=== PATIENT | female | born 1945 | race African-American/Black ===

== ENCOUNTER 2016-11-03 11:22 | Inpatient (IN) ==
--- NOTE | 2016-11-02 23:02 | History and Physical Update ---
Sedation H&P Update - History and Physical H&P was reviewed, the patient examined and there: are no changes in the patients condition since last H&P was completed. - Dictation Physical: refer to H&P completed by admitting physician - Physical Exam Mental Status: alert and oriented Heart: regular rate and rhythm Lung: clear to auscultation Abdomen: within normal limits Vitals: within normal limits - Sedation Plan for Sedation: minimal Patient Consent: Procedure disscussed with patient and patinet has consented., Risks and benefits were discussed with patient,including infection,, bleeding, injury to surrounding structures, seizure, temporary nerve, Patient understands and accepts potential risks/benefits and agrees to, proceed. ASA Class: III Airway Assessment: Class III: Soft palate, base of uvula visible
--- NOTE | 2016-11-02 23:05 | Cardiology History & Physical ---
Assessment and Plan - Time spent with patient Time spent with patient: Less than 30 minutes (1) Progressive angina Status: Acute Assessment and plan: The progressive angina, positive Lexiscan scan test and abnormal perfusion myocardial imaging suggest the patient had progression of CAD. I recommend she have a cath. She is on good medical therapy. She has failed medical therapy Plan/progress: 1 admit to outpatient services , [facility] possible angioplasty or stent. we will replete potassium for replete magnesium further decisions depending on results of tests. Hydrate well with normal saline. Left heart cath and possible PTCA or stent were discussed with the patient. The risk of the procedure include but are not limited to a small risk of injury to the vessel, abnormal heart rhythm, stroke, heart attack, need for emergent surgery, contrast reaction, restenosis, or . The patient voices understanding, agrees with the plan, and desires to proceed with the heart catheterization. (2) Abnormal myocardial perfusion study Status: Acute (3) Debility Status: Acute (4) Polymyositis Status: Acute (5) coronary artery bypass graft Status: Chronic (6) coronary artery disease Status: Chronic (7) hyperlipidemia Status: Chronic (8) hypertension Status: Chronic (9) hypothyroidism Status: Chronic (10) type 2 diabetes mellitus Status: Chronic (11) Abnormal white blood cell count Status: Acute (12) Elevated white blood cell count Status: Acute (13) Low blood potassium Status: Acute (14) Low magnesium level Status: Acute History of Present Illness Chief complaint: "i"veBeen hurting with cp more"[with an abnormal Lexiscan Cardiolite study History of present illness: Ms. Serra is a 71 year old female PCP: Dr. Cortes Ramos Property Maintenance Technician: Dr. whitney Patient is 71. She has had a history of prior bypass grafting. She has had more chest pain lately. She underwent stress testing with with Lexiscan and Cardiolite. With a stress Lexiscan she had chest pain and EKG changes. Cardiolite study suggests some inferior ischemia. Her LVEF was 40-50%. She is on good medical therapy. He recommended she undergo diagnostic catheterization and possible coronary intervention No orthopnea, PND, edema, palpitations, syncope, cough, wheezing, or phlegm. No bleeding in the pt's bowels, urine, or coughing up blood. No planned surgery for the next year. No contraindication to anticoagulation for a year. Home Medications Medication Instructions Recorded Confirmed Type Allopurinol [Zyloprim] 450 mg PO DAILY 02/01/15 08/10/16 History Amlodipine Besylate 5 mg PO DAILY 02/01/15 08/10/16 History Clopidogrel [Plavix] 75 mg PO DAILY 02/01/15 08/10/16 History Dicyclomine Cap/Tab [Bentyl 10 mg PO Q8HR 02/01/15 08/10/16 History Cap/Tab] Fluticasone/Salmeterol 250-50 1 puff INH BID 02/01/15 08/10/16 History [Advair 250-50] Furosemide Tab [Lasix Tab] 80 mg PO DAILY PRN 02/01/15 08/10/16 History Gabapentin 600 mg PO TID 02/01/15 08/10/16 History Isosorbide Dinitrate [Isordil] 40 mg PO TID 02/01/15 08/10/16 History Nitroglycerin Sl Tab [Nitrostat] 0.4 mg SL Q5M PRN MDD 3 02/01/15 08/10/16 History Simvastatin [Zocor] 10 mg PO BEDTIME 02/01/15 08/10/16 History Spironolactone [Aldactone] 25 mg PO DAILY 02/01/15 08/10/16 History Tramadol HCl [Tramadol Tab] 50 mg PO TID 02/01/15 08/10/16 History Valacyclovir HCl [Valacyclovir] 1,000 mg PO DAILY 07/24/15 08/10/16 History Insulin NPH Hum/Reg Insulin Hm 30 units SUBCUT BID 08/10/16 08/10/16 History [NovoLIN 70/30] Ranitidine Tab [Zantac Tab] 150 mg PO BID 08/10/16 08/10/16 History Levothyroxine Tab [Synthroid Tab] 175 mcg PO DAILY@0700 tablet 08/25/16 Rx Levothyroxine Tab [Synthroid Tab] 200 mcg PO DAILY@0700 tablet 08/25/16 Rx Metoprolol Tartrate Tab [Lopressor 50 mg PO BID tablet 08/25/16 Rx Tab] Valsartan [Diovan] 160 mg PO DAILY tablet 08/25/16 Rx Allergies Allergy/AdvReac Type Severity Reaction Status Date / Time benazepril [From Lotrel] Allergy Severe ANAPHYLAXIS Verified 05/04/16 17:37 sulfamethoxazole Allergy Severe RASH Verified 05/04/16 17:37 [From Bactrim] trimethoprim [From Bactrim] Allergy Severe RASH Verified 05/04/16 17:37 aspirin AdvReac Severe Nausea Verified 05/04/16 17:37 12 point system: reviewed and no additional remarkable complaints except as stated (A 12 point review of systems is negative except for as mentioned in HPI. ) Medical,Surgical,& Family Hx - Medical History Cardio: History of: CAD, Hypertension, Cardiovascular Problems (Coronary Artery Disease) No history of: CHF Neurology: History of: Neurological Problems (history of poliomyelitis) No history of: Peripheral Neuropathy, Seizures HEENT: History of: HEENT Problems (cataracts with removal, wears glasses) No history of: Glaucoma Endocrine: History of: Diabetes Mellitus (NIDDM), Dyslipidemia, Thyroid Disorder (thyroid removal) Rheumatology: History of;: Gout Respiratory: History of: Asthma (on advair), Bronchitis, Obstructive Sleep Apnea (has cpap machine but does not use) Renal: History of: Renal Failure (hypovolemia present) No history of: Renal Problems (acute kidney injury in July 2015) Genitourinary: History of: Bladder Problem (urgency), Kidney Stones Gastrointestinal: History of: GERD, Polyps, GI Problems (diarrhea at times.) No history of: Hemorrhoids, Hepatitis, Liver Problems Musculoskeletal: History of: Musculoskeletal Problems (arthritis in shoulders ( gets steroid shots-Dr. Mensah)) Hematology: No history of: Blood Transfusion Reaction Other: No history of: Anesthesia Reactions, Cancer - Surgical History Cardiac Surgeries: Sugical HX of: Cardiac Surgery (triple bypass 1995) Patient Denies: Cardiac Catheterization Thoracic Surgeries: Surgical HX of;: Lithotripsy (x 3) Neurologic Surgeries: Patient denies: Neurologic Surgery HEENT Surgeries: Surgical HX of: Eye Surgery (cataracts), Thyroid Surgery ( thyroidectomy), Tonsilectomy & Adenoidectomy Abdominal Surgeries: Surgical HX of: Abdominal Surgery (colon obstruction 36" of intestines removed), Appendectomy, Cholecystectomy, Colonoscopy, EGD Reproductive Surgeries: Surgical HX of;: Section (x 3), Hysterectomy Orthopedic Surgeries: Surgical HX of;: Orthopedic Surgery (leg surgery from polio as child) - Family History Family History: Reports;: Family Cancer (throat-brother), Family Diabetes (aunts ), Family Heart Disease (dad), Family Hypertension - Social History Smoking Status: Former smoker Have you smoked in the last 12 months: No Time spent discussing smoking cessation with patient: 3 to 10 minutes Frequency of Alcohol Use: Rarely Type of Drug Use: None Functional capacity: independent ambulation Cardiology Physical Exam - Constitutional Exam: HEENT: Pupils equal, reactive to light and accommodation Neck: NoJVD or bruit Lungs clear to auscultation Heart: Regular rhythm rate with normal S1 and S2. Apical S4, 2/6 systolic ejection murmur Abdomen: No hepatosplenomegaly Spine/extremities: No clubbing, cyanosis, ; 3+ chronic lower extremity edema Neuro: Nonfocal Psych: No depression or anxiety Femoral pulses are 3-4+. Deep. Foot pulses are 2-3+. Result/EKG - Labs Lab Results: I have reviewed the past 24 hour labs Labs: Labs from [facility] revealed elevated white count around 12-14,000 and slight left shift. She does not know of an infected site. Chemistry is remarkable for low potassium and low magnesium.
[~2016-11-03 11:22] MED LIST: DIAZEPAM 5 MG TABLET PO ONE; MAGNESIUM SULF RIDER 2 GM in PREMIX 1 EACH IV ONE; POTASSIUM CHLORIDE 20 MEQ PACK PO ONE; POTASSIUM CHLORIDE RIDER 10 MEQ in PREMIX 1 EACH IV PRN; POTASSIUM CHLORIDE RIDER 10 MEQ in PREMIX 2 EACH IV ONE; SODIUM CHLORIDE 0.9% 1,000 ML IV SCH; diphenhydrAMINE CAP 25 MG CAPSULE PO ONE
--- NOTE | 2016-11-03 12:25 | EKG Report ---
Stationary ECG Study [facility] Test Date: 11/03/2016 12:24:26 PM Pat Name: DARLIN TOMAS Department: Room: C008 Gender: F Plugman: : 1945 Requested by: Elies Thorne Order Number: [id number] Reading MD: ELISE THORNE Intervals [place] Rate: 73 P: 76 AL: 142 QRS: -3 QRSD: 93 T: -82 QT: 385 QTc: 410 Interpretive Statements SINUS RHYTHM Electronically Signed On 11-03-16 16:30:52 CDT by ELISE THORNE [email or web address]
[2016-11-03] MEDS ORDERED: DIAZEPAM 5 MG TABLET ONE (13:01)
[2016-11-03] MEDS ORDERED: diphenhydrAMINE CAP 25 MG CAPSULE ONE (13:02)
[2016-11-03 13:10] LABS: Basophils % 0.1 % (0.0-0.8); Eosinophils # 0.4 10*3/uL (0.0-0.87); Eosinophils % 4.3 % (0.00-10.9); Hematocrit 34.5 VOL% (35.7-47.0); Hemoglobin 11.1 GM/DL (12.0-16.0); Immature Granulocytes % 0.7 %; Immature Granulocytes Absolute 0.06 #; Lymphocytes # 1.7 10*3/uL (1.4-4.0); Lymphocytes % 19.8 % (21.3-54.2); Mean Corpuscular HGB Conc 32.2 GM/DL (32-36); Mean Corpuscular Hemoglobin 30 PG (27-34); Mean Corpuscular Volume 91.8 FL (87-102); Mean Platelet Volume 10.9 FL (9.6-12.0); Monocytes # 0.7 10*3/uL (0.11-0.8); Monocytes % 7.6 % (1.7-12.7); Neutrophils # 5.8 10*3/uL (1.4-7.4); Neutrophils % 67.5 % (38.7-73.9); Platelet Count 247 T/CUMM (130-400); Red Blood Count 3.76 MC/CUMM (3.8-5.5); Red Cell Distribution Width 13.6 % (9.3-17.3); White Blood Count 8.6 T/CUMM (4-12)
[2016-11-03 13:35] LABS: Calcium 9.3 MG/DL (8.5-10.1); Osmolality,Calculated 277.3 MOS/KG (273-304); Potassium 3.6 MMOL/L (3.5-5.1)
--- NOTE | 2016-11-03 14:32 | XRay Report ---
Portable chest Date: 11/03/2016 Clinical history: Chest pain Comparison: 08/12/2016 Technique: Portable AP sitting chest Findings: The heart is minimally enlarged with prior median sternotomy. More prominent pulmonary vasculature/right hilum. Progressive parenchymal findings are noted. Persistent localized eventration of the right hemidiaphragm. Degenerative changes are noted with cervical ribs and spina bifida occulta defect. Impression: Status post median sternotomy with findings consistent with mild CHF. Increased right hilar density which probably is related to more prominent vasculature but is difficult to exclude adenopathy, etc. Follow-up PA and lateral chest x-ray recommended. PROCEDURE INTERPRETED AT [facility] DEPARTMENT OF RADIOLOGY Final Report Signed by: Dr. Anny Vazquez
[2016-11-03] MEDS ORDERED: MIDAZOLAM 2 MG/2 ML VIAL ONE (14:38)
[2016-11-03] MEDS ORDERED: MEPERIDINE 25 MG/1 ML VIAL ONE (14:38)
[2016-11-03] MEDS ORDERED: LIDOCAINE 1% 20 ML VIAL ONE (14:45)
[2016-11-03] MEDS ORDERED: MAGNESIUM SULF RIDER 50 ML IV ONE (14:58)
[2016-11-03] MEDS ORDERED: HEPARIN 5,000 UNIT/1 ML VIAL ONE (15:04)
[2016-11-03] MEDS ORDERED: NIFEdipine 10 MG CAPSULE ONE (15:05)
[2016-11-03] MEDS ORDERED: HYDROmorphone 2 MG/1 ML VIAL ONE (15:09)
--- NOTE | 2016-11-03 15:45 | Operative Note ---
Date of procedure: 11/03/16 Procedure Preformed: Left heart cath Coronary angiography Left ventriculography Supravalvular aortography Vein graft injection-3 different vein grafts--all occluded Nonselective injection of the left internal mammary artery Angiogram of the right femoral artery Angio-Seal of the right femoral artery-successful Surgeon / Physician: Jerardo Thorne Sifting Operator: Al Anders Post-op diagnosis: same (Progressive angina, known coronary disease, history of remote bypass grafting, Lexiscan Cardiolite which suggested inferior ischemia) Findings: Impression: Significant distal left main[80%], circumflex, distal LAD, and right coronary disease Moderate disease in the midportion of the LAD Normal global/regional left ventricular systolic function, LVEF greater than 60% Mild to moderate elevation of LVEDP, 18-20 mmHg Vein graft to the LAD is occluded Vein graft to the right coronary is occluded Vein graft to the circumflex is occluded Nonselective injection of the left subclavian --does not demonstrate a MANUEL-may be either an anomaly/congenital or surgically removed Right femoral artery angiogram Angio-Seal right femoral artery Plan/recommendation: Based on the study, the patient's progressive angina is probably due to her recent occluded right coronary artery. However, she also significant distal left main, circumflex, and distal LAD disease. Given the distal left main disease, she is not a candidate for percutaneous coronary intervention. Thus, she would be for bypass grafting. I will refer her to Dr. Moctezuma. He likely will put in graft to the LAD, the distal circumflex, possibly ramus, and may be the right coronary. Meanwhile, for her tachycardia and hypertension, will adjust medications, try to use a stronger beta-andie. Her last dose of Plavix was 11/01, last Sunday, in the a.m. I suppose it is possible Dr. Moctezuma could operate as early as Sunday. I will defer to him that final decision. I will check her lipid profile and treat per guidelines. I will consult Dr. Ramos to follow and manage her diabetes and other general medical problems. Addenda: I saw the patient post-cath. the groin puncture site and distal pulse are stable. vital signs are stable and the patient will be observed closely overnight. Specimens: none sent Estimated blood loss: minimal Condition: stable Anesthesia: local, conscious sedation Disposition: floor
[2016-11-03] MEDS ORDERED: FUROSEMIDE 40 MG/4 ML VIAL ONE (15:56)
[2016-11-03] MEDS ORDERED: FUROSEMIDE 40 MG/4 ML VIAL IV ONE (15:56)
[2016-11-03] MEDS ORDERED: MAGNESIUM SULF RIDER 4 GM in PREMIX 1 EACH IV PRN (15:58)
[2016-11-03] MEDS ORDERED: GLUCAGON 1 MG VIAL IM PRN ×2 (15:58)
[2016-11-03] MEDS ORDERED: DEXTROSE 50% 25 GM/50 ML VIAL IV PRN ×2 (15:58)
[2016-11-03] MEDS ORDERED: ACETAMINOPHEN 325 MG TABLET PO PRN (15:58)
[2016-11-03] MEDS ORDERED: ZALEPLON 5 MG CAPSULE PO PRN (15:58)
[2016-11-03] MEDS ORDERED: LACTULOSE 20 GM/30 ML UDCUP PO PRN (15:58)
[2016-11-03] MEDS ORDERED: ALBUTEROL/IPRATROPIUM 3 ML NEB RESP TX ONE (16:03)
[2016-11-03] MEDS ORDERED: FUROSEMIDE 80 MG TABLET PO PRN (16:06)
[2016-11-03] MEDS ORDERED: NITROGLYCERIN SL 0.4 MG TABLET SL PRN (16:06)
[2016-11-03] MEDS: INSULIN REGULAR 100 UNIT/ML SUBCUT SCH ×2 (16:57→21:15)
[2016-11-03] MEDS: PANTOPRAZOLE 20 MG TABLET PO SCH (17:17)
[2016-11-03] MEDS: BISOPROLOL 5 MG TABLET PO SCH ×2 (17:17→21:12)
--- NOTE | 2016-11-03 17:21 | Cardiology Operative Report ---
Date of Procedure:: 11/03/16 Post-op diagnosis: same (Progressive angina, known coronary disease, history of remote bypass grafting, Lexiscan Cardiolite which suggested inferior ischemia) Procedure: Date of procedure: 11/03/16 Procedure Preformed: Left heart cath Coronary angiography Left ventriculography Supravalvular aortography Vein graft injection-3 different vein grafts--all occluded Nonselective injection of the left internal mammary artery Angiogram of the right femoral artery Angio-Seal of the right femoral artery-successful Surgeon / Physician: Jerardo Thorne Venture Capital Analyst: Al Anders Post-op diagnosis: same (Progressive angina, known coronary disease, history of remote bypass grafting, Lexiscan Cardiolite which suggested inferior ischemia) procedure: The patient was prepped and draped in usual manner. Entered the right femoral artery via the Seldinger technique. I used a sheath and she I then exchanged for an angled pigtail. I crossed the valve. Left ventricular end-diastolic pressures measured. Left ventriculography was done. Left ventricle pullback was done. I then did a supravalvar aortography. I then exchanged for a JL4 and engaged left coronary. Multiple views were taken. The JL4 did not fit optimally because the left main was slightly out of plane. I then exchanged for a JR4. Multiple views of the right coronary were taken. I then used a JR4 to engage and inject the nubs of the vein graft to the LAD, the circumflex, the right coronary artery. They were all closed. The catheters were then removed from the patient. Angiogram the right femoral artery was done. Angio- Seal was done. It was successful. Please see the cath data sheets for the details of catheters used. Complications: None Hemodynamic data: LVEDP was 18-20 mmHg. Angiographic data: The left main coronary was large and had a distal 80% narrowing. The left anterior descending artery was a large vessel. It had a diagonal and a few septal perforators. The mid vessel had a 50% narrowing. At the junction of mid and distal vessel there was a tenting of the vessel due to wear of the grafted coming to this vessel. It was somewhat narrowed, probably greater than 70%. Otherwise, there are minimal luminal irregularities. The left circumflex system was moderate to large mid vessel had a 90% narrowing then another 90% narrowing. Otherwise there are minimal luminal irregularities in the circumflex The right coronary artery was large in size, dominant vessel with the PDA. It was occluded in its mid extent. There were [id number] collaterals. There was slow flow antegrade through the vessel. Otherwise there were minimal luminal irregularities. ROA left ventriculography revealed normal global/regional left ventricular systolic function. Overall ejection fraction was at least 65%. There is no significant mitral regurgitation. supravalvar aortography revealed a mildly ectatic aortic root. There is no significant aortic regurgitation. No vein graft was noted to emanate from the aorta. Angiogram of the right femoral artery revealed the puncture site to be in a large vessel, above the bifurcation. It was suitable for Angio-Seal. Impression: Significant distal left main[80%], circumflex, distal LAD, and right coronary disease Moderate disease in the midportion of the LAD Normal global/regional left ventricular systolic function, LVEF greater than 60% Mild to moderate elevation of LVEDP, 18-20 mmHg Vein graft to the LAD is occluded Vein graft to the right coronary is occluded Vein graft to the circumflex is occluded Nonselective injection of the left subclavian --does not demonstrate a MANUEL-may be either an anomaly/congenital or surgically removed Right femoral artery angiogram Angio-Seal right femoral artery Plan/recommendation: Based on the study, the patient's progressive angina is probably due to her recent occluded right coronary artery. However, she also significant distal left main, circumflex, and distal LAD disease. Given the distal left main disease, she is not a candidate for percutaneous coronary intervention. Thus, she would be for bypass grafting. I will refer her to Dr. Moctezuma. He likely will put in graft to the LAD, the distal circumflex, possibly ramus, and may be the right coronary. Meanwhile, for her tachycardia and hypertension, will adjust medications, try to use a stronger beta-andie. Her last dose of Plavix was 11/01, last Sunday, in the a.m. I suppose it is possible Dr. Moctezuma could operate as early as Sunday. I will defer to him that final decision. I will check her lipid profile and treat per guidelines. I will consult Dr. Ramos to follow and manage her diabetes and other general medical problems. Addenda: I saw the patient post-cath. the groin puncture site and distal pulse are stable. vital signs are stable and the patient will be observed closely overnight. Specimens: none sent Estimated blood loss: minimal Condition: stable Anesthesia: local, conscious sedation Disposition: floor Additional CC's: Jerardo Ramos Surgeon / Physician: Jerardo Thorne Estimated blood loss: minimal Specimens: none sent Condition: stable
[2016-11-03 18:14] LABS: Risk Ratio 1.71; VLDL CHOLESTEROL 14.2 MG/DL
[2016-11-03] MEDS: ALBUTEROL/IPRATROPIUM 3 ML NEB RESP TX SCH (19:50)
[2016-11-03] MEDS ORDERED: SIMVASTATIN 10 MG TABLET PO SCH (21:00)
[2016-11-03] MEDS ORDERED: RANITIDINE 150 MG TABLET PO SCH (21:00)
[2016-11-03] MEDS: POTASSIUM CHLORIDE 20 MEQ TABLET PO SCH (21:10)
[2016-11-03] MEDS: MAGNESIUM CHLORIDE 64 MG TABLET PO SCH (21:10)
[2016-11-03] MEDS: GABAPENTIN 600 MG TABLET PO SCH (21:11)
[2016-11-03] MEDS: ROSUVASTATIN 10 MG TABLET PO SCH (21:12)
[2016-11-03] MEDS: DICYCLOMINE 10 MG CAPSULE PO SCH (21:12)
[2016-11-03] MEDS: ISOSORBIDE DINITRATE SR 40 MG TABLET PO SCH (21:12)
[2016-11-03] MEDS: traMADol 50 MG TABLET PO SCH (21:12)
[2016-11-03] MEDS: INSULIN NPH/REGULAR 70/30 100 UNIT/ML SUBCUT SCH (21:15)
[2016-11-03] MEDS: FLUTICASONE/SALMETEROL 250-50 DISKUS 14 DOSE INH SCH (21:16)
[2016-11-04] MEDS: ALBUTEROL/IPRATROPIUM 3 ML NEB RESP TX SCH ×6 (00:16→20:20)
[2016-11-04 04:23] LABS: Basophils % 0.1 % (0.0-0.8); Eosinophils # 0.3 10*3/uL (0.0-0.87); Eosinophils % 3.5 % (0.00-10.9); Hematocrit 33.6 VOL% (35.7-47.0); Hemoglobin 10.8 GM/DL (12.0-16.0); Immature Granulocytes % 0.5 %; Immature Granulocytes Absolute 0.04 #; Lymphocytes # 1.3 10*3/uL (1.4-4.0); Lymphocytes % 16.3 % (21.3-54.2); Mean Corpuscular HGB Conc 32.1 GM/DL (32-36); Mean Corpuscular Hemoglobin 29 PG (27-34); Mean Corpuscular Volume 91.1 FL (87-102); Monocytes # 0.7 10*3/uL (0.11-0.8); Monocytes % 8.8 % (1.7-12.7); Neutrophils # 5.7 10*3/uL (1.4-7.4); Neutrophils % 70.8 % (38.7-73.9); Platelet Count 247 T/CUMM (130-400); Red Blood Count 3.69 MC/CUMM (3.8-5.5); Red Cell Distribution Width 13.8 % (9.3-17.3); White Blood Count 8.1 T/CUMM (4-12)
[2016-11-04 04:49] LABS: Alanine Aminotransferase < 6 U/L (13-56); Albumin 2.8 G/DL (3.4-5.0); Alkaline Phosphatase 90 U/L (45-117); Aspartate Amino Transferase 15 U/L (0-37); Blood Urea Nitrogen 11 MG/DL (7-18); Calcium 8.3 MG/DL (8.5-10.1); Glucose 46 MG/DL (74-106); Osmolality,Calculated 281.8 MOS/KG (273-304); Potassium 3.5 MMOL/L (3.5-5.1); Sodium 144 MMOL/L (136-145); Total Protein 6.6 G/DL (6.4-8.3)
[2016-11-04] MEDS: DICYCLOMINE 10 MG CAPSULE PO SCH ×3 (06:20→21:21)
[2016-11-04] MEDS: LEVOTHYROXINE 200 MCG TABLET PO SCH (06:20)
[2016-11-04] MEDS: LEVOTHYROXINE 100 MCG TABLET PO SCH (06:20)
[2016-11-04] MEDS: INSULIN NPH/REGULAR 70/30 100 UNIT/ML SUBCUT SCH ×2 (07:30→21:23)
--- NOTE | 2016-11-04 08:07 | EKG Report ---
Stationary ECG Study [facility] Test Date: 11/04/2016 8:06:48 AM Pat Name: DARLIN TOMAS Department: Room: 286 Gender: F Seismometer Operator: NADEEM : 1945 Requested by: Jerardo Thorne Order Number: [id number] Reading MD: SHAWNA MENDOZA Intervals [place] Rate: 55 P: 87 AR: 141 QRS: 16 QRSD: 98 T: -6 QT: 408 QTc: 396 Interpretive Statements SINUS RHYTHM Electronically Signed On 11-06-16 12:32:59 CDT by SHAWNA MENDOZA [id number]
[2016-11-04] MEDS: INSULIN REGULAR 100 UNIT/ML SUBCUT SCH ×4 (08:12→21:24)
[2016-11-04] MEDS ORDERED: ASPIRIN EC 81 MG TABLET PO SCH (09:00)
--- NOTE | 2016-11-04 09:15 | Cardiothoracic Progress Note ---
Cardiothoracic Subjective Interval history: Patient is a 71-year-old lady who had bypass surgery 21 years ago. She had three-vessel bypass with vein graft to the anterior descending coronary artery and circumflex marginal and right posterior descending coronary vessels. The circumflex and the posterior descending coronary vessels were both noted to be moderately diseased at the site of anastomosis. Her vein grafts have since closed and she is developing increasing symptoms of ischemic cardiac pain. Cardiac catheterization yesterday shows that the right coronary artery is totally occluded and I am not sure that there is a distal target in its distribution. There is a left main stenosis which is moderate to severe jeopardizing the intermediate and the anterior descending coronary vessels which are the only 2 definite targets which I see. An additional problem is the limitation of suitable graft material as the patient has a paralyzed left leg and the saphenous vein may be small in this leg. Saphenous vein from the right leg has been removed. Left internal mammary artery was unsuitable for anastomosis but the right internal mammary may be usable. Overall she presents a daunting surgical challenge. This translates to a relatively significant operative risk for the patient. I have done my best to explain this in detail and the patient wishes to discuss it further with her family and to reflect upon her options. I will visit her again in the morning. Exam (Progress Note) - Constitutional Vitals: Period Temp Pulse Resp BP Sys/Allen Pulse Ox Last 24 Hr 96.2 F-98.4 F 52-102 16-22 125-186/61-109 86-100 Result/EKG - Labs CBC & BMP: 11/04/16 03:29 11/04/16 03:29 Labs: Laboratory Results - last 24 hr 11/03/16 11/03/16 11/03/16 12:50 12:50 16:40 WBC 8.6 RBC 3.76 L Hgb 11.1 L Hct 34.5 L MCV 91.8 MCH 30 MCHC 32.2 RDW 13.6 Plt Count 247 MPV 10.9 Neut % (Auto) 67.5 Lymph % (Auto) 19.8 L Schuyler % (Auto) 7.6 Eos % (Auto) 4.3 Baso % (Auto) 0.1 Neut # (Auto) 5.8 Lymph # (Auto) 1.7 Schuyler # (Auto) 0.7 Eos # (Auto) 0.4 Baso # (Auto) 0.0 Immature Gran % 0.7 Nucleated RBC % 0.0 Immature Gran # 0.06 Nucleated RBCs # 0.00 Sodium 141 Potassium 3.6 Chloride 109 H Carbon Dioxide 24 Anion Gap 11.6 BUN 10 Creatinine 0.50 L GFR Calculation 143 BUN/Creatinine Ratio 20.00 Glucose 70 L POC Glucose 97 Calculated Osmolality 277.3 Calcium 9.3 Magnesium Total Bilirubin AST ALT Alkaline Phosphatase Total Creatine Kinase CK-MB (CK-2) Total Protein Albumin Globulin Albumin/Globulin Ratio Triglycerides Cholesterol LDL Cholesterol VLDL Cholesterol HDL Cholesterol Heart Disease Risk Ratio 11/03/16 11/03/16 11/03/16 19:30 Unknown Unknown WBC RBC Hgb Hct MCV MCH MCHC RDW Plt Count MPV Neut % (Auto) Lymph % (Auto) Schuyler % (Auto) Eos % (Auto) Baso % (Auto) Neut # (Auto) Lymph # (Auto) Schuyler # (Auto) Eos # (Auto) Baso # (Auto) Immature Gran % Nucleated RBC % Immature Gran # Nucleated RBCs # Sodium Potassium Chloride Carbon Dioxide Anion Gap BUN Creatinine GFR Calculation BUN/Creatinine Ratio Glucose POC Glucose 152 H Calculated Osmolality Calcium Magnesium Total Bilirubin AST ALT Alkaline Phosphatase Total Creatine Kinase 134 CK-MB (CK-2) < 1.0 Total Protein Albumin Globulin Albumin/Globulin Ratio Triglycerides 71 Cholesterol 154 LDL Cholesterol 67.0 VLDL Cholesterol 14.2 HDL Cholesterol 90 H Heart Disease Risk Ratio 1.71 11/04/16 11/04/16 11/04/16 03:29 03:29 07:27 WBC 8.1 RBC 3.69 L Hgb 10.8 L Hct 33.6 L MCV 91.1 MCH 29 MCHC 32.1 RDW 13.8 Plt Count 247 MPV 11.0 Neut % (Auto) 70.8 Lymph % (Auto) 16.3 L Schuyler % (Auto) 8.8 Eos % (Auto) 3.5 Baso % (Auto) 0.1 Neut # (Auto) 5.7 Lymph # (Auto) 1.3 L Schuyler # (Auto) 0.7 Eos # (Auto) 0.3 Baso # (Auto) 0.0 Immature Gran % 0.5 Nucleated RBC % 0.0 Immature Gran # 0.04 Nucleated RBCs # 0.00 Sodium 144 Potassium 3.5 Chloride 106 Carbon Dioxide 31 Anion Gap 10.5 BUN 11 Creatinine 0.40 L GFR Calculation 154 BUN/Creatinine Ratio 27.00 H Glucose 46 L POC Glucose 86 Calculated Osmolality 281.8 Calcium 8.3 L Magnesium 2.0 Total Bilirubin 0.50 AST 15 ALT < 6 L Alkaline Phosphatase 90 Total Creatine Kinase CK-MB (CK-2) Total Protein 6.6 Albumin 2.8 L Globulin 3.8 H Albumin/Globulin Ratio 0.7 L Triglycerides Cholesterol LDL Cholesterol VLDL Cholesterol HDL Cholesterol Heart Disease Risk Ratio Quality Measures - VTE Contraindication to Pharmacological VTE Prophylaxis: High Risk of Bleeding Specialty Discharge - Follow Up or Referrals Follow up with: Jerardo Thorne MD [Physician] - 11/28/16 12:50 pm
--- NOTE | 2016-11-04 09:27 | Consultation ---
Assessment and Plan (1) Abnormal myocardial perfusion study Status: Acute Assessment and plan: 11/04/2016: We will monitor along with cardiology. Cardiovascular surgery to see Current Visit: Yes (2) coronary artery disease Status: Chronic Assessment and plan: 11/02/2016: Stable no chest pain at present but she does have significant disease as noted per cath procedure Current Visit: No History of Present Illness - Consult Narrative Reason for consult: Worsening chest pain History of present illness: Ms. Serra is a 71 year old female Patient came in to the hospital yesterday, a primary patient of Dr. RAMOS. Has known history of cardiac disease and had a previous CABG. Was seen recently by gore seamer Dr. Thorne who did a Lexiscan stress test on her and a Cardiolite study which suggested worsening inferior ischemia. She did have a left ventricular ejection fraction at the time of 40-50% and a diagnostic catheterization procedure was done on her. She does have progression of coronary artery disease. The cath revealed significant distal left main (80%), circumflex, LAD and right coronary artery disease. Several of previous vein grafts that were done when she had a coronary artery bypass back in 1995 were occluded as noted in the cath report. It is felt she may be candidate for redo CABG. She is scheduled to be seen by cardiovascular surgery today. At this time is alert and oriented answers all questions appropriately is stable hemodynamically and not having any abdominal pain or leg swelling. She is not having any chest pain at this time, and rEST. We will monitor closely along with cardiology and cardiovascular services. Appreciate consult and she will be seen by Dr. Ramos when he returns. CC: Jerardo hTorne MD - Home Medications and Allergies Home Medications: Home Medications Medication Instructions Recorded Confirmed Type Allopurinol [Zyloprim] 450 mg PO DAILY 02/01/15 11/03/16 History Amlodipine Besylate 5 mg PO DAILY 02/01/15 11/03/16 History Clopidogrel [Plavix] 75 mg PO DAILY 02/01/15 11/03/16 History Dicyclomine Cap/Tab [Bentyl 10 mg PO Q8HR 02/01/15 11/03/16 History Cap/Tab] Fluticasone/Salmeterol 250-50 1 puff INH BID 02/01/15 11/03/16 History [Advair 250-50] Furosemide Tab [Lasix Tab] 80 mg PO DAILY PRN 02/01/15 11/03/16 History Gabapentin 600 mg PO TID 02/01/15 11/03/16 History Isosorbide Dinitrate [Isordil] 40 mg PO TID 02/01/15 11/03/16 History Nitroglycerin Sl Tab [Nitrostat] 0.4 mg SL Q5M PRN MDD 3 02/01/15 11/03/16 History Simvastatin [Zocor] 10 mg PO BEDTIME 02/01/15 11/03/16 History Spironolactone [Aldactone] 25 mg PO DAILY 02/01/15 11/03/16 History Tramadol HCl [Tramadol Tab] 50 mg PO TID 02/01/15 11/03/16 History Valacyclovir HCl [Valacyclovir] 1,000 mg PO DAILY 07/24/15 11/03/16 History Insulin NPH Hum/Reg Insulin Hm 35 units SUBCUT BID 08/10/16 11/03/16 History [NovoLIN 70/30] Ranitidine Tab [Zantac Tab] 150 mg PO BID 08/10/16 11/03/16 History Levothyroxine Tab [Synthroid Tab] 200 mcg PO DAILY@0700 tablet 08/25/16 Rx Metoprolol Tartrate Tab [Lopressor 50 mg PO BID tablet 08/25/16 11/03/16 Rx Tab] Valsartan [Diovan] 160 mg PO DAILY tablet 08/25/16 11/03/16 Rx Aspirin EC Tab 81 mg PO DAILY 11/03/16 11/03/16 History Levothyroxine Tab [Synthroid Tab] 100 mcg PO DAILY@0700 11/03/16 11/03/16 History Magnesium Chloride [Slow Mag] 128 mg PO BID 11/03/16 11/03/16 History Potassium Chloride 20 meq PO BID 11/03/16 11/03/16 History Allergies/Adverse Reactions: Allergies Allergy/AdvReac Type Severity Reaction Status Date / Time benazepril [From Lotrel] Allergy Severe ANAPHYLAXIS Verified 11/03/16 11:49 sulfamethoxazole Allergy Severe RASH Verified 11/03/16 11:49 [From Bactrim] trimethoprim [From Bactrim] Allergy Severe RASH Verified 11/03/16 11:49 aspirin AdvReac Severe Nausea Verified 11/03/16 11:49 12 point system: reviewed and no additional remarkable complaints except as stated (That mentioned the in the history and physical) Medical,Surgical,& Family Hx - Medical History Cardio: History of: CAD, Hypertension, Cardiovascular Problems (Coronary Artery Disease) No history of: CHF Neurology: History of: Neurological Problems (history of poliomyelitis) No history of: Peripheral Neuropathy, Seizures HEENT: History of: HEENT Problems (cataracts with removal, wears glasses) No history of: Glaucoma Endocrine: History of: Diabetes Mellitus (NIDDM), Dyslipidemia, Thyroid Disorder (thyroid removal) Rheumatology: History of;: Gout Respiratory: History of: Asthma (on advair), Bronchitis, Obstructive Sleep Apnea (has cpap machine but does not use) Renal: History of: Renal Failure (hypovolemia present) No history of: Renal Problems (acute kidney injury in July 2015) Genitourinary: History of: Bladder Problem (urgency), Kidney Stones Gastrointestinal: History of: GERD, Polyps, GI Problems (diarrhea at times.) No history of: Hemorrhoids, Hepatitis, Liver Problems Musculoskeletal: History of: Musculoskeletal Problems (arthritis in shoulders ( gets steroid shots-Dr. Mensah)) Hematology: No history of: Blood Transfusion Reaction Other: No history of: Anesthesia Reactions, Cancer - Surgical History Cardiac Surgeries: Sugical HX of: Cardiac Surgery (triple bypass 1995) Patient Denies: Cardiac Catheterization Thoracic Surgeries: Surgical HX of;: Lithotripsy (x 3) Neurologic Surgeries: Patient denies: Neurologic Surgery HEENT Surgeries: Surgical HX of: Eye Surgery (cataracts), Thyroid Surgery ( thyroidectomy), Tonsilectomy & Adenoidectomy Abdominal Surgeries: Surgical HX of: Abdominal Surgery (colon obstruction 36" of intestines removed), Appendectomy, Cholecystectomy, Colonoscopy, EGD Reproductive Surgeries: Surgical HX of;: Section (x 3), Hysterectomy Orthopedic Surgeries: Surgical HX of;: Orthopedic Surgery (leg surgery from polio as child) - Family History Family History: Reports;: Family Cancer (throat-brother), Family Diabetes (aunts ), Family Heart Disease (dad), Family Hypertension - Social History Smoking Status: Former smoker Frequency of Alcohol Use: Rarely Type of Drug Use: None Exam - Constitutional Vitals: Period Temp Pulse Resp BP Sys/Allen Pulse Ox Last 24 Hr 96.2 F-98.4 F 52-102 16-22 125-186/61-109 86-100 Exam: Generally well-developed female she is alert and oriented very cognitive answers all questions appropriately and psychologically emotionally stable. HEENT pupils equal epiglottis trunk movements are intact neck is supple trachea midline Cardiovascular there is 1/6 systolic ejection murmur no gallop or rub Lungs are generally clear except for a few rales Abdomen soft nondistended Extremities no clubbing cyanosis or edema present. Positive radial pulses bilateral upper extremity Results - Labs CBC & BMP: 11/04/16 03:29 11/04/16 03:29 Quality Measures - VTE Contraindication to Pharmacological VTE Prophylaxis: High Risk of Bleeding Specialty Discharge - Follow Up or Referrals Follow up with: Jerardo Thorne MD [Physician] - 11/28/16 12:50 pm
[2016-11-04] MEDS: POTASSIUM CHLORIDE 20 MEQ TABLET PO SCH ×2 (09:32→21:21)
[2016-11-04] MEDS: ALLOPURINOL 300 MG TABLET PO SCH (09:33)
[2016-11-04] MEDS: GABAPENTIN 600 MG TABLET PO SCH ×3 (09:33→21:21)
[2016-11-04] MEDS: MAGNESIUM CHLORIDE 64 MG TABLET PO SCH ×2 (09:33→21:21)
[2016-11-04] MEDS: VALSARTAN 160 MG TABLET PO SCH (09:34)
[2016-11-04] MEDS: traMADol 50 MG TABLET PO SCH ×3 (09:34→21:21)
[2016-11-04] MEDS: SPIRONOLACTONE 25 MG TABLET PO SCH (09:36)
[2016-11-04] MEDS: PANTOPRAZOLE 20 MG TABLET PO SCH (09:38)
[2016-11-04] MEDS: valACYclovir 500 MG TABLET PO SCH (09:38)
[2016-11-04] MEDS: ASPIRIN CHEW 81 MG TABLET PO SCH (09:39)
[2016-11-04] MEDS: ISOSORBIDE DINITRATE SR 40 MG TABLET PO SCH ×3 (09:39→21:21)
[2016-11-04] MEDS: FLUTICASONE/SALMETEROL 250-50 DISKUS 14 DOSE INH SCH ×2 (09:40→21:24)
[2016-11-04] MEDS: amLODIPine 5 MG TABLET PO SCH (09:40)
[2016-11-04] MEDS: BISOPROLOL 5 MG TABLET PO SCH ×2 (09:40→21:21)
[2016-11-04] MEDS: ENOXAPARIN 40 MG/0.4 ML SYRINGE SUBCUT SCH (09:46)
[2016-11-04] MEDS: FUROSEMIDE 20 MG/2 ML VIAL IV SCH ×2 (09:49→17:07)
--- NOTE | 2016-11-04 10:00 | Cardiology Progress Note ---
Assessment and Plan (1) coronary artery disease Status: Chronic Assessment and plan: 1. 71-year-old severely overweight BF with multiple medical problems including PAD with remote amputation lower extremity, status post remote CABG about 17 years ago, now with accelerated angina and three-vessel disease with close grafts 2. She is without be stable and is longer having angina 3. Right groin access site is without bleeding or bruit or tenderness 4. She is on good cardiac medications 5. CABG plan for next week Current Visit: No (2) hypertension Status: Chronic Current Visit: No (3) Progressive angina Status: Acute Current Visit: Yes Cardiology - PN: Subj Interval history: Mrs. Thornton reports feeling better she is no longer having chest pain much she was yesterday. She has no complaint in her right groin access site. Her breathing is fine but she has been in bed. She has chronic lower extremity edema with a dependent component. Dr. Moctezuma to see her this morning to plan for surgery. Exam (Progress Note) - Constitutional Vitals: Period Temp Pulse Resp BP Sys/Allen Pulse Ox Last 24 Hr 96.2 F-98.4 F 52-102 16-22 125-186/61-109 86-100 General appearance: no acute distress, morbidly obese - Head Head exam: Present: normal inspection, normocephalic, atraumatic - Respiratory Respiratory exam: Present: rales. Absent: wheezes - Cardiovascular Cardiovascular exam: Present: regular rate and rhythm. Absent: diastolic murmur , rubs - GI/Abdominal GI/Abdominal exam: Present: soft. Absent: tenderness - Extremities Exam Extremities exam: Present: edema (1+) Result/EKG - Labs CBC & BMP: 11/04/16 03:29 11/04/16 03:29 Labs: Laboratory Results - last 24 hr 11/03/16 11/03/16 11/03/16 12:50 12:50 16:40 WBC 8.6 RBC 3.76 L Hgb 11.1 L Hct 34.5 L MCV 91.8 MCH 30 MCHC 32.2 RDW 13.6 Plt Count 247 MPV 10.9 Neut % (Auto) 67.5 Lymph % (Auto) 19.8 L Giles % (Auto) 7.6 Eos % (Auto) 4.3 Baso % (Auto) 0.1 Neut # (Auto) 5.8 Lymph # (Auto) 1.7 Giles # (Auto) 0.7 Eos # (Auto) 0.4 Baso # (Auto) 0.0 Immature Gran % 0.7 Nucleated RBC % 0.0 Immature Gran # 0.06 Nucleated RBCs # 0.00 Sodium 141 Potassium 3.6 Chloride 109 H Carbon Dioxide 24 Anion Gap 11.6 BUN 10 Creatinine 0.50 L GFR Calculation 143 BUN/Creatinine Ratio 20.00 Glucose 70 L POC Glucose 97 Calculated Osmolality 277.3 Calcium 9.3 Magnesium Total Bilirubin AST ALT Alkaline Phosphatase Total Creatine Kinase CK-MB (CK-2) Total Protein Albumin Globulin Albumin/Globulin Ratio Triglycerides Cholesterol LDL Cholesterol VLDL Cholesterol HDL Cholesterol Heart Disease Risk Ratio 11/03/16 11/03/16 11/03/16 19:30 Unknown Unknown WBC RBC Hgb Hct MCV MCH MCHC RDW Plt Count MPV Neut % (Auto) Lymph % (Auto) Giles % (Auto) Eos % (Auto) Baso % (Auto) Neut # (Auto) Lymph # (Auto) Giles # (Auto) Eos # (Auto) Baso # (Auto) Immature Gran % Nucleated RBC % Immature Gran # Nucleated RBCs # Sodium Potassium Chloride Carbon Dioxide Anion Gap BUN Creatinine GFR Calculation BUN/Creatinine Ratio Glucose POC Glucose 152 H Calculated Osmolality Calcium Magnesium Total Bilirubin AST ALT Alkaline Phosphatase Total Creatine Kinase 134 CK-MB (CK-2) < 1.0 Total Protein Albumin Globulin Albumin/Globulin Ratio Triglycerides 71 Cholesterol 154 LDL Cholesterol 67.0 VLDL Cholesterol 14.2 HDL Cholesterol 90 H Heart Disease Risk Ratio 1.71 11/04/16 11/04/16 11/04/16 03:29 03:29 07:27 WBC 8.1 RBC 3.69 L Hgb 10.8 L Hct 33.6 L MCV 91.1 MCH 29 MCHC 32.1 RDW 13.8 Plt Count 247 MPV 11.0 Neut % (Auto) 70.8 Lymph % (Auto) 16.3 L Giles % (Auto) 8.8 Eos % (Auto) 3.5 Baso % (Auto) 0.1 Neut # (Auto) 5.7 Lymph # (Auto) 1.3 L Giles # (Auto) 0.7 Eos # (Auto) 0.3 Baso # (Auto) 0.0 Immature Gran % 0.5 Nucleated RBC % 0.0 Immature Gran # 0.04 Nucleated RBCs # 0.00 Sodium 144 Potassium 3.5 Chloride 106 Carbon Dioxide 31 Anion Gap 10.5 BUN 11 Creatinine 0.40 L GFR Calculation 154 BUN/Creatinine Ratio 27.00 H Glucose 46 L POC Glucose 86 Calculated Osmolality 281.8 Calcium 8.3 L Magnesium 2.0 Total Bilirubin 0.50 AST 15 ALT < 6 L Alkaline Phosphatase 90 Total Creatine Kinase CK-MB (CK-2) Total Protein 6.6 Albumin 2.8 L Globulin 3.8 H Albumin/Globulin Ratio 0.7 L Triglycerides Cholesterol LDL Cholesterol VLDL Cholesterol HDL Cholesterol Heart Disease Risk Ratio Quality Measures - VTE Contraindication to Pharmacological VTE Prophylaxis: High Risk of Bleeding Specialty Discharge - Follow Up or Referrals Follow up with: Jerardo Thorne MD [Physician] - 11/28/16 12:50 pm
[2016-11-04] MEDS: ROSUVASTATIN 10 MG TABLET PO SCH (21:21)
[2016-11-05] MEDS: ALBUTEROL/IPRATROPIUM 3 ML NEB RESP TX SCH ×5 (01:17→21:01)
[2016-11-05] MEDS: LEVOTHYROXINE 200 MCG TABLET PO SCH (06:07)
[2016-11-05] MEDS: DICYCLOMINE 10 MG CAPSULE PO SCH ×3 (06:07→21:10)
[2016-11-05] MEDS: LEVOTHYROXINE 100 MCG TABLET PO SCH (06:07)
--- NOTE | 2016-11-05 08:24 | Cardiothoracic Progress Note ---
Cardiothoracic Subjective Interval history: Patient is decided to proceed with surgery. Probably will be either or Sunday of this coming week. I have explained this to the patient and I think that she does need to remain in the hospital until surgery. She is agreeable. Exam (Progress Note) - Constitutional Vitals: Period Temp Pulse Resp BP Sys/Allen Pulse Ox Last 24 Hr 96.7 F-97.6 F 55-92 16-20 117-157/55-70 96-99 Result/EKG - Labs CBC & BMP: 11/04/16 03:29 11/04/16 03:29 Labs: Laboratory Results - last 24 hr 11/04/16 11/04/16 11/04/16 03:26 11:48 15:33 POC Glucose 146 H 245 H TSH 3rd Generation < 0.005 L 11/04/16 20:36 POC Glucose 183 H TSH 3rd Generation Quality Measures - VTE Contraindication to Pharmacological VTE Prophylaxis: High Risk of Bleeding Specialty Discharge - Follow Up or Referrals Follow up with: Jerardo Thorne MD [Physician] - 11/28/16 12:50 pm
[2016-11-05] MEDS: INSULIN REGULAR 100 UNIT/ML SUBCUT SCH ×4 (08:38→21:15)
[2016-11-05] MEDS: POTASSIUM CHLORIDE 20 MEQ TABLET PO SCH ×2 (08:39→21:09)
[2016-11-05] MEDS: MAGNESIUM CHLORIDE 64 MG TABLET PO SCH ×2 (08:39→21:09)
[2016-11-05] MEDS: valACYclovir 500 MG TABLET PO SCH (08:40)
[2016-11-05] MEDS: PANTOPRAZOLE 20 MG TABLET PO SCH (08:40)
[2016-11-05] MEDS: VALSARTAN 160 MG TABLET PO SCH (08:40)
[2016-11-05] MEDS: amLODIPine 5 MG TABLET PO SCH (08:40)
[2016-11-05] MEDS: SPIRONOLACTONE 25 MG TABLET PO SCH (08:40)
[2016-11-05] MEDS: ASPIRIN CHEW 81 MG TABLET PO SCH (08:40)
[2016-11-05] MEDS: GABAPENTIN 600 MG TABLET PO SCH ×3 (08:40→21:09)
[2016-11-05] MEDS: ALLOPURINOL 300 MG TABLET PO SCH (08:40)
[2016-11-05] MEDS: FUROSEMIDE 20 MG/2 ML VIAL IV SCH ×2 (08:41→15:08)
[2016-11-05] MEDS: traMADol 50 MG TABLET PO SCH ×3 (08:41→21:09)
[2016-11-05] MEDS: ISOSORBIDE DINITRATE SR 40 MG TABLET PO SCH ×3 (08:41→21:09)
[2016-11-05] MEDS: BISOPROLOL 5 MG TABLET PO SCH ×2 (08:41→21:09)
[2016-11-05] MEDS: ENOXAPARIN 40 MG/0.4 ML SYRINGE SUBCUT SCH (08:41)
[2016-11-05] MEDS: FLUTICASONE/SALMETEROL 250-50 DISKUS 14 DOSE INH SCH ×2 (08:41→21:32)
--- NOTE | 2016-11-05 08:46 | Cardiology Progress Note ---
Assessment and Plan (1) coronary artery disease Status: Chronic Assessment and plan: 1. 71-year-old severely overweight BF with multiple medical problems including PAD, status post remote CABG about 17 years ago, now with accelerated angina and three-vessel disease with close grafts 2. She is without be stable and is longer having angina 3. Right groin access site is without bleeding or bruit or tenderness 4. She is on good cardiac medications 5. CABG plan for next week November 05 update: 1. She is doing well clinically with no angina, ischemic event he stable 2. TSH is extremely low, on levothyroxine. On 300 g per day; discontinue this for now 3. Awaiting CABG next week 4. Status post catheterization per Dr. Thorne Current Visit: No (2) hypertension Status: Chronic Current Visit: No (3) Progressive angina Status: Acute Current Visit: Yes Cardiology - PN: Subj Interval history: Mrs. Thornton has no complaints. She had a very low TSH and is taking 300 leave of proximal and per day. She is not having tachycardia. She's had no chest discomfort shortness of breath during the night. Exam (Progress Note) - Constitutional Vitals: Period Temp Pulse Resp BP Sys/Allen Pulse Ox Last 24 Hr 96.7 F-97.6 F 55-92 16-20 117-157/55-70 96-99 General appearance: no acute distress, over weight, morbidly obese - Head Head exam: Present: normal inspection, normocephalic, atraumatic - Respiratory Respiratory exam: Present: clear to auscultation bilaterally. Absent: stridor, wheezes - Cardiovascular Cardiovascular exam: Present: regular rate and rhythm. Absent: diastolic murmur , rubs - GI/Abdominal GI/Abdominal exam: Present: soft. Absent: tenderness - Extremities Exam Extremities exam: Present: edema - Neurological Exam Neurological exam: Present: alert, oriented X3 Result/EKG - Labs CBC & BMP: 11/04/16 03:29 11/04/16 03:29 Labs: Laboratory Results - last 24 hr 11/04/16 11/04/16 11/04/16 03:26 11:48 15:33 POC Glucose 146 H 245 H TSH 3rd Generation < 0.005 L 11/04/16 20:36 POC Glucose 183 H TSH 3rd Generation Quality Measures - VTE Contraindication to Pharmacological VTE Prophylaxis: High Risk of Bleeding Specialty Discharge - Follow Up or Referrals Follow up with: Jerardo Thorne MD [Physician] - 11/28/16 12:50 pm
[2016-11-05] MEDS: INSULIN NPH/REGULAR 70/30 100 UNIT/ML SUBCUT SCH ×2 (09:14→21:16)
--- NOTE | 2016-11-05 10:17 | Family Practice Progress Note ---
Family Practice - PN: Subj Interval history: Patient seen this morning. She is stable hemodynamically, no acute distress. Very alert and oriented answers all questions appropriately and is cognitive. She is desiring to have the surgery done and was in good spirits. No changes otherwise Exam (Progress Note) - Constitutional Vitals: Period Temp Pulse Resp BP Sys/Allen Pulse Ox Last 24 Hr 96.7 F-97.7 F 55-92 16-20 117-157/55-70 96-100 Exam: Generally well-developed female she is alert and oriented very cognitive HEENT pupils equal, extraocular movements are intact are intact neck is supple trachea midline Cardiovascular there is 1/6 systolic ejection murmur Lungs are generally clear except for a few rales Abdomen soft nondistended Extremities no clubbing cyanosis or edema present. Positive radial pulses bilateral upper extremity Results - Labs CBC & BMP: 11/04/16 03:29 11/04/16 03:29 Assessment and Plan (1) Abnormal myocardial perfusion study Status: Acute Assessment and plan: 11/04/2016: We will monitor along with cardiology. Cardiovascular surgery to see Current Visit: Yes (2) coronary artery disease Status: Chronic Assessment and plan: 11/02/2016: Stable no chest pain at present but she does have significant disease as noted per cath procedure Current Visit: No Quality Measures - VTE Contraindication to Pharmacological VTE Prophylaxis: High Risk of Bleeding Specialty Discharge - Follow Up or Referrals Follow up with: Jerardo Thorne MD [Physician] - 11/28/16 12:50 pm
[2016-11-05] MEDS: ROSUVASTATIN 10 MG TABLET PO SCH (21:09)
[2016-11-06] MEDS: ALBUTEROL/IPRATROPIUM 3 ML NEB RESP TX SCH ×6 (00:04→23:15)
[2016-11-06 05:12] LABS: Basophils % 0.1 % (0.0-0.8); Eosinophils # 0.4 10*3/uL (0.0-0.87); Eosinophils % 4.8 % (0.00-10.9); Hematocrit 32.7 VOL% (35.7-47.0); Immature Granulocytes % 0.4 %; Immature Granulocytes Absolute 0.04 #; Lymphocytes # 1.9 10*3/uL (1.4-4.0); Lymphocytes % 20.9 % (21.3-54.2); Mean Corpuscular HGB Conc 30.6 GM/DL (32-36); Mean Corpuscular Hemoglobin 29 PG (27-34); Mean Corpuscular Volume 93.7 FL (87-102); Mean Platelet Volume 11.2 FL (9.6-12.0); Monocytes # 0.8 10*3/uL (0.11-0.8); Monocytes % 8.9 % (1.7-12.7); Neutrophils # 5.8 10*3/uL (1.4-7.4); Neutrophils % 64.9 % (38.7-73.9); Platelet Count 235 T/CUMM (130-400); Red Blood Count 3.49 MC/CUMM (3.8-5.5); White Blood Count 8.9 T/CUMM (4-12)
[2016-11-06 05:42] LABS: Osmolality,Calculated 282.5 MOS/KG (273-304); Potassium 5.3 MMOL/L (3.5-5.1)
[2016-11-06] MEDS: DICYCLOMINE 10 MG CAPSULE PO SCH ×3 (06:04→21:08)
--- NOTE | 2016-11-06 06:14 | Cardiothoracic Progress Note ---
Cardiothoracic Subjective Interval history: Patient is leaning toward surgery later this week. We will get ultrasound study of her left leg to get some idea whether or not the saphenous vein is going to make satisfactory graft material. 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 Will discuss with her later. Exam (Progress Note) - Constitutional Vitals: Period Temp Pulse Resp BP Sys/Allen Pulse Ox Last 24 Hr 96.2 F-99.0 F 61-85 16-22 90-156/52-70 90-100 Result/EKG - Labs CBC & BMP: 11/06/16 04:39 11/06/16 04:39 Labs: Laboratory Results - last 24 hr 11/05/16 11/05/16 11/05/16 07:29 11:36 15:40 WBC RBC Hgb Hct MCV MCH MCHC RDW Plt Count MPV Neut % (Auto) Lymph % (Auto) Stephenson % (Auto) Eos % (Auto) Baso % (Auto) Neut # (Auto) Lymph # (Auto) Stephenson # (Auto) Eos # (Auto) Baso # (Auto) Immature Gran % Nucleated RBC % Immature Gran # Nucleated RBCs # Sodium Potassium Chloride Carbon Dioxide Anion Gap BUN Creatinine GFR Calculation BUN/Creatinine Ratio Glucose POC Glucose 127 H 150 H 43 L* Calculated Osmolality Calcium 11/05/16 11/05/16 11/05/16 16:28 17:31 19:52 WBC RBC Hgb Hct MCV MCH MCHC RDW Plt Count MPV Neut % (Auto) Lymph % (Auto) Stephenson % (Auto) Eos % (Auto) Baso % (Auto) Neut # (Auto) Lymph # (Auto) Stephenson # (Auto) Eos # (Auto) Baso # (Auto) Immature Gran % Nucleated RBC % Immature Gran # Nucleated RBCs # Sodium Potassium Chloride Carbon Dioxide Anion Gap BUN Creatinine GFR Calculation BUN/Creatinine Ratio Glucose POC Glucose 38 L* 113 H 158 H Calculated Osmolality Calcium 11/06/16 11/06/16 04:39 04:39 WBC 8.9 RBC 3.49 L Hgb 10.0 L Hct 32.7 L MCV 93.7 MCH 29 MCHC 30.6 L RDW 14.0 Plt Count 235 MPV 11.2 Neut % (Auto) 64.9 Lymph % (Auto) 20.9 L Stephenson % (Auto) 8.9 Eos % (Auto) 4.8 Baso % (Auto) 0.1 Neut # (Auto) 5.8 Lymph # (Auto) 1.9 Stephenson # (Auto) 0.8 Eos # (Auto) 0.4 Baso # (Auto) 0.0 Immature Gran % 0.4 Nucleated RBC % 0.0 Immature Gran # 0.04 Nucleated RBCs # 0.00 Sodium 139 Potassium 5.3 H Chloride 102 Carbon Dioxide 32 Anion Gap 10.3 BUN 23 H Creatinine 1.00 GFR Calculation 82 BUN/Creatinine Ratio 23.00 H Glucose 137 H POC Glucose Calculated Osmolality 282.5 Calcium 9.0 Quality Measures - VTE Contraindication to Pharmacological VTE Prophylaxis: High Risk of Bleeding Specialty Discharge - Follow Up or Referrals Follow up with: Jerardo Thorne MD [Physician] - 11/28/16 12:50 pm
--- NOTE | 2016-11-06 07:45 | Ultrasound Report ---
US venous doppler LE LT Indication: Mapping study of the left greater saphenous vein. Comparison: None. Technique: Using transcutaneous probe, color Doppler, spectral Doppler, and grayscale images prior to and following compression were obtained of the left lower extremity. Ultrasound images were captured and stored. Interrogated venous structures include the left common femoral vein, superficial femoral vein (proximal, mid, and distal), and popliteal vein. Measurements were acquired in cross-sectional dimension of the left proximal, mid, and distal greater saphenous vein. Findings: There is no evidence of thrombus within the interrogated venous structures. color flow as well as spectral flow are present within the interrogated venous segments. Proximal left saphenous vein measures 3.4 mm. Mid left saphenous vein measures 2.2 mm. Distal left saphenous vein measures 4.7 mm. Saphenous vein within the upper calf measures 1.7 mm. Saphenous vein within the mid calf measures 1.8 mm. Saphenous vein within the lower calf has no measurement. Impression: 1. No evidence of venous thrombosis. 2. Saphenous vein measurements as detailed. 11/06/2016 7:41 AM PROCEDURE INTERPRETED AT [facility] DEPARTMENT OF RADIOLOGY Final Report Signed by: Dr. Billy Hollowya
[2016-11-06] MEDS: INSULIN REGULAR 100 UNIT/ML SUBCUT SCH (07:58)
[2016-11-06] MEDS: MAGNESIUM CHLORIDE 64 MG TABLET PO SCH ×2 (08:19→21:08)
[2016-11-06] MEDS: PANTOPRAZOLE 20 MG TABLET PO SCH (08:20)
[2016-11-06] MEDS: GABAPENTIN 600 MG TABLET PO SCH ×3 (08:20→21:09)
[2016-11-06] MEDS: valACYclovir 500 MG TABLET PO SCH (08:20)
[2016-11-06] MEDS: amLODIPine 5 MG TABLET PO SCH (08:20)
[2016-11-06] MEDS: BISOPROLOL 5 MG TABLET PO SCH ×2 (08:21→21:08)
[2016-11-06] MEDS: ISOSORBIDE DINITRATE SR 40 MG TABLET PO SCH ×3 (08:21→21:08)
[2016-11-06] MEDS: ASPIRIN CHEW 81 MG TABLET PO SCH (08:21)
[2016-11-06] MEDS: ENOXAPARIN 40 MG/0.4 ML SYRINGE SUBCUT SCH (08:22)
[2016-11-06] MEDS: FUROSEMIDE 20 MG/2 ML VIAL IV SCH ×2 (08:22→15:21)
[2016-11-06] MEDS: traMADol 50 MG TABLET PO SCH ×4 (08:22→21:13)
[2016-11-06] MEDS: VALSARTAN 160 MG TABLET PO SCH (08:22)
[2016-11-06] MEDS: SPIRONOLACTONE 25 MG TABLET PO SCH (08:22)
[2016-11-06] MEDS: ALLOPURINOL 300 MG TABLET PO SCH (08:22)
[2016-11-06] MEDS: INSULIN NPH/REGULAR 70/30 100 UNIT/ML SUBCUT SCH ×2 (08:23→21:09)
[2016-11-06] MEDS: FLUTICASONE/SALMETEROL 250-50 DISKUS 14 DOSE INH SCH ×2 (08:23→21:08)
[2016-11-06] MEDS: POTASSIUM CHLORIDE 20 MEQ TABLET PO SCH (08:24)
--- NOTE | 2016-11-06 09:14 | Internal Med Progress Note ---
Assessment and Plan (1) coronary artery disease Status: Chronic Assessment and plan: 71-year-old female admitted to acute care * Coronary artery disease. Patient with significant disease. She will require coronary artery bypass grafting. It is scheduled for later this week * Diabetes. Continue current treatment * Hypothyroidism. Patient has history of noncompliance with her thyroid medications. Will adjust her dose * Hypertension. Blood pressure is stable * Will DC her Partida catheter. Patient is quite able to transfer. * Discussed with patient. Current Visit: No (2) hyperlipidemia Status: Chronic Current Visit: No (3) hypertension Status: Chronic Current Visit: No (4) hypothyroidism Status: Chronic Current Visit: No (5) type 2 diabetes mellitus Status: Chronic Current Visit: No Internal Medicine - PN: Subj Interval history: 71-year-old female with history of coronary artery disease status post CABG, hypertension, diabetes, hypothyroidism, history of polio in the past was admitted for an elective cardiac catheterization. She was found to have triple- vessel disease and is recommended to undergo coronary artery bypass grafting. She is not having any chest pain. She denies any nausea vomiting or diarrhea. She is quite uncomfortable with Partida catheter and wants it removed. Exam (Progress Note) - Constitutional Vitals: Period Temp Pulse Resp BP Sys/Allen Pulse Ox Last 24 Hr 96.2 F-99.0 F 62-85 14-22 90-156/52-70 90-100 Exam: Examination: GENERAL: Morbidly obese female who is in no acute distress HEENT: PERRLA. EOMI. NECK: Neck is supple. CVS: Regular rate and rhythm. S1 and S2 are normal. Systolic ejection murmur at left sternal border RESPIRATORY: Lungs are clear. No rales or rhonchi. ABDOMEN: Soft and nontender. EXT: No edema. Peripheral pulses are present. LINE ASSEMBLER: Patient is awake, alert and oriented to time place and person. She has a brace on the left lower extremity. SKIN: Warm and dry. MSK: No obvious deformity. Results - Labs CBC & BMP: 11/06/16 04:39 11/06/16 04:39 Lab Results: I have reviewed the past 24 hour labs Quality Measures - VTE Contraindication to Pharmacological VTE Prophylaxis: High Risk of Bleeding Specialty Discharge - Follow Up or Referrals Follow up with: Jerardo Thorne MD [Physician] - 11/28/16 12:50 pm
[2016-11-06] MEDS: INSULIN LISPRO 100 UNIT/ML SUBCUT SCH ×3 (12:08→21:09)
--- NOTE | 2016-11-06 12:36 | Sleep Medicine Consult ---
Assessment and Plan (1) Obstructive sleep apnea Status: Acute Assessment and plan: This patient has a known history of obstructive sleep apnea. She has been poorly tolerant of CPAP in the past. We will need to re-document presence of sleep apnea but will not be able to do so with HST tonight. I want to go ahead and put her on empiric BiPAP therapy given her intolerance of CPAP. We will follow-up her results and if an HST is available later in the week prior to her surgery, we will have HST done. Current Visit: Yes (2) coronary artery disease Status: Chronic Assessment and plan: I reviewed the Jerez data from Lancet 2005 with the patient to their understanding. This study proved significant reduction in the risk of fatal and nonfatal cardiac events in patients with severe obstructive sleep apnea compliant with CPAP, in comparison with those noncompliant with CPAP for severe sleep apnea. Current Visit: No (3) hypertension Status: Chronic Assessment and plan: The prevalence rate for obstructive sleep apnea patients with hypertension is 35 %. That rate can be as high as 80% in patients who require 4 or more medications for blood pressure control. Current Visit: No History of Present Illness Chief complaint: Sleep apnea History of present illness: Ms. Serra is a 71 year old female admitted with chest pain and who is undergone cardiac cath and is to undergo bypass surgery later this week. She does have a history of obstructive sleep apnea diagnosed many years ago. She was originally diagnosed in 2000 by me and had moderate obstructive sleep apnea with an AHI of 21.3. She underwent titration and required BiPAP therapy due to poor tolerance of CPAP. She eventually lost her equipment, stating that she had roaches in her house and she quit using it. She saw Dr. Mondragon in 2008 and [place] and was tried on CPAP but again poorly tolerated CPAP and quit using her therapy and has been lost in follow-up to the sleep lab since. She does continue to snore and have abnormal breathing during her sleep. She does awaken 2-3 times a night to urinate. She will awaken with headaches in the morning. She does experience symptoms of daytime fatigue and sleepiness. Home Medications Medication Instructions Recorded Confirmed Type Allopurinol [Zyloprim] 450 mg PO DAILY 02/01/15 11/03/16 History Amlodipine Besylate 5 mg PO DAILY 02/01/15 11/03/16 History Clopidogrel [Plavix] 75 mg PO DAILY 02/01/15 11/03/16 History Dicyclomine Cap/Tab [Bentyl 10 mg PO Q8HR 02/01/15 11/03/16 History Cap/Tab] Fluticasone/Salmeterol 250-50 1 puff INH BID 02/01/15 11/03/16 History [Advair 250-50] Furosemide Tab [Lasix Tab] 80 mg PO DAILY PRN 02/01/15 11/03/16 History Gabapentin 600 mg PO TID 02/01/15 11/03/16 History Isosorbide Dinitrate [Isordil] 40 mg PO TID 02/01/15 11/03/16 History Nitroglycerin Sl Tab [Nitrostat] 0.4 mg SL Q5M PRN MDD 3 02/01/15 11/03/16 History Simvastatin [Zocor] 10 mg PO BEDTIME 02/01/15 11/03/16 History Spironolactone [Aldactone] 25 mg PO DAILY 02/01/15 11/03/16 History Tramadol HCl [Tramadol Tab] 50 mg PO TID 02/01/15 11/03/16 History Valacyclovir HCl [Valacyclovir] 1,000 mg PO DAILY 07/24/15 11/03/16 History Insulin NPH Hum/Reg Insulin Hm 35 units SUBCUT BID 08/10/16 11/03/16 History [NovoLIN 70/30] Ranitidine Tab [Zantac Tab] 150 mg PO BID 08/10/16 11/03/16 History Levothyroxine Tab [Synthroid Tab] 200 mcg PO DAILY@0700 tablet 08/25/16 Rx Metoprolol Tartrate Tab [Lopressor 50 mg PO BID tablet 08/25/16 11/03/16 Rx Tab] Valsartan [Diovan] 160 mg PO DAILY tablet 08/25/16 11/03/16 Rx Aspirin EC Tab 81 mg PO DAILY 11/03/16 11/03/16 History Levothyroxine Tab [Synthroid Tab] 100 mcg PO DAILY@0700 11/03/16 11/03/16 History Magnesium Chloride [Slow Mag] 128 mg PO BID 11/03/16 11/03/16 History Potassium Chloride 20 meq PO BID 11/03/16 11/03/16 History Allergies Allergy/AdvReac Type Severity Reaction Status Date / Time benazepril [From Lotrel] Allergy Severe ANAPHYLAXIS Verified 11/03/16 11:49 sulfamethoxazole Allergy Severe RASH Verified 11/03/16 11:49 [From Bactrim] trimethoprim [From Bactrim] Allergy Severe RASH Verified 11/03/16 11:49 aspirin AdvReac Severe Nausea Verified 11/03/16 11:49 Review of systems: Negative for symptoms of restless legs. Exam ([place]) H&P - Constitutional Vitals: Period Temp Pulse Resp BP Sys/Allen Pulse Ox Last 24 Hr 96.2 F-99.0 F 62-85 12-22 90-156/52-97 90-100 Exam: She is alert and responsive in no acute distress. Pupils equal round reactive to light and accommodation. Extraocular movements intact. Oropharynx with a class II Mallampati exam she has some purulent phlegm on the posterior pharyngeal wall. Neck is supple without adenopathy or thyromegaly. No supraclavicular adenopathy is noted. Chest with symmetrical breath sounds without focal wheeze, rhonchi, or rales. Cardiac exam reveals a regular rhythm without murmur or gallop. Abdomen soft nontender without palpable hepatosplenomegaly or mass. Extremities are without clubbing, cyanosis, or edema. Neurologically, she is grossly intact. She moves all extremities with good strength and answers all questions appropriately. Medical,Surgical,& Family Hx - Medical History Cardio: History of: CAD, Hypertension, Cardiovascular Problems (Coronary Artery Disease) No history of: CHF Neurology: History of: Neurological Problems (history of poliomyelitis) No history of: Peripheral Neuropathy, Seizures HEENT: History of: HEENT Problems (cataracts with removal, wears glasses) No history of: Glaucoma Endocrine: History of: Diabetes Mellitus (NIDDM), Dyslipidemia, Thyroid Disorder (thyroid removal) Rheumatology: History of;: Gout Respiratory: History of: Asthma (on advair), Bronchitis, Obstructive Sleep Apnea (has cpap machine but does not use) Renal: History of: Renal Failure (hypovolemia present) No history of: Renal Problems (acute kidney injury in July 2015) Genitourinary: History of: Bladder Problem (urgency), Kidney Stones Gastrointestinal: History of: GERD, Polyps, GI Problems (diarrhea at times.) No history of: Hemorrhoids, Hepatitis, Liver Problems Musculoskeletal: History of: Musculoskeletal Problems (arthritis in shoulders ( gets steroid shots-Dr. Mensah)) Hematology: No history of: Blood Transfusion Reaction Other: No history of: Anesthesia Reactions, Cancer - Surgical History Cardiac Surgeries: Sugical HX of: Cardiac Surgery (triple bypass 1995) Patient Denies: Cardiac Catheterization Thoracic Surgeries: Surgical HX of;: Lithotripsy (x 3) Neurologic Surgeries: Patient denies: Neurologic Surgery HEENT Surgeries: Surgical HX of: Eye Surgery (cataracts), Thyroid Surgery ( thyroidectomy), Tonsilectomy & Adenoidectomy Abdominal Surgeries: Surgical HX of: Abdominal Surgery (colon obstruction 36" of intestines removed), Appendectomy, Cholecystectomy, Colonoscopy, EGD Reproductive Surgeries: Surgical HX of;: Section (x 3), Hysterectomy Orthopedic Surgeries: Surgical HX of;: Orthopedic Surgery (leg surgery from polio as child) - Family History Family History: Reports;: Family Cancer (throat-brother), Family Diabetes (aunts ), Family Heart Disease (dad), Family Hypertension - Social History Smoking Status: Former smoker Frequency of Alcohol Use: Rarely Type of Drug Use: None Results - Labs CBC & BMP: 11/06/16 04:39 11/06/16 04:39 Lab Results: I have reviewed the past 24 hour labs Quality Measures - VTE Contraindication to Pharmacological VTE Prophylaxis: High Risk of Bleeding Specialty Discharge - Follow Up or Referrals Follow up with: Jerardo Thorne MD [Physician] - 11/28/16 12:50 pm
--- NOTE | 2016-11-06 17:20 | Cardiology Progress Note ---
Assessment and Plan - Time spent with patient Time spent with patient: Greater than 30 minutes (1) S/P CABG (coronary artery bypass graft) Status: Chronic Assessment and plan: See plan of care listed below Current Visit: Yes (2) Hyperkalemia Status: Acute Assessment and plan: See plan of care listed below Current Visit: Yes (3) Debilitated patient Status: Chronic Assessment and plan: See plan of care listed below Current Visit: Yes (4) Anemia Status: Acute Assessment and plan: See plan of care listed below Current Visit: Yes (5) Abnormal TSH Status: Acute Assessment and plan: See plan of care listed below Current Visit: Yes (6) type 2 diabetes mellitus Status: Chronic Assessment and plan: See plan of care listed below Current Visit: No (7) coronary artery disease Status: Chronic Assessment and plan: See plan of care listed below Current Visit: No (8) hypertension Status: Chronic Assessment and plan: See plan of care listed below Current Visit: No Cardiology - PN: Subj Interval history: BUSINESS AREA MANAGER: DR. THORNE PCP: DR. SNELL SUMMARY: 71-year-old -[place] female routinely followed by Dr. Thorne. History of known coronary artery disease status post CABG. She was admitted for elective cardiac catheterization November 03, 2016 for abnormal stress test. She was found to have an occluded right coronary artery, significant distal left main, circumflex and distal LAD disease. Vein graft to the LAD occluded, vein graft to the right coronary occluded, vein graft to the circumflex occluded. Unable to visualize MANUEL. CV surgery was consulted for possible redo CABG. NOVEMBER 06, 2016: Over the weekend, patient denies having recurrent chest pain, heaviness or tightness. Plavix has been held since prior cardiac catheterization. Patient is undecided on surgery. Potassium is 5.3 today. Hemoglobin and hematocrit 10.0 and 32.7 respectively. TSH less than 0.005. Patient continues to take aspirin, isosorbide mononitrate, Diovan, Zebeta, and Crestor. Will repeat BMP in the morning following her hyperkalemia. I will also repeat the TSH to verify this is accurate as she may need additional workup prior to surgery. She is also mildly anemic and will add anemia studies and check stool for occult blood. ASSESSMENT/PLAN: 1. KNOWN CAD S/P CABG - see plan of care listed above 2. HYPERTENSION - adequately controlled 3. DYSLIPIDEMIA - continue lipid-lowering agent 4. DIABETES - blood glucose levels have been well controlled during this hospital stay 5. SLEEP APNEA - now being titrated with sleep mask. 6. ABNORMAL TSH - repeat TSH, and T3 and T4 7. ANEMIA - stool occult blood, anemia profile 8. HYPERKALEMIA - stopping potassium replacement. Repeat in the morning. Exam (Progress Note) - Constitutional Vitals: Period Temp Pulse Resp BP Sys/Allen Pulse Ox Last 24 Hr 96.2 F-97.8 F 57-85 12-22 116-156/55-97 93-100 Exam: General: [Appears well with no apparent distress.] [Pleasant and cooperative. ] [Appears comfortable.] HEENT: [PERRL, normocephalic, atraumatic. Mucous membranes moist. No jaundice noted. Conjunctiva moist and clear, sclerae anicteric] Neck: No JVD/HJR, no thyromegaly or lymphadenopathy noted. No carotid bruit appreciated Cardiac: [Regular rate and rhythm.] [No murmur rub or gallop.] Lungs: [Clear to auscultation without accessory muscle use to assist the respiratory pattern.] Wearing CPAP device. Abdomen: Soft, bowel sounds normoactive. Nontender and nondistended. No abdominal bruit or thrill noted. No masses noted. Musculoskeletal: No fluid collection. Decreased range of motion is noted. Extremities: No clubbing, cyanosis noted. [ No edema noted.] Upper extremity pulses 2+. Lower extremity pulses 2+. Capillary refill less than 3 seconds. Skin: No unusual lesions or rashes. No skin breakdown appreciated. Neuro: Awake, alert and oriented 3. Left-sided hemiparesis lower extremity noted. No essential tremor is appreciated. Result/EKG - Labs CBC & BMP: 11/06/16 04:39 11/06/16 04:39 Lab Results: I have reviewed the past 24 hour labs Labs: Laboratory Results - last 24 hr 11/05/16 11/05/16 11/06/16 17:31 19:52 04:39 WBC 8.9 RBC 3.49 L Hgb 10.0 L Hct 32.7 L MCV 93.7 MCH 29 MCHC 30.6 L RDW 14.0 Plt Count 235 MPV 11.2 Neut % (Auto) 64.9 Lymph % (Auto) 20.9 L [place] % (Auto) 8.9 Eos % (Auto) 4.8 Baso % (Auto) 0.1 Neut # (Auto) 5.8 Lymph # (Auto) 1.9 [place] # (Auto) 0.8 Eos # (Auto) 0.4 Baso # (Auto) 0.0 Immature Gran % 0.4 Nucleated RBC % 0.0 Immature Gran # 0.04 Nucleated RBCs # 0.00 Sodium Potassium Chloride Carbon Dioxide Anion Gap BUN Creatinine GFR Calculation BUN/Creatinine Ratio Glucose POC Glucose 113 H 158 H Calculated Osmolality Calcium 11/06/16 11/06/16 11/06/16 04:39 07:42 11:14 WBC RBC Hgb Hct MCV MCH MCHC RDW Plt Count MPV Neut % (Auto) Lymph % (Auto) [place] % (Auto) Eos % (Auto) Baso % (Auto) Neut # (Auto) Lymph # (Auto) [place] # (Auto) Eos # (Auto) Baso # (Auto) Immature Gran % Nucleated RBC % Immature Gran # Nucleated RBCs # Sodium 139 Potassium 5.3 H Chloride 102 Carbon Dioxide 32 Anion Gap 10.3 BUN 23 H Creatinine 1.00 GFR Calculation 82 BUN/Creatinine Ratio 23.00 H Glucose 137 H POC Glucose 131 H 152 H Calculated Osmolality 282.5 Calcium 9.0 - Diagnostic Findings Procedure: Chest x-ray: report reviewed by me - EKG EKG results: interpreted by me EKG shows: sinus rhythm Quality Measures - VTE Contraindication to Pharmacological VTE Prophylaxis: High Risk of Bleeding Specialty Discharge - Follow Up or Referrals Follow up with: Jerardo Thorne MD [Physician] - 11/28/16 12:50 pm
[2016-11-06 18:10] LABS: Basophils % 0.2 % (0.0-0.8); Eosinophils # 0.4 10*3/uL (0.0-0.87); Eosinophils % 4.1 % (0.00-10.9); Hematocrit 34.9 VOL% (35.7-47.0); Hemoglobin 10.6 GM/DL (12.0-16.0); Immature Granulocytes % 0.6 %; Immature Granulocytes Absolute 0.06 #; Lymphocytes # 1.9 10*3/uL (1.4-4.0); Lymphocytes % 19.3 % (21.3-54.2); Mean Corpuscular HGB Conc 30.4 GM/DL (32-36); Mean Corpuscular Hemoglobin 30 PG (27-34); Mean Platelet Volume 10.8 FL (9.6-12.0); Monocytes # 0.7 10*3/uL (0.11-0.8); Monocytes % 7.4 % (1.7-12.7); Neutrophils # 6.6 10*3/uL (1.4-7.4); Neutrophils % 68.4 % (38.7-73.9); Platelet Count 258 T/CUMM (130-400); Red Blood Count 3.56 MC/CUMM (3.8-5.5); Red Cell Distribution Width 13.6 % (9.3-17.3); White Blood Count 9.7 T/CUMM (4-12)
[2016-11-06 18:40] LABS: Folate 8.9 NG/ML (5.4-24.0); Vitamin B12 215 PG/ML (211-911)
[2016-11-06] MEDS: ROSUVASTATIN 10 MG TABLET PO SCH (21:08)
[2016-11-06 21:14] LABS: Sedimentation Rate-Westergren 79 MM/HR (0-30)
[2016-11-07 05:26] LABS: Basophils % 0.1 % (0.0-0.8); Eosinophils # 0.5 10*3/uL (0.0-0.87); Eosinophils % 4.7 % (0.00-10.9); Hematocrit 30.9 VOL% (35.7-47.0); Hemoglobin 9.6 GM/DL (12.0-16.0); Immature Granulocytes % 0.6 %; Immature Granulocytes Absolute 0.06 #; Lymphocytes # 1.9 10*3/uL (1.4-4.0); Lymphocytes % 18.4 % (21.3-54.2); Mean Corpuscular HGB Conc 31.1 GM/DL (32-36); Mean Corpuscular Hemoglobin 29 PG (27-34); Mean Corpuscular Volume 92.8 FL (87-102); Mean Platelet Volume 11.3 FL (9.6-12.0); Monocytes # 0.9 10*3/uL (0.11-0.8); Monocytes % 8.5 % (1.7-12.7); Neutrophils # 6.9 10*3/uL (1.4-7.4); Neutrophils % 67.7 % (38.7-73.9); Platelet Count 259 T/CUMM (130-400); Red Blood Count 3.33 MC/CUMM (3.8-5.5); Red Cell Distribution Width 13.6 % (9.3-17.3); White Blood Count 10.2 T/CUMM (4-12)
[2016-11-07 05:47] LABS: Hypochromasia 1+; Platelet Estimate Adequate
[2016-11-07 06:08] LABS: Blood Urea Nitrogen 25 MG/DL (7-18); Calcium 9.1 MG/DL (8.5-10.1); Glucose 72 MG/DL (74-106); Magnesium 2.1 MG/DL (1.8-2.4); Osmolality,Calculated 277.7 MOS/KG (273-304); Potassium 5.6 MMOL/L (3.5-5.1); Sodium 138 MMOL/L (136-145); Thyroid Stimulating Hormone < 0.005 uIU/ml (0.358-3.74)
[2016-11-07] MEDS: DICYCLOMINE 10 MG CAPSULE PO SCH ×3 (06:12→21:03)
--- NOTE | 2016-11-07 06:33 | Cardiothoracic Progress Note ---
Cardiothoracic Subjective Interval history: Patient is awaiting surgery later this week. Exam (Progress Note) - Constitutional Vitals: Period Temp Pulse Resp BP Sys/Allen Pulse Ox Last 24 Hr 96.8 F-99.0 F 57-82 12-20 113-138/53-97 93-100 Result/EKG - Labs CBC & BMP: 11/07/16 04:51 11/07/16 04:51 Labs: Laboratory Results - last 24 hr 11/06/16 11/06/16 11/06/16 07:42 11:14 17:41 WBC 9.7 RBC 3.56 L Hgb 10.6 L Hct 34.9 L MCV 98.0 MCH 30 MCHC 30.4 L RDW 13.6 Plt Count 258 MPV 10.8 Neut % (Auto) 68.4 Lymph % (Auto) 19.3 L [place] % (Auto) 7.4 Eos % (Auto) 4.1 Baso % (Auto) 0.2 Neut # (Auto) 6.6 Lymph # (Auto) 1.9 [place] # (Auto) 0.7 Eos # (Auto) 0.4 Baso # (Auto) 0.0 Immature Gran % 0.6 Nucleated RBC % 0.0 Immature Gran # 0.06 Nucleated RBCs # 0.00 Platelet Estimate Hypochromasia Morphology Comment ESR Westergren 79 H Absolute Retic 0.1 Percent Retic 2.0 H Retic Hgb Equivalent 27.5 L Sodium Potassium Chloride Carbon Dioxide Anion Gap BUN Creatinine GFR Calculation BUN/Creatinine Ratio Glucose POC Glucose 131 H 152 H Calculated Osmolality Calcium Magnesium Ferritin Vitamin B12 Folate Free T4 TSH 3rd Generation BEKA (IgG-AHG) BEKA, Polyspecific 11/06/16 11/06/16 11/06/16 17:41 17:41 17:41 WBC RBC Hgb Hct MCV MCH MCHC RDW Plt Count MPV Neut % (Auto) Lymph % (Auto) [place] % (Auto) Eos % (Auto) Baso % (Auto) Neut # (Auto) Lymph # (Auto) [place] # (Auto) Eos # (Auto) Baso # (Auto) Immature Gran % Nucleated RBC % Immature Gran # Nucleated RBCs # Platelet Estimate Hypochromasia Morphology Comment ESR Westergren Absolute Retic Percent Retic Retic Hgb Equivalent Sodium Potassium Chloride Carbon Dioxide Anion Gap BUN Creatinine GFR Calculation BUN/Creatinine Ratio Glucose POC Glucose Calculated Osmolality Calcium Magnesium Ferritin 98.4 Vitamin B12 215 Folate 8.9 Free T4 TSH 3rd Generation BEKA (IgG-AHG) Negative BEKA, Polyspecific Negative 11/06/16 11/06/16 11/07/16 17:41 20:30 04:51 WBC 10.2 RBC 3.33 L Hgb 9.6 L Hct 30.9 L MCV 92.8 MCH 29 MCHC 31.1 L RDW 13.6 Plt Count 259 MPV 11.3 Neut % (Auto) 67.7 Lymph % (Auto) 18.4 L [place] % (Auto) 8.5 Eos % (Auto) 4.7 Baso % (Auto) 0.1 Neut # (Auto) 6.9 Lymph # (Auto) 1.9 [place] # (Auto) 0.9 H Eos # (Auto) 0.5 Baso # (Auto) 0.0 Immature Gran % 0.6 Nucleated RBC % 0.0 Immature Gran # 0.06 Nucleated RBCs # 0.00 Platelet Estimate Adequate Hypochromasia 1+ Morphology Comment ESR Westergren Absolute Retic Percent Retic Retic Hgb Equivalent Sodium Potassium Chloride Carbon Dioxide Anion Gap BUN Creatinine GFR Calculation BUN/Creatinine Ratio Glucose POC Glucose 193 H 182 H Calculated Osmolality Calcium Magnesium Ferritin Vitamin B12 Folate Free T4 TSH 3rd Generation BEKA (IgG-AHG) BEKA, Polyspecific 11/07/16 04:51 WBC RBC Hgb Hct MCV MCH MCHC RDW Plt Count MPV Neut % (Auto) Lymph % (Auto) [place] % (Auto) Eos % (Auto) Baso % (Auto) Neut # (Auto) Lymph # (Auto) [place] # (Auto) Eos # (Auto) Baso # (Auto) Immature Gran % Nucleated RBC % Immature Gran # Nucleated RBCs # Platelet Estimate Hypochromasia Morphology Comment ESR Westergren Absolute Retic Percent Retic Retic Hgb Equivalent Sodium 138 Potassium 5.6 H Chloride 103 Carbon Dioxide 30 Anion Gap 10.6 BUN 25 H Creatinine 0.70 GFR Calculation 126 BUN/Creatinine Ratio 35.00 H Glucose 72 L POC Glucose Calculated Osmolality 277.7 Calcium 9.1 Magnesium 2.1 Ferritin Vitamin B12 Folate Free T4 1.90 H TSH 3rd Generation < 0.005 L BEKA (IgG-AHG) BEKA, Polyspecific Quality Measures - VTE Contraindication to Pharmacological VTE Prophylaxis: High Risk of Bleeding Specialty Discharge - Follow Up or Referrals Follow up with: Jerardo Thorne MD [Physician] - 11/28/16 12:50 pm
[2016-11-07] MEDS: ALBUTEROL/IPRATROPIUM 3 ML NEB RESP TX SCH ×5 (07:25→23:59)
[2016-11-07] MEDS: INSULIN NPH/REGULAR 70/30 100 UNIT/ML SUBCUT SCH ×2 (08:21→21:07)
[2016-11-07] MEDS: ASPIRIN CHEW 81 MG TABLET PO SCH (08:23)
[2016-11-07] MEDS: ISOSORBIDE DINITRATE SR 40 MG TABLET PO SCH ×3 (08:24→21:05)
[2016-11-07] MEDS: VALSARTAN 160 MG TABLET PO SCH (08:24)
[2016-11-07] MEDS: GABAPENTIN 600 MG TABLET PO SCH ×3 (08:24→21:05)
[2016-11-07] MEDS: BISOPROLOL 5 MG TABLET PO SCH ×2 (08:25→21:05)
[2016-11-07] MEDS: MAGNESIUM CHLORIDE 64 MG TABLET PO SCH ×2 (08:25→21:04)
[2016-11-07] MEDS: traMADol 50 MG TABLET PO SCH ×3 (08:25→21:06)
[2016-11-07] MEDS: ALLOPURINOL 300 MG TABLET PO SCH (08:25)
[2016-11-07] MEDS: valACYclovir 500 MG TABLET PO SCH (08:25)
[2016-11-07] MEDS: amLODIPine 5 MG TABLET PO SCH (08:25)
[2016-11-07] MEDS: PANTOPRAZOLE 20 MG TABLET PO SCH (08:25)
[2016-11-07] MEDS: FLUTICASONE/SALMETEROL 250-50 DISKUS 14 DOSE INH SCH ×2 (08:29→21:08)
[2016-11-07] MEDS: FUROSEMIDE 20 MG/2 ML VIAL IV SCH ×2 (08:30→16:35)
[2016-11-07] MEDS: ENOXAPARIN 40 MG/0.4 ML SYRINGE SUBCUT SCH (08:30)
[2016-11-07] MEDS: INSULIN LISPRO 100 UNIT/ML SUBCUT SCH ×4 (08:46→21:09)
[2016-11-07 09:01] LABS: Hemoglobin A1 (Alkaline) 97.4 % (96.5-98.5)
[2016-11-07 09:02] LABS: Hemoglobin A2 (Alkaline) 2.6 % (1.5-3.5)
[2016-11-07] MEDS ORDERED: GLUCAGON 1 MG VIAL IM PRN (09:30)
[2016-11-07] MEDS ORDERED: DEXTROSE 50% 25 GM/50 ML VIAL IV PRN (09:30)
[2016-11-07] MEDS: SPIRONOLACTONE 25 MG TABLET PO SCH (09:32)
--- NOTE | 2016-11-07 09:32 | Internal Med Progress Note ---
Assessment and Plan (1) coronary artery disease Status: Chronic Assessment and plan: 71-year-old female admitted to acute care * Coronary artery disease. Later this week she will have * Diabetes. Continue current treatment * Hypothyroidism. Holding her Synthroid * Hypertension. Blood pressure is stable * Hyperkalemia. Hold Aldactone Current Visit: No (2) hyperlipidemia Status: Chronic Current Visit: No (3) hypertension Status: Chronic Current Visit: No (4) hypothyroidism Status: Chronic Current Visit: No (5) type 2 diabetes mellitus Status: Chronic Current Visit: No Internal Medicine - PN: Subj Interval history: She is feeling better this morning. No specific complaints Exam (Progress Note) - Constitutional Vitals: Period Temp Pulse Resp BP Sys/Allen Pulse Ox Last 24 Hr 97.1 F-99.0 F 57-84 12-20 113-138/53-97 93-972 Exam: Examination: GENERAL: No acute distress NECK: Neck is supple. CVS: Regular rate and rhythm. S1 and S2 are normal. Systolic ejection murmur at left sternal border RESPIRATORY: Lungs are clear. ABDOMEN: Soft and nontender. EXT: No edema. Peripheral pulses are present. MSK: No obvious deformity. Results - Labs CBC & BMP: 11/07/16 04:51 11/07/16 04:51 Lab Results: I have reviewed the past 24 hour labs Quality Measures - VTE Contraindication to Pharmacological VTE Prophylaxis: High Risk of Bleeding Specialty Discharge - Follow Up or Referrals Follow up with: Jerardo Thorne MD [Physician] - 11/28/16 12:50 pm
--- NOTE | 2016-11-07 10:09 | Cardiothoracic Progress Note ---
Cardiothoracic Subjective Interval history: Surgery scheduled for Sunday. Discussed with the patient and she is in agreement. Exam (Progress Note) - Constitutional Vitals: Period Temp Pulse Resp BP Sys/Allen Pulse Ox Last 24 Hr 97.1 F-99.0 F 57-84 12-20 113-138/53-97 93-972 Result/EKG - Labs CBC & BMP: 11/07/16 04:51 11/07/16 04:51 Labs: Laboratory Results - last 24 hr 11/06/16 11/06/16 11/06/16 11:14 17:41 17:41 WBC 9.7 RBC 3.56 L Hgb 10.6 L Hct 34.9 L MCV 98.0 MCH 30 MCHC 30.4 L RDW 13.6 Plt Count 258 MPV 10.8 Neut % (Auto) 68.4 Lymph % (Auto) 19.3 L [place] % (Auto) 7.4 Eos % (Auto) 4.1 Baso % (Auto) 0.2 Neut # (Auto) 6.6 Lymph # (Auto) 1.9 [place] # (Auto) 0.7 Eos # (Auto) 0.4 Baso # (Auto) 0.0 Immature Gran % 0.6 Nucleated RBC % 0.0 Immature Gran # 0.06 Nucleated RBCs # 0.00 Platelet Estimate Hypochromasia Morphology Comment ESR Westergren 79 H Absolute Retic 0.1 Percent Retic 2.0 H Retic Hgb Equivalent 27.5 L Hemoglobin A1 Hemoglobin A2 Hgb ELP Interp Sodium Potassium Chloride Carbon Dioxide Anion Gap BUN Creatinine GFR Calculation BUN/Creatinine Ratio Glucose POC Glucose 152 H Calculated Osmolality Calcium Magnesium Ferritin 98.4 Vitamin B12 Folate Free T4 TSH 3rd Generation BEKA (IgG-AHG) BEKA, Polyspecific 11/06/16 11/06/16 11/06/16 17:41 17:41 17:41 WBC RBC Hgb Hct MCV MCH MCHC RDW Plt Count MPV Neut % (Auto) Lymph % (Auto) [place] % (Auto) Eos % (Auto) Baso % (Auto) Neut # (Auto) Lymph # (Auto) [place] # (Auto) Eos # (Auto) Baso # (Auto) Immature Gran % Nucleated RBC % Immature Gran # Nucleated RBCs # Platelet Estimate Hypochromasia Morphology Comment ESR Westergren Absolute Retic Percent Retic Retic Hgb Equivalent Hemoglobin A1 97.4 Hemoglobin A2 2.6 Hgb ELP Interp Sodium Potassium Chloride Carbon Dioxide Anion Gap BUN Creatinine GFR Calculation BUN/Creatinine Ratio Glucose POC Glucose 193 H Calculated Osmolality Calcium Magnesium Ferritin Vitamin B12 215 Folate 8.9 Free T4 TSH 3rd Generation BEKA (IgG-AHG) Negative BEKA, Polyspecific Negative 11/06/16 11/07/16 11/07/16 20:30 04:51 04:51 WBC 10.2 RBC 3.33 L Hgb 9.6 L Hct 30.9 L MCV 92.8 MCH 29 MCHC 31.1 L RDW 13.6 Plt Count 259 MPV 11.3 Neut % (Auto) 67.7 Lymph % (Auto) 18.4 L [place] % (Auto) 8.5 Eos % (Auto) 4.7 Baso % (Auto) 0.1 Neut # (Auto) 6.9 Lymph # (Auto) 1.9 [place] # (Auto) 0.9 H Eos # (Auto) 0.5 Baso # (Auto) 0.0 Immature Gran % 0.6 Nucleated RBC % 0.0 Immature Gran # 0.06 Nucleated RBCs # 0.00 Platelet Estimate Adequate Hypochromasia 1+ Morphology Comment ESR Westergren Absolute Retic Percent Retic Retic Hgb Equivalent Hemoglobin A1 Hemoglobin A2 Hgb ELP Interp Sodium 138 Potassium 5.6 H Chloride 103 Carbon Dioxide 30 Anion Gap 10.6 BUN 25 H Creatinine 0.70 GFR Calculation 126 BUN/Creatinine Ratio 35.00 H Glucose 72 L POC Glucose 182 H Calculated Osmolality 277.7 Calcium 9.1 Magnesium 2.1 Ferritin Vitamin B12 Folate Free T4 1.90 H TSH 3rd Generation < 0.005 L BEKA (IgG-AHG) BEKA, Polyspecific 11/07/16 07:55 WBC RBC Hgb Hct MCV MCH MCHC RDW Plt Count MPV Neut % (Auto) Lymph % (Auto) [place] % (Auto) Eos % (Auto) Baso % (Auto) Neut # (Auto) Lymph # (Auto) [place] # (Auto) Eos # (Auto) Baso # (Auto) Immature Gran % Nucleated RBC % Immature Gran # Nucleated RBCs # Platelet Estimate Hypochromasia Morphology Comment ESR Westergren Absolute Retic Percent Retic Retic Hgb Equivalent Hemoglobin A1 Hemoglobin A2 Hgb ELP Interp Sodium Potassium Chloride Carbon Dioxide Anion Gap BUN Creatinine GFR Calculation BUN/Creatinine Ratio Glucose POC Glucose 103 Calculated Osmolality Calcium Magnesium Ferritin Vitamin B12 Folate Free T4 TSH 3rd Generation BEKA (IgG-AHG) BEKA, Polyspecific Quality Measures - VTE Contraindication to Pharmacological VTE Prophylaxis: High Risk of Bleeding Specialty Discharge - Follow Up or Referrals Follow up with: Jerardo Thorne MD [Physician] - 11/28/16 12:50 pm
[2016-11-07] MEDS ORDERED: SODIUM POLYSTYRENE SULFATE 15 GM/60 ML BOTTLE PO ONE (12:03)
[2016-11-07] MEDS: SODIUM CHLORIDE 0.9% 1,000 ML IV SCH (12:07)
--- NOTE | 2016-11-07 14:08 | Sleep Medicine Progress Note ---
Assessment and Plan (1) Obstructive sleep apnea Status: Chronic Assessment and plan: The information from Ms. Serra's BiPAP device was obtained. Unfortunately she only tolerated therapy for 38 minutes last night. She had an average device pressure reading of 8.9/4.9 cm which she reports being very tolerant of. Her AHI is 9.4 which does show significant improvement from her diagnostic RDI of 21.3 years ago. Once a HST device becomes available, she will undergo repeat evaluation to determine the severity of her apnea. Since she is having a difficult time applying the mask, I asked her to ask for assistance from medical personnel. I will also have a solar maintenance technician available this afternoon for assistance if needed. I explained the significance of her past history of obstructive sleep apnea in the correlation between that and underlying heart disease as well as uncontrolled diabetes. She will need to utilize the device throughout her sleep time and any sleep during the day as well. She is currently on nasal O2 at 2liters/minute. Current Visit: Yes Sleep Medicine Subjective Interval history: Ms. Serra is a pleasant 71-year-old female who has a significant history of obstructive sleep apnea. She was first diagnosed in 2001 with a respiratory disturbance index of 21.3 and oxygen desaturations as low as 81%. BiPAP therapy was prescribed at the time. She returned for repeat evaluation in 2008 with a desire to resume treatment and underwent CPAP titration with a pressure setting of 16 cm along with supplemental nocturnal oxygen 1 L/min. Again, she was noncompliant with therapy. She is now facing coronary artery bypass grafting this Sunday due to underlying heart disease and has a significant history of hypertension, diabetes, hyperlipidemia and morbid obesity. She was evaluated by Dr. Rodrigues yesterday and will be undergoing HST once a device is available. Last night she was prescribed auto BiPAP and states that she tolerated it "fair". She reports being comfortable with the pressure setting as well as the mask fit. She has a hard time adjusting the mask and requires help from medical staff. Exam (Progress Note) - Constitutional Vitals: Period Temp Pulse Resp BP Sys/Allen Pulse Ox Last 24 Hr 97.5 F-99.0 F 57-86 16-20 113-138/53-66 93-100 General appearance: morbidly obese - Head Head exam: Present: normocephalic, atraumatic - Respiratory Respiratory exam: Present: clear to auscultation bilaterally - Cardiovascular Cardiovascular exam: Present: regular rate and rhythm - Neurological Exam Neurological exam: Present: alert, oriented X3 Results - Labs CBC & BMP: 11/07/16 04:51 11/07/16 04:51 Specialty Discharge - Follow Up or Referrals Follow up with: Jerardo Thorne MD [Physician] - 11/28/16 12:50 pm
[2016-11-07] MEDS ORDERED: CHLORHEXIDINE 4% SOLN 118 ML BOTTLE TOP SCH (15:00)
[2016-11-07] MEDS: ROSUVASTATIN 10 MG TABLET PO SCH (21:05)
--- NOTE | 2016-11-07 21:40 | Cardiology Progress Note ---
I, Naida Nieves, RN, am scribing for, and in the presence of, Jerardo Thorne MD 21:40. Assessment and Plan (1) coronary artery disease Status: Chronic Assessment and plan: Assessment and plan 11/06/2016: Her heart rate and blood pressure controlled on current meds. Her potassium slightly elevated. It is not been elevated before. Will recheck potassium tomorrow and treat if it remains elevated. Will check a BMP tomorrow. She her last dose of Plavix was last Sunday, so the plan is for her to have redo bypass on this Sunday or . Will get physical therapy involved. Encouraged her to use her brace and a walker. Dr. Ramos is using removing the Partida. I agree. I appreciate Dr. Ramos and Dr. Rodrigues's help. We will empirically try BiPAP tonight for her known sleep apnea and intolerance of CPAP. Assessment and plan 11/07/2016: She has been encouraged to use her BiPAP more. Her potassium remains elevated. Agree with holding Aldactone. Will also give a one-time dose of Kayexalate 30 g p.o.; we will recheck BMP in the a.m. I have encouraged her to ambulate for. Physical therapy is helping. She is using her brace and her walker. It will make her better candidate for surgery this Sunday if she is ambulating some. She agrees with the plan. Current Visit: Yes (2) Anemia Status: Acute Current Visit: Yes (3) Hyperkalemia Status: Acute Current Visit: Yes (4) Obstructive sleep apnea Status: Chronic Current Visit: Yes (5) S/P CABG (coronary artery bypass graft) Status: Chronic Current Visit: Yes (6) hypertension Status: Chronic Current Visit: Yes (7) type 2 diabetes mellitus Status: Chronic Current Visit: Yes Cardiology - PN: Subj Interval history: Wall Taper: Dr. Thorne Mr. Serra is seen sitting up in bed in no acute distress. She denies any chest pain, shortness of breath, palpitations, or dizziness. She is currently in sinus rhythm with heart rates in the 70s. Heart cath in November 03 showed occluded right coronary artery, significant distal left main, circumflex, and distal LAD disease. She tells me she is scheduled for redo CABG with Dr. Moctezuma on Sunday. Vital signs have been stable. H&H is down to 9.6 and 30.9 today. H &H is down to 9.6 and 30.9. Potassium today is 5.6. Will give a one-time dose of Kayexalate 30 g now. We will recheck in the morning. Exam (Progress Note) - Constitutional Vitals: Period Temp Pulse Resp BP Sys/Allen Pulse Ox Last 24 Hr 97.1 F-99.0 F 57-84 12-20 113-138/53-97 93-972 General appearance: no acute distress, morbidly obese - Head Head exam: Absent: abrasion, hematoma - Eye Eye exam: Absent: periorbital swelling, laceration to eyelids - Respiratory Respiratory exam: Present: clear to auscultation bilaterally, other (Using CPAP intermittently). Absent: accessory muscle use, chest wall tenderness - Cardiovascular Cardiovascular exam: Present: regular rate and rhythm. Absent: diastolic murmur , rubs, systolic murmur - GI/Abdominal GI/Abdominal exam: Present: normal bowel sounds, soft. Absent: distended, tenderness - Extremities Exam Extremities exam: Present: normal capillary refill, edema (Brawny edema to bilateral lower extremity) - Neurological Exam Neurological exam: Present: alert, oriented X3 - Psychiatric Psychiatric exam: Present: normal affect, normal mood - Skin Skin exam: Present: warm, dry Result/EKG - Labs CBC & BMP: 11/07/16 04:51 11/07/16 04:51 Lab Results: I have reviewed the past 24 hour labs Labs: Laboratory Results - last 24 hr 11/06/16 11/06/16 11/06/16 11:14 17:41 17:41 WBC 9.7 RBC 3.56 L Hgb 10.6 L Hct 34.9 L MCV 98.0 MCH 30 MCHC 30.4 L RDW 13.6 Plt Count 258 MPV 10.8 Neut % (Auto) 68.4 Lymph % (Auto) 19.3 L [place] % (Auto) 7.4 Eos % (Auto) 4.1 Baso % (Auto) 0.2 Neut # (Auto) 6.6 Lymph # (Auto) 1.9 [place] # (Auto) 0.7 Eos # (Auto) 0.4 Baso # (Auto) 0.0 Immature Gran % 0.6 Nucleated RBC % 0.0 Immature Gran # 0.06 Nucleated RBCs # 0.00 Anemia Panel Interp Platelet Estimate Hypochromasia Morphology Comment ESR Westergren 79 H Absolute Retic 0.1 Percent Retic 2.0 H Retic Hgb Equivalent 27.5 L Hemoglobin A1 Hemoglobin A2 Hgb ELP Interp Sodium Potassium Chloride Carbon Dioxide Anion Gap BUN Creatinine GFR Calculation BUN/Creatinine Ratio Glucose POC Glucose 152 H Calculated Osmolality Calcium Magnesium Ferritin 98.4 Vitamin B12 Folate Free T4 TSH 3rd Generation BEKA (IgG-AHG) BEKA, Polyspecific 11/06/16 11/06/16 11/06/16 17:41 17:41 17:41 WBC RBC Hgb Hct MCV MCH MCHC RDW Plt Count MPV Neut % (Auto) Lymph % (Auto) [place] % (Auto) Eos % (Auto) Baso % (Auto) Neut # (Auto) Lymph # (Auto) [place] # (Auto) Eos # (Auto) Baso # (Auto) Immature Gran % Nucleated RBC % Immature Gran # Nucleated RBCs # Anemia Panel Interp Platelet Estimate Hypochromasia Morphology Comment ESR Westergren Absolute Retic Percent Retic Retic Hgb Equivalent Hemoglobin A1 97.4 Hemoglobin A2 2.6 Hgb ELP Interp Sodium Potassium Chloride Carbon Dioxide Anion Gap BUN Creatinine GFR Calculation BUN/Creatinine Ratio Glucose POC Glucose 193 H Calculated Osmolality Calcium Magnesium Ferritin Vitamin B12 215 Folate 8.9 Free T4 TSH 3rd Generation BEKA (IgG-AHG) Negative BEKA, Polyspecific Negative 11/06/16 11/07/16 11/07/16 20:30 04:51 04:51 WBC 10.2 RBC 3.33 L Hgb 9.6 L Hct 30.9 L MCV 92.8 MCH 29 MCHC 31.1 L RDW 13.6 Plt Count 259 MPV 11.3 Neut % (Auto) 67.7 Lymph % (Auto) 18.4 L [place] % (Auto) 8.5 Eos % (Auto) 4.7 Baso % (Auto) 0.1 Neut # (Auto) 6.9 Lymph # (Auto) 1.9 Young # (Auto) 0.9 H Eos # (Auto) 0.5 Baso # (Auto) 0.0 Immature Gran % 0.6 Nucleated RBC % 0.0 Immature Gran # 0.06 Nucleated RBCs # 0.00 Anemia Panel Interp Platelet Estimate Adequate Hypochromasia 1+ Morphology Comment ESR Westergren Absolute Retic Percent Retic Retic Hgb Equivalent Hemoglobin A1 Hemoglobin A2 Hgb ELP Interp Sodium 138 Potassium 5.6 H Chloride 103 Carbon Dioxide 30 Anion Gap 10.6 BUN 25 H Creatinine 0.70 GFR Calculation 126 BUN/Creatinine Ratio 35.00 H Glucose 72 L POC Glucose 182 H Calculated Osmolality 277.7 Calcium 9.1 Magnesium 2.1 Ferritin Vitamin B12 Folate Free T4 1.90 H TSH 3rd Generation < 0.005 L BEKA (IgG-AHG) BEKA, Polyspecific 11/07/16 07:55 WBC RBC Hgb Hct MCV MCH MCHC RDW Plt Count MPV Neut % (Auto) Lymph % (Auto) Young % (Auto) Eos % (Auto) Baso % (Auto) Neut # (Auto) Lymph # (Auto) [place] # (Auto) Eos # (Auto) Baso # (Auto) Immature Gran % Nucleated RBC % Immature Gran # Nucleated RBCs # Anemia Panel Interp Platelet Estimate Hypochromasia Morphology Comment ESR Westergren Absolute Retic Percent Retic Retic Hgb Equivalent Hemoglobin A1 Hemoglobin A2 Hgb ELP Interp Sodium Potassium Chloride Carbon Dioxide Anion Gap BUN Creatinine GFR Calculation BUN/Creatinine Ratio Glucose POC Glucose 103 Calculated Osmolality Calcium Magnesium Ferritin Vitamin B12 Folate Free T4 TSH 3rd Generation BEKA (IgG-AHG) BEKA, Polyspecific - EKG EKG results: interpreted by me EKG shows: sinus rhythm Quality Measures - VTE Contraindication to Pharmacological VTE Prophylaxis: High Risk of Bleeding Specialty Discharge - Follow Up or Referrals Follow up with: Jerardo Thorne MD [Physician] - 11/28/16 12:50 pm IMati Dale, MD, personally performed the services described in this documentation, ascribed by Naida Nieves RN in my presence, and it is both accurate and complete [id number] .
[2016-11-07] MEDS: CHLORHEXIDINE 0.12% ORAL RINSE 60 ML BOTTLE SWISH/SPIT SCH (22:18)
[2016-11-08 05:39] LABS: Basophils % 0.1 % (0.0-0.8); Eosinophils # 0.5 10*3/uL (0.0-0.87); Eosinophils % 5.2 % (0.00-10.9); Hematocrit 32.3 VOL% (35.7-47.0); Hemoglobin 10.2 GM/DL (12.0-16.0); Immature Granulocytes % 0.3 %; Immature Granulocytes Absolute 0.03 #; Lymphocytes # 1.7 10*3/uL (1.4-4.0); Lymphocytes % 20.1 % (21.3-54.2); Mean Corpuscular HGB Conc 31.6 GM/DL (32-36); Mean Corpuscular Hemoglobin 29 PG (27-34); Mean Corpuscular Volume 91.5 FL (87-102); Mean Platelet Volume 11.6 FL (9.6-12.0); Monocytes # 0.7 10*3/uL (0.11-0.8); Monocytes % 7.6 % (1.7-12.7); Neutrophils # 5.8 10*3/uL (1.4-7.4); Neutrophils % 66.7 % (38.7-73.9); Platelet Count 282 T/CUMM (130-400); Red Blood Count 3.53 MC/CUMM (3.8-5.5); Red Cell Distribution Width 13.5 % (9.3-17.3); White Blood Count 8.7 T/CUMM (4-12)
[2016-11-08 06:00] LABS: Platelet Estimate Normal
[2016-11-08] MEDS: DICYCLOMINE 10 MG CAPSULE PO SCH ×3 (06:09→23:45)
--- NOTE | 2016-11-08 06:17 | Cardiothoracic Progress Note ---
Cardiothoracic Subjective Interval history: Patient is ready and planning for surgery on Sunday. Exam (Progress Note) - Constitutional Vitals: Period Temp Pulse Resp BP Sys/Allen Pulse Ox Last 24 Hr 97.5 F-98.2 F 67-86 18-20 109-145/52-66 94-100 Result/EKG - Labs CBC & BMP: 11/08/16 04:48 11/07/16 04:51 Labs: Laboratory Results - last 24 hr 11/06/16 11/06/16 11/07/16 17:41 17:41 07:55 WBC 9.7 RBC 3.56 L Hgb 10.6 L Hct 34.9 L MCV 98.0 MCH 30 MCHC 30.4 L RDW 13.6 Plt Count 258 MPV 10.8 Neut % (Auto) 68.4 Lymph % (Auto) 19.3 L [place] % (Auto) 7.4 Eos % (Auto) 4.1 Baso % (Auto) 0.2 Neut # (Auto) 6.6 Lymph # (Auto) 1.9 [place] # (Auto) 0.7 Eos # (Auto) 0.4 Baso # (Auto) 0.0 Immature Gran % 0.6 Nucleated RBC % 0.0 Immature Gran # 0.06 Nucleated RBCs # 0.00 Anemia Panel Interp Platelet Estimate ESR Westergren 79 H Absolute Retic 0.1 Percent Retic 2.0 H Retic Hgb Equivalent 27.5 L Hemoglobin A1 97.4 Hemoglobin A2 2.6 Hgb ELP Interp POC Glucose 103 Vitamin B12 215 Folate 8.9 11/07/16 11/07/16 11/07/16 11:52 15:16 19:52 WBC RBC Hgb Hct MCV MCH MCHC RDW Plt Count MPV Neut % (Auto) Lymph % (Auto) [place] % (Auto) Eos % (Auto) Baso % (Auto) Neut # (Auto) Lymph # (Auto) [place] # (Auto) Eos # (Auto) Baso # (Auto) Immature Gran % Nucleated RBC % Immature Gran # Nucleated RBCs # Anemia Panel Interp Platelet Estimate ESR Westergren Absolute Retic Percent Retic Retic Hgb Equivalent Hemoglobin A1 Hemoglobin A2 Hgb ELP Interp POC Glucose 130 H 169 H 233 H Vitamin B12 Folate 11/08/16 04:48 WBC 8.7 RBC 3.53 L Hgb 10.2 L Hct 32.3 L MCV 91.5 MCH 29 MCHC 31.6 L RDW 13.5 Plt Count 282 MPV 11.6 Neut % (Auto) 66.7 Lymph % (Auto) 20.1 L [place] % (Auto) 7.6 Eos % (Auto) 5.2 Baso % (Auto) 0.1 Neut # (Auto) 5.8 Lymph # (Auto) 1.7 [place] # (Auto) 0.7 Eos # (Auto) 0.5 Baso # (Auto) 0.0 Immature Gran % 0.3 Nucleated RBC % 0.0 Immature Gran # 0.03 Nucleated RBCs # 0.00 Anemia Panel Interp Platelet Estimate Normal ESR Westergren Absolute Retic Percent Retic Retic Hgb Equivalent Hemoglobin A1 Hemoglobin A2 Hgb ELP Interp POC Glucose Vitamin B12 Folate Quality Measures - VTE Contraindication to Pharmacological VTE Prophylaxis: High Risk of Bleeding Specialty Discharge - Follow Up or Referrals Follow up with: Jerardo Thorne MD [Physician] - 11/28/16 12:50 pm
[2016-11-08 06:19] LABS: Magnesium 1.9 MG/DL (1.8-2.4); Osmolality,Calculated 280.4 MOS/KG (273-304); Potassium 4.6 MMOL/L (3.5-5.1)
--- NOTE | 2016-11-08 07:47 | XRay Report ---
XR chest 2V Indication: Coronary artery disease. Comparison: None. Technique: PA and lateral chest x-ray was performed. Findings: The heart size appears within normal limits. Previous sternotomy and stable. The mediastinal contour and hilar structures demonstrate no significant abnormalities. Lungs are clear. Diaphragmatic eventration on the right appears stable. Bones and soft tissues demonstrate no evidence of acute pathology. Surgical clips upper abdomen suggest prior cholecystectomy. Impression: 1. No active cardiopulmonary disease. 11/08/2016 7:41 AM PROCEDURE INTERPRETED AT [facility] DEPARTMENT OF RADIOLOGY Final Report Signed by: Dr. Billy Holloway
--- NOTE | 2016-11-08 07:49 | EKG Report ---
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
[2016-11-08] MEDS: INSULIN LISPRO 100 UNIT/ML SUBCUT SCH ×4 (07:59→20:53)
[2016-11-08] MEDS: ALLOPURINOL 300 MG TABLET PO SCH (08:39)
[2016-11-08] MEDS: MAGNESIUM CHLORIDE 64 MG TABLET PO SCH ×2 (08:40→20:52)
[2016-11-08] MEDS: GABAPENTIN 600 MG TABLET PO SCH ×3 (08:40→20:53)
[2016-11-08] MEDS: valACYclovir 500 MG TABLET PO SCH (08:40)
[2016-11-08] MEDS: ASPIRIN CHEW 81 MG TABLET PO SCH (08:41)
[2016-11-08] MEDS: BISOPROLOL 5 MG TABLET PO SCH ×2 (08:41→20:53)
[2016-11-08] MEDS: ISOSORBIDE DINITRATE SR 40 MG TABLET PO SCH ×3 (08:41→20:52)
[2016-11-08] MEDS: VALSARTAN 160 MG TABLET PO SCH (08:41)
[2016-11-08] MEDS: amLODIPine 5 MG TABLET PO SCH (08:41)
[2016-11-08] MEDS: traMADol 50 MG TABLET PO SCH ×3 (08:41→20:53)
[2016-11-08] MEDS: INSULIN NPH/REGULAR 70/30 100 UNIT/ML SUBCUT SCH ×2 (08:42→20:54)
[2016-11-08] MEDS: ENOXAPARIN 40 MG/0.4 ML SYRINGE SUBCUT SCH (08:42)
[2016-11-08] MEDS: PANTOPRAZOLE 20 MG TABLET PO SCH (08:42)
[2016-11-08] MEDS: FLUTICASONE/SALMETEROL 250-50 DISKUS 14 DOSE INH SCH ×2 (08:43→20:56)
[2016-11-08] MEDS: CHLORHEXIDINE 0.12% ORAL RINSE 60 ML BOTTLE SWISH/SPIT SCH ×2 (08:43→20:56)
[2016-11-08] MEDS: FUROSEMIDE 20 MG/2 ML VIAL IV SCH ×2 (08:44→16:18)
[2016-11-08] MEDS: ALBUTEROL/IPRATROPIUM 3 ML NEB RESP TX SCH ×2 (08:48→13:46)
--- NOTE | 2016-11-08 09:02 | Internal Med Progress Note ---
Assessment and Plan (1) coronary artery disease Status: Chronic Assessment and plan: 71-year-old female admitted to acute care * Coronary artery disease. For CABG on Sunday * Diabetes. Continue current treatment * Hypothyroidism. Holding her Synthroid * Hypertension. Blood pressure is stable * Hyperkalemia. Potassium is back to normal Current Visit: Yes (2) hyperlipidemia Status: Chronic Current Visit: No (3) hypertension Status: Chronic Current Visit: Yes (4) hypothyroidism Status: Chronic Current Visit: No (5) type 2 diabetes mellitus Status: Chronic Current Visit: Yes Internal Medicine - PN: Subj Interval history: She is feeling better this morning. She denies any specific complaints Exam (Progress Note) - Constitutional Vitals: Period Temp Pulse Resp BP Sys/Allen Pulse Ox Last 24 Hr 97.5 F-97.9 F 67-86 18-20 103-145/52-70 94-100 Exam: Examination: GENERAL: No acute distress NECK: Neck is supple. CVS: Regular rate and rhythm. Systolic ejection murmur at left sternal border RESPIRATORY: Lungs are clear. ABDOMEN: Soft and nontender. EXT: No edema. Peripheral pulses are present. MSK: No obvious deformity. Results - Labs CBC & BMP: 11/08/16 04:48 11/08/16 04:48 Lab Results: I have reviewed the past 24 hour labs Quality Measures - VTE Contraindication to Pharmacological VTE Prophylaxis: High Risk of Bleeding Specialty Discharge - Follow Up or Referrals Follow up with: Jerardo Thorne MD [Physician] - 11/28/16 12:50 pm
[2016-11-08] MEDS: SODIUM CHLORIDE 0.9% 1,000 ML IV SCH (09:03)
--- NOTE | 2016-11-08 13:52 | Sleep Medicine Progress Note ---
Assessment and Plan (1) Obstructive sleep apnea Status: Chronic Assessment and plan: Ms. Serra's sleep study results were reviewed in detail along with the risk and benefits of treatment. She will need to continue daily treatment of her obstructive sleep apnea. Continue autobipap as previously ordered. She also notes her home device will need to be replaced as it malfunctioned years ago. Prior to her discharge this will need to be arranged. Current Visit: Yes Sleep Medicine Subjective Interval history: Ms. Soliz has a history of obstructive sleep apnea diagnosed originally in 2000. She has been noncompliant with therapy in the past. Last night, she underwent HST to reconfirm her diagnosis and remains positive for obstructive sleep apnea with a diagnostic AHI of 16.5/ hour along with profound oxygen desaturations as low as 57%. She had an average heart rate during sleep of 61 bpm with a highest reading of 136 bpm. We will continue auto BiPAP pressure for treatment as she has been "comfortable" with the pressure and treatment overall. I reminded her again today to ask for help with mask application prior to sleep. Exam (Progress Note) - Constitutional Vitals: Period Temp Pulse Resp BP Sys/Allen Pulse Ox Last 24 Hr 97.5 F-98 F 65-79 16-20 103-145/52-70 94-100 Results - Labs CBC & BMP: 11/08/16 04:48 11/08/16 04:48 Specialty Discharge - Follow Up or Referrals Follow up with: Jerardo Thorne MD [Physician] - 11/28/16 12:50 pm
--- NOTE | 2016-11-08 14:44 | Cardiology Progress Note ---
Assessment and Plan - Time spent with patient Time spent with patient: Greater than 30 minutes (1) S/P CABG (coronary artery bypass graft) Status: Chronic Assessment and plan: See plan of care listed below Current Visit: Yes (2) Hyperkalemia Status: Resolved Assessment and plan: See plan of care listed below Current Visit: Yes (3) Debilitated patient Status: Chronic Assessment and plan: See plan of care listed below Current Visit: Yes (4) Anemia Status: Chronic Assessment and plan: See plan of care listed below Current Visit: Yes (5) Abnormal TSH Status: Acute Assessment and plan: See plan of care listed below Current Visit: Yes (6) type 2 diabetes mellitus Status: Chronic Assessment and plan: See plan of care listed below Current Visit: Yes (7) coronary artery disease Status: Chronic Assessment and plan: See plan of care listed below Current Visit: Yes (8) hypertension Status: Chronic Assessment and plan: See plan of care listed below Current Visit: Yes Cardiology - PN: Subj Interval history: THERAPY ASSISTANT: DR. THORNE PCP: DR. SNELL SUMMARY: 71-year-old -[place] female routinely followed by Dr. Thorne. History of known coronary artery disease status post CABG. She was admitted for elective cardiac catheterization November 03, 2016 for abnormal stress test. She was found to have an occluded right coronary artery, significant distal left main, circumflex and distal LAD disease. Vein graft to the LAD occluded, vein graft to the right coronary occluded, vein graft to the circumflex occluded. Unable to visualize MANUEL. CV surgery was consulted for is currently scheduled to undergo re-do CABG Sunday. NOVEMBER 08, 2016: Plavix has been held since prior cardiac catheterization. She denies having chest pain, heaviness or tightness. Hyperkalemia has resolved. Her overtreated thyroid has been addressed by holding of her thyroid replacement. Hemoglobin and hematocrit 10.2 and 32.3. Stable. Continues to take aspirin, isosorbide mononitrate, Diovan, Zebeta, and Crestor. Underwent HST last evening and sleep apnea was confirmed. ASSESSMENT/PLAN: 1. KNOWN CAD S/P CABG - scheduled for redo CABG Sunday. 2. HYPERTENSION - well controlled. 3. DYSLIPIDEMIA - continue lipid-lowering agent. LDL 67. 4. DIABETES - blood glucose levels have been well controlled during this hospital stay 5. SLEEP APNEA - now being titrated with sleep mask. 6. ABNORMAL TSH -thyroid replacement being held. 7. ANEMIA - stable. 8. HYPERKALEMIA - resolved. Exam (Progress Note) - Constitutional Vitals: Period Temp Pulse Resp BP Sys/Allen Pulse Ox Last 24 Hr 97.5 F-98 F 65-79 16-20 103-145/52-70 94-100 Exam: General: [Appears well with no apparent distress.] [Pleasant and cooperative. ] [Appears comfortable.] HEENT: [PERRL, normocephalic, atraumatic. Mucous membranes moist. No jaundice noted. Conjunctiva moist and clear, sclerae anicteric] Neck: No JVD/HJR, no thyromegaly or lymphadenopathy noted. No carotid bruit appreciated Cardiac: [Regular rate and rhythm.] [No murmur rub or gallop.] Lungs: [Clear to auscultation without accessory muscle use to assist the respiratory pattern.] Wearing CPAP device. Abdomen: Soft, bowel sounds normoactive. Nontender and nondistended. No abdominal bruit or thrill noted. No masses noted. Musculoskeletal: No fluid collection. Decreased range of motion is noted. Extremities: Brace to left lower extremity. No clubbing, cyanosis noted. [ No edema noted.] Upper extremity pulses 2+. Lower extremity pulses 2+. Capillary refill less than 3 seconds. Skin: No unusual lesions or rashes. No skin breakdown appreciated. Neuro: Awake, alert and oriented 3. Left-sided hemiparesis lower extremity noted. No essential tremor is appreciated. Result/EKG - Labs CBC & BMP: 11/08/16 04:48 11/08/16 04:48 Lab Results: I have reviewed the past 24 hour labs Labs: Laboratory Results - last 24 hr 11/07/16 11/07/16 11/08/16 15:16 19:52 04:48 WBC 8.7 RBC 3.53 L Hgb 10.2 L Hct 32.3 L MCV 91.5 MCH 29 MCHC 31.6 L RDW 13.5 Plt Count 282 MPV 11.6 Neut % (Auto) 66.7 Lymph % (Auto) 20.1 L [place] % (Auto) 7.6 Eos % (Auto) 5.2 Baso % (Auto) 0.1 Neut # (Auto) 5.8 Lymph # (Auto) 1.7 [place] # (Auto) 0.7 Eos # (Auto) 0.5 Baso # (Auto) 0.0 Immature Gran % 0.3 Nucleated RBC % 0.0 Immature Gran # 0.03 Nucleated RBCs # 0.00 Platelet Estimate Normal Sodium Potassium Chloride Carbon Dioxide Anion Gap BUN Creatinine GFR Calculation BUN/Creatinine Ratio Glucose POC Glucose 169 H 233 H Calculated Osmolality Calcium Magnesium 11/08/16 11/08/16 11/08/16 04:48 07:43 10:58 WBC RBC Hgb Hct MCV MCH MCHC RDW Plt Count MPV Neut % (Auto) Lymph % (Auto) [place] % (Auto) Eos % (Auto) Baso % (Auto) Neut # (Auto) Lymph # (Auto) [place] # (Auto) Eos # (Auto) Baso # (Auto) Immature Gran % Nucleated RBC % Immature Gran # Nucleated RBCs # Platelet Estimate Sodium 140 Potassium 4.6 Chloride 101 Carbon Dioxide 32 Anion Gap 11.6 BUN 23 H Creatinine 0.80 GFR Calculation 106 BUN/Creatinine Ratio 28.00 H Glucose 58 L POC Glucose 115 H 89 Calculated Osmolality 280.4 Calcium 9.0 Magnesium 1.9 - EKG EKG results: interpreted by me EKG shows: sinus rhythm Quality Measures - VTE Contraindication to Pharmacological VTE Prophylaxis: High Risk of Bleeding Specialty Discharge - Follow Up or Referrals Follow up with: Jerardo Thorne MD [Physician] - 11/28/16 12:50 pm
[2016-11-08] MEDS: ROSUVASTATIN 10 MG TABLET PO SCH (20:52)
[2016-11-09 05:23] LABS: Basophils % 0.3 % (0.0-0.8); Eosinophils # 0.4 10*3/uL (0.0-0.87); Eosinophils % 5.5 % (0.00-10.9); Hematocrit 35.7 VOL% (35.7-47.0); Immature Granulocytes % 0.6 %; Immature Granulocytes Absolute 0.04 #; Lymphocytes # 1.9 10*3/uL (1.4-4.0); Lymphocytes % 27.8 % (21.3-54.2); Mean Corpuscular HGB Conc 30.8 GM/DL (32-36); Mean Corpuscular Hemoglobin 29 PG (27-34); Mean Corpuscular Volume 94.9 FL (87-102); Mean Platelet Volume 10.8 FL (9.6-12.0); Monocytes # 0.6 10*3/uL (0.11-0.8); Monocytes % 8.7 % (1.7-12.7); NRBC # 0.02 10*3/uL; Neutrophils # 3.9 10*3/uL (1.4-7.4); Neutrophils % 57.1 % (38.7-73.9); Platelet Count 238 T/CUMM (130-400); Red Blood Count 3.76 MC/CUMM (3.8-5.5); Red Cell Distribution Width 13.5 % (9.3-17.3); White Blood Count 6.8 T/CUMM (4-12)
[2016-11-09 05:57] LABS: Calcium 8.9 MG/DL (8.5-10.1); Potassium 4.9 MMOL/L (3.5-5.1)
[2016-11-09] MEDS: DICYCLOMINE 10 MG CAPSULE PO SCH ×3 (06:31→21:15)
--- NOTE | 2016-11-09 07:55 | Internal Med Progress Note ---
Assessment and Plan (1) coronary artery disease Status: Chronic Assessment and plan: 71-year-old female admitted to acute care * Coronary artery disease. Stable. Set up for CABG in the morning * Diabetes. Continue current treatment * Hypothyroidism. Holding her Synthroid * Hypertension. Blood pressure is stable * Hyperkalemia. Potassium is back to normal Current Visit: Yes (2) hyperlipidemia Status: Chronic Current Visit: No (3) hypertension Status: Chronic Current Visit: Yes (4) hypothyroidism Status: Chronic Current Visit: No (5) type 2 diabetes mellitus Status: Chronic Current Visit: Yes Internal Medicine - PN: Subj Interval history: She is feeling better this morning. She is ready for surgery tomorrow morning. No chest pain or shortness of breath Exam (Progress Note) - Constitutional Vitals: Period Temp Pulse Resp BP Sys/Allen Pulse Ox Last 24 Hr 97.2 F-98 F 57-71 16-20 111-144/52-70 93-100 Exam: Examination: GENERAL: No acute distress NECK: Neck is supple. CVS: Regular rate and rhythm. Systolic ejection murmur at left sternal border RESPIRATORY: Lungs are clear. ABDOMEN: Soft and nontender. EXT: No edema. Peripheral pulses are present. MSK: No obvious deformity. Results - Labs CBC & BMP: 11/09/16 04:12 11/09/16 04:12 Lab Results: I have reviewed the past 24 hour labs Quality Measures - VTE Contraindication to Pharmacological VTE Prophylaxis: High Risk of Bleeding Specialty Discharge - Follow Up or Referrals Follow up with: Jerardo Thorne MD [Physician] - 11/28/16 12:50 pm
--- NOTE | 2016-11-09 08:08 | Cardiothoracic Progress Note ---
Cardiothoracic Subjective Interval history: Patient is ready for surgery in the morning. Exam (Progress Note) - Constitutional Vitals: Period Temp Pulse Resp BP Sys/Allen Pulse Ox Last 24 Hr 97.2 F-98 F 57-71 16-20 111-137/52-65 93-100 Result/EKG - Labs CBC & BMP: 11/09/16 04:12 11/09/16 04:12 Labs: Laboratory Results - last 24 hr 11/08/16 11/08/16 11/08/16 10:58 15:18 19:52 WBC RBC Hgb Hct MCV MCH MCHC RDW Plt Count MPV Neut % (Auto) Lymph % (Auto) [place] % (Auto) Eos % (Auto) Baso % (Auto) Neut # (Auto) Lymph # (Auto) [place] # (Auto) Eos # (Auto) Baso # (Auto) Immature Gran % Nucleated RBC % Immature Gran # Nucleated RBCs # Sodium Potassium Chloride Carbon Dioxide Anion Gap BUN Creatinine GFR Calculation BUN/Creatinine Ratio Glucose POC Glucose 89 94 186 H Calculated Osmolality Calcium Magnesium 11/09/16 11/09/16 04:12 04:12 WBC 6.8 RBC 3.76 L Hgb 11.0 L Hct 35.7 MCV 94.9 MCH 29 MCHC 30.8 L RDW 13.5 Plt Count 238 MPV 10.8 Neut % (Auto) 57.1 Lymph % (Auto) 27.8 [place] % (Auto) 8.7 Eos % (Auto) 5.5 Baso % (Auto) 0.3 Neut # (Auto) 3.9 Lymph # (Auto) 1.9 [place] # (Auto) 0.6 Eos # (Auto) 0.4 Baso # (Auto) 0.0 Immature Gran % 0.6 Nucleated RBC % 0.3 Immature Gran # 0.04 Nucleated RBCs # 0.02 Sodium 136 Potassium 4.9 Chloride 102 Carbon Dioxide 25 Anion Gap 13.9 BUN 32 H Creatinine 1.00 GFR Calculation 81 BUN/Creatinine Ratio 32.00 H Glucose 58 L POC Glucose Calculated Osmolality 276.0 Calcium 8.9 Magnesium 2.0 Quality Measures - VTE Contraindication to Pharmacological VTE Prophylaxis: High Risk of Bleeding Specialty Discharge - Follow Up or Referrals Follow up with: Jerardo Thorne MD [Physician] - 11/28/16 12:50 pm
[2016-11-09] MEDS: INSULIN LISPRO 100 UNIT/ML SUBCUT SCH ×4 (08:35→21:18)
[2016-11-09] MEDS ORDERED: CEFUROXIME INJ 1,500 MG in SODIUM CHLORIDE 0.9% 100 ML IV ONE (09:30)
[2016-11-09 09:32] LABS: Allen Test Positive; Pt O2 Delivery Device Room Air
[2016-11-09 09:34] LABS: ABG Base Excess 6.5 MMOL/L (-2.5-2.5); ABG HCO3 30.2 MMOL/L (20-26); ABG Oxygen Saturation 92.1 % (95-100); ABG PH 7.382 (7.35-7.45); ABG PO2 67.3 MM HG (80-95); ABG TCO2 29.7 MMOL/L (23-27)
[2016-11-09] MEDS: ALLOPURINOL 300 MG TABLET PO SCH (09:38)
[2016-11-09] MEDS: ASPIRIN CHEW 81 MG TABLET PO SCH (09:38)
[2016-11-09] MEDS: PANTOPRAZOLE 20 MG TABLET PO SCH (09:38)
[2016-11-09] MEDS: GABAPENTIN 600 MG TABLET PO SCH ×3 (09:38→21:15)
[2016-11-09] MEDS: ISOSORBIDE DINITRATE SR 40 MG TABLET PO SCH ×3 (09:38→21:16)
[2016-11-09] MEDS: VALSARTAN 160 MG TABLET PO SCH (09:38)
[2016-11-09] MEDS: BISOPROLOL 5 MG TABLET PO SCH ×2 (09:39→21:17)
[2016-11-09] MEDS: MAGNESIUM CHLORIDE 64 MG TABLET PO SCH ×2 (09:39→21:16)
[2016-11-09] MEDS: valACYclovir 500 MG TABLET PO SCH (09:39)
[2016-11-09] MEDS: CHLORHEXIDINE 0.12% ORAL RINSE 60 ML BOTTLE SWISH/SPIT SCH ×2 (09:39→21:16)
[2016-11-09] MEDS: amLODIPine 5 MG TABLET PO SCH (09:39)
[2016-11-09] MEDS: traMADol 50 MG TABLET PO SCH ×3 (09:39→21:16)
[2016-11-09] MEDS: FLUTICASONE/SALMETEROL 250-50 DISKUS 14 DOSE INH SCH ×2 (09:40→21:17)
[2016-11-09] MEDS: FUROSEMIDE 20 MG/2 ML VIAL IV SCH (09:40)
[2016-11-09] MEDS: INSULIN NPH/REGULAR 70/30 100 UNIT/ML SUBCUT SCH ×2 (09:41→21:18)
--- NOTE | 2016-11-09 12:44 | Sleep Medicine Progress Note ---
Assessment and Plan (1) Obstructive sleep apnea Status: Chronic Assessment and plan: Continue supportive therapy with auto titration BiPAP. We need to check her mask fit and make sure that leak is minimized as much as possible. Current Visit: Yes (2) coronary artery disease Status: Chronic Current Visit: Yes (3) hypertension Status: Chronic Current Visit: No Sleep Medicine Subjective Interval history: Patient did use CPAP last night but had a very large air leak for over 5 hours. Her average AHI was quite high so I am not sure how effective this was. We will need to recheck her mask fit and improve upon this is best we can. Exam (Progress Note) - Constitutional Vitals: Period Temp Pulse Resp BP Sys/Allen Pulse Ox Last 24 Hr 96.9 F-97.9 F 57-67 16-20 110-134/52-68 93-99 Exam: She is alert and responsive in no distress. Chest with good air movement no focal wheeze or rhonchi. Cardiac exam reveals a regular rhythm without murmur or gallop. Abdomen soft nontender extremities without increased edema. Neurologically, she is grossly intact. Results - Labs CBC & BMP: 11/09/16 04:12 11/09/16 04:12 Lab Results: I have reviewed the past 24 hour labs Specialty Discharge - Follow Up or Referrals Follow up with: Jerardo Thorne MD [Physician] - 11/28/16 12:50 pm
[2016-11-09] MEDS ORDERED: FUROSEMIDE 20 MG TABLET PO ONE (15:46)
[2016-11-09] MEDS: SODIUM CHLORIDE 0.9% 1,000 ML IV SCH (15:48)
[2016-11-09] MEDS: CHLORHEXIDINE 4% SOLN 118 ML BOTTLE TOP SCH ×2 (16:39→21:16)
--- NOTE | 2016-11-09 20:31 | Cardiology Progress Note ---
I, Naida Nieves RN, am scribing for, and in the presence of, Jerardo Thorne MD 20:30. Assessment and Plan (1) coronary artery disease Status: Chronic Assessment and plan: Assessment and plan 11/06/2016: Her heart rate and blood pressure controlled on current meds. Her potassium slightly elevated. It is not been elevated before. Will recheck potassium tomorrow and treat if it remains elevated. Will check a BMP tomorrow. She her last dose of Plavix was last Sunday, so the plan is for her to have redo bypass on this Sunday or . Will get physical therapy involved. Encouraged her to use her brace and a walker. Dr. Ramos is using removing the [place]. I agree. I appreciate Dr. Ramos and Dr. Rodrigues's help. We will empirically try BiPAP tonight for her known sleep apnea and intolerance of CPAP. Assessment and plan 11/07/2016: She has been encouraged to use her BiPAP more. Her potassium remains elevated. Agree with holding Aldactone. Will also give a one-time dose of Kayexalate 30 g p.o.; we will recheck BMP in the a.m. I have encouraged her to ambulate for. Physical therapy is helping. She is using her brace and her walker. It will make her better candidate for surgery this Sunday if she is ambulating some. She agrees with the plan. Assessment and plan 11/08/2016: No chest pain. He is ambulating somewhat with the help of her leg brace and her walker with physical therapy. I encouraged her to continue it. Repeat chest x-ray compared to the one view x-ray reveals no abnormality. She will be for coronary bypass grafting on Sunday. [facility] is trying a different mode of CPAP/BiPAP. 11/09/16: Assessment/recommendation: Has been off the Synthroid about a week. Will restart at levothyroxine 100 g p.o. daily. Apparently 200 g of levothyroxine per day was too much for her, with a very low TSH. Okay with me to proceed with coronary bypass grafting tomorrow. She has been trying to be more active by using her left leg brace and her walker, with the assistance of physical therapy. Current Visit: Yes (2) Anemia Status: Chronic Current Visit: Yes (3) Hyperkalemia Status: Resolved Current Visit: Yes (4) Obstructive sleep apnea Status: Chronic Current Visit: Yes (5) S/P CABG (coronary artery bypass graft) Status: Chronic Current Visit: Yes (6) hypertension Status: Chronic Current Visit: Yes (7) type 2 diabetes mellitus Status: Chronic Current Visit: Yes (8) Chronic respiratory failure Status: Acute Current Visit: Yes (9) Obesity hypoventilation syndrome Status: Acute Current Visit: Yes (10) Iatrogenic hyperthyroidism Status: Acute Current Visit: Yes (11) Debilitated patient Status: Chronic Current Visit: Yes (12) hyperlipidemia Status: Chronic Current Visit: No (13) hypertension Status: Chronic Current Visit: No Cardiology - PN: Subj Interval history: Improvement Analyst: Dr. Thorne Mr. Melendez is seen sitting up in bed reading, in no acute distress. She is scheduled for CABG tomorrow with Dr. Moctezuma. She denies any chest pain, shortness of breath, palpitations, or dizziness. school lunch monitor currently shows sinus rhythm with heart rate of 74. Vital signs been stable. Potassium today is 4.9. Exam (Progress Note) - Constitutional Vitals: Period Temp Pulse Resp BP Sys/Allen Pulse Ox Last 24 Hr 97.2 F-97.9 F 57-67 16-20 111-134/52-68 93-99 General appearance: no acute distress, morbidly obese - Head Head exam: Absent: abrasion, hematoma - Eye Eye exam: Absent: periorbital swelling, laceration to eyelids - Respiratory Respiratory exam: Present: clear to auscultation bilaterally. Absent: accessory muscle use, chest wall tenderness - Cardiovascular Cardiovascular exam: Present: regular rate and rhythm. Absent: rubs - GI/Abdominal GI/Abdominal exam: Present: normal bowel sounds, soft. Absent: distended, tenderness - Extremities Exam Extremities exam: Absent: edema - Neurological Exam Neurological exam: Present: alert, oriented X3 - Psychiatric Psychiatric exam: Present: normal affect, normal mood - Skin Skin exam: Present: warm, dry Result/EKG - Labs CBC & BMP: 11/09/16 04:12 11/09/16 04:12 Lab Results: I have reviewed the past 24 hour labs Labs: Laboratory Results - last 24 hr 11/08/16 11/08/16 11/09/16 15:18 19:52 04:12 WBC 6.8 RBC 3.76 L Hgb 11.0 L Hct 35.7 MCV 94.9 MCH 29 MCHC 30.8 L RDW 13.5 Plt Count 238 MPV 10.8 Neut % (Auto) 57.1 Lymph % (Auto) 27.8 [place] % (Auto) 8.7 Eos % (Auto) 5.5 Baso % (Auto) 0.3 Neut # (Auto) 3.9 Lymph # (Auto) 1.9 [place] # (Auto) 0.6 Eos # (Auto) 0.4 Baso # (Auto) 0.0 Immature Gran % 0.6 Nucleated RBC % 0.3 Immature Gran # 0.04 Nucleated RBCs # 0.02 ABG pH ABG pCO2 ABG pO2 ABG HCO3 ABG Total CO2 ABG O2 Saturation ABG Base Excess FiO2 Sodium Potassium Chloride Carbon Dioxide Anion Gap BUN Creatinine GFR Calculation BUN/Creatinine Ratio Glucose POC Glucose 94 186 H Calculated Osmolality Calcium Magnesium Blood Type Antibody Screen Crossmatch 11/09/16 11/09/16 11/09/16 04:12 08:28 09:12 WBC RBC Hgb Hct MCV MCH MCHC RDW Plt Count MPV Neut % (Auto) Lymph % (Auto) [place] % (Auto) Eos % (Auto) Baso % (Auto) Neut # (Auto) Lymph # (Auto) [place] # (Auto) Eos # (Auto) Baso # (Auto) Immature Gran % Nucleated RBC % Immature Gran # Nucleated RBCs # ABG pH ABG pCO2 ABG pO2 ABG HCO3 ABG Total CO2 ABG O2 Saturation ABG Base Excess FiO2 Sodium 136 Potassium 4.9 Chloride 102 Carbon Dioxide 25 Anion Gap 13.9 BUN 32 H Creatinine 1.00 GFR Calculation 81 BUN/Creatinine Ratio 32.00 H Glucose 58 L POC Glucose 61 L Calculated Osmolality 276.0 Calcium 8.9 Magnesium 2.0 Blood Type O POSITIVE Antibody Screen Negative Crossmatch See Detail 11/09/16 11/09/16 11/09/16 09:25 09:41 Unknown WBC RBC Hgb Hct MCV MCH MCHC RDW Plt Count MPV Neut % (Auto) Lymph % (Auto) [place] % (Auto) Eos % (Auto) Baso % (Auto) Neut # (Auto) Lymph # (Auto) [place] # (Auto) Eos # (Auto) Baso # (Auto) Immature Gran % Nucleated RBC % Immature Gran # Nucleated RBCs # ABG pH 7.382 ABG pCO2 56.0 H ABG pO2 67.3 L ABG HCO3 30.2 H ABG Total CO2 29.7 H ABG O2 Saturation 92.1 L ABG Base Excess 6.5 H FiO2 21.00 Sodium Potassium Chloride Carbon Dioxide Anion Gap BUN Creatinine GFR Calculation BUN/Creatinine Ratio Glucose POC Glucose 164 H Calculated Osmolality Calcium Magnesium Blood Type O POSITIVE Antibody Screen Crossmatch - EKG EKG results: interpreted by me EKG shows: sinus rhythm Quality Measures - VTE Contraindication to Pharmacological VTE Prophylaxis: High Risk of Bleeding Specialty Discharge - Follow Up or Referrals Follow up with: Jerardo Thorne MD [Physician] - 11/28/16 12:50 pm I, Jerardo Thorne MD, personally performed the services described in this documentation, ascribed by Naida Nieves RN in my presence, and it is both accurate and complete 030 .
[2016-11-09] MEDS: ROSUVASTATIN 10 MG TABLET PO SCH (21:15)
[2016-11-10] MEDS: CHLORHEXIDINE 4% SOLN 118 ML BOTTLE TOP SCH (04:35)
[2016-11-10] MEDS ORDERED: VANCOMYCIN 1,000 MG VIAL ONE ×2 (04:43→12:42)
[2016-11-10] MEDS ORDERED: PAPAVERINE 60 MG/2 ML VIAL ONE (04:43)
[2016-11-10] MEDS ORDERED: TISSUE ADHESIVE 1 EACH APPLICATOR TOP ONE (04:43)
[2016-11-10] MEDS ORDERED: FAMOTIDINE 20 MG TABLET PO ONE (05:30)
[2016-11-10] MEDS ORDERED: LORazepam 1 MG TABLET PO ONE (05:30)
[2016-11-10] MEDS ORDERED: CEFUROXIME INJ 1,500 MG in SODIUM CHLORIDE 0.9% 100 ML IV ONE (05:30)
[2016-11-10] MEDS: BISOPROLOL 5 MG TABLET PO SCH ×2 (05:35→14:26)
[2016-11-10] MEDS: VALSARTAN 160 MG TABLET PO SCH ×2 (05:35→14:24)
[2016-11-10] MEDS: PANTOPRAZOLE 20 MG TABLET PO SCH ×2 (05:36→14:26)
[2016-11-10] MEDS: amLODIPine 5 MG TABLET PO SCH ×2 (05:36→14:26)
[2016-11-10] MEDS: ISOSORBIDE DINITRATE SR 40 MG TABLET PO SCH ×2 (05:36→14:25)
[2016-11-10] MEDS ORDERED: CALCIUM CHLORIDE 1,000 MG/10 ML SYRINGE IV ONE ×3 (06:46→07:39)
[2016-11-10] MEDS ORDERED: LIDOCAINE 2% 5 ML VIAL ONE (06:46)
[2016-11-10] MEDS ORDERED: AMINOCAPROIC ACID 5,000 MG/20 ML VIAL IV ONE ×2 (06:46)
[2016-11-10] MEDS ORDERED: VECURONIUM 10 MG VIAL IV ONE (06:46)
[2016-11-10] MEDS ORDERED: LEVOTHYROXINE 100 MCG TABLET PO SCH (07:00)
[2016-11-10] MEDS ORDERED: NITROPRUSSIDE 50 MG/2 ML VIAL ONE (07:38)
[2016-11-10] MEDS ORDERED: PHENYLEPHRINE DRIP 40 MG/250 ML PREMIX IV ONE (07:39)
[2016-11-10] MEDS ORDERED: POTASSIUM CHLORIDE RIDER 100 ML IV ONE (07:39)
[2016-11-10] MEDS ORDERED: SODIUM BICARBONATE 50 MEQ/50 ML SYRINGE IV ONE ×2 (07:40→11:30)
[2016-11-10] MEDS ORDERED: ALBUMIN 5% 12.5 GM/250 ML VIAL IV ONE (07:40)
[2016-11-10 08:01] LABS: ABG Base Excess 7.8 MMOL/L (-2.5-2.5); ABG HCO3 31.7 MMOL/L (20-26); ABG PCO2 41.2 MM HG (35-48); ABG PH 7.496 (7.35-7.45); ABG TCO2 28.8 MMOL/L (23-27); Glucose Heart Surgery 166 MG/DL (74-106); Hematocrit Heart Surgery 31.1 PERCENT (37-47); Hemoglobin Heart Surgery 10.1 G/DL (12.0-16.0); Ionized Calcium Arterial 1.14 MMOL/L (1.21-1.46); PCO2 Patient Temp Arterial 41.2 MMHG; PH Patient Temp Arterial 7.496; Patient Temperature 37 CELCIUS; Potassium Heart/CVR 4.9 MMOL/L (3.5-5.1); Sodium Heart/CVR 136 MMOL/L (135-145)
[2016-11-10 08:39] LABS: Apearance,Urine Slightly Hazy (Clear); Bacteria,Urine Occasional /HPF (Few); Bilirubin,Urine Negative (Negative); Blood, Urine Negative (Negative); Glucose,Urine (UA) Negative (Negative); Hyaline Casts,Urine 1 /LPF (0-3); Ketones,Urine Negative (Negative); Mucus,Urine Occasional /LPF (Occasional); Nitrite,Urine Negative (Negative); Protein,Urine Negative; RBC,Urine 3 /HPF (0-4); Squamous Epithelial Cell,Urine Occasional /HPF (0-10); Urine Color Yellow (Yellow); Urine Specific Gravity 1.013 (1.001-1.035); Urine Urobilinogen < 2.0 EU/DL (0.2-1.0); WBC,Urine 23 /HPF (0-6)
[2016-11-10] MEDS ORDERED: FUROSEMIDE 40 MG TABLET PO SCH (09:00)
[2016-11-10 10:37] LABS: Hematocrit Heart Surgery 31.8 PERCENT (37-47); Hemoglobin Heart Surgery 10.3 G/DL (12.0-16.0); PCO2 Patient Temp Venous 41.4 MM HG; PH Patient Temp Venous 7.491; PO2 Patient Temp Venous 32.3 MM HG; Potassium Heart/CVR 4.8 MMOL/L (3.5-5.1); VBG Base Excess 7.7 MEQ/L (0-4); VBG Oxygen Saturation 72.9 %; VBG PCO2 45.6 MMHG (41-51); VBG PH 7.461; VBG PO2 37.2 MMHG (17-40)
[2016-11-10 11:00] LABS: Hematocrit Heart Surgery 23.7 PERCENT (37-47); Hemoglobin Heart Surgery 7.6 G/DL (12.0-16.0); PCO2 Patient Temp Venous 33.1 MM HG; PH Patient Temp Venous 7.564; PO2 Patient Temp Venous 31.2 MM HG; Potassium Heart/CVR 4.8 MMOL/L (3.5-5.1); VBG Base Excess 7.8 MEQ/L (0-4); VBG HCO3 31.3 MEQ/L (24-28); VBG PCO2 40.2 MMHG (41-51); VBG PH 7.503; VBG PO2 41.2 MMHG (17-40)
[2016-11-10] MEDS ORDERED: MAGNESIUM SULFATE 1 GM/2 ML VIAL ONE (11:30)
[2016-11-10] MEDS ORDERED: ALBUMIN 25% 25 GM/100 ML VIAL IV ONE (11:30)
[2016-11-10] MEDS ORDERED: methylPREDNISolone SOD SUC 1,000 MG/8 ML VIAL ONE (11:30)
[2016-11-10] MEDS ORDERED: PROTAMINE SULFATE 250 MG/25 ML VIAL IV ONE (11:30)
[2016-11-10] MEDS ORDERED: DEXTROSE 5% KCL 20 MEQ 20 MEQ/1,000 ML BAG IV ONE (11:30)
[2016-11-10] MEDS ORDERED: PHENYLEPHRINE DRIP 20 MG/250 ML PREMIX IV ONE (11:30)
[2016-11-10] MEDS ORDERED: MANNITOL 12.5 GM/50 ML VIAL IV ONE (11:30)
[2016-11-10] MEDS ORDERED: HEPARIN 10,000 UNIT/10 ML VIAL ONE (11:30)
[2016-11-10] MEDS ORDERED: FUROSEMIDE 20 MG/2 ML VIAL ONE (11:31)
[2016-11-10 11:45] LABS: ABG Base Excess 6.7 MMOL/L (-2.5-2.5); ABG HCO3 30.6 MMOL/L (20-26); ABG Oxygen Saturation 99.5 % (95-100); ABG PCO2 42.4 MM HG (35-48); ABG PH 7.472 (7.35-7.45); ABG TCO2 28.8 MMOL/L (23-27); Glucose Heart Surgery 276 MG/DL (74-106); Hematocrit Heart Surgery 24.8 PERCENT (37-47); Ionized Calcium Arterial 1.16 MMOL/L (1.21-1.46); PCO2 Patient Temp Arterial 42.4 MMHG; PH Patient Temp Arterial 7.472; Patient Temperature 37 CELCIUS; Potassium Heart/CVR 4.5 MMOL/L (3.5-5.1); Sodium Heart/CVR 132 MMOL/L (135-145)
[2016-11-10] MEDS ORDERED: INSULIN REGULAR DRIP 100 ML IV ONE (11:58)
--- NOTE | 2016-11-10 13:14 | XRay Report ---
XR chest 1V portable Indication: Incorrect sponge count. Comparison: Chest x-ray 11/08/2016. Technique: Portable AP chest was performed. Findings: There is a radiopaque sponge within the right lung apex. Bilateral chest tubes are present. Mediastinal drain is present. IJ catheter is present on the right. Endotracheal tube terminates at the sternoclavicular junction. Impression: 1. Surgical sponge projects within the right upper chest. These findings were communicated to surgery at the time of image acquisition. 11/10/2016 1:06 PM PROCEDURE INTERPRETED AT [facility] DEPARTMENT OF RADIOLOGY Final Report Signed by: Dr. Billy Holloway
[2016-11-10] MEDS: LACTATED RINGERS 1,000 ML IV PRN ×2 (13:30→15:35)
[2016-11-10] MEDS: SODIUM CHLORIDE 0.45% 1,000 ML IV SCH ×2 (13:30→16:30)
[2016-11-10] MEDS ORDERED: HEPARIN/NACL 0.9% 2 UNITS/ML 500 ML IV ONE (13:33)
[2016-11-10] MEDS ORDERED: MAGNESIUM SULF RIDER 4 GM in PREMIX 1 EACH IV PRN (13:34)
[2016-11-10] MEDS ORDERED: LACTATED RINGERS 250 ML IV PRN (13:34)
[2016-11-10] MEDS ORDERED: PHENYLEPHRINE DRIP 40 MG/250 ML PREMIX IV PRN (13:34)
[2016-11-10] MEDS ORDERED: ACETAMINOPHEN 650 MG SUPP RECTAL PRN (13:34)
[2016-11-10] MEDS ORDERED: VECURONIUM 10 MG VIAL IV PRN ×2 (13:34)
[2016-11-10] MEDS ORDERED: ONDANSETRON 4 MG/2 ML VIAL IV PRN (13:34)
[2016-11-10] MEDS ORDERED: MIDAZOLAM 2 MG/2 ML VIAL IV PRN (13:34)
[2016-11-10] MEDS ORDERED: MAGNESIUM SULF RIDER 2 GM in PREMIX 1 EACH IV PRN (13:34)
[2016-11-10] MEDS ORDERED: POTASSIUM CHLORIDE RIDER 10 MEQ in PREMIX 1 EACH IV PRN (13:34)
[2016-11-10] MEDS ORDERED: NITROPRUSSIDE 100 MG in DEXTROSE 5% 250 ML IV PRN (13:34)
[2016-11-10] MEDS ORDERED: CALCIUM CHLORIDE 1,000 MG/10 ML SYRINGE IV PRN (13:34)
[2016-11-10] MEDS ORDERED: INSULIN REGULAR 100 UNIT/ML IV ONE (13:34)
[2016-11-10] MEDS ORDERED: DEXTROSE 50% 25 GM/50 ML VIAL IV PRN ×2 (13:34)
--- NOTE | 2016-11-10 13:42 | Operative Note ---
Date of procedure: 11/10/16 Pre-op diagnosis: Coronary artery disease Post-op diagnosis: same Procedure: Procedure: Coronary artery bypass grafting 1 with a right internal mammary graft to the anterior descending coronary artery. Right internal mammary was used as a free graft. Findings: Patient is a 71-year-old lady who underwent bypass surgery about 21 years ago at which time she had three-vessel grafting to the anterior descending circumflex marginal and right posterior descending coronary vessels. All of these vein grafts subsequently occluded and the patient now presents with recurrent chest pain. Cardiac catheterization demonstrating high-grade occlusion of the anterior descending coronary artery and the circumflex coronary was totally occluded as was the posterior descending coronary artery. At the time of surgery left ventricular function was noted to be essentially normal. The only vessels that I could identify that appeared to be suitable for grafting was the anterior descending coronary artery. This was a large vessel and free of disease at the site of anastomosis and was grafted with a right internal mammary graft which was taken as a free graft. Patient tolerated procedure well and returned to recovery in satisfactory condition. Procedure: Patient brought to the operating room placed in the operating table in supine position. After satisfactory induction of general anesthesia the chest abdomen and left legs were prepped and draped in sterile fashion. The previous sternotomy incision was reopened and the sternal wires were removed. Sternum was divided with a vibrating saw and a combination of sharp and blunt dissection. Sternum was dissected free from underlying adhesions in the right internal mammary artery was dissected free from its position in the right anterior chest wall and removed from that position and prepared as an arterial graft. Dissection of adhesions was continued the heart from the pericardium and surrounding structures and then the patient was prepared for cardiopulmonary bypass with systemic heparinization cannulation of the ascending aorta and right atrium. Cardiopulmonary bypass was begun and aorta was crossclamped and the heart arrested with cardioplegia solution injected into the aortic root. Heart was protected during the period of crossclamping with topical saline slush. Distal anastomosis was constructed between the internal mammary artery and anterior descending coronary artery. This graft was then sewn proximally to the ascending aorta. Aortic clamp was then removed and the heart was allowed to begin normal cardiac action. The patient was weaned from cardiopulmonary bypass without difficulty and heparin effect reversed with protamine. Decannulation was carried out with a defects in the ascending aorta and right atrium closed with 3-0 Prolene. The operative field was inspected for hemostasis and this was considered adequate the incision was closed with interrupted stainless steel wire and the sternum and 0 Monopril in the presternal fascia. Skin was closed with running subcuticular 3-0 Monocryl. Chest tubes were left in the anterior mediastinum and the right hemithorax and chest tubes 3 and all were brought out through separate stab incisions. Sterile dressings were applied the patient was returned to recovery in satisfactory condition. Surgeon / Physician: Ramesh Moctezuma Estimated blood loss: other (Unable to determine because of cardiopulmonary bypass) Condition: stable Disposition: ICU Results - Labs CBC & BMP: 11/10/16 11:40 11/09/16 04:12 Discharge Plan - Discharge Medications No Action Simvastatin [Zocor] 10 mg PO BEDTIME Nitroglycerin Sl Tab [Nitrostat] 0.4 mg SL Q5M PRN MDD 3 PRN Reason: Chest Pain Furosemide Tab [Lasix Tab] 80 mg PO DAILY PRN PRN Reason: Fluid Retention Fluticasone/Salmeterol 250-50 [Advair 250-50] 1 puff INH BID Isosorbide Dinitrate [Isordil] 40 mg PO TID Allopurinol [Zyloprim] 450 mg PO DAILY Clopidogrel [Plavix] 75 mg PO DAILY Amlodipine Besylate 5 mg PO DAILY Spironolactone [Aldactone] 25 mg PO DAILY Gabapentin 600 mg PO TID Tramadol HCl [Tramadol Tab] 50 mg PO TID Dicyclomine Cap/Tab [Bentyl Cap/Tab] 10 mg PO Q8HR Valacyclovir HCl [Valacyclovir] 1,000 mg PO DAILY Magnesium Chloride [Slow Mag] 128 mg PO BID Potassium Chloride 20 meq PO BID Aspirin EC Tab 81 mg PO DAILY Levothyroxine Tab [Synthroid Tab] 100 mcg PO DAILY@0700 Valsartan [Diovan] 160 mg PO DAILY tablet Insulin NPH Hum/Reg Insulin Hm [NovoLIN 70/30] 35 units SUBCUT BID Ranitidine Tab [Zantac Tab] 150 mg PO BID Levothyroxine Tab [Synthroid Tab] 200 mcg PO DAILY@0700 tablet Metoprolol Tartrate Tab [Lopressor Tab] 50 mg PO BID tablet - Follow Up or Referral Follow Up: Jerardo Thorne MD [Physician] - 11/28/16 12:50 pm - Forms/Instructions Instructions: Heart Healthy Diet (GEN), Coronary Artery Bypass Graft, Beaming Inspector (GEN), Sternal Precautions (GEN)
[2016-11-10] MEDS ORDERED: SEVOFLURANE 1 UNIT/15 MINUTE INH ONE (13:50)
[2016-11-10] MEDS ORDERED: SODIUM CHLORIDE 0.9% 1,000 ML IV ONE (13:51)
[2016-11-10] MEDS ORDERED: SUFentanil 250 MCG/5 ML AMP ONE (13:51)
[2016-11-10] MEDS ORDERED: SODIUM CHLORIDE 0.9% 100 ML IV ONE (13:51)
[2016-11-10] MEDS ORDERED: SODIUM CHLORIDE 0.9% 250 ML IV ONE (13:51)
[2016-11-10] MEDS ORDERED: PROTAMINE SULFATE 50 MG/5 ML VIAL IV ONE ×2 (13:56→16:00)
[2016-11-10 13:57] LABS: ABG Base Excess 5.4 MMOL/L (-2.5-2.5); ABG HCO3 29.4 MMOL/L (20-26); ABG Oxygen Saturation 99.7 % (95-100); ABG PCO2 35.5 MM HG (35-48); ABG PH 7.514 (7.35-7.45); ABG TCO2 26.3 MMOL/L (23-27); Glucose Heart Surgery 267 MG/DL (74-106); Hemoglobin Heart Surgery 8.7 G/DL (12.0-16.0); Potassium Heart/CVR 4.1 MMOL/L (3.5-5.1)
[2016-11-10 13:59] LABS: Basophils % 0.1 % (0.0-0.8); Lymphocytes # 1.6 10*3/uL (1.4-4.0); Red Cell Distribution Width 13.3 % (9.3-17.3)
[2016-11-10 14:05] LABS: Eosinophils # 0.1 10*3/uL (0.0-0.87); Eosinophils % 0.8 % (0.00-10.9); Hematocrit 26.7 VOL% (35.7-47.0); Immature Granulocytes % 1.6 %; Immature Granulocytes Absolute 0.24 #; Lymphocytes % 10.5 % (21.3-54.2); Mean Corpuscular HGB Conc 32.6 GM/DL (32-36); Mean Corpuscular Hemoglobin 30 PG (27-34); Mean Corpuscular Volume 91.8 FL (87-102); Mean Platelet Volume 10.9 FL (9.6-12.0); Monocytes # 0.7 10*3/uL (0.11-0.8); Monocytes % 4.6 % (1.7-12.7); Neutrophils # 12.7 10*3/uL (1.4-7.4); Neutrophils % 82.4 % (38.7-73.9)
[2016-11-10 14:06] LABS: White Blood Count 15.4 T/CUMM (4-12)
[2016-11-10 14:07] LABS: Hemoglobin 8.7 GM/DL (12.0-16.0); Platelet Count 257 T/CUMM (130-400); Red Blood Count 2.91 MC/CUMM (3.8-5.5)
[2016-11-10 14:11] LABS: INR 1.2; PT Patient Result 12.6 SECS; Partial Thromboplastin Time 32.5 SECS (0-40)
[2016-11-10] MEDS: ASPIRIN CHEW 81 MG TABLET PO SCH (14:24)
[2016-11-10] MEDS: DICYCLOMINE 10 MG CAPSULE PO SCH (14:24)
[2016-11-10] MEDS: INSULIN LISPRO 100 UNIT/ML SUBCUT SCH (14:24)
[2016-11-10] MEDS: FLUTICASONE/SALMETEROL 250-50 DISKUS 14 DOSE INH SCH (14:24)
[2016-11-10] MEDS: INSULIN NPH/REGULAR 70/30 100 UNIT/ML SUBCUT SCH (14:25)
[2016-11-10] MEDS: traMADol 50 MG TABLET PO SCH (14:26)
[2016-11-10] MEDS: CHLORHEXIDINE 0.12% ORAL RINSE 60 ML BOTTLE SWISH/SPIT SCH ×2 (14:26→20:58)
[2016-11-10] MEDS: GABAPENTIN 600 MG TABLET PO SCH (14:26)
[2016-11-10] MEDS: valACYclovir 500 MG TABLET PO SCH (14:26)
[2016-11-10] MEDS: MAGNESIUM CHLORIDE 64 MG TABLET PO SCH (14:26)
[2016-11-10] MEDS: SODIUM CHLORIDE 0.9% 1,000 ML IV SCH (14:26)
[2016-11-10] MEDS: ALLOPURINOL 300 MG TABLET PO SCH (14:26)
[2016-11-10 14:31] LABS: Hypochromasia 1+; Platelet Estimate Normal
[2016-11-10 14:37] LABS: Bilirubin,Total 1.1 MG/DL (0.2-1.0); Calcium 9.6 MG/DL (8.5-10.1); Magnesium 2.2 MG/DL (1.8-2.4); Osmolality,Calculated 288.7 MOS/KG (273-304); Potassium 4.4 MMOL/L (3.5-5.1); Total Protein 5.7 G/DL (6.4-8.3)
[2016-11-10 14:49] LABS: CKMB % 2.4 %
[2016-11-10 14:54] LABS: Troponin I Only 1.37 NG/ML (0.00-0.045)
[2016-11-10] MEDS: INSULIN REGULAR DRIP 100 ML IV SCH (15:00)
[2016-11-10] MEDS ORDERED: DOBUTamine 250 ML IV ONE (15:08)
--- NOTE | 2016-11-10 15:13 | Cardiology Progress Note ---
Assessment and Plan (1) coronary artery disease Status: Chronic Assessment and plan: Assessment and plan 11/06/2016: Her heart rate and blood pressure controlled on current meds. Her potassium slightly elevated. It is not been elevated before. Will recheck potassium tomorrow and treat if it remains elevated. Will check a BMP tomorrow. She her last dose of Plavix was last Sunday, so the plan is for her to have redo bypass on this Sunday or . Will get physical therapy involved. Encouraged her to use her brace and a walker. Dr. Ramos is using removing the Partida. I agree. I appreciate Dr. Ramos and Dr. Rodrigues's help. We will empirically try BiPAP tonight for her known sleep apnea and intolerance of CPAP. Assessment and plan 11/07/2016: She has been encouraged to use her BiPAP more. Her potassium remains elevated. Agree with holding Aldactone. Will also give a one-time dose of Kayexalate 30 g p.o.; we will recheck BMP in the a.m. I have encouraged her to ambulate for. Physical therapy is helping. She is using her brace and her walker. It will make her better candidate for surgery this Sunday if she is ambulating some. She agrees with the plan. Assessment and plan 11/08/2016: No chest pain. He is ambulating somewhat with the help of her leg brace and her walker with physical therapy. I encouraged her to continue it. Repeat chest x-ray compared to the one view x-ray reveals no abnormality. She will be for coronary bypass grafting on Sunday. [facility] is trying a different mode of CPAP/BiPAP. 11/09/16: Assessment/recommendation: Has been off the Synthroid about a week. Will restart at levothyroxine 100 g p.o. daily. Apparently 200 g of levothyroxine per day was too much for her, with a very low TSH. Okay with me to proceed with coronary bypass grafting tomorrow. She has been trying to be more active by using her left leg brace and her walker, with the assistance of physical therapy. 11/10/16: Plan/recommendation: Early post-bypass. I conferred care with Dr. Moctezuma and with the patient's nurses. He was only able to graft the LAD--he used a ИРИНА. the right was not graftable. The circumflex had minimal vessel outside of left-sided AV groove. One benefit of this approach would be that no vein graft was needed to be harvested from the left leg, so that we less recovery from that standpoint. A endocrinological standpoint I am restarting a lower dose of her Synthroid, 100 g per day. Will restart her cardiac meds when she is able to take p.o. postop it probably tomorrow. Current Visit: Yes (2) Anemia Status: Chronic Current Visit: Yes (3) Hyperkalemia Status: Resolved Current Visit: Yes (4) Obstructive sleep apnea Status: Chronic Current Visit: Yes (5) S/P CABG (coronary artery bypass graft) Status: Chronic Current Visit: Yes (6) hypertension Status: Chronic Current Visit: Yes (7) type 2 diabetes mellitus Status: Chronic Current Visit: Yes (8) Chronic respiratory failure Status: Acute Current Visit: Yes (9) Obesity hypoventilation syndrome Status: Acute Current Visit: Yes (10) Iatrogenic hyperthyroidism Status: Acute Current Visit: Yes (11) Debilitated patient Status: Chronic Current Visit: Yes (12) hyperlipidemia Status: Chronic Current Visit: No (13) hypertension Status: Chronic Current Visit: No Cardiology - PN: Subj Interval history: Patient is early postop. Still asleep. Exam (Progress Note) - Constitutional Vitals: Period Temp Pulse Resp BP Sys/Allen Pulse Ox Last 24 Hr 94.5 F-97.5 F 60-90 10-20 98-149/55-88 95-100 Exam: HEENT: Pupils equal, reactive to light and accommodation Neck: NoJVD or bruit Lungs clear to auscultation Heart: Regular rhythm rate with normal S1 and S2. Apical S4 Abdomen: No hepatosplenomegaly Spine/extremities: No clubbing, cyanosis, or edema Neuro: Nonfocal Psych: No depression or anxiety Minimal chest tube drainage She is receiving her blood which was called in the [facility] Result/EKG - Labs CBC & BMP: 11/10/16 13:55 11/10/16 13:55 Lab Results: I have reviewed the past 24 hour labs Labs: Laboratory Results - last 24 hr 11/09/16 11/09/16 11/09/16 09:12 15:37 19:34 WBC RBC Hgb Hct MCV MCH MCHC RDW Plt Count MPV Neut % (Auto) Lymph % (Auto) Gosper % (Auto) Eos % (Auto) Baso % (Auto) Neut # (Auto) Lymph # (Auto) Gos[place] # (Auto) Eos # (Auto) Baso # (Auto) Immature Gran % Nucleated RBC % Immature Gran # Nucleated RBCs # Platelet Estimate Hypochromasia INR PT Patient/Control Mix Circ Anticoag PTT Patient Temperature ABG pH ABG pH at Pt Temp ABG pCO2 ABG pCO2 at Pt Temp ABG pO2 ABG pO2 at Pt Temp ABG HCO3 ABG Total CO2 ABG O2 Saturation ABG Base Excess ABG Sodium VBG pH VBG pCO2 VBG pO2 VBG HCO3 VBG Total CO2 VBG O2 Saturation VBG Base Excess Hemoglobin Hematocrit Potassium Glucose Ionized Calcium FiO2 Sodium Chloride Carbon Dioxide Anion Gap BUN Creatinine GFR Calculation BUN/Creatinine Ratio POC Glucose 64 L 175 H Calculated Osmolality Calcium Venous Ioniz Calcium Magnesium Total Bilirubin AST ALT Alkaline Phosphatase Total Creatine Kinase CK-MB (CK-2) CK and CKMB Interp Troponin I Total Protein Albumin Globulin Albumin/Globulin Ratio Urine Color Urine Appearance Urine pH Ur Specific Prince Urine Protein Urine Glucose (UA) Urine Ketones Urine Blood Urine Nitrate Urine Bilirubin Urine Urobilinogen Urine Leukocytes Urine RBC Urine WBC Urine WBC Clumps Ur Squamous Epith Cells Urine Bacteria Hyaline Casts Urine Mucus Urine Yeast (Budding) Ur Culture Indicated? Blood Type O POSITIVE Antibody Screen Negative Crossmatch See Detail 11/10/16 11/10/16 11/10/16 04:32 07:20 07:45 WBC RBC Hgb Hct MCV MCH MCHC RDW Plt Count 200 MPV Neut % (Auto) Lymph % (Auto) Gosper % (Auto) Eos % (Auto) Baso % (Auto) Neut # (Auto) Lymph # (Auto) Gosper # (Auto) Eos # (Auto) Baso # (Auto) Immature Gran % Nucleated RBC % Immature Gran # Nucleated RBCs # Platelet Estimate Hypochromasia INR PT Patient/Control Mix Circ Anticoag PTT Patient Temperature ABG pH ABG pH at Pt Temp ABG pCO2 ABG pCO2 at Pt Temp ABG pO2 ABG pO2 at Pt Temp ABG HCO3 ABG Total CO2 ABG O2 Saturation ABG Base Excess ABG Sodium VBG pH VBG pCO2 VBG pO2 VBG HCO3 VBG Total CO2 VBG O2 Saturation VBG Base Excess Hemoglobin Hematocrit Potassium Glucose Ionized Calcium FiO2 Sodium Chloride Carbon Dioxide Anion Gap BUN Creatinine GFR Calculation BUN/Creatinine Ratio POC Glucose 176 H Calculated Osmolality Calcium Venous Ioniz Calcium Magnesium Total Bilirubin AST ALT Alkaline Phosphatase Total Creatine Kinase CK-MB (CK-2) CK and CKMB Interp Troponin I Total Protein Albumin Globulin Albumin/Globulin Ratio Urine Color Yellow Urine Appearance Slightly hazy Urine pH 6.0 Ur Specific Prince 1.013 Urine Protein Negative Urine Glucose (UA) Negative Urine Ketones Negative Urine Blood Negative Urine Nitrate Negative Urine Bilirubin Negative Urine Urobilinogen < 2.0 H Urine Leukocytes Small H Urine RBC 3 Urine WBC 23 Urine WBC Clumps Occasional Ur Squamous Epith Cells Occasional Urine Bacteria Occasional Hyaline Casts 1 Urine Mucus Occasional Urine Yeast (Budding) Few Ur Culture Indicated? Results to follow Blood Type Antibody Screen Crossmatch 11/10/16 11/10/16 11/10/16 07:45 10:25 10:55 WBC RBC Hgb Hct MCV MCH MCHC RDW Plt Count MPV Neut % (Auto) Lymph % (Auto) Gos[place] % (Auto) Eos % (Auto) Baso % (Auto) Neut # (Auto) Lymph # (Auto) Gos[place] # (Auto) Eos # (Auto) Baso # (Auto) Immature Gran % Nucleated RBC % Immature Gran # Nucleated RBCs # Platelet Estimate Hypochromasia INR PT Patient/Control Mix Circ Anticoag PTT Patient Temperature 37 35 33 ABG pH 7.496 H ABG pH at Pt Temp 7.496 7.491 7.564 ABG pCO2 41.2 ABG pCO2 at Pt Temp 41.2 41.4 33.1 ABG pO2 453.0 H ABG pO2 at Pt Temp 453.0 32.3 31.2 ABG HCO3 31.7 H ABG Total CO2 28.8 H ABG O2 Saturation 100.0 ABG Base Excess 7.8 H ABG Sodium 136 135 132 L VBG pH 7.461 7.503 VBG pCO2 45.6 40.2 L VBG pO2 37.2 41.2 H VBG HCO3 31.0 H 31.3 H VBG Total CO2 29.5 29.6 VBG O2 Saturation 72.9 80.0 VBG Base Excess 7.7 H 7.8 H Hemoglobin 10.1 L 10.3 L 7.6 L Hematocrit 31.1 L 31.8 L 23.7 L Potassium 4.9 4.8 4.8 Glucose 166 H 179 H 296 H Ionized Calcium 1.14 L FiO2 80.00 80.00 Sodium Chloride Carbon Dioxide Anion Gap BUN Creatinine GFR Calculation BUN/Creatinine Ratio POC Glucose Calculated Osmolality Calcium Venous Ioniz Calcium 1.01 L 0.99 L Magnesium Total Bilirubin AST ALT Alkaline Phosphatase Total Creatine Kinase CK-MB (CK-2) CK and CKMB Interp Troponin I Total Protein Albumin Globulin Albumin/Globulin Ratio Urine Color Urine Appearance Urine pH Ur Specific Prince Urine Protein Urine Glucose (UA) Urine Ketones Urine Blood Urine Nitrate Urine Bilirubin Urine Urobilinogen Urine Leukocytes Urine RBC Urine WBC Urine WBC Clumps Ur Squamous Epith Cells Urine Bacteria Hyaline Casts Urine Mucus Urine Yeast (Budding) Ur Culture Indicated? Blood Type Antibody Screen Crossmatch 11/10/16 11/10/16 11/10/16 11:40 11:40 13:55 WBC 15.4 H D RBC 2.91 L D Hgb 8.7 L D Hct 26.7 L MCV 91.8 MCH 30 MCHC 32.6 RDW 13.3 Plt Count 174 257 D MPV 10.9 Neut % (Auto) 82.4 H Lymph % (Auto) 10.5 L Gosper % (Auto) 4.6 Eos % (Auto) 0.8 Baso % (Auto) 0.1 Neut # (Auto) 12.7 H Lymph # (Auto) 1.6 Gosper # (Auto) 0.7 Eos # (Auto) 0.1 Baso # (Auto) 0.0 Immature Gran % 1.6 Nucleated RBC % 0.0 Immature Gran # 0.24 Nucleated RBCs # 0.00 Platelet Estimate Normal Hypochromasia 1+ INR PT Patient/Control Mix Circ Anticoag PTT Patient Temperature 37 ABG pH 7.472 H ABG pH at Pt Temp 7.472 ABG pCO2 42.4 ABG pCO2 at Pt Temp 42.4 ABG pO2 257.0 H ABG pO2 at Pt Temp 257.0 ABG HCO3 30.6 H ABG Total CO2 28.8 H ABG O2 Saturation 99.5 ABG Base Excess 6.7 H ABG Sodium 132 L VBG pH VBG pCO2 VBG pO2 VBG HCO3 VBG Total CO2 VBG O2 Saturation VBG Base Excess Hemoglobin 8.0 L Hematocrit 24.8 L Potassium 4.5 Glucose 276 H Ionized Calcium 1.16 L FiO2 Sodium Chloride Carbon Dioxide Anion Gap BUN Creatinine GFR Calculation BUN/Creatinine Ratio POC Glucose Calculated Osmolality Calcium Venous Ioniz Calcium Magnesium Total Bilirubin AST ALT Alkaline Phosphatase Total Creatine Kinase CK-MB (CK-2) CK and CKMB Interp Troponin I Total Protein Albumin Globulin Albumin/Globulin Ratio Urine Color Urine Appearance Urine pH Ur Specific Prince Urine Protein Urine Glucose (UA) Urine Ketones Urine Blood Urine Nitrate Urine Bilirubin Urine Urobilinogen Urine Leukocytes Urine RBC Urine WBC Urine WBC Clumps Ur Squamous Epith Cells Urine Bacteria Hyaline Casts Urine Mucus Urine Yeast (Budding) Ur Culture Indicated? Blood Type Antibody Screen Crossmatch 11/10/16 11/10/16 11/10/16 13:55 13:55 13:55 WBC RBC Hgb Hct MCV MCH MCHC RDW Plt Count MPV Neut % (Auto) Lymph % (Auto) Gosper % (Auto) Eos % (Auto) Baso % (Auto) Neut # (Auto) Lymph # (Auto) Gos[place] # (Auto) Eos # (Auto) Baso # (Auto) Immature Gran % Nucleated RBC % Immature Gran # Nucleated RBCs # Platelet Estimate Hypochromasia INR 1.2 PT Patient/Control Mix 12.6 Circ Anticoag PTT 32.5 Patient Temperature ABG pH 7.514 H ABG pH at Pt Temp ABG pCO2 35.5 ABG pCO2 at Pt Temp ABG pO2 334.0 H ABG pO2 at Pt Temp ABG HCO3 29.4 H ABG Total CO2 26.3 ABG O2 Saturation 99.7 ABG Base Excess 5.4 H ABG Sodium VBG pH VBG pCO2 VBG pO2 VBG HCO3 VBG Total CO2 VBG O2 Saturation VBG Base Excess Hemoglobin 8.7 L Hematocrit 27.0 L Potassium 4.4 4.1 Glucose 266 H 267 H Ionized Calcium FiO2 Sodium 138 Chloride 97 L Carbon Dioxide 29 Anion Gap 16.4 H BUN 27 H Creatinine 0.80 GFR Calculation 106 BUN/Creatinine Ratio 33.00 H POC Glucose Calculated Osmolality 288.7 Calcium 9.6 Venous Ioniz Calcium Magnesium 2.2 Total Bilirubin 1.10 H AST 42 H ALT 13 Alkaline Phosphatase 89 Total Creatine Kinase CK-MB (CK-2) CK and CKMB Interp Troponin I Total Protein 5.7 L Albumin 3.0 L Globulin 2.7 Albumin/Globulin Ratio 1.1 Urine Color Urine Appearance Urine pH Ur Specific Prince Urine Protein Urine Glucose (UA) Urine Ketones Urine Blood Urine Nitrate Urine Bilirubin Urine Urobilinogen Urine Leukocytes Urine RBC Urine WBC Urine WBC Clumps Ur Squamous Epith Cells Urine Bacteria Hyaline Casts Urine Mucus Urine Yeast (Budding) Ur Culture Indicated? Blood Type Antibody Screen Crossmatch 11/10/16 13:55 WBC RBC Hgb Hct MCV MCH MCHC RDW Plt Count MPV Neut % (Auto) Lymph % (Auto) [place] % (Auto) Eos % (Auto) Baso % (Auto) Neut # (Auto) Lymph # (Auto) [place] # (Auto) Eos # (Auto) Baso # (Auto) Immature Gran % Nucleated RBC % Immature Gran # Nucleated RBCs # Platelet Estimate Hypochromasia INR PT Patient/Control Mix Circ Anticoag PTT Patient Temperature ABG pH ABG pH at Pt Temp ABG pCO2 ABG pCO2 at Pt Temp ABG pO2 ABG pO2 at Pt Temp ABG HCO3 ABG Total CO2 ABG O2 Saturation ABG Base Excess ABG Sodium VBG pH VBG pCO2 VBG pO2 VBG HCO3 VBG Total CO2 VBG O2 Saturation VBG Base Excess Hemoglobin Hematocrit Potassium Glucose Ionized Calcium FiO2 Sodium Chloride Carbon Dioxide Anion Gap BUN Creatinine GFR Calculation BUN/Creatinine Ratio POC Glucose Calculated Osmolality Calcium Venous Ioniz Calcium Magnesium Total Bilirubin AST ALT Alkaline Phosphatase Total Creatine Kinase 288 H D CK-MB (CK-2) 6.8 H CK and CKMB Interp 2.4 Troponin I 1.370 H Total Protein Albumin Globulin Albumin/Globulin Ratio Urine Color Urine Appearance Urine pH Ur Specific Prince Urine Protein Urine Glucose (UA) Urine Ketones Urine Blood Urine Nitrate Urine Bilirubin Urine Urobilinogen Urine Leukocytes Urine RBC Urine WBC Urine WBC Clumps Ur Squamous Epith Cells Urine Bacteria Hyaline Casts Urine Mucus Urine Yeast (Budding) Ur Culture Indicated? Blood Type Antibody Screen Crossmatch - Diagnostic Findings Procedure: Chest x-ray: report reviewed by me - EKG EKG results: interpreted by me Quality Measures - VTE Contraindication to Pharmacological VTE Prophylaxis: High Risk of Bleeding Specialty Discharge - Follow Up or Referrals Follow up with: Jerardo Thorne MD [Physician] - 11/28/16 12:50 pm
[2016-11-10 15:29] LABS: ABG Base Excess 3.3 MMOL/L (-2.5-2.5); ABG HCO3 27.1 MMOL/L (20-26); ABG Oxygen Saturation 98.6 % (95-100); ABG PCO2 37.9 MM HG (35-48); ABG PH 7.472 (7.35-7.45); ABG TCO2 28.3 MMOL/L (23-27); Glucose Heart Surgery 204 MG/DL (74-106); Hemoglobin Heart Surgery 10.5 G/DL (12.0-16.0); Potassium Heart/CVR 4.1 MMOL/L (3.5-5.1)
--- NOTE | 2016-11-10 15:36 | XRay Report ---
XR chest 1V portable Indication: Line placement. Chest one view: Since 1220 hours, endotracheal tube has been advanced slightly, now 3 cm cephalad to the hoa. A new NG tube extends off the lower edge of the image. Bronson-Zohaib catheter is now present, tip directed over the right pulmonary artery. Right IJ central line again shown. Multiple chest tubes and mediastinal drains are again shown. Lung volumes remain low with continued hypoinflation of the right lung. Heart size and mediastinal wires are stable. No pneumothorax. Impression: Lines and tubes as described. Otherwise little change. PROCEDURE INTERPRETED AT [facility] DEPARTMENT OF RADIOLOGY Final Report Signed by: Rito Bullcok M.D.
[2016-11-10] MEDS: ALBUMIN 5% 12.5 GM in PREMIX 1 EACH IV PRN ×5 (16:34→23:07)
[2016-11-10] MEDS: KETOROLAC 15 MG/1 ML VIAL IV SCH ×2 (16:40→20:29)
[2016-11-10] MEDS: DOBUTamine 500 MG/250 ML PREMIX IV SCH (17:00)
[2016-11-10 18:11] LABS: ABG Base Excess 4.6 MMOL/L (-2.5-2.5); ABG HCO3 28.6 MMOL/L (20-26); ABG PCO2 43.6 MM HG (35-48); ABG PH 7.436 (7.35-7.45); ABG TCO2 27.2 MMOL/L (23-27); Glucose Heart Surgery 172 MG/DL (74-106); Hematocrit Heart Surgery 25.6 PERCENT (37-47); Hemoglobin Heart Surgery 8.2 G/DL (12.0-16.0); Potassium Heart/CVR 4.1 MMOL/L (3.5-5.1)
[2016-11-10] MEDS ORDERED: FUROSEMIDE 40 MG/4 ML VIAL IV ONE (18:38)
[2016-11-10] MEDS ORDERED: AMIODARONE INJ 150 MG in DEXTROSE 5% 100 ML IV ONE (18:39)
[2016-11-10] MEDS ORDERED: AMIODARONE 450 MG/9 ML VIAL IV ONE (18:40)
[2016-11-10] MEDS ORDERED: AMIODARONE 150 MG/3 ML VIAL ONE (18:40)
[2016-11-10] MEDS ORDERED: AMIODARONE INJ 450 MG in DEXTROSE 5% 241 ML IV SCH (19:00)
[2016-11-10] MEDS: INSULIN REGULAR 100 UNIT/ML IV PRN (19:10)
[2016-11-10] MEDS: MIDAZOLAM 10 MG/2 ML VIAL IV PRN ×2 (20:30→23:42)
[2016-11-10] MEDS ORDERED: CHLORHEXIDINE 0.12% ORAL RINSE 60 ML BOTTLE SWISH/SPIT SCH (21:00)
[2016-11-10 22:05] LABS: ABG Base Excess 4.5 MMOL/L (-2.5-2.5); ABG HCO3 28.4 MMOL/L (20-26); ABG Oxygen Saturation 98.5 % (95-100); ABG PCO2 46.4 MM HG (35-48); ABG PH 7.415 (7.35-7.45); ABG TCO2 26.7 MMOL/L (23-27); Glucose Heart Surgery 107 MG/DL (74-106); Hematocrit Heart Surgery 33.6 PERCENT (37-47); Hemoglobin Heart Surgery 10.9 G/DL (12.0-16.0); Potassium Heart/CVR 4.4 MMOL/L (3.5-5.1)
[2016-11-10] MEDS: POTASSIUM CHLORIDE RIDER 20 MEQ in PREMIX 1 EACH IV PRN (22:22)
[2016-11-10] MEDS: CEFUROXIME INJ 1,500 MG in SODIUM CHLORIDE 0.9% 100 ML IV SCH (22:22)
[2016-11-10 22:32] LABS: CKMB % 3.7 %
[2016-11-10 22:33] LABS: Troponin I Only 4.35 NG/ML (0.00-0.045)
[2016-11-11] MEDS: AMIODARONE INJ 450 MG in DEXTROSE 5% 241 ML IV SCH ×2 (01:10→17:44)
[2016-11-11] MEDS: KETOROLAC 15 MG/1 ML VIAL IV SCH ×4 (01:13→21:11)
[2016-11-11] MEDS: MORPHINE 10 MG/1 ML VIAL IV PRN ×2 (01:18→21:45)
[2016-11-11] MEDS: LACTATED RINGERS 1,000 ML IV PRN (01:38)
[2016-11-11] MEDS ORDERED: FUROSEMIDE 40 MG/4 ML VIAL IV ONE ×2 (01:42→23:00)
[2016-11-11] MEDS: INSULIN REGULAR DRIP 100 ML IV SCH ×2 (02:23→14:13)
[2016-11-11 04:16] LABS: ABG Base Excess 4.7 MMOL/L (-2.5-2.5); ABG HCO3 28.6 MMOL/L (20-26); ABG Oxygen Saturation 96.4 % (95-100); ABG PCO2 43.8 MM HG (35-48); ABG PH 7.436 (7.35-7.45); ABG PO2 81.7 MM HG (80-95); ABG TCO2 26.7 MMOL/L (23-27); Glucose Heart Surgery 116 MG/DL (74-106); Hematocrit Heart Surgery 31.6 PERCENT (37-47); Hemoglobin Heart Surgery 10.2 G/DL (12.0-16.0); Potassium Heart/CVR 4.4 MMOL/L (3.5-5.1)
[2016-11-11 04:23] LABS: Basophils % 0.1 % (0.0-0.8); Hematocrit 28.7 VOL% (35.7-47.0); Hemoglobin 9.9 GM/DL (12.0-16.0); Immature Granulocytes % 0.8 %; Immature Granulocytes Absolute 0.11 #; Lymphocytes # 0.8 10*3/uL (1.4-4.0); Mean Corpuscular HGB Conc 34.5 GM/DL (32-36); Mean Corpuscular Hemoglobin 30 PG (27-34); Mean Corpuscular Volume 86.7 FL (87-102); Mean Platelet Volume 10.7 FL (9.6-12.0); Monocytes # 0.5 10*3/uL (0.11-0.8); Monocytes % 3.2 % (1.7-12.7); Neutrophils # 12.5 10*3/uL (1.4-7.4); Neutrophils % 89.9 % (38.7-73.9); Platelet Count 145 T/CUMM (130-400); Red Blood Count 3.31 MC/CUMM (3.8-5.5); Red Cell Distribution Width 14.1 % (9.3-17.3); White Blood Count 13.9 T/CUMM (4-12)
[2016-11-11 04:38] LABS: Albumin 3.5 G/DL (3.4-5.0); Bilirubin,Direct 0.2 MG/DL (0.0-0.20); Bilirubin,Total 0.7 MG/DL (0.2-1.0); Calcium 9.2 MG/DL (8.5-10.1); Osmolality,Calculated 279.8 MOS/KG (273-304); Potassium 4.4 MMOL/L (3.5-5.1); Total Protein 6.1 G/DL (6.4-8.3)
[2016-11-11] MEDS: POTASSIUM CHLORIDE RIDER 20 MEQ in PREMIX 1 EACH IV PRN ×2 (04:40→22:35)
[2016-11-11 04:42] LABS: Calcium 9.2 MG/DL (8.5-10.1); Magnesium 2.1 MG/DL (1.8-2.4); Osmolality,Calculated 282.7 MOS/KG (273-304); Potassium 4.4 MMOL/L (3.5-5.1)
[2016-11-11 04:44] LABS: CKMB % 3.6 %
[2016-11-11 04:53] LABS: Troponin I Only 4.44 NG/ML (0.00-0.045)
[2016-11-11 05:41] LABS: Hypochromasia 1+; Platelet Estimate Normal
--- NOTE | 2016-11-11 08:10 | Cardiothoracic Progress Note ---
Cardiothoracic Subjective Interval history: Patient is awake and responsive however she is still very sleepy and remains intubated. She has had a stable night with stable blood pressure and has maintained sinus rhythm. Cardiac enzymes are not significantly elevated this morning. Blood gases have been satisfactory and urine output has been good with a normal creatinine this morning. Chest tube drainage is minimal and I discontinued her chest tubes. She may be slow to wean to the point of extubation but overall her progress seems satisfactory at this point. Exam (Progress Note) - Constitutional Vitals: Period Temp Pulse Resp BP Sys/Allen Pulse Ox Last 24 Hr 94.5 F-98.9 F 64-90 10-14 80-152/44-88 97-100 Result/EKG - Labs CBC & BMP: 11/11/16 04:00 11/11/16 04:00 Labs: Laboratory Results - last 24 hr 11/09/16 11/10/16 11/10/16 09:12 07:20 07:45 WBC RBC Hgb Hct MCV MCH MCHC RDW Plt Count 200 MPV Neut % (Auto) Lymph % (Auto) [place] % (Auto) Eos % (Auto) Baso % (Auto) Neut # (Auto) Lymph # (Auto) [place] # (Auto) Eos # (Auto) Baso # (Auto) Immature Gran % Nucleated RBC % Immature Gran # Nucleated RBCs # Platelet Estimate Hypochromasia Morphology Comment INR PT Patient/Control Mix Circ Anticoag PTT Patient Temperature ABG pH ABG pH at Pt Temp ABG pCO2 ABG pCO2 at Pt Temp ABG pO2 ABG pO2 at Pt Temp ABG HCO3 ABG Total CO2 ABG O2 Saturation ABG Base Excess ABG Sodium VBG pH VBG pCO2 VBG pO2 VBG HCO3 VBG Total CO2 VBG O2 Saturation VBG Base Excess Hemoglobin Hematocrit Potassium Glucose Ionized Calcium FiO2 Sodium Chloride Carbon Dioxide Anion Gap BUN Creatinine GFR Calculation BUN/Creatinine Ratio POC Glucose Calculated Osmolality Calcium Venous Ioniz Calcium Magnesium Total Bilirubin Direct Bilirubin AST ALT Alkaline Phosphatase Total Creatine Kinase CK-MB (CK-2) CK and CKMB Interp Troponin I Total Protein Albumin Globulin Albumin/Globulin Ratio Urine Color Yellow Urine Appearance Slightly hazy Urine pH 6.0 Ur Specific [place] 1.013 Urine Protein Negative Urine Glucose (UA) Negative Urine Ketones Negative Urine Blood Negative Urine Nitrate Negative Urine Bilirubin Negative Urine Urobilinogen < 2.0 H Urine Leukocytes Small H Urine RBC 3 Urine WBC 23 Urine WBC Clumps Occasional Ur Squamous Epith Cells Occasional Urine Bacteria Occasional Hyaline Casts 1 Urine Mucus Occasional Urine Yeast (Budding) Few Ur Culture Indicated? Results to follow Blood Type O POSITIVE Antibody Screen Negative Crossmatch See Detail 11/10/16 11/10/16 11/10/16 10:25 10:55 11:40 WBC RBC Hgb Hct MCV MCH MCHC RDW Plt Count 174 MPV Neut % (Auto) Lymph % (Auto) [place] % (Auto) Eos % (Auto) Baso % (Auto) Neut # (Auto) Lymph # (Auto) [place] # (Auto) Eos # (Auto) Baso # (Auto) Immature Gran % Nucleated RBC % Immature Gran # Nucleated RBCs # Platelet Estimate Hypochromasia Morphology Comment INR PT Patient/Control Mix Circ Anticoag PTT Patient Temperature 35 33 ABG pH ABG pH at Pt Temp 7.491 7.564 ABG pCO2 ABG pCO2 at Pt Temp 41.4 33.1 ABG pO2 ABG pO2 at Pt Temp 32.3 31.2 ABG HCO3 ABG Total CO2 ABG O2 Saturation ABG Base Excess ABG Sodium 135 132 L VBG pH 7.461 7.503 VBG pCO2 45.6 40.2 L VBG pO2 37.2 41.2 H VBG HCO3 31.0 H 31.3 H VBG Total CO2 29.5 29.6 VBG O2 Saturation 72.9 80.0 VBG Base Excess 7.7 H 7.8 H Hemoglobin 10.3 L 7.6 L Hematocrit 31.8 L 23.7 L Potassium 4.8 4.8 Glucose 179 H 296 H Ionized Calcium FiO2 80.00 80.00 Sodium Chloride Carbon Dioxide Anion Gap BUN Creatinine GFR Calculation BUN/Creatinine Ratio POC Glucose Calculated Osmolality Calcium Venous Ioniz Calcium 1.01 L 0.99 L Magnesium Total Bilirubin Direct Bilirubin AST ALT Alkaline Phosphatase Total Creatine Kinase CK-MB (CK-2) CK and CKMB Interp Troponin I Total Protein Albumin Globulin Albumin/Globulin Ratio Urine Color Urine Appearance Urine pH Ur Specific [place] Urine Protein Urine Glucose (UA) Urine Ketones Urine Blood Urine Nitrate Urine Bilirubin Urine Urobilinogen Urine Leukocytes Urine RBC Urine WBC Urine WBC Clumps Ur Squamous Epith Cells Urine Bacteria Hyaline Casts Urine Mucus Urine Yeast (Budding) Ur Culture Indicated? Blood Type Antibody Screen Crossmatch 04/11/10/16 11/10/16 11:40 13:55 13:55 WBC 15.4 H D RBC 2.91 L D Hgb 8.7 L D Hct 26.7 L MCV 91.8 MCH 30 MCHC 32.6 RDW 13.3 Plt Count 257 D MPV 10.9 Neut % (Auto) 82.4 H Lymph % (Auto) 10.5 L [place] % (Auto) 4.6 Eos % (Auto) 0.8 Baso % (Auto) 0.1 Neut # (Auto) 12.7 H Lymph # (Auto) 1.6 [place] # (Auto) 0.7 Eos # (Auto) 0.1 Baso # (Auto) 0.0 Immature Gran % 1.6 Nucleated RBC % 0.0 Immature Gran # 0.24 Nucleated RBCs # 0.00 Platelet Estimate Normal Hypochromasia 1+ Morphology Comment INR 1.2 PT Patient/Control Mix 12.6 Circ Anticoag PTT 32.5 Patient Temperature 37 ABG pH 7.472 H ABG pH at Pt Temp 7.472 ABG pCO2 42.4 ABG pCO2 at Pt Temp 42.4 ABG pO2 257.0 H ABG pO2 at Pt Temp 257.0 ABG HCO3 30.6 H ABG Total CO2 28.8 H ABG O2 Saturation 99.5 ABG Base Excess 6.7 H ABG Sodium 132 L VBG pH VBG pCO2 VBG pO2 VBG HCO3 VBG Total CO2 VBG O2 Saturation VBG Base Excess Hemoglobin 8.0 L Hematocrit 24.8 L Potassium 4.5 Glucose 276 H Ionized Calcium 1.16 L FiO2 Sodium Chloride Carbon Dioxide Anion Gap BUN Creatinine GFR Calculation BUN/Creatinine Ratio POC Glucose Calculated Osmolality Calcium Venous Ioniz Calcium Magnesium Total Bilirubin Direct Bilirubin AST ALT Alkaline Phosphatase Total Creatine Kinase CK-MB (CK-2) CK and CKMB Interp Troponin I Total Protein Albumin Globulin Albumin/Globulin Ratio Urine Color Urine Appearance Urine pH Ur Specific [place] Urine Protein Urine Glucose (UA) Urine Ketones Urine Blood Urine Nitrate Urine Bilirubin Urine Urobilinogen Urine Leukocytes Urine RBC Urine WBC Urine WBC Clumps Ur Squamous Epith Cells Urine Bacteria Hyaline Casts Urine Mucus Urine Yeast (Budding) Ur Culture Indicated? Blood Type Antibody Screen Crossmatch 11/10/16 11/10/16 11/10/16 13:55 13:55 13:55 WBC RBC Hgb Hct MCV MCH MCHC RDW Plt Count MPV Neut % (Auto) Lymph % (Auto) [place] % (Auto) Eos % (Auto) Baso % (Auto) Neut # (Auto) Lymph # (Auto) [place] # (Auto) Eos # (Auto) Baso # (Auto) Immature Gran % Nucleated RBC % Immature Gran # Nucleated RBCs # Platelet Estimate Hypochromasia Morphology Comment INR PT Patient/Control Mix Circ Anticoag PTT Patient Temperature ABG pH 7.514 H ABG pH at Pt Temp ABG pCO2 35.5 ABG pCO2 at Pt Temp ABG pO2 334.0 H ABG pO2 at Pt Temp ABG HCO3 29.4 H ABG Total CO2 26.3 ABG O2 Saturation 99.7 ABG Base Excess 5.4 H ABG Sodium VBG pH VBG pCO2 VBG pO2 VBG HCO3 VBG Total CO2 VBG O2 Saturation VBG Base Excess Hemoglobin 8.7 L Hematocrit 27.0 L Potassium 4.4 4.1 Glucose 266 H 267 H Ionized Calcium FiO2 Sodium 138 Chloride 97 L Carbon Dioxide 29 Anion Gap 16.4 H BUN 27 H Creatinine 0.80 GFR Calculation 106 BUN/Creatinine Ratio 33.00 H POC Glucose Calculated Osmolality 288.7 Calcium 9.6 Venous Ioniz Calcium Magnesium 2.2 Total Bilirubin 1.10 H Direct Bilirubin AST 42 H ALT 13 Alkaline Phosphatase 89 Total Creatine Kinase 288 H D CK-MB (CK-2) 6.8 H CK and CKMB Interp 2.4 Troponin I 1.370 H Total Protein 5.7 L Albumin 3.0 L Globulin 2.7 Albumin/Globulin Ratio 1.1 Urine Color Urine Appearance Urine pH Ur Specific [place] Urine Protein Urine Glucose (UA) Urine Ketones Urine Blood Urine Nitrate Urine Bilirubin Urine Urobilinogen Urine Leukocytes Urine RBC Urine WBC Urine WBC Clumps Ur Squamous Epith Cells Urine Bacteria Hyaline Casts Urine Mucus Urine Yeast (Budding) Ur Culture Indicated? Blood Type Antibody Screen Crossmatch 11/10/16 11/10/16 11/10/16 15:26 17:02 18:00 WBC RBC Hgb Hct MCV MCH MCHC RDW Plt Count MPV Neut % (Auto) Lymph % (Auto) [place] % (Auto) Eos % (Auto) Baso % (Auto) Neut # (Auto) Lymph # (Auto) [place] # (Auto) Eos # (Auto) Baso # (Auto) Immature Gran % Nucleated RBC % Immature Gran # Nucleated RBCs # Platelet Estimate Hypochromasia Morphology Comment INR PT Patient/Control Mix Circ Anticoag PTT Patient Temperature ABG pH 7.472 H 7.436 ABG pH at Pt Temp ABG pCO2 37.9 43.6 ABG pCO2 at Pt Temp ABG pO2 190.0 H 126.0 H ABG pO2 at Pt Temp ABG HCO3 27.1 H 28.6 H ABG Total CO2 28.3 H 27.2 H ABG O2 Saturation 98.6 99.0 ABG Base Excess 3.3 H 4.6 H ABG Sodium VBG pH VBG pCO2 VBG pO2 VBG HCO3 VBG Total CO2 VBG O2 Saturation VBG Base Excess Hemoglobin 10.5 L 8.2 L Hematocrit 31.0 L 25.6 L Potassium 4.1 4.1 Glucose 204 H 172 H Ionized Calcium FiO2 Sodium Chloride Carbon Dioxide Anion Gap BUN Creatinine GFR Calculation BUN/Creatinine Ratio POC Glucose 176 H Calculated Osmolality Calcium Venous Ioniz Calcium Magnesium Total Bilirubin Direct Bilirubin AST ALT Alkaline Phosphatase Total Creatine Kinase CK-MB (CK-2) CK and CKMB Interp Troponin I Total Protein Albumin Globulin Albumin/Globulin Ratio Urine Color Urine Appearance Urine pH Ur Specific [place] Urine Protein Urine Glucose (UA) Urine Ketones Urine Blood Urine Nitrate Urine Bilirubin Urine Urobilinogen Urine Leukocytes Urine RBC Urine WBC Urine WBC Clumps Ur Squamous Epith Cells Urine Bacteria Hyaline Casts Urine Mucus Urine Yeast (Budding) Ur Culture Indicated? Blood Type Antibody Screen Crossmatch 11/10/16 11/10/16 11/10/16 19:01 20:04 21:07 WBC RBC Hgb Hct MCV MCH MCHC RDW Plt Count MPV Neut % (Auto) Lymph % (Auto) [place] % (Auto) Eos % (Auto) Baso % (Auto) Neut # (Auto) Lymph # (Auto) [place] # (Auto) Eos # (Auto) Baso # (Auto) Immature Gran % Nucleated RBC % Immature Gran # Nucleated RBCs # Platelet Estimate Hypochromasia Morphology Comment INR PT Patient/Control Mix Circ Anticoag PTT Patient Temperature ABG pH ABG pH at Pt Temp ABG pCO2 ABG pCO2 at Pt Temp ABG pO2 ABG pO2 at Pt Temp ABG HCO3 ABG Total CO2 ABG O2 Saturation ABG Base Excess ABG Sodium VBG pH VBG pCO2 VBG pO2 VBG HCO3 VBG Total CO2 VBG O2 Saturation VBG Base Excess Hemoglobin Hematocrit Potassium Glucose Ionized Calcium FiO2 Sodium Chloride Carbon Dioxide Anion Gap BUN Creatinine GFR Calculation BUN/Creatinine Ratio POC Glucose 187 H 139 H 113 H Calculated Osmolality Calcium Venous Ioniz Calcium Magnesium Total Bilirubin Direct Bilirubin AST ALT Alkaline Phosphatase Total Creatine Kinase CK-MB (CK-2) CK and CKMB Interp Troponin I Total Protein Albumin Globulin Albumin/Globulin Ratio Urine Color Urine Appearance Urine pH Ur Specific [place] Urine Protein Urine Glucose (UA) Urine Ketones Urine Blood Urine Nitrate Urine Bilirubin Urine Urobilinogen Urine Leukocytes Urine RBC Urine WBC Urine WBC Clumps Ur Squamous Epith Cells Urine Bacteria Hyaline Casts Urine Mucus Urine Yeast (Budding) Ur Culture Indicated? Blood Type Antibody Screen Crossmatch 11/10/16 11/10/16 11/10/16 21:57 22:00 22:00 WBC RBC Hgb Hct MCV MCH MCHC RDW Plt Count MPV Neut % (Auto) Lymph % (Auto) [place] % (Auto) Eos % (Auto) Baso % (Auto) Neut # (Auto) Lymph # (Auto) [place] # (Auto) Eos # (Auto) Baso # (Auto) Immature Gran % Nucleated RBC % Immature Gran # Nucleated RBCs # Platelet Estimate Hypochromasia Morphology Comment INR PT Patient/Control Mix Circ Anticoag PTT Patient Temperature ABG pH 7.415 ABG pH at Pt Temp ABG pCO2 46.4 ABG pCO2 at Pt Temp ABG pO2 113.0 H ABG pO2 at Pt Temp ABG HCO3 28.4 H ABG Total CO2 26.7 ABG O2 Saturation 98.5 ABG Base Excess 4.5 H ABG Sodium VBG pH VBG pCO2 VBG pO2 VBG HCO3 VBG Total CO2 VBG O2 Saturation VBG Base Excess Hemoglobin 10.9 L Hematocrit 33.6 L Potassium 4.4 Glucose 107 H Ionized Calcium FiO2 Sodium Chloride Carbon Dioxide Anion Gap BUN Creatinine GFR Calculation BUN/Creatinine Ratio POC Glucose 97 Calculated Osmolality Calcium Venous Ioniz Calcium Magnesium Total Bilirubin Direct Bilirubin AST ALT Alkaline Phosphatase Total Creatine Kinase 315 H CK-MB (CK-2) 11.6 H CK and CKMB Interp 3.7 Troponin I 4.350 H D Total Protein Albumin Globulin Albumin/Globulin Ratio Urine Color Urine Appearance Urine pH Ur Specific [place] Urine Protein Urine Glucose (UA) Urine Ketones Urine Blood Urine Nitrate Urine Bilirubin Urine Urobilinogen Urine Leukocytes Urine RBC Urine WBC Urine WBC Clumps Ur Squamous Epith Cells Urine Bacteria Hyaline Casts Urine Mucus Urine Yeast (Budding) Ur Culture Indicated? Blood Type Antibody Screen Crossmatch 11/10/16 11/11/16 11/11/16 23:00 00:16 01:08 WBC RBC Hgb Hct MCV MCH MCHC RDW Plt Count MPV Neut % (Auto) Lymph % (Auto) [place] % (Auto) Eos % (Auto) Baso % (Auto) Neut # (Auto) Lymph # (Auto) [place] # (Auto) Eos # (Auto) Baso # (Auto) Immature Gran % Nucleated RBC % Immature Gran # Nucleated RBCs # Platelet Estimate Hypochromasia Morphology Comment INR PT Patient/Control Mix Circ Anticoag PTT Patient Temperature ABG pH ABG pH at Pt Temp ABG pCO2 ABG pCO2 at Pt Temp ABG pO2 ABG pO2 at Pt Temp ABG HCO3 ABG Total CO2 ABG O2 Saturation ABG Base Excess ABG Sodium VBG pH VBG pCO2 VBG pO2 VBG HCO3 VBG Total CO2 VBG O2 Saturation VBG Base Excess Hemoglobin Hematocrit Potassium Glucose Ionized Calcium FiO2 Sodium Chloride Carbon Dioxide Anion Gap BUN Creatinine GFR Calculation BUN/Creatinine Ratio POC Glucose 104 163 H 171 H Calculated Osmolality Calcium Venous Ioniz Calcium Magnesium Total Bilirubin Direct Bilirubin AST ALT Alkaline Phosphatase Total Creatine Kinase CK-MB (CK-2) CK and CKMB Interp Troponin I Total Protein Albumin Globulin Albumin/Globulin Ratio Urine Color Urine Appearance Urine pH Ur Specific [place] Urine Protein Urine Glucose (UA) Urine Ketones Urine Blood Urine Nitrate Urine Bilirubin Urine Urobilinogen Urine Leukocytes Urine RBC Urine WBC Urine WBC Clumps Ur Squamous Epith Cells Urine Bacteria Hyaline Casts Urine Mucus Urine Yeast (Budding) Ur Culture Indicated? Blood Type Antibody Screen Crossmatch 11/11/16 11/11/16 11/11/16 02:02 03:02 04:00 WBC 13.9 H RBC 3.31 L Hgb 9.9 L Hct 28.7 L MCV 86.7 L MCH 30 MCHC 34.5 RDW 14.1 Plt Count 145 D MPV 10.7 Neut % (Auto) 89.9 H Lymph % (Auto) 6.0 L [place] % (Auto) 3.2 Eos % (Auto) 0.0 Baso % (Auto) 0.1 Neut # (Auto) 12.5 H Lymph # (Auto) 0.8 L [place] # (Auto) 0.5 Eos # (Auto) 0.0 Baso # (Auto) 0.0 Immature Gran % 0.8 Nucleated RBC % 0.0 Immature Gran # 0.11 Nucleated RBCs # 0.00 Platelet Estimate Normal Hypochromasia 1+ Morphology Comment INR PT Patient/Control Mix Circ Anticoag PTT Patient Temperature ABG pH ABG pH at Pt Temp ABG pCO2 ABG pCO2 at Pt Temp ABG pO2 ABG pO2 at Pt Temp ABG HCO3 ABG Total CO2 ABG O2 Saturation ABG Base Excess ABG Sodium VBG pH VBG pCO2 VBG pO2 VBG HCO3 VBG Total CO2 VBG O2 Saturation VBG Base Excess Hemoglobin Hematocrit Potassium Glucose Ionized Calcium FiO2 Sodium Chloride Carbon Dioxide Anion Gap BUN Creatinine GFR Calculation BUN/Creatinine Ratio POC Glucose 158 H 146 H Calculated Osmolality Calcium Venous Ioniz Calcium Magnesium Total Bilirubin Direct Bilirubin AST ALT Alkaline Phosphatase Total Creatine Kinase CK-MB (CK-2) CK and CKMB Interp Troponin I Total Protein Albumin Globulin Albumin/Globulin Ratio Urine Color Urine Appearance Urine pH Ur Specific [place] Urine Protein Urine Glucose (UA) Urine Ketones Urine Blood Urine Nitrate Urine Bilirubin Urine Urobilinogen Urine Leukocytes Urine RBC Urine WBC Urine WBC Clumps Ur Squamous Epith Cells Urine Bacteria Hyaline Casts Urine Mucus Urine Yeast (Budding) Ur Culture Indicated? Blood Type Antibody Screen Crossmatch 11/11/16 11/11/16 11/11/16 04:00 04:00 04:00 WBC RBC Hgb Hct MCV MCH MCHC RDW Plt Count MPV Neut % (Auto) Lymph % (Auto) [place] % (Auto) Eos % (Auto) Baso % (Auto) Neut # (Auto) Lymph # (Auto) [place] # (Auto) Eos # (Auto) Baso # (Auto) Immature Gran % Nucleated RBC % Immature Gran # Nucleated RBCs # Platelet Estimate Hypochromasia Morphology Comment INR PT Patient/Control Mix Circ Anticoag PTT Patient Temperature ABG pH 7.436 ABG pH at Pt Temp ABG pCO2 43.8 ABG pCO2 at Pt Temp ABG pO2 81.7 ABG pO2 at Pt Temp ABG HCO3 28.6 H ABG Total CO2 26.7 ABG O2 Saturation 96.4 ABG Base Excess 4.7 H ABG Sodium VBG pH VBG pCO2 VBG pO2 VBG HCO3 VBG Total CO2 VBG O2 Saturation VBG Base Excess Hemoglobin 10.2 L Hematocrit 31.6 L Potassium 4.4 4.4 Glucose 114 H 116 H Ionized Calcium FiO2 Sodium 137 Chloride 103 Carbon Dioxide 28 Anion Gap 10.4 BUN 30 H Creatinine 1.00 GFR Calculation 81 BUN/Creatinine Ratio 30.00 H POC Glucose Calculated Osmolality 279.8 Calcium 9.2 Venous Ioniz Calcium Magnesium 2.0 Total Bilirubin 0.70 Direct Bilirubin 0.20 AST 28 ALT 12 L Alkaline Phosphatase 49 Total Creatine Kinase 296 H CK-MB (CK-2) 10.8 H CK and CKMB Interp 3.6 Troponin I 4.440 H Total Protein 6.1 L Albumin 3.5 Globulin 2.6 Albumin/Globulin Ratio 1.3 Urine Color Urine Appearance Urine pH Ur Specific [place] Urine Protein Urine Glucose (UA) Urine Ketones Urine Blood Urine Nitrate Urine Bilirubin Urine Urobilinogen Urine Leukocytes Urine RBC Urine WBC Urine WBC Clumps Ur Squamous Epith Cells Urine Bacteria Hyaline Casts Urine Mucus Urine Yeast (Budding) Ur Culture Indicated? Blood Type Antibody Screen Crossmatch 11/11/16 11/11/16 11/11/16 04:00 04:10 04:57 WBC RBC Hgb Hct MCV MCH MCHC RDW Plt Count MPV Neut % (Auto) Lymph % (Auto) [place] % (Auto) Eos % (Auto) Baso % (Auto) Neut # (Auto) Lymph # (Auto) [place] # (Auto) Eos # (Auto) Baso # (Auto) Immature Gran % Nucleated RBC % Immature Gran # Nucleated RBCs # Platelet Estimate Hypochromasia Morphology Comment INR PT Patient/Control Mix Circ Anticoag PTT Patient Temperature ABG pH ABG pH at Pt Temp ABG pCO2 ABG pCO2 at Pt Temp ABG pO2 ABG pO2 at Pt Temp ABG HCO3 ABG Total CO2 ABG O2 Saturation ABG Base Excess ABG Sodium VBG pH VBG pCO2 VBG pO2 VBG HCO3 VBG Total CO2 VBG O2 Saturation VBG Base Excess Hemoglobin Hematocrit Potassium 4.4 Glucose 116 H Ionized Calcium FiO2 Sodium 138 Chloride 103 Carbon Dioxide 28 Anion Gap 11.4 BUN 31 H Creatinine 0.90 GFR Calculation 92 BUN/Creatinine Ratio 34.00 H POC Glucose 110 H 93 Calculated Osmolality 282.7 Calcium 9.2 Venous Ioniz Calcium Magnesium 2.1 Total Bilirubin Direct Bilirubin AST ALT Alkaline Phosphatase Total Creatine Kinase CK-MB (CK-2) CK and CKMB Interp Troponin I Total Protein Albumin Globulin Albumin/Globulin Ratio Urine Color Urine Appearance Urine pH Ur Specific [place] Urine Protein Urine Glucose (UA) Urine Ketones Urine Blood Urine Nitrate Urine Bilirubin Urine Urobilinogen Urine Leukocytes Urine RBC Urine WBC Urine WBC Clumps Ur Squamous Epith Cells Urine Bacteria Hyaline Casts Urine Mucus Urine Yeast (Budding) Ur Culture Indicated? Blood Type Antibody Screen Crossmatch 11/11/16 06:16 WBC RBC Hgb Hct MCV MCH MCHC RDW Plt Count MPV Neut % (Auto) Lymph % (Auto) [place] % (Auto) Eos % (Auto) Baso % (Auto) Neut # (Auto) Lymph # (Auto) [place] # (Auto) Eos # (Auto) Baso # (Auto) Immature Gran % Nucleated RBC % Immature Gran # Nucleated RBCs # Platelet Estimate Hypochromasia Morphology Comment INR PT Patient/Control Mix Circ Anticoag PTT Patient Temperature ABG pH ABG pH at Pt Temp ABG pCO2 ABG pCO2 at Pt Temp ABG pO2 ABG pO2 at Pt Temp ABG HCO3 ABG Total CO2 ABG O2 Saturation ABG Base Excess ABG Sodium VBG pH VBG pCO2 VBG pO2 VBG HCO3 VBG Total CO2 VBG O2 Saturation VBG Base Excess Hemoglobin Hematocrit Potassium Glucose Ionized Calcium FiO2 Sodium Chloride Carbon Dioxide Anion Gap BUN Creatinine GFR Calculation BUN/Creatinine Ratio POC Glucose 113 H Calculated Osmolality Calcium Venous Ioniz Calcium Magnesium Total Bilirubin Direct Bilirubin AST ALT Alkaline Phosphatase Total Creatine Kinase CK-MB (CK-2) CK and CKMB Interp Troponin I Total Protein Albumin Globulin Albumin/Globulin Ratio Urine Color Urine Appearance Urine pH Ur Specific [place] Urine Protein Urine Glucose (UA) Urine Ketones Urine Blood Urine Nitrate Urine Bilirubin Urine Urobilinogen Urine Leukocytes Urine RBC Urine WBC Urine WBC Clumps Ur Squamous Epith Cells Urine Bacteria Hyaline Casts Urine Mucus Urine Yeast (Budding) Ur Culture Indicated? Blood Type Antibody Screen Crossmatch Quality Measures - VTE Contraindication to Pharmacological VTE Prophylaxis: High Risk of Bleeding Specialty Discharge - Follow Up or Referrals Follow up with: Jerardo Thorne MD [Physician] - 11/28/16 12:50 pm
[2016-11-11] MEDS: FUROSEMIDE 40 MG/4 ML VIAL IV SCH ×2 (08:43→16:10)
[2016-11-11] MEDS: CHLORHEXIDINE 4% SOLN 118 ML BOTTLE TOP SCH (09:37)
[2016-11-11] MEDS: GABAPENTIN 600 MG TABLET PO SCH (09:38)
[2016-11-11] MEDS: ISOSORBIDE DINITRATE SR 40 MG TABLET PO SCH (09:38)
[2016-11-11] MEDS: traMADol 50 MG TABLET PO SCH (09:38)
[2016-11-11] MEDS: CEFUROXIME INJ 1,500 MG in SODIUM CHLORIDE 0.9% 100 ML IV SCH ×2 (09:41→21:12)
[2016-11-11 09:42] LABS: ABG Base Excess 2.5 MMOL/L (-2.5-2.5); ABG HCO3 26.6 MMOL/L (20-26); ABG Oxygen Saturation 96.1 % (95-100); ABG PCO2 42.1 MM HG (35-48); ABG PH 7.419 (7.35-7.45); ABG PO2 79.5 MM HG (80-95); ABG TCO2 24.7 MMOL/L (23-27); Glucose Heart Surgery 149 MG/DL (74-106); Hematocrit Heart Surgery 31.5 PERCENT (37-47); Hemoglobin Heart Surgery 10.2 G/DL (12.0-16.0); Potassium Heart/CVR 4.6 MMOL/L (3.5-5.1)
--- NOTE | 2016-11-11 09:56 | EKG Report ---
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
--- NOTE | 2016-11-11 10:15 | XRay Report ---
Exam: XR chest 1V portable Indication: Status post CABG Comparison study: 11/11/2016 at 2:55 AM Findings: Endotracheal tube and esophagogastric tube are in similar position. Right-sided central venous catheter and [place] catheter in similar position. There is similar partial opacity within the right upper lung likely representing atelectasis although infiltrates are not excluded. The left lung remains relatively clear. Elevation of the right hemidiaphragm similar to prior. The right-sided chest tube has been removed. Mediastinal drains appear removed. Impression: Interval removal of mediastinal drains. Similar opacities within the right lung apex may represent atelectasis or infiltrates. No pneumothorax. Otherwise stable position of support tubes and lines. PROCEDURE INTERPRETED AT [facility] DEPARTMENT OF RADIOLOGY Final Report Signed by: García Jacob
[2016-11-11] MEDS: CHLORHEXIDINE 0.12% ORAL RINSE 60 ML BOTTLE SWISH/SPIT SCH ×2 (13:08→21:16)
[2016-11-11] MEDS: SODIUM CHLORIDE 0.9% 1,000 ML IV SCH (13:08)
[2016-11-11 13:47] LABS: ABG Base Excess 4.8 MMOL/L (-2.5-2.5); ABG HCO3 28.7 MMOL/L (20-26); ABG Oxygen Saturation 96.6 % (95-100); ABG PCO2 39.8 MM HG (35-48); ABG PH 7.468 (7.35-7.45); ABG PO2 80.4 MM HG (80-95); Glucose Heart Surgery 122 MG/DL (74-106); Hematocrit Heart Surgery 32.1 PERCENT (37-47); Hemoglobin Heart Surgery 10.4 G/DL (12.0-16.0); Potassium Heart/CVR 4.5 MMOL/L (3.5-5.1)
[2016-11-11] MEDS: DOBUTamine 500 MG/250 ML PREMIX IV SCH ×2 (14:07→18:01)
[2016-11-11] MEDS: SODIUM CHLORIDE 0.45% 1,000 ML IV SCH ×2 (14:10→14:12)
--- NOTE | 2016-11-11 14:28 | XRay Report ---
Exam: XR chest 1V portable Indication: Intubated, CABG Comparison study: 11/10/2016 at 3:07 PM Findings: Postsurgical changes with prior CABG are again noted. Esophagogastric tube, endotracheal tube, right-sided central line and right-sided central venous catheter appear in similar position. Median sternotomy drains are also in similar position. There has been slight worsening of opacities within the right lung apex which may represent atelectasis or developing infiltrates. There is no pneumothorax. Impression: Stable position of support tubes and lines. Slight worsening of opacities within the right lung apex may represent developing infectious/inflammatory infiltrate or worsening atelectasis. PROCEDURE INTERPRETED AT [facility] DEPARTMENT OF RADIOLOGY Final Report Signed by: García Jacob
[2016-11-11] MEDS: ALBUMIN 5% 12.5 GM in PREMIX 1 EACH IV PRN ×2 (16:53→17:23)
[2016-11-11] MEDS: MORPHINE 2 MG/1 ML SYRINGE IV PRN (17:22)
--- NOTE | 2016-11-11 19:12 | Cardiology Progress Note ---
Assessment and Plan (1) coronary artery disease Status: Chronic Assessment and plan: Assessment and plan 11/06/2016: Her heart rate and blood pressure controlled on current meds. Her potassium slightly elevated. It is not been elevated before. Will recheck potassium tomorrow and treat if it remains elevated. Will check a BMP tomorrow. She her last dose of Plavix was last Sunday, so the plan is for her to have redo bypass on this Sunday or . Will get physical therapy involved. Encouraged her to use her brace and a walker. Dr. Ramos is using removing the [place]. I agree. I appreciate Dr. Ramos and Dr. Rodrigues's help. We will empirically try BiPAP tonight for her known sleep apnea and intolerance of CPAP. Assessment and plan 11/07/2016: She has been encouraged to use her BiPAP more. Her potassium remains elevated. Agree with holding Aldactone. Will also give a one-time dose of Kayexalate 30 g p.o.; we will recheck BMP in the a.m. I have encouraged her to ambulate for. Physical therapy is helping. She is using her brace and her walker. It will make her better candidate for surgery this Sunday if she is ambulating some. She agrees with the plan. Assessment and plan 11/08/2016: No chest pain. He is ambulating somewhat with the help of her leg brace and her walker with physical therapy. I encouraged her to continue it. Repeat chest x-ray compared to the one view x-ray reveals no abnormality. She will be for coronary bypass grafting on Sunday. [place] [facility] is trying a different mode of CPAP/BiPAP. 11/09/16: Assessment/recommendation: Has been off the Synthroid about a week. Will restart at levothyroxine 100 g p.o. daily. Apparently 200 g of levothyroxine per day was too much for her, with a very low TSH. Okay with me to proceed with coronary bypass grafting tomorrow. She has been trying to be more active by using her left leg brace and her walker, with the assistance of physical therapy. 11/10/16: Plan/recommendation: Early post-bypass. I conferred care with Dr. Moctezuma and with the patient's nurses. He was only able to graft the LAD--he used a ИРИНА. the right was not graftable. The circumflex had minimal vessel outside of left-sided AV groove. One benefit of this approach would be that no vein graft was needed to be harvested from the left leg, so that we less recovery from that standpoint. A endocrinological standpoint I am restarting a lower dose of her Synthroid, 100 g per day. Will restart her cardiac meds when she is able to take p.o. postop it probably tomorrow. 11/11/16: Plan/recommendation: Slow wean. Allow her to wake up. Maybe we can extubate later today. Starting back on low-dose spironolactone, 12.5 mg p.o. daily or twice daily. For her tendency to fluid retention and high blood pressure. Will start on carvedilol 6.25 mg p.o. twice daily. Will have hold parameters. Agree with regular IV Lasix. She tends to retain fluid significantly. Current Visit: Yes (2) Anemia Status: Chronic Current Visit: Yes (3) Hyperkalemia Status: Resolved Current Visit: Yes (4) Obstructive sleep apnea Status: Chronic Current Visit: Yes (5) S/P CABG (coronary artery bypass graft) Status: Chronic Current Visit: Yes (6) hypertension Status: Chronic Current Visit: Yes (7) type 2 diabetes mellitus Status: Chronic Current Visit: Yes (8) Chronic respiratory failure Status: Acute Current Visit: Yes (9) Obesity hypoventilation syndrome Status: Acute Current Visit: Yes (10) Iatrogenic hyperthyroidism Status: Acute Current Visit: Yes (11) Debilitated patient Status: Chronic Current Visit: Yes (12) hyperlipidemia Status: Chronic Current Visit: No (13) hypertension Status: Chronic Current Visit: No Cardiology - PN: Subj Interval history: Still on the vent. She is not completely awake until just lately. Exam (Progress Note) - Constitutional Vitals: Period Temp Pulse Resp BP Sys/Allen Pulse Ox Last 24 Hr 96.3 F-99.1 F 58-85 9-14 93-162/41-68 96-100 Exam: HEENT: Pupils equal, reactive to light and accommodation Neck: NoJVD or bruit Lungs clear to auscultation Heart: Regular rhythm rate with normal S1 and S2. Apical S4 Abdomen: No hepatosplenomegaly Spine/extremities: No clubbing, cyanosis, or edema Neuro: Nonfocal Psych: No depression or anxiety Result/EKG - Labs CBC & BMP: 11/11/16 04:00 11/11/16 04:00 Lab Results: I have reviewed the past 24 hour labs Labs: Laboratory Results - last 24 hr 11/09/16 11/10/16 11/10/16 09:12 17:02 19:01 WBC RBC Hgb Hct MCV MCH MCHC RDW Plt Count MPV Neut % (Auto) Lymph % (Auto) Emanuel % (Auto) Eos % (Auto) Baso % (Auto) Neut # (Auto) Lymph # (Auto) [place] # (Auto) Eos # (Auto) Baso # (Auto) Immature Gran % Nucleated RBC % Immature Gran # Nucleated RBCs # Platelet Estimate Hypochromasia Morphology Comment ABG pH ABG pCO2 ABG pO2 ABG HCO3 ABG Total CO2 ABG O2 Saturation ABG Base Excess Hemoglobin Hematocrit Potassium Glucose Sodium Chloride Carbon Dioxide Anion Gap BUN Creatinine GFR Calculation BUN/Creatinine Ratio POC Glucose 176 H 187 H Calculated Osmolality Calcium Magnesium Total Bilirubin Direct Bilirubin AST ALT Alkaline Phosphatase Total Creatine Kinase CK-MB (CK-2) CK and CKMB Interp Troponin I Total Protein Albumin Globulin Albumin/Globulin Ratio Blood Type O POSITIVE Antibody Screen Negative Crossmatch See Detail 11/10/16 11/10/16 11/10/16 20:04 21:07 21:57 WBC RBC Hgb Hct MCV MCH MCHC RDW Plt Count MPV Neut % (Auto) Lymph % (Auto) [place]manuel % (Auto) Eos % (Auto) Baso % (Auto) Neut # (Auto) Lymph # (Auto) [place] # (Auto) Eos # (Auto) Baso # (Auto) Immature Gran % Nucleated RBC % Immature Gran # Nucleated RBCs # Platelet Estimate Hypochromasia Morphology Comment ABG pH ABG pCO2 ABG pO2 ABG HCO3 ABG Total CO2 ABG O2 Saturation ABG Base Excess Hemoglobin Hematocrit Potassium Glucose Sodium Chloride Carbon Dioxide Anion Gap BUN Creatinine GFR Calculation BUN/Creatinine Ratio POC Glucose 139 H 113 H 97 Calculated Osmolality Calcium Magnesium Total Bilirubin Direct Bilirubin AST ALT Alkaline Phosphatase Total Creatine Kinase CK-MB (CK-2) CK and CKMB Interp Troponin I Total Protein Albumin Globulin Albumin/Globulin Ratio Blood Type Antibody Screen Crossmatch 11/10/16 11/10/16 11/10/16 22:00 22:00 23:00 WBC RBC Hgb Hct MCV MCH MCHC RDW Plt Count MPV Neut % (Auto) Lymph % (Auto) [place] % (Auto) Eos % (Auto) Baso % (Auto) Neut # (Auto) Lymph # (Auto) [place] # (Auto) Eos # (Auto) Baso # (Auto) Immature Gran % Nucleated RBC % Immature Gran # Nucleated RBCs # Platelet Estimate Hypochromasia Morphology Comment ABG pH 7.415 ABG pCO2 46.4 ABG pO2 113.0 H ABG HCO3 28.4 H ABG Total CO2 26.7 ABG O2 Saturation 98.5 ABG Base Excess 4.5 H Hemoglobin 10.9 L Hematocrit 33.6 L Potassium 4.4 Glucose 107 H Sodium Chloride Carbon Dioxide Anion Gap BUN Creatinine GFR Calculation BUN/Creatinine Ratio POC Glucose 104 Calculated Osmolality Calcium Magnesium Total Bilirubin Direct Bilirubin AST ALT Alkaline Phosphatase Total Creatine Kinase 315 H CK-MB (CK-2) 11.6 H CK and CKMB Interp 3.7 Troponin I 4.350 H D Total Protein Albumin Globulin Albumin/Globulin Ratio Blood Type Antibody Screen Crossmatch 11/11/16 11/11/16 11/11/16 00:16 01:08 02:02 WBC RBC Hgb Hct MCV MCH MCHC RDW Plt Count MPV Neut % (Auto) Lymph % (Auto) [place] % (Auto) Eos % (Auto) Baso % (Auto) Neut # (Auto) Lymph # (Auto) [place] # (Auto) Eos # (Auto) Baso # (Auto) Immature Gran % Nucleated RBC % Immature Gran # Nucleated RBCs # Platelet Estimate Hypochromasia Morphology Comment ABG pH ABG pCO2 ABG pO2 ABG HCO3 ABG Total CO2 ABG O2 Saturation ABG Base Excess Hemoglobin Hematocrit Potassium Glucose Sodium Chloride Carbon Dioxide Anion Gap BUN Creatinine GFR Calculation BUN/Creatinine Ratio POC Glucose 163 H 171 H 158 H Calculated Osmolality Calcium Magnesium Total Bilirubin Direct Bilirubin AST ALT Alkaline Phosphatase Total Creatine Kinase CK-MB (CK-2) CK and CKMB Interp Troponin I Total Protein Albumin Globulin Albumin/Globulin Ratio Blood Type Antibody Screen Crossmatch 11/11/16 11/11/16 11/11/16 03:02 04:00 04:00 WBC 13.9 H RBC 3.31 L Hgb 9.9 L Hct 28.7 L MCV 86.7 L MCH 30 MCHC 34.5 RDW 14.1 Plt Count 145 D MPV 10.7 Neut % (Auto) 89.9 H Lymph % (Auto) 6.0 L [place]manuel % (Auto) 3.2 Eos % (Auto) 0.0 Baso % (Auto) 0.1 Neut # (Auto) 12.5 H Lymph # (Auto) 0.8 L [place] # (Auto) 0.5 Eos # (Auto) 0.0 Baso # (Auto) 0.0 Immature Gran % 0.8 Nucleated RBC % 0.0 Immature Gran # 0.11 Nucleated RBCs # 0.00 Platelet Estimate Normal Hypochromasia 1+ Morphology Comment ABG pH ABG pCO2 ABG pO2 ABG HCO3 ABG Total CO2 ABG O2 Saturation ABG Base Excess Hemoglobin Hematocrit Potassium 4.4 Glucose 114 H Sodium 137 Chloride 103 Carbon Dioxide 28 Anion Gap 10.4 BUN 30 H Creatinine 1.00 GFR Calculation 81 BUN/Creatinine Ratio 30.00 H POC Glucose 146 H Calculated Osmolality 279.8 Calcium 9.2 Magnesium 2.0 Total Bilirubin 0.70 Direct Bilirubin 0.20 AST 28 ALT 12 L Alkaline Phosphatase 49 Total Creatine Kinase CK-MB (CK-2) CK and CKMB Interp Troponin I Total Protein 6.1 L Albumin 3.5 Globulin 2.6 Albumin/Globulin Ratio 1.3 Blood Type Antibody Screen Crossmatch 11/11/16 11/11/16 11/11/16 04:00 04:00 04:00 WBC RBC Hgb Hct MCV MCH MCHC RDW Plt Count MPV Neut % (Auto) Lymph % (Auto) [place] % (Auto) Eos % (Auto) Baso % (Auto) Neut # (Auto) Lymph # (Auto) [place] # (Auto) Eos # (Auto) Baso # (Auto) Immature Gran % Nucleated RBC % Immature Gran # Nucleated RBCs # Platelet Estimate Hypochromasia Morphology Comment ABG pH 7.436 ABG pCO2 43.8 ABG pO2 81.7 ABG HCO3 28.6 H ABG Total CO2 26.7 ABG O2 Saturation 96.4 ABG Base Excess 4.7 H Hemoglobin 10.2 L Hematocrit 31.6 L Potassium 4.4 4.4 Glucose 116 H 116 H Sodium 138 Chloride 103 Carbon Dioxide 28 Anion Gap 11.4 BUN 31 H Creatinine 0.90 GFR Calculation 92 BUN/Creatinine Ratio 34.00 H POC Glucose Calculated Osmolality 282.7 Calcium 9.2 Magnesium 2.1 Total Bilirubin Direct Bilirubin AST ALT Alkaline Phosphatase Total Creatine Kinase 296 H CK-MB (CK-2) 10.8 H CK and CKMB Interp 3.6 Troponin I 4.440 H Total Protein Albumin Globulin Albumin/Globulin Ratio Blood Type Antibody Screen Crossmatch 11/11/16 11/11/16 11/11/16 04:10 04:57 06:16 WBC RBC Hgb Hct MCV MCH MCHC RDW Plt Count MPV Neut % (Auto) Lymph % (Auto) Emanuel % (Auto) Eos % (Auto) Baso % (Auto) Neut # (Auto) Lymph # (Auto) [place]manuel # (Auto) Eos # (Auto) Baso # (Auto) Immature Gran % Nucleated RBC % Immature Gran # Nucleated RBCs # Platelet Estimate Hypochromasia Morphology Comment ABG pH ABG pCO2 ABG pO2 ABG HCO3 ABG Total CO2 ABG O2 Saturation ABG Base Excess Hemoglobin Hematocrit Potassium Glucose Sodium Chloride Carbon Dioxide Anion Gap BUN Creatinine GFR Calculation BUN/Creatinine Ratio POC Glucose 110 H 93 113 H Calculated Osmolality Calcium Magnesium Total Bilirubin Direct Bilirubin AST ALT Alkaline Phosphatase Total Creatine Kinase CK-MB (CK-2) CK and CKMB Interp Troponin I Total Protein Albumin Globulin Albumin/Globulin Ratio Blood Type Antibody Screen Crossmatch 11/11/16 11/11/16 11/11/16 07:23 08:23 09:08 WBC RBC Hgb Hct MCV MCH MCHC RDW Plt Count MPV Neut % (Auto) Lymph % (Auto) Emanuel % (Auto) Eos % (Auto) Baso % (Auto) Neut # (Auto) Lymph # (Auto) Emanuel # (Auto) Eos # (Auto) Baso # (Auto) Immature Gran % Nucleated RBC % Immature Gran # Nucleated RBCs # Platelet Estimate Hypochromasia Morphology Comment ABG pH ABG pCO2 ABG pO2 ABG HCO3 ABG Total CO2 ABG O2 Saturation ABG Base Excess Hemoglobin Hematocrit Potassium Glucose Sodium Chloride Carbon Dioxide Anion Gap BUN Creatinine GFR Calculation BUN/Creatinine Ratio POC Glucose 131 H 143 H 155 H Calculated Osmolality Calcium Magnesium Total Bilirubin Direct Bilirubin AST ALT Alkaline Phosphatase Total Creatine Kinase CK-MB (CK-2) CK and CKMB Interp Troponin I Total Protein Albumin Globulin Albumin/Globulin Ratio Blood Type Antibody Screen Crossmatch 11/11/16 11/11/16 11/11/16 09:36 10:55 12:09 WBC RBC Hgb Hct MCV MCH MCHC RDW Plt Count MPV Neut % (Auto) Lymph % (Auto) Emanuel % (Auto) Eos % (Auto) Baso % (Auto) Neut # (Auto) Lymph # (Auto) Emanuel # (Auto) Eos # (Auto) Baso # (Auto) Immature Gran % Nucleated RBC % Immature Gran # Nucleated RBCs # Platelet Estimate Hypochromasia Morphology Comment ABG pH 7.419 ABG pCO2 42.1 ABG pO2 79.5 L ABG HCO3 26.6 H ABG Total CO2 24.7 ABG O2 Saturation 96.1 ABG Base Excess 2.5 Hemoglobin 10.2 L Hematocrit 31.5 L Potassium 4.6 Glucose 149 H Sodium Chloride Carbon Dioxide Anion Gap BUN Creatinine GFR Calculation BUN/Creatinine Ratio POC Glucose 150 H 148 H Calculated Osmolality Calcium Magnesium Total Bilirubin Direct Bilirubin AST ALT Alkaline Phosphatase Total Creatine Kinase CK-MB (CK-2) CK and CKMB Interp Troponin I Total Protein Albumin Globulin Albumin/Globulin Ratio Blood Type Antibody Screen Crossmatch 11/11/16 11/11/16 11/11/16 13:00 13:40 13:45 WBC RBC Hgb Hct MCV MCH MCHC RDW Plt Count MPV Neut % (Auto) Lymph % (Auto) Emanuel % (Auto) Eos % (Auto) Baso % (Auto) Neut # (Auto) Lymph # (Auto) Emanuel # (Auto) Eos # (Auto) Baso # (Auto) Immature Gran % Nucleated RBC % Immature Gran # Nucleated RBCs # Platelet Estimate Hypochromasia Morphology Comment ABG pH 7.468 H ABG pCO2 39.8 ABG pO2 80.4 ABG HCO3 28.7 H ABG Total CO2 26.0 ABG O2 Saturation 96.6 ABG Base Excess 4.8 H Hemoglobin 10.4 L Hematocrit 32.1 L Potassium 4.5 Glucose 122 H Sodium Chloride Carbon Dioxide Anion Gap BUN Creatinine GFR Calculation BUN/Creatinine Ratio POC Glucose 129 H Calculated Osmolality Calcium Magnesium Total Bilirubin Direct Bilirubin AST ALT Alkaline Phosphatase Total Creatine Kinase 297 H CK-MB (CK-2) 4.8 H D CK and CKMB Interp Troponin I 2.610 H D Total Protein Albumin Globulin Albumin/Globulin Ratio Blood Type Antibody Screen Crossmatch 11/11/16 11/11/16 15:02 16:04 WBC RBC Hgb Hct MCV MCH MCHC RDW Plt Count MPV Neut % (Auto) Lymph % (Auto) Emanuel % (Auto) Eos % (Auto) Baso % (Auto) Neut # (Auto) Lymph # (Auto) Emanuel # (Auto) Eos # (Auto) Baso # (Auto) Immature Gran % Nucleated RBC % Immature Gran # Nucleated RBCs # Platelet Estimate Hypochromasia Morphology Comment ABG pH ABG pCO2 ABG pO2 ABG HCO3 ABG Total CO2 ABG O2 Saturation ABG Base Excess Hemoglobin Hematocrit Potassium Glucose Sodium Chloride Carbon Dioxide Anion Gap BUN Creatinine GFR Calculation BUN/Creatinine Ratio POC Glucose 109 H 117 H Calculated Osmolality Calcium Magnesium Total Bilirubin Direct Bilirubin AST ALT Alkaline Phosphatase Total Creatine Kinase CK-MB (CK-2) CK and CKMB Interp Troponin I Total Protein Albumin Globulin Albumin/Globulin Ratio Blood Type Antibody Screen Crossmatch Quality Measures - VTE Contraindication to Pharmacological VTE Prophylaxis: High Risk of Bleeding Specialty Discharge - Follow Up or Referrals Follow up with: Jerardo Thorne MD [Physician] - 11/28/16 12:50 pm
[2016-11-11] MEDS ORDERED: CARVEDILOL 3.125 MG TABLET PO ONE (19:14)
[2016-11-11 20:10] LABS: ABG Base Excess 5.4 MMOL/L (-2.5-2.5); ABG HCO3 28.9 MMOL/L (20-26); ABG Oxygen Saturation 96.4 % (95-100); ABG PCO2 37.9 MM HG (35-48); ABG PO2 87.1 MM HG (80-95); ABG TCO2 30.1 MMOL/L (23-27); Glucose Heart Surgery 100 MG/DL (74-106); Hemoglobin Heart Surgery 9.9 G/DL (12.0-16.0); Potassium Heart/CVR 4.2 MMOL/L (3.5-5.1)
[2016-11-11] MEDS: CARVEDILOL 6.25 MG TABLET PO SCH (21:13)
[2016-11-11] MEDS: INSULIN REGULAR 100 UNIT/ML IV PRN (22:44)
[2016-11-12 00:24] LABS: ABG Base Excess 5.3 MMOL/L (-2.5-2.5); ABG HCO3 28.7 MMOL/L (20-26); ABG Oxygen Saturation 96.4 % (95-100); ABG PCO2 37.2 MM HG (35-48); ABG PH 7.505 (7.35-7.45); ABG PO2 89.8 MM HG (80-95); ABG TCO2 29.8 MMOL/L (23-27); Glucose Heart Surgery 114 MG/DL (74-106); Hemoglobin Heart Surgery 9.6 G/DL (12.0-16.0); Potassium Heart/CVR 4.4 MMOL/L (3.5-5.1)
[2016-11-12] MEDS: MORPHINE 10 MG/1 ML VIAL IV PRN ×2 (03:16→17:31)
[2016-11-12 04:25] LABS: ABG Base Excess 4.7 MMOL/L (-2.5-2.5); ABG HCO3 28.7 MMOL/L (20-26); ABG Oxygen Saturation 96.1 % (95-100); ABG PCO2 40.2 MM HG (35-48); ABG PH 7.471 (7.35-7.45); ABG PO2 88.1 MM HG (80-95); ABG TCO2 29.9 MMOL/L (23-27); Glucose Heart Surgery 103 MG/DL (74-106); Hemoglobin Heart Surgery 11.1 G/DL (12.0-16.0); Potassium Heart/CVR 4.2 MMOL/L (3.5-5.1)
[2016-11-12] MEDS: POTASSIUM CHLORIDE RIDER 20 MEQ in PREMIX 1 EACH IV PRN (04:39)
[2016-11-12 04:41] LABS: Basophils % 0.1 % (0.0-0.8); Hematocrit 26.7 VOL% (35.7-47.0); Immature Granulocytes % 0.8 %; Immature Granulocytes Absolute 0.12 #; Lymphocytes % 6.5 % (21.3-54.2); Mean Corpuscular HGB Conc 33.7 GM/DL (32-36); Mean Corpuscular Hemoglobin 30 PG (27-34); Mean Corpuscular Volume 89.6 FL (87-102); Monocytes # 1.1 10*3/uL (0.11-0.8); Monocytes % 7.1 % (1.7-12.7); Neutrophils # 12.6 10*3/uL (1.4-7.4); Neutrophils % 85.5 % (38.7-73.9); Platelet Count 127 T/CUMM (130-400); Red Blood Count 2.98 MC/CUMM (3.8-5.5); Red Cell Distribution Width 13.7 % (9.3-17.3); White Blood Count 14.7 T/CUMM (4-12)
[2016-11-12 05:07] LABS: Albumin 3.3 G/DL (3.4-5.0); Bilirubin,Direct 0.2 MG/DL (0.0-0.20); Bilirubin,Total 0.8 MG/DL (0.2-1.0); Calcium 8.2 MG/DL (8.5-10.1); Osmolality,Calculated 286.5 MOS/KG (273-304); Potassium 4.3 MMOL/L (3.5-5.1); Total Protein 5.5 G/DL (6.4-8.3)
[2016-11-12] MEDS: LEVOTHYROXINE 100 MCG TABLET PO SCH (06:30)
[2016-11-12 07:33] LABS: ABG Base Excess 4.1 MMOL/L (-2.5-2.5); ABG PCO2 39.5 MM HG (35-48); ABG PH 7.469 (7.35-7.45); ABG TCO2 29.2 MMOL/L (23-27); Glucose Heart Surgery 109 MG/DL (74-106); Hemoglobin Heart Surgery 9.8 G/DL (12.0-16.0); Potassium Heart/CVR 4.4 MMOL/L (3.5-5.1)
--- NOTE | 2016-11-12 08:02 | Cardiothoracic Progress Note ---
Cardiothoracic Subjective Interval history: Patient is awake and responsive but remains intubated. She is far more animated than she was yesterday and I suspect she is getting to the point where she can be weaned from the ventilator. Her blood pressure and cardiac output and heart rhythm of all been stable. We are going to start to wean the dobutamine. Blood gases are excellent on a rate of 6 and weaning will continue. Urine output has been good and creatinine is within normal limits. Overall her progress is satisfactory but she will probably need to remain in intensive care at least another night. Exam (Progress Note) - Constitutional Vitals: Period Temp Pulse Resp BP Sys/Allen Pulse Ox Last 24 Hr 96.4 F-99.1 F 58-85 8-20 103-179/41-75 96-100 Result/EKG - Labs CBC & BMP: 11/12/16 04:15 11/12/16 04:15 Labs: Laboratory Results - last 24 hr 11/11/16 11/11/16 11/11/16 07:23 08:23 09:08 WBC RBC Hgb Hct MCV MCH MCHC RDW Plt Count MPV Neut % (Auto) Lymph % (Auto) [place] % (Auto) Eos % (Auto) Baso % (Auto) Neut # (Auto) Lymph # (Auto) [place] # (Auto) Eos # (Auto) Baso # (Auto) Immature Gran % Nucleated RBC % Immature Gran # Nucleated RBCs # ABG pH ABG pCO2 ABG pO2 ABG HCO3 ABG Total CO2 ABG O2 Saturation ABG Base Excess Hemoglobin Hematocrit Potassium Glucose Sodium Chloride Carbon Dioxide Anion Gap BUN Creatinine GFR Calculation BUN/Creatinine Ratio POC Glucose 131 H 143 H 155 H Calculated Osmolality Calcium Magnesium Total Bilirubin Direct Bilirubin AST ALT Alkaline Phosphatase Total Creatine Kinase CK-MB (CK-2) Troponin I Total Protein Albumin Globulin Albumin/Globulin Ratio 11/11/16 11/11/16 11/11/16 09:36 10:55 12:09 WBC RBC Hgb Hct MCV MCH MCHC RDW Plt Count MPV Neut % (Auto) Lymph % (Auto) [place] % (Auto) Eos % (Auto) Baso % (Auto) Neut # (Auto) Lymph # (Auto) [place] # (Auto) Eos # (Auto) Baso # (Auto) Immature Gran % Nucleated RBC % Immature Gran # Nucleated RBCs # ABG pH 7.419 ABG pCO2 42.1 ABG pO2 79.5 L ABG HCO3 26.6 H ABG Total CO2 24.7 ABG O2 Saturation 96.1 ABG Base Excess 2.5 Hemoglobin 10.2 L Hematocrit 31.5 L Potassium 4.6 Glucose 149 H Sodium Chloride Carbon Dioxide Anion Gap BUN Creatinine GFR Calculation BUN/Creatinine Ratio POC Glucose 150 H 148 H Calculated Osmolality Calcium Magnesium Total Bilirubin Direct Bilirubin AST ALT Alkaline Phosphatase Total Creatine Kinase CK-MB (CK-2) Troponin I Total Protein Albumin Globulin Albumin/Globulin Ratio 11/11/16 11/11/16 11/11/16 13:00 13:40 13:45 WBC RBC Hgb Hct MCV MCH MCHC RDW Plt Count MPV Neut % (Auto) Lymph % (Auto) [place] % (Auto) Eos % (Auto) Baso % (Auto) Neut # (Auto) Lymph # (Auto) [place] # (Auto) Eos # (Auto) Baso # (Auto) Immature Gran % Nucleated RBC % Immature Gran # Nucleated RBCs # ABG pH 7.468 H ABG pCO2 39.8 ABG pO2 80.4 ABG HCO3 28.7 H ABG Total CO2 26.0 ABG O2 Saturation 96.6 ABG Base Excess 4.8 H Hemoglobin 10.4 L Hematocrit 32.1 L Potassium 4.5 Glucose 122 H Sodium Chloride Carbon Dioxide Anion Gap BUN Creatinine GFR Calculation BUN/Creatinine Ratio POC Glucose 129 H Calculated Osmolality Calcium Magnesium Total Bilirubin Direct Bilirubin AST ALT Alkaline Phosphatase Total Creatine Kinase 297 H CK-MB (CK-2) 4.8 H D Troponin I 2.610 H D Total Protein Albumin Globulin Albumin/Globulin Ratio 11/11/16 11/11/16 11/11/16 15:02 16:04 17:03 WBC RBC Hgb Hct MCV MCH MCHC RDW Plt Count MPV Neut % (Auto) Lymph % (Auto) [place] % (Auto) Eos % (Auto) Baso % (Auto) Neut # (Auto) Lymph # (Auto) [place] # (Auto) Eos # (Auto) Baso # (Auto) Immature Gran % Nucleated RBC % Immature Gran # Nucleated RBCs # ABG pH ABG pCO2 ABG pO2 ABG HCO3 ABG Total CO2 ABG O2 Saturation ABG Base Excess Hemoglobin Hematocrit Potassium Glucose Sodium Chloride Carbon Dioxide Anion Gap BUN Creatinine GFR Calculation BUN/Creatinine Ratio POC Glucose 109 H 117 H 115 H Calculated Osmolality Calcium Magnesium Total Bilirubin Direct Bilirubin AST ALT Alkaline Phosphatase Total Creatine Kinase CK-MB (CK-2) Troponin I Total Protein Albumin Globulin Albumin/Globulin Ratio 11/11/16 11/11/16 11/11/16 17:54 20:00 20:02 WBC RBC Hgb Hct MCV MCH MCHC RDW Plt Count MPV Neut % (Auto) Lymph % (Auto) [place] % (Auto) Eos % (Auto) Baso % (Auto) Neut # (Auto) Lymph # (Auto) [place] # (Auto) Eos # (Auto) Baso # (Auto) Immature Gran % Nucleated RBC % Immature Gran # Nucleated RBCs # ABG pH 7.500 H ABG pCO2 37.9 ABG pO2 87.1 ABG HCO3 28.9 H ABG Total CO2 30.1 H ABG O2 Saturation 96.4 ABG Base Excess 5.4 H Hemoglobin 9.9 L Hematocrit 29.0 L Potassium 4.2 Glucose 100 Sodium Chloride Carbon Dioxide Anion Gap BUN Creatinine GFR Calculation BUN/Creatinine Ratio POC Glucose 111 H 98 Calculated Osmolality Calcium Magnesium Total Bilirubin Direct Bilirubin AST ALT Alkaline Phosphatase Total Creatine Kinase CK-MB (CK-2) Troponin I Total Protein Albumin Globulin Albumin/Globulin Ratio 11/11/16 11/11/16 11/11/16 21:27 22:13 23:26 WBC RBC Hgb Hct MCV MCH MCHC RDW Plt Count MPV Neut % (Auto) Lymph % (Auto) [place] % (Auto) Eos % (Auto) Baso % (Auto) Neut # (Auto) Lymph # (Auto) [place] # (Auto) Eos # (Auto) Baso # (Auto) Immature Gran % Nucleated RBC % Immature Gran # Nucleated RBCs # ABG pH ABG pCO2 ABG pO2 ABG HCO3 ABG Total CO2 ABG O2 Saturation ABG Base Excess Hemoglobin Hematocrit Potassium Glucose Sodium Chloride Carbon Dioxide Anion Gap BUN Creatinine GFR Calculation BUN/Creatinine Ratio POC Glucose 122 H 147 H 123 H Calculated Osmolality Calcium Magnesium Total Bilirubin Direct Bilirubin AST ALT Alkaline Phosphatase Total Creatine Kinase CK-MB (CK-2) Troponin I Total Protein Albumin Globulin Albumin/Globulin Ratio 11/12/16 11/12/16 11/12/16 00:20 01:08 02:13 WBC RBC Hgb Hct MCV MCH MCHC RDW Plt Count MPV Neut % (Auto) Lymph % (Auto) [place] % (Auto) Eos % (Auto) Baso % (Auto) Neut # (Auto) Lymph # (Auto) [place] # (Auto) Eos # (Auto) Baso # (Auto) Immature Gran % Nucleated RBC % Immature Gran # Nucleated RBCs # ABG pH 7.505 H ABG pCO2 37.2 ABG pO2 89.8 ABG HCO3 28.7 H ABG Total CO2 29.8 H ABG O2 Saturation 96.4 ABG Base Excess 5.3 H Hemoglobin 9.6 L Hematocrit 28.0 L Potassium 4.4 Glucose 114 H Sodium Chloride Carbon Dioxide Anion Gap BUN Creatinine GFR Calculation BUN/Creatinine Ratio POC Glucose 102 129 H Calculated Osmolality Calcium Magnesium Total Bilirubin Direct Bilirubin AST ALT Alkaline Phosphatase Total Creatine Kinase CK-MB (CK-2) Troponin I Total Protein Albumin Globulin Albumin/Globulin Ratio 11/12/16 11/12/16 11/12/16 03:25 04:15 04:15 WBC 14.7 H RBC 2.98 L Hgb 9.0 L Hct 26.7 L MCV 89.6 MCH 30 MCHC 33.7 RDW 13.7 Plt Count 127 L MPV 11.0 Neut % (Auto) 85.5 H Lymph % (Auto) 6.5 L [place] % (Auto) 7.1 Eos % (Auto) 0.0 Baso % (Auto) 0.1 Neut # (Auto) 12.6 H Lymph # (Auto) 1.0 L [place] # (Auto) 1.1 H Eos # (Auto) 0.0 Baso # (Auto) 0.0 Immature Gran % 0.8 Nucleated RBC % 0.0 Immature Gran # 0.12 Nucleated RBCs # 0.00 ABG pH ABG pCO2 ABG pO2 ABG HCO3 ABG Total CO2 ABG O2 Saturation ABG Base Excess Hemoglobin Hematocrit Potassium 4.3 Glucose 108 H Sodium 139 Chloride 102 Carbon Dioxide 29 Anion Gap 12.3 BUN 37 H Creatinine 1.00 GFR Calculation 83 BUN/Creatinine Ratio 37.00 H POC Glucose 112 H Calculated Osmolality 286.5 Calcium 8.2 L Magnesium 2.0 Total Bilirubin 0.80 Direct Bilirubin 0.20 AST 18 ALT 10 L Alkaline Phosphatase 49 Total Creatine Kinase CK-MB (CK-2) Troponin I Total Protein 5.5 L Albumin 3.3 L Globulin 2.2 L Albumin/Globulin Ratio 1.5 11/12/16 11/12/16 11/12/16 04:15 05:15 06:09 WBC RBC Hgb Hct MCV MCH MCHC RDW Plt Count MPV Neut % (Auto) Lymph % (Auto) [place] % (Auto) Eos % (Auto) Baso % (Auto) Neut # (Auto) Lymph # (Auto) [place] # (Auto) Eos # (Auto) Baso # (Auto) Immature Gran % Nucleated RBC % Immature Gran # Nucleated RBCs # ABG pH 7.471 H ABG pCO2 40.2 ABG pO2 88.1 ABG HCO3 28.7 H ABG Total CO2 29.9 H ABG O2 Saturation 96.1 ABG Base Excess 4.7 H Hemoglobin 11.1 L Hematocrit 33.0 L Potassium 4.2 Glucose 103 Sodium Chloride Carbon Dioxide Anion Gap BUN Creatinine GFR Calculation BUN/Creatinine Ratio POC Glucose 126 H 123 H Calculated Osmolality Calcium Magnesium Total Bilirubin Direct Bilirubin AST ALT Alkaline Phosphatase Total Creatine Kinase CK-MB (CK-2) Troponin I Total Protein Albumin Globulin Albumin/Globulin Ratio 11/12/16 07:25 WBC RBC Hgb Hct MCV MCH MCHC RDW Plt Count MPV Neut % (Auto) Lymph % (Auto) [place] % (Auto) Eos % (Auto) Baso % (Auto) Neut # (Auto) Lymph # (Auto) [place] # (Auto) Eos # (Auto) Baso # (Auto) Immature Gran % Nucleated RBC % Immature Gran # Nucleated RBCs # ABG pH 7.469 H ABG pCO2 39.5 ABG pO2 98.0 H ABG HCO3 28.0 H ABG Total CO2 29.2 H ABG O2 Saturation 97.0 ABG Base Excess 4.1 H Hemoglobin 9.8 L Hematocrit 29.0 L Potassium 4.4 Glucose 109 H Sodium Chloride Carbon Dioxide Anion Gap BUN Creatinine GFR Calculation BUN/Creatinine Ratio POC Glucose Calculated Osmolality Calcium Magnesium Total Bilirubin Direct Bilirubin AST ALT Alkaline Phosphatase Total Creatine Kinase CK-MB (CK-2) Troponin I Total Protein Albumin Globulin Albumin/Globulin Ratio Quality Measures - VTE Contraindication to Pharmacological VTE Prophylaxis: High Risk of Bleeding Specialty Discharge - Follow Up or Referrals Follow up with: Jerardo Thorne MD [Physician] - 11/28/16 12:50 pm
[2016-11-12 08:21] LABS: ABG Base Excess 3.3 MMOL/L (-2.5-2.5); ABG HCO3 27.4 MMOL/L (20-26); ABG Oxygen Saturation 96.6 % (95-100); ABG PCO2 44.6 MM HG (35-48); ABG PH 7.411 (7.35-7.45); ABG PO2 89.2 MM HG (80-95); ABG TCO2 26.1 MMOL/L (23-27); Glucose Heart Surgery 127 MG/DL (74-106); Hematocrit Heart Surgery 28.5 PERCENT (37-47); Hemoglobin Heart Surgery 9.2 G/DL (12.0-16.0); Potassium Heart/CVR 4.3 MMOL/L (3.5-5.1)
--- NOTE | 2016-11-12 08:38 | Anesthesia Post-Op ---
Anesthesia Post OP - Post Ansesthetic Evaluation Patient seen in post op: Yes Resp: within normal limits (still ventilated-weaning off.) CV: within normal limits (dobutamine-weaning) Mental: within normal limits Temp: within normal limits [id number]: within normal limits Nausea and Vomiting: within normal limits Pain: within normal limits
[2016-11-12] MEDS: MORPHINE 2 MG/1 ML SYRINGE IV PRN ×3 (08:54→14:29)
[2016-11-12] MEDS: CARVEDILOL 6.25 MG TABLET PO SCH ×2 (08:54→21:52)
[2016-11-12] MEDS: FUROSEMIDE 40 MG/4 ML VIAL IV SCH ×2 (08:55→15:54)
[2016-11-12] MEDS: CHLORHEXIDINE 0.12% ORAL RINSE 60 ML BOTTLE SWISH/SPIT SCH ×2 (10:22→21:57)
[2016-11-12] MEDS: SODIUM CHLORIDE 0.9% 1,000 ML IV SCH (10:23)
--- NOTE | 2016-11-12 11:01 | Cardiology Progress Note ---
Assessment and Plan (1) coronary artery disease Status: Chronic Assessment and plan: Assessment and plan 11/06/2016: Her heart rate and blood pressure controlled on current meds. Her potassium slightly elevated. It is not been elevated before. Will recheck potassium tomorrow and treat if it remains elevated. Will check a BMP tomorrow. She her last dose of Plavix was last Sunday, so the plan is for her to have redo bypass on this Sunday or . Will get physical therapy involved. Encouraged her to use her brace and a walker. Dr. Ramos is using removing the [place]. I agree. I appreciate Dr. Ramos and Dr. Rodrigues's help. We will empirically try BiPAP tonight for her known sleep apnea and intolerance of CPAP. Assessment and plan 11/07/2016: She has been encouraged to use her BiPAP more. Her potassium remains elevated. Agree with holding Aldactone. Will also give a one-time dose of Kayexalate 30 g p.o.; we will recheck BMP in the a.m. I have encouraged her to ambulate for. Physical therapy is helping. She is using her brace and her walker. It will make her better candidate for surgery this Sunday if she is ambulating some. She agrees with the plan. Assessment and plan 11/08/2016: No chest pain. He is ambulating somewhat with the help of her leg brace and her walker with physical therapy. I encouraged her to continue it. Repeat chest x-ray compared to the one view x-ray reveals no abnormality. She will be for coronary bypass grafting on Sunday. [facility] is trying a different mode of CPAP/BiPAP. 11/09/16: Assessment/recommendation: Has been off the Synthroid about a week. Will restart at levothyroxine 100 g p.o. daily. Apparently 200 g of levothyroxine per day was too much for her, with a very low TSH. Okay with me to proceed with coronary bypass grafting tomorrow. She has been trying to be more active by using her left leg brace and her walker, with the assistance of physical therapy. 11/10/16: Plan/recommendation: Early post-bypass. I conferred care with Dr. Moctezuma and with the patient's nurses. He was only able to graft the LAD--he used a ИРИНА. the right was not graftable. The circumflex had minimal vessel outside of left-sided AV groove. One benefit of this approach would be that no vein graft was needed to be harvested from the left leg, so that we less recovery from that standpoint. A endocrinological standpoint I am restarting a lower dose of her Synthroid, 100 g per day. Will restart her cardiac meds when she is able to take p.o. postop it probably tomorrow. 11/11/16: Plan/recommendation: Slow wean. Allow her to wake up. Maybe we can extubate later today. Starting back on low-dose spironolactone, 12.5 mg p.o. daily or twice daily. For her tendency to fluid retention and high blood pressure. Will start on carvedilol 6.25 mg p.o. twice daily. Will have hold parameters. Agree with regular IV Lasix. She tends to retain fluid significantly. 11/12/16: Assessment/plan/recommendation: Likely will extubate today. Mental status is good. Oxygenation is good. Will restart valsartan at 40 mg p.o. twice daily. May need more over time. This will help with her fluid retention and tendency towards having fluid overload. I conferred care with the patient' s nurse. Current Visit: Yes (2) Anemia Status: Chronic Current Visit: Yes (3) Hyperkalemia Status: Resolved Current Visit: Yes (4) Obstructive sleep apnea Status: Chronic Current Visit: Yes (5) S/P CABG (coronary artery bypass graft) Problem details: Repeat done this admission, 11/10/16 Status: Chronic Current Visit: Yes (6) hypertension Status: Chronic Current Visit: Yes (7) type 2 diabetes mellitus Status: Chronic Current Visit: Yes (8) Chronic respiratory failure Status: Acute Current Visit: Yes (9) Obesity hypoventilation syndrome Status: Acute Current Visit: Yes (10) Iatrogenic hyperthyroidism Status: Acute Current Visit: Yes (11) Debilitated patient Status: Chronic Current Visit: Yes (12) hyperlipidemia Status: Chronic Current Visit: No (13) hypertension Status: Chronic Current Visit: No Cardiology - PN: Subj Interval history: Still on vent. However more alert. Planning to extubate today. Exam (Progress Note) - Constitutional Vitals: Period Temp Pulse Resp BP Sys/Allen Pulse Ox Last 24 Hr 96.4 F-99.1 F 58-80 8-20 104-179/41-75 96-100 Exam: HEENT: Pupils equal, reactive to light and accommodation Neck: NoJVD or bruit Lungs clear to auscultation Heart: Regular rhythm rate with normal S1 and S2. Apical S4 Abdomen: No hepatosplenomegaly Spine/extremities: No clubbing, cyanosis, or edema Neuro: Nonfocal Psych: No depression or anxiety Result/EKG - Labs CBC & BMP: 11/12/16 04:15 11/12/16 04:15 Lab Results: I have reviewed the past 24 hour labs Labs: Laboratory Results - last 24 hr 11/09/16 11/11/16 11/11/16 09:12 07:23 08:23 WBC RBC Hgb Hct MCV MCH MCHC RDW Plt Count MPV Neut % (Auto) Lymph % (Auto) [place] % (Auto) Eos % (Auto) Baso % (Auto) Neut # (Auto) Lymph # (Auto) [place] # (Auto) Eos # (Auto) Baso # (Auto) Immature Gran % Nucleated RBC % Immature Gran # Nucleated RBCs # ABG pH ABG pCO2 ABG pO2 ABG HCO3 ABG Total CO2 ABG O2 Saturation ABG Base Excess Hemoglobin Hematocrit Potassium Glucose Sodium Chloride Carbon Dioxide Anion Gap BUN Creatinine GFR Calculation BUN/Creatinine Ratio POC Glucose 131 H 143 H Calculated Osmolality Calcium Magnesium Total Bilirubin Direct Bilirubin AST ALT Alkaline Phosphatase Total Creatine Kinase CK-MB (CK-2) Troponin I Total Protein Albumin Globulin Albumin/Globulin Ratio Blood Type O POSITIVE Antibody Screen Negative Crossmatch See Detail 11/11/16 11/11/16 11/11/16 09:08 10:55 12:09 WBC RBC Hgb Hct MCV MCH MCHC RDW Plt Count MPV Neut % (Auto) Lymph % (Auto) [place] % (Auto) Eos % (Auto) Baso % (Auto) Neut # (Auto) Lymph # (Auto) [place] # (Auto) Eos # (Auto) Baso # (Auto) Immature Gran % Nucleated RBC % Immature Gran # Nucleated RBCs # ABG pH ABG pCO2 ABG pO2 ABG HCO3 ABG Total CO2 ABG O2 Saturation ABG Base Excess Hemoglobin Hematocrit Potassium Glucose Sodium Chloride Carbon Dioxide Anion Gap BUN Creatinine GFR Calculation BUN/Creatinine Ratio POC Glucose 155 H 150 H 148 H Calculated Osmolality Calcium Magnesium Total Bilirubin Direct Bilirubin AST ALT Alkaline Phosphatase Total Creatine Kinase CK-MB (CK-2) Troponin I Total Protein Albumin Globulin Albumin/Globulin Ratio Blood Type Antibody Screen Crossmatch 11/11/16 11/11/16 11/11/16 13:00 13:40 13:45 WBC RBC Hgb Hct MCV MCH MCHC RDW Plt Count MPV Neut % (Auto) Lymph % (Auto) [place] % (Auto) Eos % (Auto) Baso % (Auto) Neut # (Auto) Lymph # (Auto) [place] # (Auto) Eos # (Auto) Baso # (Auto) Immature Gran % Nucleated RBC % Immature Gran # Nucleated RBCs # ABG pH 7.468 H ABG pCO2 39.8 ABG pO2 80.4 ABG HCO3 28.7 H ABG Total CO2 26.0 ABG O2 Saturation 96.6 ABG Base Excess 4.8 H Hemoglobin 10.4 L Hematocrit 32.1 L Potassium 4.5 Glucose 122 H Sodium Chloride Carbon Dioxide Anion Gap BUN Creatinine GFR Calculation BUN/Creatinine Ratio POC Glucose 129 H Calculated Osmolality Calcium Magnesium Total Bilirubin Direct Bilirubin AST ALT Alkaline Phosphatase Total Creatine Kinase 297 H CK-MB (CK-2) 4.8 H D Troponin I 2.610 H D Total Protein Albumin Globulin Albumin/Globulin Ratio Blood Type Antibody Screen Crossmatch 11/11/16 11/11/16 11/11/16 15:02 16:04 17:03 WBC RBC Hgb Hct MCV MCH MCHC RDW Plt Count MPV Neut % (Auto) Lymph % (Auto) [place] % (Auto) Eos % (Auto) Baso % (Auto) Neut # (Auto) Lymph # (Auto) [place] # (Auto) Eos # (Auto) Baso # (Auto) Immature Gran % Nucleated RBC % Immature Gran # Nucleated RBCs # ABG pH ABG pCO2 ABG pO2 ABG HCO3 ABG Total CO2 ABG O2 Saturation ABG Base Excess Hemoglobin Hematocrit Potassium Glucose Sodium Chloride Carbon Dioxide Anion Gap BUN Creatinine GFR Calculation BUN/Creatinine Ratio POC Glucose 109 H 117 H 115 H Calculated Osmolality Calcium Magnesium Total Bilirubin Direct Bilirubin AST ALT Alkaline Phosphatase Total Creatine Kinase CK-MB (CK-2) Troponin I Total Protein Albumin Globulin Albumin/Globulin Ratio Blood Type Antibody Screen Crossmatch 11/11/16 11/11/16 11/11/16 17:54 20:00 20:02 WBC RBC Hgb Hct MCV MCH MCHC RDW Plt Count MPV Neut % (Auto) Lymph % (Auto) [place] % (Auto) Eos % (Auto) Baso % (Auto) Neut # (Auto) Lymph # (Auto) [place] # (Auto) Eos # (Auto) Baso # (Auto) Immature Gran % Nucleated RBC % Immature Gran # Nucleated RBCs # ABG pH 7.500 H ABG pCO2 37.9 ABG pO2 87.1 ABG HCO3 28.9 H ABG Total CO2 30.1 H ABG O2 Saturation 96.4 ABG Base Excess 5.4 H Hemoglobin 9.9 L Hematocrit 29.0 L Potassium 4.2 Glucose 100 Sodium Chloride Carbon Dioxide Anion Gap BUN Creatinine GFR Calculation BUN/Creatinine Ratio POC Glucose 111 H 98 Calculated Osmolality Calcium Magnesium Total Bilirubin Direct Bilirubin AST ALT Alkaline Phosphatase Total Creatine Kinase CK-MB (CK-2) Troponin I Total Protein Albumin Globulin Albumin/Globulin Ratio Blood Type Antibody Screen Crossmatch 11/11/16 11/11/16 11/11/16 21:27 22:13 23:26 WBC RBC Hgb Hct MCV MCH MCHC RDW Plt Count MPV Neut % (Auto) Lymph % (Auto) [place] % (Auto) Eos % (Auto) Baso % (Auto) Neut # (Auto) Lymph # (Auto) [place] # (Auto) Eos # (Auto) Baso # (Auto) Immature Gran % Nucleated RBC % Immature Gran # Nucleated RBCs # ABG pH ABG pCO2 ABG pO2 ABG HCO3 ABG Total CO2 ABG O2 Saturation ABG Base Excess Hemoglobin Hematocrit Potassium Glucose Sodium Chloride Carbon Dioxide Anion Gap BUN Creatinine GFR Calculation BUN/Creatinine Ratio POC Glucose 122 H 147 H 123 H Calculated Osmolality Calcium Magnesium Total Bilirubin Direct Bilirubin AST ALT Alkaline Phosphatase Total Creatine Kinase CK-MB (CK-2) Troponin I Total Protein Albumin Globulin Albumin/Globulin Ratio Blood Type Antibody Screen Crossmatch 11/12/16 11/12/16 11/12/16 00:20 01:08 02:13 WBC RBC Hgb Hct MCV MCH MCHC RDW Plt Count MPV Neut % (Auto) Lymph % (Auto) [place] % (Auto) Eos % (Auto) Baso % (Auto) Neut # (Auto) Lymph # (Auto) [place] # (Auto) Eos # (Auto) Baso # (Auto) Immature Gran % Nucleated RBC % Immature Gran # Nucleated RBCs # ABG pH 7.505 H ABG pCO2 37.2 ABG pO2 89.8 ABG HCO3 28.7 H ABG Total CO2 29.8 H ABG O2 Saturation 96.4 ABG Base Excess 5.3 H Hemoglobin 9.6 L Hematocrit 28.0 L Potassium 4.4 Glucose 114 H Sodium Chloride Carbon Dioxide Anion Gap BUN Creatinine GFR Calculation BUN/Creatinine Ratio POC Glucose 102 129 H Calculated Osmolality Calcium Magnesium Total Bilirubin Direct Bilirubin AST ALT Alkaline Phosphatase Total Creatine Kinase CK-MB (CK-2) Troponin I Total Protein Albumin Globulin Albumin/Globulin Ratio Blood Type Antibody Screen Crossmatch 11/12/16 11/12/16 11/12/16 03:25 04:15 04:15 WBC 14.7 H RBC 2.98 L Hgb 9.0 L Hct 26.7 L MCV 89.6 MCH 30 MCHC 33.7 RDW 13.7 Plt Count 127 L MPV 11.0 Neut % (Auto) 85.5 H Lymph % (Auto) 6.5 L [place] % (Auto) 7.1 Eos % (Auto) 0.0 Baso % (Auto) 0.1 Neut # (Auto) 12.6 H Lymph # (Auto) 1.0 L [place] # (Auto) 1.1 H Eos # (Auto) 0.0 Baso # (Auto) 0.0 Immature Gran % 0.8 Nucleated RBC % 0.0 Immature Gran # 0.12 Nucleated RBCs # 0.00 ABG pH ABG pCO2 ABG pO2 ABG HCO3 ABG Total CO2 ABG O2 Saturation ABG Base Excess Hemoglobin Hematocrit Potassium 4.3 Glucose 108 H Sodium 139 Chloride 102 Carbon Dioxide 29 Anion Gap 12.3 BUN 37 H Creatinine 1.00 GFR Calculation 83 BUN/Creatinine Ratio 37.00 H POC Glucose 112 H Calculated Osmolality 286.5 Calcium 8.2 L Magnesium 2.0 Total Bilirubin 0.80 Direct Bilirubin 0.20 AST 18 ALT 10 L Alkaline Phosphatase 49 Total Creatine Kinase CK-MB (CK-2) Troponin I Total Protein 5.5 L Albumin 3.3 L Globulin 2.2 L Albumin/Globulin Ratio 1.5 Blood Type Antibody Screen Crossmatch 11/12/16 11/12/16 11/12/16 04:15 05:15 06:09 WBC RBC Hgb Hct MCV MCH MCHC RDW Plt Count MPV Neut % (Auto) Lymph % (Auto) [place] % (Auto) Eos % (Auto) Baso % (Auto) Neut # (Auto) Lymph # (Auto) [place] # (Auto) Eos # (Auto) Baso # (Auto) Immature Gran % Nucleated RBC % Immature Gran # Nucleated RBCs # ABG pH 7.471 H ABG pCO2 40.2 ABG pO2 88.1 ABG HCO3 28.7 H ABG Total CO2 29.9 H ABG O2 Saturation 96.1 ABG Base Excess 4.7 H Hemoglobin 11.1 L Hematocrit 33.0 L Potassium 4.2 Glucose 103 Sodium Chloride Carbon Dioxide Anion Gap BUN Creatinine GFR Calculation BUN/Creatinine Ratio POC Glucose 126 H 123 H Calculated Osmolality Calcium Magnesium Total Bilirubin Direct Bilirubin AST ALT Alkaline Phosphatase Total Creatine Kinase CK-MB (CK-2) Troponin I Total Protein Albumin Globulin Albumin/Globulin Ratio Blood Type Antibody Screen Crossmatch 11/12/16 11/12/16 07:25 08:17 WBC RBC Hgb Hct MCV MCH MCHC RDW Plt Count MPV Neut % (Auto) Lymph % (Auto) [place] % (Auto) Eos % (Auto) Baso % (Auto) Neut # (Auto) Lymph # (Auto) [place] # (Auto) Eos # (Auto) Baso # (Auto) Immature Gran % Nucleated RBC % Immature Gran # Nucleated RBCs # ABG pH 7.469 H 7.411 ABG pCO2 39.5 44.6 ABG pO2 98.0 H 89.2 ABG HCO3 28.0 H 27.4 H ABG Total CO2 29.2 H 26.1 ABG O2 Saturation 97.0 96.6 ABG Base Excess 4.1 H 3.3 H Hemoglobin 9.8 L 9.2 L Hematocrit 29.0 L 28.5 L Potassium 4.4 4.3 Glucose 109 H 127 H Sodium Chloride Carbon Dioxide Anion Gap BUN Creatinine GFR Calculation BUN/Creatinine Ratio POC Glucose Calculated Osmolality Calcium Magnesium Total Bilirubin Direct Bilirubin AST ALT Alkaline Phosphatase Total Creatine Kinase CK-MB (CK-2) Troponin I Total Protein Albumin Globulin Albumin/Globulin Ratio Blood Type Antibody Screen Crossmatch - EKG EKG results: interpreted by me Quality Measures - VTE Contraindication to Pharmacological VTE Prophylaxis: High Risk of Bleeding Specialty Discharge - Follow Up or Referrals Follow up with: Jerardo Thorne MD [Physician] - 11/28/16 12:50 pm
[2016-11-12] MEDS: VALSARTAN 80 MG TABLET PO SCH ×3 (11:17→21:52)
[2016-11-12 11:19] LABS: ABG Base Excess 4.3 MMOL/L (-2.5-2.5); ABG HCO3 28.2 MMOL/L (20-26); ABG Oxygen Saturation 96.3 % (95-100); ABG PCO2 45.9 MM HG (35-48); ABG PH 7.415 (7.35-7.45); ABG PO2 86.3 MM HG (80-95); Glucose Heart Surgery 126 MG/DL (74-106); Hematocrit Heart Surgery 28.6 PERCENT (37-47); Hemoglobin Heart Surgery 9.2 G/DL (12.0-16.0); Potassium Heart/CVR 4.1 MMOL/L (3.5-5.1)
[2016-11-12 12:38] LABS: ABG Base Excess 4.7 MMOL/L (-2.5-2.5); ABG HCO3 28.6 MMOL/L (20-26); ABG Oxygen Saturation 93.4 % (95-100); ABG PH 7.413 (7.35-7.45); ABG PO2 70.2 MM HG (80-95); ABG TCO2 27.5 MMOL/L (23-27); Glucose Heart Surgery 140 MG/DL (74-106); Hematocrit Heart Surgery 29.7 PERCENT (37-47); Hemoglobin Heart Surgery 9.6 G/DL (12.0-16.0); Potassium Heart/CVR 4.2 MMOL/L (3.5-5.1)
[2016-11-12] MEDS: INSULIN REGULAR 100 UNIT/ML SUBCUT SCH ×5 (12:43→21:44)
[2016-11-12] MEDS: LEVOFLOXACIN INJ 500 MG in PREMIX 1 EACH IV SCH (14:04)
[2016-11-12] MEDS: SODIUM CHLORIDE 0.45% 1,000 ML IV SCH ×2 (14:10→14:29)
[2016-11-12] MEDS ORDERED: NITROGLYCERIN DRIP 50 MG/250 ML BOTTLE IV ONE (14:29)
[2016-11-12] MEDS: NITROGLYCERIN DRIP 50 MG/250 ML BOTTLE IV SCH (15:05)
--- NOTE | 2016-11-12 15:23 | XRay Report ---
Exam: XR chest 1V portable Indication: Chest tube removal Comparison study: 11/11/2016 Findings: Endotracheal tube, right-sided central venous catheter and [place]-Zohaib catheter are in similar position. Esophagogastric tube is not well-visualized but appears to travel below the [id number]. Right perihilar and right medial upper lung airspace opacities appear similar to slightly increased from prior and may represent worsening infiltrates. There is no definite pneumothorax visualized. Impression: Stable position of support tubes and lines. No pneumothorax is visualized. Worsening of right hilar and medial right apical airspace opacities concerning for developing multifocal infectious/inflammatory infiltrates. PROCEDURE INTERPRETED AT [facility] DEPARTMENT OF RADIOLOGY Final Report Signed by: García Jacob
[2016-11-12] MEDS ORDERED: VALSARTAN 80 MG TABLET PO ONE (16:16)
[2016-11-12] MEDS ORDERED: HEPARIN/NACL 0.9% 2 UNITS/ML 500 ML IV ONE (17:00)
[2016-11-12] MEDS: cloNIDine 0.1 MG TABLET PO SCH ×2 (17:15→21:52)
[2016-11-12] MEDS: DOBUTamine 500 MG/250 ML PREMIX IV SCH (17:56)
[2016-11-13] MEDS: cloNIDine 0.1 MG TABLET PO SCH ×6 (02:58→21:11)
[2016-11-13] MEDS: INSULIN REGULAR 100 UNIT/ML SUBCUT SCH ×5 (02:58→18:04)
[2016-11-13] MEDS: NITROGLYCERIN DRIP 50 MG/250 ML BOTTLE IV SCH ×3 (03:45→22:00)
[2016-11-13 05:02] LABS: Basophils % 0.2 % (0.0-0.8); Eosinophils # 0.1 10*3/uL (0.0-0.87); Eosinophils % 0.5 % (0.00-10.9); Hematocrit 26.1 VOL% (35.7-47.0); Hemoglobin 8.7 GM/DL (12.0-16.0); Immature Granulocytes % 0.8 %; Lymphocytes # 1.8 10*3/uL (1.4-4.0); Lymphocytes % 13.6 % (21.3-54.2); Mean Corpuscular HGB Conc 33.3 GM/DL (32-36); Mean Corpuscular Hemoglobin 30 PG (27-34); Mean Corpuscular Volume 89.4 FL (87-102); Mean Platelet Volume 10.7 FL (9.6-12.0); Monocytes # 0.9 10*3/uL (0.11-0.8); Monocytes % 6.8 % (1.7-12.7); Neutrophils # 10.1 10*3/uL (1.4-7.4); Neutrophils % 78.1 % (38.7-73.9); Platelet Count 132 T/CUMM (130-400); Red Blood Count 2.92 MC/CUMM (3.8-5.5); Red Cell Distribution Width 13.3 % (9.3-17.3); White Blood Count 12.9 T/CUMM (4-12)
[2016-11-13 05:29] LABS: Albumin 2.8 G/DL (3.4-5.0); Bilirubin,Direct 0.2 MG/DL (0.0-0.20); Bilirubin,Total 0.8 MG/DL (0.2-1.0); Calcium 7.9 MG/DL (8.5-10.1); Osmolality,Calculated 285.7 MOS/KG (273-304); Potassium 3.7 MMOL/L (3.5-5.1); Total Protein 5.4 G/DL (6.4-8.3)
--- NOTE | 2016-11-13 06:16 | Cardiothoracic Progress Note ---
Cardiothoracic Subjective Interval history: Patient is awake responsive and extubated. She was extubated yesterday afternoon and has been breathing fairly comfortable since that time. Chest x- ray today does show some effusion on the right side but her left side is relatively clear. Her O2 sats have been in the low to mid 90s. From a cardiac standpoint her vital signs have been stable and her blood pressure if anything a little on the high side. She remains in sinus rhythm. Urine output has been adequate and creatinine is normal. We will try to get her out of bed a little bit more today and I will probably keep her in intensive care at least another 24 hours. Overall her progress appears satisfactory although she still is fairly fragile. Exam (Progress Note) - Constitutional Vitals: Period Temp Pulse Resp BP Sys/Allen Pulse Ox Last 24 Hr 96.4 F-97.7 F 61-85 9-18 95-187/44-89 92-99 Result/EKG - Labs CBC & BMP: 11/13/16 04:15 11/13/16 04:15 Labs: Laboratory Results - last 24 hr 11/09/16 11/12/16 11/12/16 09:12 07:25 08:17 WBC RBC Hgb Hct MCV MCH MCHC RDW Plt Count MPV Neut % (Auto) Lymph % (Auto) [place] % (Auto) Eos % (Auto) Baso % (Auto) Neut # (Auto) Lymph # (Auto) [place] # (Auto) Eos # (Auto) Baso # (Auto) Immature Gran % Nucleated RBC % Immature Gran # Nucleated RBCs # ABG pH 7.469 H 7.411 ABG pCO2 39.5 44.6 ABG pO2 98.0 H 89.2 ABG HCO3 28.0 H 27.4 H ABG Total CO2 29.2 H 26.1 ABG O2 Saturation 97.0 96.6 ABG Base Excess 4.1 H 3.3 H Hemoglobin 9.8 L 9.2 L Hematocrit 29.0 L 28.5 L Potassium 4.4 4.3 Glucose 109 H 127 H Sodium Chloride Carbon Dioxide Anion Gap BUN Creatinine GFR Calculation BUN/Creatinine Ratio POC Glucose Calculated Osmolality Calcium Magnesium Total Bilirubin Direct Bilirubin AST ALT Alkaline Phosphatase Total Protein Albumin Globulin Albumin/Globulin Ratio Blood Type O POSITIVE Antibody Screen Negative Crossmatch See Detail 11/12/16 11/12/16 11/12/16 11:00 12:25 19:55 WBC RBC Hgb Hct MCV MCH MCHC RDW Plt Count MPV Neut % (Auto) Lymph % (Auto) [place] % (Auto) Eos % (Auto) Baso % (Auto) Neut # (Auto) Lymph # (Auto) [place] # (Auto) Eos # (Auto) Baso # (Auto) Immature Gran % Nucleated RBC % Immature Gran # Nucleated RBCs # ABG pH 7.415 7.413 ABG pCO2 45.9 47.0 ABG pO2 86.3 70.2 L ABG HCO3 28.2 H 28.6 H ABG Total CO2 27.0 27.5 H ABG O2 Saturation 96.3 93.4 L ABG Base Excess 4.3 H 4.7 H Hemoglobin 9.2 L 9.6 L Hematocrit 28.6 L 29.7 L Potassium 4.1 4.2 Glucose 126 H 140 H Sodium Chloride Carbon Dioxide Anion Gap BUN Creatinine GFR Calculation BUN/Creatinine Ratio POC Glucose 167 H Calculated Osmolality Calcium Magnesium Total Bilirubin Direct Bilirubin AST ALT Alkaline Phosphatase Total Protein Albumin Globulin Albumin/Globulin Ratio Blood Type Antibody Screen Crossmatch 11/12/16 11/13/16 11/13/16 21:44 01:39 04:15 WBC 12.9 H RBC 2.92 L Hgb 8.7 L Hct 26.1 L MCV 89.4 MCH 30 MCHC 33.3 RDW 13.3 Plt Count 132 MPV 10.7 Neut % (Auto) 78.1 H Lymph % (Auto) 13.6 L [place] % (Auto) 6.8 Eos % (Auto) 0.5 Baso % (Auto) 0.2 Neut # (Auto) 10.1 H Lymph # (Auto) 1.8 [place] # (Auto) 0.9 H Eos # (Auto) 0.1 Baso # (Auto) 0.0 Immature Gran % 0.8 Nucleated RBC % 0.0 Immature Gran # 0.10 Nucleated RBCs # 0.00 ABG pH ABG pCO2 ABG pO2 ABG HCO3 ABG Total CO2 ABG O2 Saturation ABG Base Excess Hemoglobin Hematocrit Potassium Glucose Sodium Chloride Carbon Dioxide Anion Gap BUN Creatinine GFR Calculation BUN/Creatinine Ratio POC Glucose 143 H 168 H Calculated Osmolality Calcium Magnesium Total Bilirubin Direct Bilirubin AST ALT Alkaline Phosphatase Total Protein Albumin Globulin Albumin/Globulin Ratio Blood Type Antibody Screen Crossmatch 11/13/16 11/13/16 04:15 05:25 WBC RBC Hgb Hct MCV MCH MCHC RDW Plt Count MPV Neut % (Auto) Lymph % (Auto) [place] % (Auto) Eos % (Auto) Baso % (Auto) Neut # (Auto) Lymph # (Auto) [place] # (Auto) Eos # (Auto) Baso # (Auto) Immature Gran % Nucleated RBC % Immature Gran # Nucleated RBCs # ABG pH ABG pCO2 ABG pO2 ABG HCO3 ABG Total CO2 ABG O2 Saturation ABG Base Excess Hemoglobin Hematocrit Potassium 3.7 Glucose 155 H Sodium 138 Chloride 100 Carbon Dioxide 29 Anion Gap 12.7 BUN 35 H Creatinine 0.60 GFR Calculation 134 BUN/Creatinine Ratio 58.00 H POC Glucose 166 H Calculated Osmolality 285.7 Calcium 7.9 L Magnesium 2.0 Total Bilirubin 0.80 Direct Bilirubin 0.20 AST 13 ALT 9 L Alkaline Phosphatase 55 Total Protein 5.4 L Albumin 2.8 L Globulin 2.6 Albumin/Globulin Ratio 1.0 L Blood Type Antibody Screen Crossmatch Quality Measures - VTE Contraindication to Pharmacological VTE Prophylaxis: High Risk of Bleeding Specialty Discharge - Follow Up or Referrals Follow up with: Jerardo Thorne MD [Physician] - 11/28/16 12:50 pm
[2016-11-13] MEDS: LEVOTHYROXINE 100 MCG TABLET PO SCH (06:19)
--- NOTE | 2016-11-13 07:13 | XRay Report ---
History: Postop chest tube removal. Evaluate for pneumothorax. Recent thoracic surgery Date: 11/13/2016 Study: Chest x-ray AP portable Comparison exam: 11/12/2016 The patient has been extubated. The right IJ central line, right subclavian [place]-Zohaib catheter, and nasogastric tube remain in generally satisfactory position. No pneumothorax is seen. There is continued parenchymal consolidation in the right upper lung which may represent atelectasis. There is increasing right basilar atelectasis and pleural effusion compared to the previous study. There is mild left basilar atelectasis without change. There is stable cardiomegaly. The mediastinal contours are grossly similar. The pulmonary vasculature is upper normal. Osseous structures are unchanged. Impression: No evidence of a pneumothorax. Interval extubation. Increasing right basilar atelectasis and pleural effusion compared to the previous study. Otherwise unchanged PROCEDURE INTERPRETED AT [facility] DEPARTMENT OF RADIOLOGY Final Report Signed by: Dr. Jenna Daly
--- NOTE | 2016-11-13 08:24 | Cardiology Progress Note ---
Addendum entered and electronically signed by Joselin Sullivan NP 11/13/16 08: 44: Patient allergic to ASA. Will consider adding Lovenox in the morning if okay with Dr. Moctezuma. Original Note: <Joselin Sullivan - Last Filed: 11/13/16 08:27> Assessment and Plan - Time spent with patient Time spent with patient: Less than 30 minutes (1) S/P CABG (coronary artery bypass graft) Problem details: Repeat done this admission, 11/10/16 Status: Chronic Assessment and plan: See plan of care listed below Current Visit: Yes (2) Hyperkalemia Status: Resolved Assessment and plan: See plan of care listed below Current Visit: Yes (3) Debilitated patient Status: Chronic Assessment and plan: See plan of care listed below Current Visit: Yes (4) Anemia Status: Chronic Assessment and plan: See plan of care listed below Current Visit: Yes (5) Abnormal TSH Status: Acute Assessment and plan: See plan of care listed below Current Visit: Yes (6) type 2 diabetes mellitus Status: Chronic Assessment and plan: See plan of care listed below Current Visit: Yes (7) coronary artery disease Status: Chronic Assessment and plan: See plan of care listed below Current Visit: Yes (8) hypertension Status: Chronic Assessment and plan: See plan of care listed below Current Visit: Yes Cardiology - PN: Subj Interval history: AFTERSCHOOL: DR. THORNE PCP: DR. SNELL SUMMARY: 71-year-old -[place] female routinely followed by Dr. Thorne. History of known coronary artery disease status post CABG. She was admitted for elective cardiac catheterization November 03, 2016 for abnormal stress test. She was found to have severe CAD. CV Surgery was consulted and she underwent re-do CABG Thursday, November 10, 2016 to include ИРИНА (free graft) to LAD, performed by Dr. Moctezuma. She tolerated well and has been housed in ICU. NOVEMBER 13, 2016: POD 3 and patient continues to do well. She was extubated yesterday and seems to be oxygenating well. SPO2 saturation at 94%. She is tolerating Coreg, Valsartan without problems. Systolic blood pressure 129-185. Heart rate is low 60s. Will add Norvasc for better blood pressure control. Also, we will add lipid-lowering agent today. If okay with Dr. Moctezuma, will add low-dose aspirin. She continues to wear her SCDs for DVT prevention. Her labs are stable. She continues with IV nitroglycerin (ИРИНА was used as a free graft to LAD) and suspect this will be off within the next 24-48 hours. She is taking Lasix 40 mg IV twice daily. I will give her an additional 40 mg this morning as her chest x-ray does reveal atelectasis and possible increased fluid. EF 40-50%. She remains in NSR. During this hospitalization, she has undergone HST and sleep apnea was confirmed. ASSESSMENT/PLAN: 1. KNOWN CAD S/P re-do CABG - POD 3. Continues to progress nicely. 2. HYPERTENSION - suboptimally controlled. Adding Norvasc. 3. DYSLIPIDEMIA - restarting lipid-lowering agent. LDL 67. 4. DIABETES - blood glucose levels have been well controlled during this hospital stay 5. SLEEP APNEA - recently diagnosed during this hospitalization. Sleep mask when able. 6. ABNORMAL TSH - thyroid replacement adjusted. 7. ANEMIA - stable. 8. HYPERKALEMIA - resolved. Exam (Progress Note) - Constitutional Vitals: Period Temp Pulse Resp BP Sys/Allen Pulse Ox Last 24 Hr 97 F-97.7 F 61-85 11-18 95-187/44-89 92-99 Exam: General: [Appears well with no apparent distress. Wakes easily and returns to sleep quickly.] [Pleasant and cooperative. ] [Appears comfortable.] HEENT: [Bilateral arcus noted. Normocephalic, atraumatic. Mucous membranes moist. No jaundice noted. Conjunctiva moist and clear, sclerae anicteric] Neck: No obvious JVD/HJR, no thyromegaly or lymphadenopathy noted. No carotid bruit appreciated Cardiac: [Regular rate and rhythm.] [No murmur rub or gallop.] Chest: Breast binder intact. Dressing to chest intact. EPW intact. Lungs: [Rhonci throughout. No accessory muscle use to assist the respiratory pattern.] Wearing oxygen. Abdomen: Soft, bowel sounds normoactive. Nontender and nondistended. No abdominal bruit or thrill noted. No masses noted. Musculoskeletal: No fluid collection. Decreased range of motion is noted. Extremities: SCDs to BLE. 1+ BLE edema noted. No clubbing, cyanosis noted. Upper extremity pulses 2+. Lower extremity pulses 2+. Capillary refill less than 3 seconds. Skin: No unusual lesions or rashes. No skin breakdown appreciated. Neuro: Awake, alert and oriented 3. Left-sided hemiparesis lower extremity noted (chronic.) No essential tremor is appreciated. Result/EKG - Labs CBC & BMP: 11/13/16 04:15 11/13/16 04:15 Lab Results: I have reviewed the past 24 hour labs Labs: Laboratory Results - last 24 hr 11/09/16 11/12/16 11/12/16 09:12 08:17 11:00 WBC RBC Hgb Hct MCV MCH MCHC RDW Plt Count MPV Neut % (Auto) Lymph % (Auto) [place] % (Auto) Eos % (Auto) Baso % (Auto) Neut # (Auto) Lymph # (Auto) [place] # (Auto) Eos # (Auto) Baso # (Auto) Immature Gran % Nucleated RBC % Immature Gran # Nucleated RBCs # ABG pH 7.411 7.415 ABG pCO2 44.6 45.9 ABG pO2 89.2 86.3 ABG HCO3 27.4 H 28.2 H ABG Total CO2 26.1 27.0 ABG O2 Saturation 96.6 96.3 ABG Base Excess 3.3 H 4.3 H Hemoglobin 9.2 L 9.2 L Hematocrit 28.5 L 28.6 L Potassium 4.3 4.1 Glucose 127 H 126 H Sodium Chloride Carbon Dioxide Anion Gap BUN Creatinine GFR Calculation BUN/Creatinine Ratio POC Glucose Calculated Osmolality Calcium Magnesium Total Bilirubin Direct Bilirubin AST ALT Alkaline Phosphatase Total Protein Albumin Globulin Albumin/Globulin Ratio Blood Type O POSITIVE Antibody Screen Negative Crossmatch See Detail 11/12/16 11/12/16 11/12/16 12:25 19:55 21:44 WBC RBC Hgb Hct MCV MCH MCHC RDW Plt Count MPV Neut % (Auto) Lymph % (Auto) [place] % (Auto) Eos % (Auto) Baso % (Auto) Neut # (Auto) Lymph # (Auto) [place] # (Auto) Eos # (Auto) Baso # (Auto) Immature Gran % Nucleated RBC % Immature Gran # Nucleated RBCs # ABG pH 7.413 ABG pCO2 47.0 ABG pO2 70.2 L ABG HCO3 28.6 H ABG Total CO2 27.5 H ABG O2 Saturation 93.4 L ABG Base Excess 4.7 H Hemoglobin 9.6 L Hematocrit 29.7 L Potassium 4.2 Glucose 140 H Sodium Chloride Carbon Dioxide Anion Gap BUN Creatinine GFR Calculation BUN/Creatinine Ratio POC Glucose 167 H 143 H Calculated Osmolality Calcium Magnesium Total Bilirubin Direct Bilirubin AST ALT Alkaline Phosphatase Total Protein Albumin Globulin Albumin/Globulin Ratio Blood Type Antibody Screen Crossmatch 11/13/16 11/13/16 11/13/16 01:39 04:15 04:15 WBC 12.9 H RBC 2.92 L Hgb 8.7 L Hct 26.1 L MCV 89.4 MCH 30 MCHC 33.3 RDW 13.3 Plt Count 132 MPV 10.7 Neut % (Auto) 78.1 H Lymph % (Auto) 13.6 L [place] % (Auto) 6.8 Eos % (Auto) 0.5 Baso % (Auto) 0.2 Neut # (Auto) 10.1 H Lymph # (Auto) 1.8 [place] # (Auto) 0.9 H Eos # (Auto) 0.1 Baso # (Auto) 0.0 Immature Gran % 0.8 Nucleated RBC % 0.0 Immature Gran # 0.10 Nucleated RBCs # 0.00 ABG pH ABG pCO2 ABG pO2 ABG HCO3 ABG Total CO2 ABG O2 Saturation ABG Base Excess Hemoglobin Hematocrit Potassium 3.7 Glucose 155 H Sodium 138 Chloride 100 Carbon Dioxide 29 Anion Gap 12.7 BUN 35 H Creatinine 0.60 GFR Calculation 134 BUN/Creatinine Ratio 58.00 H POC Glucose 168 H Calculated Osmolality 285.7 Calcium 7.9 L Magnesium 2.0 Total Bilirubin 0.80 Direct Bilirubin 0.20 AST 13 ALT 9 L Alkaline Phosphatase 55 Total Protein 5.4 L Albumin 2.8 L Globulin 2.6 Albumin/Globulin Ratio 1.0 L Blood Type Antibody Screen Crossmatch 11/13/16 05:25 WBC RBC Hgb Hct MCV MCH MCHC RDW Plt Count MPV Neut % (Auto) Lymph % (Auto) [place] % (Auto) Eos % (Auto) Baso % (Auto) Neut # (Auto) Lymph # (Auto) [place] # (Auto) Eos # (Auto) Baso # (Auto) Immature Gran % Nucleated RBC % Immature Gran # Nucleated RBCs # ABG pH ABG pCO2 ABG pO2 ABG HCO3 ABG Total CO2 ABG O2 Saturation ABG Base Excess Hemoglobin Hematocrit Potassium Glucose Sodium Chloride Carbon Dioxide Anion Gap BUN Creatinine GFR Calculation BUN/Creatinine Ratio POC Glucose 166 H Calculated Osmolality Calcium Magnesium Total Bilirubin Direct Bilirubin AST ALT Alkaline Phosphatase Total Protein Albumin Globulin Albumin/Globulin Ratio Blood Type Antibody Screen Crossmatch - Diagnostic Findings Procedure: Chest x-ray: report reviewed by me - EKG EKG results: interpreted by me EKG shows: sinus rhythm Quality Measures - VTE Contraindication to Pharmacological VTE Prophylaxis: High Risk of Bleeding Specialty Discharge - Follow Up or Referrals Follow up with: Jerardo Thorne MD [Physician] - 11/28/16 12:50 pm <Damion Granados - Last Filed: 11/13/16 08:50> Cardiology - PN: Subj Interval history: I have seen, interviewed, examined the patient and reviewed his chart and discussed the case with the mid-level provider and agree with the plan as outlined in the note. Exam (Progress Note) - Constitutional Vitals: Period Temp Pulse Resp BP Sys/Allen Pulse Ox Last 24 Hr 97 F-97.7 F 61-85 11-18 95-187/44-89 92-99 Result/EKG - Labs CBC & BMP: 11/13/16 04:15 11/13/16 04:15 Labs: Laboratory Results - last 24 hr 11/09/16 11/12/16 11/12/16 09:12 06:55 08:02 WBC RBC Hgb Hct MCV MCH MCHC RDW Plt Count MPV Neut % (Auto) Lymph % (Auto) [place] % (Auto) Eos % (Auto) Baso % (Auto) Neut # (Auto) Lymph # (Auto) [place] # (Auto) Eos # (Auto) Baso # (Auto) Immature Gran % Nucleated RBC % Immature Gran # Nucleated RBCs # ABG pH ABG pCO2 ABG pO2 ABG HCO3 ABG Total CO2 ABG O2 Saturation ABG Base Excess Hemoglobin Hematocrit Potassium Glucose Sodium Chloride Carbon Dioxide Anion Gap BUN Creatinine GFR Calculation BUN/Creatinine Ratio POC Glucose 136 H 124 H Calculated Osmolality Calcium Magnesium Total Bilirubin Direct Bilirubin AST ALT Alkaline Phosphatase Total Protein Albumin Globulin Albumin/Globulin Ratio Blood Type O POSITIVE Antibody Screen Negative Crossmatch See Detail 11/12/16 11/12/16 11/12/16 09:10 10:02 11:00 WBC RBC Hgb Hct MCV MCH MCHC RDW Plt Count MPV Neut % (Auto) Lymph % (Auto) [place] % (Auto) Eos % (Auto) Baso % (Auto) Neut # (Auto) Lymph # (Auto) [place] # (Auto) Eos # (Auto) Baso # (Auto) Immature Gran % Nucleated RBC % Immature Gran # Nucleated RBCs # ABG pH 7.415 ABG pCO2 45.9 ABG pO2 86.3 ABG HCO3 28.2 H ABG Total CO2 27.0 ABG O2 Saturation 96.3 ABG Base Excess 4.3 H Hemoglobin 9.2 L Hematocrit 28.6 L Potassium 4.1 Glucose 126 H Sodium Chloride Carbon Dioxide Anion Gap BUN Creatinine GFR Calculation BUN/Creatinine Ratio POC Glucose 135 H 128 H Calculated Osmolality Calcium Magnesium Total Bilirubin Direct Bilirubin AST ALT Alkaline Phosphatase Total Protein Albumin Globulin Albumin/Globulin Ratio Blood Type Antibody Screen Crossmatch 11/12/16 11/12/16 11/12/16 12:25 15:58 19:55 WBC RBC Hgb Hct MCV MCH MCHC RDW Plt Count MPV Neut % (Auto) Lymph % (Auto) [place] % (Auto) Eos % (Auto) Baso % (Auto) Neut # (Auto) Lymph # (Auto) [place] # (Auto) Eos # (Auto) Baso # (Auto) Immature Gran % Nucleated RBC % Immature Gran # Nucleated RBCs # ABG pH 7.413 ABG pCO2 47.0 ABG pO2 70.2 L ABG HCO3 28.6 H ABG Total CO2 27.5 H ABG O2 Saturation 93.4 L ABG Base Excess 4.7 H Hemoglobin 9.6 L Hematocrit 29.7 L Potassium 4.2 Glucose 140 H Sodium Chloride Carbon Dioxide Anion Gap BUN Creatinine GFR Calculation BUN/Creatinine Ratio POC Glucose 155 H 167 H Calculated Osmolality Calcium Magnesium Total Bilirubin Direct Bilirubin AST ALT Alkaline Phosphatase Total Protein Albumin Globulin Albumin/Globulin Ratio Blood Type Antibody Screen Crossmatch 11/12/16 11/13/16 11/13/16 21:44 01:39 04:15 WBC 12.9 H RBC 2.92 L Hgb 8.7 L Hct 26.1 L MCV 89.4 MCH 30 MCHC 33.3 RDW 13.3 Plt Count 132 MPV 10.7 Neut % (Auto) 78.1 H Lymph % (Auto) 13.6 L [place] % (Auto) 6.8 Eos % (Auto) 0.5 Baso % (Auto) 0.2 Neut # (Auto) 10.1 H Lymph # (Auto) 1.8 [place] # (Auto) 0.9 H Eos # (Auto) 0.1 Baso # (Auto) 0.0 Immature Gran % 0.8 Nucleated RBC % 0.0 Immature Gran # 0.10 Nucleated RBCs # 0.00 ABG pH ABG pCO2 ABG pO2 ABG HCO3 ABG Total CO2 ABG O2 Saturation ABG Base Excess Hemoglobin Hematocrit Potassium Glucose Sodium Chloride Carbon Dioxide Anion Gap BUN Creatinine GFR Calculation BUN/Creatinine Ratio POC Glucose 143 H 168 H Calculated Osmolality Calcium Magnesium Total Bilirubin Direct Bilirubin AST ALT Alkaline Phosphatase Total Protein Albumin Globulin Albumin/Globulin Ratio Blood Type Antibody Screen Crossmatch 11/13/16 11/13/16 04:15 05:25 WBC RBC Hgb Hct MCV MCH MCHC RDW Plt Count MPV Neut % (Auto) Lymph % (Auto) [place] % (Auto) Eos % (Auto) Baso % (Auto) Neut # (Auto) Lymph # (Auto) [place] # (Auto) Eos # (Auto) Baso # (Auto) Immature Gran % Nucleated RBC % Immature Gran # Nucleated RBCs # ABG pH ABG pCO2 ABG pO2 ABG HCO3 ABG Total CO2 ABG O2 Saturation ABG Base Excess Hemoglobin Hematocrit Potassium 3.7 Glucose 155 H Sodium 138 Chloride 100 Carbon Dioxide 29 Anion Gap 12.7 BUN 35 H Creatinine 0.60 GFR Calculation 134 BUN/Creatinine Ratio 58.00 H POC Glucose 166 H Calculated Osmolality 285.7 Calcium 7.9 L Magnesium 2.0 Total Bilirubin 0.80 Direct Bilirubin 0.20 AST 13 ALT 9 L Alkaline Phosphatase 55 Total Protein 5.4 L Albumin 2.8 L Globulin 2.6 Albumin/Globulin Ratio 1.0 L Blood Type Antibody Screen Crossmatch
--- NOTE | 2016-11-13 08:30 | Internal Med Progress Note ---
Assessment and Plan (1) coronary artery disease Status: Chronic Assessment and plan: 71-year-old female admitted to acute care * Coronary artery disease. Doing well after CABG. Slowly improving * Diabetes. Continue current treatment * Hypothyroidism. Continue Synthroid * Hypertension. Blood pressure is stable * Hopefully to telemetry today Current Visit: Yes (2) hyperlipidemia Status: Chronic Current Visit: No (3) hypertension Status: Chronic Current Visit: Yes (4) hypothyroidism Status: Chronic Current Visit: No (5) type 2 diabetes mellitus Status: Chronic Current Visit: Yes Internal Medicine - PN: Subj Interval history: She is feeling better this morning. She is still in the intensive care unit. Denies any chest pain or shortness of breath Exam (Progress Note) - Constitutional Vitals: Period Temp Pulse Resp BP Sys/Allen Pulse Ox Last 24 Hr 97 F-97.7 F 61-85 11-18 95-187/44-89 92-99 Exam: Examination: GENERAL: No acute distress NECK: Neck is supple. CVS: Regular rate and rhythm. Systolic ejection murmur at left sternal border. Midline sternal wound RESPIRATORY: Lungs are clear. ABDOMEN: Soft and nontender. EXT: No edema. Results - Labs CBC & BMP: 11/13/16 04:15 11/13/16 04:15 Lab Results: I have reviewed the past 24 hour labs Quality Measures - VTE Contraindication to Pharmacological VTE Prophylaxis: High Risk of Bleeding Specialty Discharge - Follow Up or Referrals Follow up with: Jerardo Thorne MD [Physician] - 11/28/16 12:50 pm
[2016-11-13] MEDS: FUROSEMIDE 40 MG/4 ML VIAL IV SCH ×2 (08:37→16:17)
[2016-11-13] MEDS: CARVEDILOL 6.25 MG TABLET PO SCH ×2 (08:39→21:11)
[2016-11-13] MEDS: VALSARTAN 80 MG TABLET PO SCH ×4 (08:39→21:12)
[2016-11-13] MEDS: CHLORHEXIDINE 0.12% ORAL RINSE 60 ML BOTTLE SWISH/SPIT SCH ×2 (08:39→21:12)
[2016-11-13] MEDS ORDERED: MAGNESIUM SULF RIDER 4 GM in PREMIX 1 EACH IV PRN (08:43)
[2016-11-13] MEDS: SODIUM CHLORIDE 0.9% 1,000 ML IV SCH (08:43)
[2016-11-13] MEDS ORDERED: MAGNESIUM SULF RIDER 2 GM in PREMIX 1 EACH IV PRN (08:43)
[2016-11-13] MEDS: ASCORBIC ACID 500 MG TABLET PO SCH ×2 (09:00→21:11)
[2016-11-13] MEDS ORDERED: FUROSEMIDE 40 MG/4 ML VIAL IV ONE (09:00)
[2016-11-13] MEDS: amLODIPine 5 MG TABLET PO SCH (09:00)
[2016-11-13] MEDS: MORPHINE 2 MG/1 ML SYRINGE IV PRN ×2 (12:05→15:20)
--- NOTE | 2016-11-13 12:24 | Pathology Report from [facility] ---
ACCESSION # : [id number] PATIENT NAME : Ramírez Serra ORDERING DR : NATHANIEL GRANADOS MD CLINICAL HX: CABG 1995 w/graft closure & progression of disease POST-OP DX: Same SPECIMEN INFO: Sternal wires GROSS DESCRIPTION: Received fresh labeled "RAMÍREZ SERRA" are multiple sternal wires, submitted for gross exam only. DIAGNOSIS FOR RAMÍREZ SERRA: Sternal wires, gross only. SERVICE DATE: 11/10/2016 REPORT DATE: 11/13/2016 PATHOLOGIST: Farideh Magallon M.D. [facility] [place]
--- NOTE | 2016-11-13 12:40 | Sleep Medicine Progress Note ---
Assessment and Plan (1) Obstructive sleep apnea Status: Chronic Assessment and plan: We can continue with auto titration BiPAP as tolerated. It may be difficult to get a good response with nasogastric tube in place. We will need to continue to work with her wants her NG tube is out to work on mask fit and compliance. These were issues prior to bypass surgery. Current Visit: Yes (2) coronary artery disease Status: Chronic Current Visit: Yes (3) hypertension Status: Chronic Current Visit: No Sleep Medicine Subjective Interval history: Patient status post bypass surgery and was extubated yesterday. She did sleep with CPAP last night and is on oxygen today. She is awake and will follow commands but not communicative verbally. I did speak with her nurse and states that they are in the process of weaning her off nitroglycerin. Exam (Progress Note) - Constitutional Vitals: Period Temp Pulse Resp BP Sys/Allen Pulse Ox Last 24 Hr 97.4 F-97.7 F 54-85 11-18 95-187/44-96 92-98 Exam: She is alert and will follow commands. She moves both extremities to command. HEENT notable for extraocular movements intact. She has a nasogastric tube in place and is on nasal cannula O2. Neck supple without adenopathy. Chest with symmetrical breath sounds without focal wheeze, rhonchi, or rales. Cardiac exam reveals a regular rhythm without murmur or gallop. Abdomen obese nontender extremities without increased edema. Results - Labs CBC & BMP: 11/13/16 04:15 11/13/16 04:15 Lab Results: I have reviewed the past 24 hour labs Specialty Discharge - Follow Up or Referrals Follow up with: Jerardo Thorne MD [Physician] - 11/28/16 12:50 pm
[2016-11-13 14:49] LABS: Calcium 8.2 MG/DL (8.5-10.1); Osmolality,Calculated 284.5 MOS/KG (273-304); Potassium 3.7 MMOL/L (3.5-5.1)
[2016-11-13] MEDS: LEVOFLOXACIN INJ 500 MG in PREMIX 1 EACH IV SCH (15:02)
[2016-11-13] MEDS: SODIUM CHLORIDE 0.45% 1,000 ML IV SCH ×2 (15:45)
[2016-11-13] MEDS: DOBUTamine 500 MG/250 ML PREMIX IV SCH (16:17)
[2016-11-13] MEDS: ROSUVASTATIN 10 MG TABLET PO SCH (21:11)
[2016-11-14] MEDS: INSULIN REGULAR 100 UNIT/ML SUBCUT SCH ×6 (02:15→21:21)
[2016-11-14] MEDS: cloNIDine 0.1 MG TABLET PO SCH ×2 (04:00→06:50)
[2016-11-14 04:27] LABS: Basophils % 0.1 % (0.0-0.8); Eosinophils # 0.2 10*3/uL (0.0-0.87); Eosinophils % 1.6 % (0.00-10.9); Hematocrit 29.4 VOL% (35.7-47.0); Hemoglobin 9.6 GM/DL (12.0-16.0); Immature Granulocytes % 0.9 %; Immature Granulocytes Absolute 0.12 #; Lymphocytes # 1.7 10*3/uL (1.4-4.0); Lymphocytes % 12.7 % (21.3-54.2); Mean Corpuscular HGB Conc 32.7 GM/DL (32-36); Mean Corpuscular Hemoglobin 30 PG (27-34); Mean Corpuscular Volume 90.7 FL (87-102); Mean Platelet Volume 10.7 FL (9.6-12.0); Monocytes # 0.8 10*3/uL (0.11-0.8); Monocytes % 5.7 % (1.7-12.7); Neutrophils # 10.8 10*3/uL (1.4-7.4); Platelet Count 178 T/CUMM (130-400); Red Blood Count 3.24 MC/CUMM (3.8-5.5); Red Cell Distribution Width 12.9 % (9.3-17.3); White Blood Count 13.6 T/CUMM (4-12)
[2016-11-14 04:43] LABS: Calcium 8.5 MG/DL (8.5-10.1); Magnesium 1.8 MG/DL (1.8-2.4)
[2016-11-14 04:44] LABS: Osmolality,Calculated 279.8 MOS/KG (273-304); Potassium 3.5 MMOL/L (3.5-5.1)
[2016-11-14] MEDS: POTASSIUM CHLORIDE RIDER 20 MEQ in PREMIX 1 EACH IV PRN (05:36)
[2016-11-14] MEDS: MAGNESIUM SULF RIDER 2 GM in PREMIX 1 EACH IV PRN (06:47)
[2016-11-14] MEDS: LEVOTHYROXINE 100 MCG TABLET PO SCH (06:49)
--- NOTE | 2016-11-14 07:57 | Cardiothoracic Progress Note ---
Cardiothoracic Subjective Interval history: Patient looks and feels better today. She is more alert. Her laboratory work all looked basically okay. Her vital signs are stable although her blood pressure is trending on the low side. I am going to discontinue her clonidine. We are going to try to keep her out of bed as much as possible today. I am hoping for possible transfer to telemetry tomorrow. Exam (Progress Note) - Constitutional Vitals: Period Temp Pulse Resp BP Sys/Allen Pulse Ox Last 24 Hr 97.4 F-98.3 F 54-86 12-16 93-195/30-88 94-100 Result/EKG - Labs CBC & BMP: 11/14/16 03:28 11/14/16 03:28 Labs: Laboratory Results - last 24 hr 11/12/16 11/12/16 11/12/16 06:55 08:02 09:10 WBC RBC Hgb Hct MCV MCH MCHC RDW Plt Count MPV Neut % (Auto) Lymph % (Auto) [place] % (Auto) Eos % (Auto) Baso % (Auto) Neut # (Auto) Lymph # (Auto) [place] # (Auto) Eos # (Auto) Baso # (Auto) Immature Gran % Nucleated RBC % Immature Gran # Nucleated RBCs # Sodium Potassium Chloride Carbon Dioxide Anion Gap BUN Creatinine GFR Calculation BUN/Creatinine Ratio Glucose POC Glucose 136 H 124 H 135 H Calculated Osmolality Calcium Magnesium 11/12/16 11/12/16 11/13/16 10:02 15:58 09:14 WBC RBC Hgb Hct MCV MCH MCHC RDW Plt Count MPV Neut % (Auto) Lymph % (Auto) [place] % (Auto) Eos % (Auto) Baso % (Auto) Neut # (Auto) Lymph # (Auto) [place] # (Auto) Eos # (Auto) Baso # (Auto) Immature Gran % Nucleated RBC % Immature Gran # Nucleated RBCs # Sodium Potassium Chloride Carbon Dioxide Anion Gap BUN Creatinine GFR Calculation BUN/Creatinine Ratio Glucose POC Glucose 128 H 155 H 127 H Calculated Osmolality Calcium Magnesium 11/13/16 11/13/16 11/13/16 14:20 14:35 17:47 WBC RBC Hgb Hct MCV MCH MCHC RDW Plt Count MPV Neut % (Auto) Lymph % (Auto) [place] % (Auto) Eos % (Auto) Baso % (Auto) Neut # (Auto) Lymph # (Auto) [place] # (Auto) Eos # (Auto) Baso # (Auto) Immature Gran % Nucleated RBC % Immature Gran # Nucleated RBCs # Sodium 139 Potassium 3.7 Chloride 99 Carbon Dioxide 32 Anion Gap 11.7 BUN 30 H Creatinine 0.50 L GFR Calculation 142 BUN/Creatinine Ratio 60.00 H Glucose 140 H POC Glucose 152 H 165 H Calculated Osmolality 284.5 Calcium 8.2 L Magnesium 2.0 11/13/16 11/14/16 11/14/16 23:37 03:28 03:28 WBC 13.6 H RBC 3.24 L Hgb 9.6 L Hct 29.4 L MCV 90.7 MCH 30 MCHC 32.7 RDW 12.9 Plt Count 178 D MPV 10.7 Neut % (Auto) 79.0 H Lymph % (Auto) 12.7 L [place] % (Auto) 5.7 Eos % (Auto) 1.6 Baso % (Auto) 0.1 Neut # (Auto) 10.8 H Lymph # (Auto) 1.7 [place] # (Auto) 0.8 Eos # (Auto) 0.2 Baso # (Auto) 0.0 Immature Gran % 0.9 Nucleated RBC % 0.0 Immature Gran # 0.12 Nucleated RBCs # 0.00 Sodium 137 Potassium 3.5 Chloride 99 Carbon Dioxide 32 Anion Gap 9.5 BUN 28 H Creatinine 0.50 L GFR Calculation 142 BUN/Creatinine Ratio 56.00 H Glucose 120 H POC Glucose 133 H Calculated Osmolality 279.8 Calcium 8.5 Magnesium 1.8 11/14/16 03:55 WBC RBC Hgb Hct MCV MCH MCHC RDW Plt Count MPV Neut % (Auto) Lymph % (Auto) [place] % (Auto) Eos % (Auto) Baso % (Auto) Neut # (Auto) Lymph # (Auto) [place] # (Auto) Eos # (Auto) Baso # (Auto) Immature Gran % Nucleated RBC % Immature Gran # Nucleated RBCs # Sodium Potassium Chloride Carbon Dioxide Anion Gap BUN Creatinine GFR Calculation BUN/Creatinine Ratio Glucose POC Glucose 141 H Calculated Osmolality Calcium Magnesium Quality Measures - VTE Contraindication to Pharmacological VTE Prophylaxis: High Risk of Bleeding Specialty Discharge - Follow Up or Referrals Follow up with: Jerardo Thoren MD [Physician] - 11/28/16 12:50 pm
[2016-11-14] MEDS: amLODIPine 5 MG TABLET PO SCH (08:56)
[2016-11-14] MEDS: VALSARTAN 80 MG TABLET PO SCH ×3 (09:03→21:20)
[2016-11-14] MEDS: POTASSIUM CHLORIDE 20 MEQ TABLET PO PRN ×2 (09:04→17:05)
[2016-11-14] MEDS: ASCORBIC ACID 500 MG TABLET PO SCH ×2 (09:04→21:21)
[2016-11-14] MEDS: CARVEDILOL 6.25 MG TABLET PO SCH ×2 (09:04→21:21)
[2016-11-14] MEDS: FUROSEMIDE 40 MG/4 ML VIAL IV SCH ×2 (09:05→17:05)
[2016-11-14] MEDS: CHLORHEXIDINE 0.12% ORAL RINSE 60 ML BOTTLE SWISH/SPIT SCH ×2 (09:05→21:22)
[2016-11-14] MEDS: SODIUM CHLORIDE 0.9% 1,000 ML IV SCH (10:36)
--- NOTE | 2016-11-14 12:31 | Cardiology Progress Note ---
Assessment and Plan - Time spent with patient Time spent with patient: Greater than 30 minutes (1) S/P CABG (coronary artery bypass graft) Problem details: Repeat done this admission, 11/10/16 Status: Chronic Assessment and plan: See plan of care listed below Current Visit: Yes (2) Hyperkalemia Status: Resolved Assessment and plan: See plan of care listed below Current Visit: Yes (3) Debilitated patient Status: Chronic Assessment and plan: See plan of care listed below Current Visit: Yes (4) Anemia Status: Chronic Assessment and plan: See plan of care listed below Current Visit: Yes (5) Abnormal TSH Status: Acute Assessment and plan: See plan of care listed below Current Visit: Yes (6) type 2 diabetes mellitus Status: Chronic Assessment and plan: See plan of care listed below Current Visit: Yes (7) coronary artery disease Status: Chronic Assessment and plan: See plan of care listed below Current Visit: Yes (8) hypertension Status: Chronic Assessment and plan: See plan of care listed below Current Visit: Yes Cardiology - PN: Subj Interval history: HIGH VALUE ASSOCIATE: DR. THORNE PCP: DR. SNELL SUMMARY: 71-year-old -[place] female routinely followed by Dr. Thorne. History of known coronary artery disease status post CABG. She was admitted for elective cardiac catheterization November 03, 2016 for abnormal stress test. She was found to have severe CAD. CV Surgery was consulted and she underwent re-do CABG Sunday, November 10, 2016 to include ИРИНА (free graft) to LAD, performed by Dr. Moctezuma. She tolerated well and has been housed in ICU. NOVEMBER 13, 2016: POD 3 and patient continues to do well. She was extubated yesterday and seems to be oxygenating well. SPO2 saturation at 94%. She is tolerating Coreg, Valsartan without problems. Systolic blood pressure 129-185. Heart rate is low 60s. Will add Norvasc for better blood pressure control. Also, we will add lipid-lowering agent today. If okay with Dr. Moctezuma, will add low-dose aspirin. She continues to wear her SCDs for DVT prevention. Her labs are stable. She continues with IV nitroglycerin (ИРИНА was used as a free graft to LAD) and suspect this will be off within the next 24-48 hours. She is taking Lasix 40 mg IV twice daily. I will give her an additional 40 mg this morning as her chest x-ray does reveal atelectasis and possible increased fluid. EF 40-50%. She remains in NSR. During this hospitalization, she has undergone HST and sleep apnea was confirmed. NOVEMBER 14, 2016: POD 4. Improving slowly. According to I know she is lost 6 kg overnight. She does appear more comfortable. Vital signs are stable. At this point, she is tolerating Coreg 6.25 mg orally twice daily. They have also been holding her ARB and giving Norvasc. I will stop Norvasc today and hopefully tomorrow, we can incorporate in our back and her medication regimen. Also, starting tomorrow, will add aspirin 325 mg orally daily. Increase activity as able. She remains in normal sinus rhythm. ASSESSMENT/PLAN: 1. KNOWN CAD S/P re-do CABG - POD 4. Continues to progress nicely. 2. HYPERTENSION -adjusting medications accordingly. 3. DYSLIPIDEMIA -Crestor each evening. LDL 67. 4. DIABETES - blood glucose levels have been well controlled during this hospital stay 5. SLEEP APNEA - recently diagnosed during this hospitalization. Sleep mask when able. 6. ABNORMAL TSH - thyroid replacement adjusted. 7. ANEMIA - stable. Starting aspirin tomorrow. 8. HYPERKALEMIA - resolved. Exam (Progress Note) - Constitutional Vitals: Period Temp Pulse Resp BP Sys/Allen Pulse Ox Last 24 Hr 97.4 F-98.3 F 55-86 12-18 93-178/30-78 94-100 Exam: General: [Appears well with no apparent distress. Wakes easily and returns to sleep quickly.] [Pleasant and cooperative. ] [Appears comfortable.] HEENT: [Bilateral arcus noted. Normocephalic, atraumatic. Mucous membranes moist. No jaundice noted. Conjunctiva moist and clear, sclerae anicteric] Neck: No obvious JVD/HJR, no thyromegaly or lymphadenopathy noted. No carotid bruit appreciated Cardiac: [Regular rate and rhythm.] [No murmur rub or gallop.] Chest: Breast binder intact. Dressing to chest intact. EPW intact. Lungs: [Rhonci throughout. No accessory muscle use to assist the respiratory pattern.] Wearing oxygen intermittently. Abdomen: Soft, bowel sounds normoactive. Nontender and nondistended. No abdominal bruit or thrill noted. No masses noted. Musculoskeletal: No fluid collection. Decreased range of motion is noted. Extremities: SCDs to BLE. 1+ BLE edema noted. No clubbing, cyanosis noted. Upper extremity pulses 2+. Lower extremity pulses 2+. Capillary refill less than 3 seconds. Skin: No unusual lesions or rashes. No skin breakdown appreciated. Neuro: Awake, alert and oriented 3. Left-sided hemiparesis lower extremity noted (chronic.) No essential tremor is appreciated. Result/EKG - Labs CBC & BMP: 11/14/16 03:28 11/14/16 03:28 Lab Results: I have reviewed the past 24 hour labs Labs: Laboratory Results - last 24 hr 11/13/16 11/13/16 11/13/16 14:20 14:35 17:47 WBC RBC Hgb Hct MCV MCH MCHC RDW Plt Count MPV Neut % (Auto) Lymph % (Auto) [place] % (Auto) Eos % (Auto) Baso % (Auto) Neut # (Auto) Lymph # (Auto) [place] # (Auto) Eos # (Auto) Baso # (Auto) Immature Gran % Nucleated RBC % Immature Gran # Nucleated RBCs # Sodium 139 Potassium 3.7 Chloride 99 Carbon Dioxide 32 Anion Gap 11.7 BUN 30 H Creatinine 0.50 L GFR Calculation 142 BUN/Creatinine Ratio 60.00 H Glucose 140 H POC Glucose 152 H 165 H Calculated Osmolality 284.5 Calcium 8.2 L Magnesium 2.0 11/13/16 11/14/16 11/14/16 23:37 03:28 03:28 WBC 13.6 H RBC 3.24 L Hgb 9.6 L Hct 29.4 L MCV 90.7 MCH 30 MCHC 32.7 RDW 12.9 Plt Count 178 D MPV 10.7 Neut % (Auto) 79.0 H Lymph % (Auto) 12.7 L [place] % (Auto) 5.7 Eos % (Auto) 1.6 Baso % (Auto) 0.1 Neut # (Auto) 10.8 H Lymph # (Auto) 1.7 [place] # (Auto) 0.8 Eos # (Auto) 0.2 Baso # (Auto) 0.0 Immature Gran % 0.9 Nucleated RBC % 0.0 Immature Gran # 0.12 Nucleated RBCs # 0.00 Sodium 137 Potassium 3.5 Chloride 99 Carbon Dioxide 32 Anion Gap 9.5 BUN 28 H Creatinine 0.50 L GFR Calculation 142 BUN/Creatinine Ratio 56.00 H Glucose 120 H POC Glucose 133 H Calculated Osmolality 279.8 Calcium 8.5 Magnesium 1.8 11/14/16 03:55 WBC RBC Hgb Hct MCV MCH MCHC RDW Plt Count MPV Neut % (Auto) Lymph % (Auto) [place] % (Auto) Eos % (Auto) Baso % (Auto) Neut # (Auto) Lymph # (Auto) [place] # (Auto) Eos # (Auto) Baso # (Auto) Immature Gran % Nucleated RBC % Immature Gran # Nucleated RBCs # Sodium Potassium Chloride Carbon Dioxide Anion Gap BUN Creatinine GFR Calculation BUN/Creatinine Ratio Glucose POC Glucose 141 H Calculated Osmolality Calcium Magnesium - EKG EKG results: interpreted by me EKG shows: sinus rhythm Quality Measures - VTE Contraindication to Pharmacological VTE Prophylaxis: High Risk of Bleeding Specialty Discharge - Follow Up or Referrals Follow up with: Jerardo Thorne MD [Physician] - 11/28/16 12:50 pm
--- NOTE | 2016-11-14 13:03 | Sleep Medicine Progress Note ---
Assessment and Plan (1) Obstructive sleep apnea Status: Chronic Assessment and plan: We will check a download from her auto BiPAP and see how she did. We will continue to utilize BiPAP as tolerated. She seems to be making slow progress. Current Visit: Yes (2) coronary artery disease Status: Chronic Current Visit: Yes (3) hypertension Status: Chronic Current Visit: No Sleep Medicine Subjective Interval history: Patient seems to be doing better today. Nurse is uncertain whether she utilized BiPAP last night but she does know that there were no problems last night. She seems to be more alert and responsive today. Exam (Progress Note) - Constitutional Vitals: Period Temp Pulse Resp BP Sys/Allen Pulse Ox Last 24 Hr 97.4 F-98.3 F 55-86 12-18 93-178/30-78 94-100 Exam: She is alert and will follow commands. She moves both extremities to command. HEENT notable for extraocular movements intact. She has a nasogastric tube in place and is on nasal cannula O2. Neck supple without adenopathy. Chest with symmetrical breath sounds without focal wheeze, rhonchi, or rales. Cardiac exam reveals a regular rhythm without murmur or gallop. Abdomen obese nontender extremities without increased edema. Results - Labs CBC & BMP: 11/14/16 03:28 11/14/16 03:28 Lab Results: I have reviewed the past 24 hour labs Specialty Discharge - Follow Up or Referrals Follow up with: Jerardo Thorne MD [Physician] - 11/28/16 12:50 pm
[2016-11-14] MEDS: oxyCODONE/ACETAMINOPHEN 5-325 MG TABLET PO PRN ×2 (13:45→18:36)
[2016-11-14] MEDS: LEVOFLOXACIN INJ 500 MG in PREMIX 1 EACH IV SCH (14:09)
[2016-11-14] MEDS: NITROGLYCERIN DRIP 50 MG/250 ML BOTTLE IV SCH (15:01)
[2016-11-14] MEDS: ROSUVASTATIN 10 MG TABLET PO SCH (21:21)
[2016-11-15 04:33] LABS: ABG HCO3 30.7 MMOL/L (20-26); ABG Oxygen Saturation 94.5 % (95-100); ABG PCO2 49.1 MM HG (35-48); ABG PH 7.428 (7.35-7.45); ABG PO2 68.6 MM HG (80-95); ABG TCO2 29.3 MMOL/L (23-27); Allen Test Positive; Pt O2 Delivery Device BIPAP
[2016-11-15 05:10] LABS: Magnesium 2.1 MG/DL (1.8-2.4); Potassium 4.3 MMOL/L (3.5-5.1)
[2016-11-15 05:13] LABS: Basophils % 0.1 % (0.0-0.8); Eosinophils # 0.3 10*3/uL (0.0-0.87); Eosinophils % 2.1 % (0.00-10.9); Hematocrit 34.4 VOL% (35.7-47.0); Hemoglobin 11.7 GM/DL (12.0-16.0); Immature Granulocytes % 1.4 %; Lymphocytes # 1.7 10*3/uL (1.4-4.0); Lymphocytes % 11.9 % (21.3-54.2); Mean Corpuscular Hemoglobin 30 PG (27-34); Mean Corpuscular Volume 88.2 FL (87-102); Mean Platelet Volume 10.9 FL (9.6-12.0); Monocytes # 0.9 10*3/uL (0.11-0.8); Monocytes % 6.3 % (1.7-12.7); NRBC # 0.04 10*3/uL; Neutrophils # 11.3 10*3/uL (1.4-7.4); Neutrophils % 78.2 % (38.7-73.9); Platelet Count 236 T/CUMM (130-400); Red Cell Distribution Width 13.2 % (9.3-17.3); White Blood Count 14.5 T/CUMM (4-12)
--- NOTE | 2016-11-15 06:21 | Cardiothoracic Progress Note ---
Cardiothoracic Subjective Interval history: Patient had a comfortable night. Her laboratory work is within normal limits. Her vital signs have been stable and she is breathing comfortably. Her chest x- ray does show an enlarging right pleural effusion. I will ask interventional radiology to see if they can help us with aspirating this effusion. It is possible that she may require chest tube but I would like to avoid that if possible. Exam (Progress Note) - Constitutional Vitals: Period Temp Pulse Resp BP Sys/Allen Pulse Ox Last 24 Hr 97.6 F-98.3 F 58-79 12-20 109-187/37-100 93-100 Result/EKG - Labs CBC & BMP: 11/15/16 04:16 11/15/16 04:16 Labs: Laboratory Results - last 24 hr 11/14/16 11/14/16 11/14/16 12:03 17:05 20:18 WBC RBC Hgb Hct MCV MCH MCHC RDW Plt Count MPV Neut % (Auto) Lymph % (Auto) [place] % (Auto) Eos % (Auto) Baso % (Auto) Neut # (Auto) Lymph # (Auto) [place] # (Auto) Eos # (Auto) Baso # (Auto) Immature Gran % Nucleated RBC % Immature Gran # Nucleated RBCs # ABG pH ABG pCO2 ABG pO2 ABG HCO3 ABG Total CO2 ABG O2 Saturation ABG Base Excess FiO2 Sodium Potassium Chloride Carbon Dioxide Anion Gap BUN Creatinine GFR Calculation BUN/Creatinine Ratio Glucose POC Glucose 169 H 134 H 175 H Calculated Osmolality Calcium Magnesium 11/15/16 11/15/16 11/15/16 04:10 04:16 04:16 WBC 14.5 H RBC 3.90 D Hgb 11.7 L D Hct 34.4 L MCV 88.2 MCH 30 MCHC 34.0 RDW 13.2 Plt Count 236 D MPV 10.9 Neut % (Auto) 78.2 H Lymph % (Auto) 11.9 L [place] % (Auto) 6.3 Eos % (Auto) 2.1 Baso % (Auto) 0.1 Neut # (Auto) 11.3 H Lymph # (Auto) 1.7 [place] # (Auto) 0.9 H Eos # (Auto) 0.3 Baso # (Auto) 0.0 Immature Gran % 1.4 Nucleated RBC % 0.3 Immature Gran # 0.20 Nucleated RBCs # 0.04 ABG pH 7.428 ABG pCO2 49.1 H ABG pO2 68.6 L ABG HCO3 30.7 H ABG Total CO2 29.3 H ABG O2 Saturation 94.5 L ABG Base Excess 7.0 H FiO2 28.00 Sodium 136 Potassium 4.3 Chloride 99 Carbon Dioxide 28 Anion Gap 13.3 BUN 18 Creatinine 0.50 L GFR Calculation 138 BUN/Creatinine Ratio 36.00 H Glucose 129 H POC Glucose Calculated Osmolality 275.0 Calcium 8.0 L Magnesium 2.1 Quality Measures - VTE Contraindication to Pharmacological VTE Prophylaxis: High Risk of Bleeding Specialty Discharge - Follow Up or Referrals Follow up with: Jerardo Thorne MD [Physician] - 11/28/16 12:50 pm
[2016-11-15] MEDS: LEVOTHYROXINE 100 MCG TABLET PO SCH (06:35)
--- NOTE | 2016-11-15 07:44 | XRay Report ---
Referring Physician: Ramesh Moctezuma Exam: XR chest 1V portable Date: November 15, 2016 at 3:21 AM Reason: Shortness of breath Comparison: Chest one view portable November 13, 2016 Findings: A right IJ catheter is again in place with its distal tip within the SVC. The previously seen Ledger-Zohaib catheter and feeding tube are no longer identified. The cardiac silhouette is again enlarged, and the patient is status post sternotomy. There is diffuse opacification of the right mid and lower lung zones and scattered opacities within the right upper lung zone. This is concerning for atelectasis/consolidation and pleural fluid. Underlying neoplasm is not excluded. There is also minimal atelectasis at the left lung base. The osseous structures appear stable. Impression: The previously seen Ledger-Zohaib catheter and feeding tube are no longer identified. There is also slight increased opacification/pleural fluid within the right mid and lower lung zones. PROCEDURE INTERPRETED AT [facility] DEPARTMENT OF RADIOLOGY Final Report Signed by: Dr. Keli Whitehead
--- NOTE | 2016-11-15 08:40 | Internal Med Progress Note ---
Assessment and Plan (1) coronary artery disease Status: Chronic Assessment and plan: 71-year-old female admitted to acute care * Coronary artery disease. Doing well after CABG. Slowly improving. Discussed with patient and her daughter * Diabetes. Continue current treatment * Hypothyroidism. Continue Synthroid * Hypertension. Blood pressure is stable * Right pleural effusion. May need thoracentesis Current Visit: Yes (2) hyperlipidemia Status: Chronic Current Visit: No (3) hypertension Status: Chronic Current Visit: Yes (4) hypothyroidism Status: Chronic Current Visit: No (5) type 2 diabetes mellitus Status: Chronic Current Visit: Yes Internal Medicine - PN: Subj Interval history: She is feeling better this morning. She is still quite weak. She denies any chest pain or shortness of breath Exam (Progress Note) - Constitutional Vitals: Period Temp Pulse Resp BP Sys/Allen Pulse Ox Last 24 Hr 97.8 F-98.3 F 60-79 11-20 109-187/56-100 91-98 Exam: Examination: GENERAL: No acute distress NECK: Neck is supple. CVS: Regular rate and rhythm. Systolic ejection murmur at left sternal border. Midline sternal wound RESPIRATORY: Decreased air entry at right base otherwise clear ABDOMEN: Soft and nontender. EXT: No edema. Results - Labs CBC & BMP: 11/15/16 04:16 11/15/16 04:16 Lab Results: I have reviewed the past 24 hour labs Quality Measures - VTE Contraindication to Pharmacological VTE Prophylaxis: High Risk of Bleeding Specialty Discharge - Follow Up or Referrals Follow up with: Jerardo Thorne MD [Physician] - 11/28/16 12:50 pm
[2016-11-15] MEDS: FUROSEMIDE 40 MG/4 ML VIAL IV SCH ×2 (08:49→18:41)
[2016-11-15] MEDS: VALSARTAN 80 MG TABLET PO SCH ×2 (08:50→22:30)
[2016-11-15] MEDS: INSULIN REGULAR 100 UNIT/ML SUBCUT SCH ×4 (08:50→23:10)
[2016-11-15] MEDS: CARVEDILOL 6.25 MG TABLET PO SCH ×2 (08:51→22:30)
[2016-11-15] MEDS: ASCORBIC ACID 500 MG TABLET PO SCH ×2 (08:51→22:29)
[2016-11-15] MEDS: CHLORHEXIDINE 0.12% ORAL RINSE 60 ML BOTTLE SWISH/SPIT SCH ×2 (08:52→22:28)
--- NOTE | 2016-11-15 09:26 | Cardiology Progress Note ---
Assessment and Plan - Time spent with patient Time spent with patient: Greater than 30 minutes (1) S/P CABG (coronary artery bypass graft) Problem details: Repeat done this admission, 11/10/16 Status: Chronic Assessment and plan: See plan of care listed below Current Visit: Yes (2) Hyperkalemia Status: Resolved Assessment and plan: See plan of care listed below Current Visit: Yes (3) Debilitated patient Status: Chronic Assessment and plan: See plan of care listed below Current Visit: Yes (4) Anemia Status: Chronic Assessment and plan: See plan of care listed below Current Visit: Yes (5) Abnormal TSH Status: Acute Assessment and plan: See plan of care listed below Current Visit: Yes (6) type 2 diabetes mellitus Status: Chronic Assessment and plan: See plan of care listed below Current Visit: Yes (7) coronary artery disease Status: Chronic Assessment and plan: See plan of care listed below Current Visit: Yes (8) hypertension Status: Chronic Assessment and plan: See plan of care listed below Current Visit: Yes Cardiology - PN: Subj Interval history: CHIEF PASSENGER SHIP STEWARD/STEWARDESS: DR. THORNE PCP: DR. SNELL SUMMARY: 71-year-old -[place] female routinely followed by Dr. Thorne. History of known coronary artery disease status post CABG. She was admitted for elective cardiac catheterization November 03, 2016 for abnormal stress test. She was found to have severe CAD. CV Surgery was consulted and she underwent re-do CABG Sunday, November 10, 2016 to include ИРИНА (free graft) to LAD, performed by Dr. Moctezuma. She tolerated well and has been housed in ICU. NOVEMBER 13, 2016: POD 3 and patient continues to do well. She was extubated yesterday and seems to be oxygenating well. SPO2 saturation at 94%. She is tolerating Coreg, Valsartan without problems. Systolic blood pressure 129-185. Heart rate is low 60s. Will add Norvasc for better blood pressure control. Also, we will add lipid-lowering agent today. If okay with Dr. Moctezuma, will add low-dose aspirin. She continues to wear her SCDs for DVT prevention. Her labs are stable. She continues with IV nitroglycerin (ИРИНА was used as a free graft to LAD) and suspect this will be off within the next 24-48 hours. She is taking Lasix 40 mg IV twice daily. I will give her an additional 40 mg this morning as her chest x-ray does reveal atelectasis and possible increased fluid. EF 40-50%. She remains in NSR. During this hospitalization, she has undergone HST and sleep apnea was confirmed. NOVEMBER 14, 2016: POD 4. Improving slowly. According to I know she is lost 6 kg overnight. She does appear more comfortable. Vital signs are stable. At this point, she is tolerating Coreg 6.25 mg orally twice daily. They have also been holding her ARB and giving Norvasc. I will stop Norvasc today and hopefully tomorrow, we can incorporate in our back and her medication regimen. Also, starting tomorrow, will add aspirin 325 mg orally daily. Increase activity as able. She remains in normal sinus rhythm. NOVEMBER 15, 2016: POD 5. Continues to improve. Her chest tubes have been removed. She sat up for four hours yesterday and tolerated well. Labs are stable. Vital signs are stable. Starting prophylactic dose Lovenox today as her labs are stable. Starting low dose SHAHRAM today. Allergy to ASA is severe nausea. May consider Plavix at discharge or consider rechallenge with low dose ASA. ASSESSMENT/PLAN: 1. KNOWN CAD S/P re-do CABG - POD 5. Continues to progress. 2. HYPERTENSION - adjusting medications accordingly. Adding Shahram. 3. DYSLIPIDEMIA - Crestor each evening. LDL 67. 4. DIABETES - blood glucose levels have been well controlled during this hospital stay 5. SLEEP APNEA - recently diagnosed during this hospitalization. Sleep mask when able. 6. ABNORMAL TSH - thyroid replacement adjusted. 7. ANEMIA - stable. ALLERGY TO ASA. Anemia is stable. Starting Lovenox daily. May need Plavix or can rechallenge with low dose ASA and monitor her history of severe nausea with ASA history. 8. HYPERKALEMIA - resolved. Exam (Progress Note) - Constitutional Vitals: Period Temp Pulse Resp BP Sys/Allen Pulse Ox Last 24 Hr 97.8 F-98.3 F 60-79 11-20 116-187/56-100 91-98 Exam: General: [Appears well with no apparent distress. Wakes easily and returns to sleep quickly.] [Pleasant and cooperative. ] [Appears comfortable.] HEENT: [Bilateral arcus noted. Normocephalic, atraumatic. Mucous membranes moist. No jaundice noted. Conjunctiva moist and clear, sclerae anicteric] Neck: No obvious JVD/HJR, no thyromegaly or lymphadenopathy noted. No carotid bruit appreciated Cardiac: [Regular rate and rhythm.] [No murmur rub or gallop.] Chest: Breast binder intact. Dressing to chest intact. EPW intact. Lungs: [Rhonci throughout. No accessory muscle use to assist the respiratory pattern.] Not requiring oxygen. Abdomen: Soft, bowel sounds normoactive. Nontender and nondistended. No abdominal bruit or thrill noted. No masses noted. Musculoskeletal: No fluid collection. Decreased range of motion is noted. Extremities: SCDs to BLE. 1+ BLE edema noted. No clubbing, cyanosis noted. Upper extremity pulses 2+. Lower extremity pulses 2+. Capillary refill less than 3 seconds. Skin: No unusual lesions or rashes. No skin breakdown appreciated. Neuro: Awake, alert and oriented 3. Left-sided hemiparesis lower extremity noted (chronic.) No essential tremor is appreciated. Result/EKG - Labs CBC & BMP: 11/15/16 04:16 11/15/16 04:16 Lab Results: I have reviewed the past 24 hour labs Labs: Laboratory Results - last 24 hr 11/14/16 11/14/16 11/14/16 12:03 17:05 20:18 WBC RBC Hgb Hct MCV MCH MCHC RDW Plt Count MPV Neut % (Auto) Lymph % (Auto) [place] % (Auto) Eos % (Auto) Baso % (Auto) Neut # (Auto) Lymph # (Auto) [place] # (Auto) Eos # (Auto) Baso # (Auto) Immature Gran % Nucleated RBC % Immature Gran # Nucleated RBCs # ABG pH ABG pCO2 ABG pO2 ABG HCO3 ABG Total CO2 ABG O2 Saturation ABG Base Excess FiO2 Sodium Potassium Chloride Carbon Dioxide Anion Gap BUN Creatinine GFR Calculation BUN/Creatinine Ratio Glucose POC Glucose 169 H 134 H 175 H Calculated Osmolality Calcium Magnesium 11/15/16 11/15/16 11/15/16 04:10 04:16 04:16 WBC 14.5 H RBC 3.90 D Hgb 11.7 L D Hct 34.4 L MCV 88.2 MCH 30 MCHC 34.0 RDW 13.2 Plt Count 236 D MPV 10.9 Neut % (Auto) 78.2 H Lymph % (Auto) 11.9 L [place] % (Auto) 6.3 Eos % (Auto) 2.1 Baso % (Auto) 0.1 Neut # (Auto) 11.3 H Lymph # (Auto) 1.7 [place] # (Auto) 0.9 H Eos # (Auto) 0.3 Baso # (Auto) 0.0 Immature Gran % 1.4 Nucleated RBC % 0.3 Immature Gran # 0.20 Nucleated RBCs # 0.04 ABG pH 7.428 ABG pCO2 49.1 H ABG pO2 68.6 L ABG HCO3 30.7 H ABG Total CO2 29.3 H ABG O2 Saturation 94.5 L ABG Base Excess 7.0 H FiO2 28.00 Sodium 136 Potassium 4.3 Chloride 99 Carbon Dioxide 28 Anion Gap 13.3 BUN 18 Creatinine 0.50 L GFR Calculation 138 BUN/Creatinine Ratio 36.00 H Glucose 129 H POC Glucose Calculated Osmolality 275.0 Calcium 8.0 L Magnesium 2.1 11/15/16 08:27 WBC RBC Hgb Hct MCV MCH MCHC RDW Plt Count MPV Neut % (Auto) Lymph % (Auto) [place] % (Auto) Eos % (Auto) Baso % (Auto) Neut # (Auto) Lymph # (Auto) [place] # (Auto) Eos # (Auto) Baso # (Auto) Immature Gran % Nucleated RBC % Immature Gran # Nucleated RBCs # ABG pH ABG pCO2 ABG pO2 ABG HCO3 ABG Total CO2 ABG O2 Saturation ABG Base Excess FiO2 Sodium Potassium Chloride Carbon Dioxide Anion Gap BUN Creatinine GFR Calculation BUN/Creatinine Ratio Glucose POC Glucose 138 H Calculated Osmolality Calcium Magnesium - EKG EKG results: interpreted by me EKG shows: sinus rhythm Quality Measures - VTE Contraindication to Pharmacological VTE Prophylaxis: High Risk of Bleeding Specialty Discharge - Follow Up or Referrals Follow up with: Jerardo Thorne MD [Physician] - 11/28/16 12:50 pm
[2016-11-15] MEDS ORDERED: AMIODARONE INJ 150 MG in DEXTROSE 5% 100 ML IV ONE (09:58)
[2016-11-15] MEDS ORDERED: AMIODARONE INJ 450 MG in DEXTROSE 5% 241 ML IV SCH (10:01)
[2016-11-15] MEDS: ENOXAPARIN 40 MG/0.4 ML SYRINGE SUBCUT SCH (11:00)
--- NOTE | 2016-11-15 12:28 | Sleep Medicine Progress Note ---
Assessment and Plan (1) Obstructive sleep apnea Status: Chronic Assessment and plan: Continue present therapy with nightly BiPAP. After she recovers, she will need formal sleep study with re-titration to best treat her underlying sleep apnea. Current Visit: Yes (2) coronary artery disease Status: Chronic Current Visit: Yes (3) hypertension Status: Chronic Current Visit: No Sleep Medicine Subjective Interval history: Patient appears to be improving. She looks better today. She is smiling. Seems to be much more comfortable. She reports no new problems or issues. I do not have a download available from her auto titration BiPAP. Exam (Progress Note) - Constitutional Vitals: Period Temp Pulse Resp BP Sys/Allen Pulse Ox Last 24 Hr 98.0 F-98.3 F 60-79 11-20 116-187/56-100 91-98 Exam: She is alert and will follow commands. She moves both extremities to command. HEENT notable for extraocular movements intact. She has a nasogastric tube in place and is on nasal cannula O2. Neck supple without adenopathy. Chest with symmetrical breath sounds without focal wheeze, rhonchi, or rales. Cardiac exam reveals a regular rhythm without murmur or gallop. Abdomen obese nontender extremities without increased edema. Results - Labs CBC & BMP: 11/15/16 04:16 11/15/16 04:16 Lab Results: I have reviewed the past 24 hour labs Specialty Discharge - Follow Up or Referrals Follow up with: Jerardo Thorne MD [Physician] - 11/28/16 12:50 pm
--- NOTE | 2016-11-15 13:45 | Post Interventional Procedure ---
Pre-op diagnosis: Right pleural effusion, short of breath Post-op diagnosis: same Procedure: Ultrasound-guided right thoracentesis Radiologist: Rito Bullock Anesthesia: local Specimens: other (400 cc old blood aspirated) Estimated blood loss: none Complications: none Condition: stable Description/Findings: Able aspirate 400 cc total. Fluid is mostly old hematoma that is liquefied. Additional loculations cannot be excluded but none are seen on ultrasound. Patient began coughing at the end of the drainage as well. Assessment and Plan - Time spent with patient Time spent with patient: Less than 30 minutes
--- NOTE | 2016-11-15 14:06 | XRay Report ---
XR chest post procedure Indication: Status post right thoracentesis. Post procedure chest radiograph, 2 views: Inspiratory and expiratory views of the chest were obtained. Right subpulmonic effusion has decreased in size with earlier study today, but there is still residual fluid present. No pneumothorax shown. Central line, mild cardiomegaly and postoperative changes median sternotomy are stable. Impression: Decreased size of right pleural effusion. PROCEDURE INTERPRETED AT [facility] DEPARTMENT OF RADIOLOGY Final Report Signed by: Rito Bullock M.D.
--- NOTE | 2016-11-15 14:14 | Ultrasound Report ---
US thoracentesis Indication: Right pleural fluid. Short of breath. ULTRASOUND-GUIDED THORACENTESIS Description: A formal timeout was performed. Maximum sterile barrier technique was used. A right hypoechoic, complex pleural effusion was identified with ultrasound. The right back was prepped and draped in sterile fashion. Under sonographic guidance, a 6 [place] pigtail catheter was advanced into the effusion using trocar technique. A captured sonographic image documents needle position. The needle was removed. Through the catheter, we obtained a total of 400 cc of old hemothorax fluid. The catheter was removed. A bandage was placed at the puncture site. The patient tolerated the procedure well. Chest radiograph is pending. Impression: Ultrasound-guided thoracentesis. Only able to obtain 400 cc of old blood from the right hemithorax. There may be additional fluid present but cannot identify on ultrasound. PROCEDURE INTERPRETED AT [facility] DEPARTMENT OF RADIOLOGY Final Report Signed by: Rito Bullock M.D.
[2016-11-15] MEDS: LEVOFLOXACIN INJ 500 MG in PREMIX 1 EACH IV SCH (14:50)
[2016-11-15] MEDS: AMIODARONE INJ 450 MG in DEXTROSE 5% 241 ML IV SCH (18:41)
[2016-11-15] MEDS: MORPHINE 2 MG/1 ML SYRINGE IV PRN (19:21)
[2016-11-15] MEDS: ROSUVASTATIN 10 MG TABLET PO SCH (22:28)
[2016-11-15] MEDS: NITROGLYCERIN DRIP 50 MG/250 ML BOTTLE IV SCH (23:53)
[2016-11-16 04:29] LABS: ABG HCO3 31.8 MMOL/L (20-26); ABG Oxygen Saturation 95.8 % (95-100); ABG PCO2 47.7 MM HG (35-48); ABG PH 7.452 (7.35-7.45); ABG PO2 77.4 MM HG (80-95); ABG TCO2 29.4 MMOL/L (23-27)
[2016-11-16 04:34] LABS: Basophils % 0.2 % (0.0-0.8); Eosinophils # 0.4 10*3/uL (0.0-0.87); Eosinophils % 2.4 % (0.00-10.9); Hematocrit 35.4 VOL% (35.7-47.0); Hemoglobin 11.7 GM/DL (12.0-16.0); Immature Granulocytes % 1.4 %; Immature Granulocytes Absolute 0.25 #; Lymphocytes # 2.4 10*3/uL (1.4-4.0); Lymphocytes % 14.1 % (21.3-54.2); Mean Corpuscular HGB Conc 33.1 GM/DL (32-36); Mean Corpuscular Hemoglobin 30 PG (27-34); Mean Corpuscular Volume 90.3 FL (87-102); Monocytes # 1.3 10*3/uL (0.11-0.8); Monocytes % 7.4 % (1.7-12.7); Neutrophils # 12.9 10*3/uL (1.4-7.4); Neutrophils % 74.5 % (38.7-73.9); Platelet Count 319 T/CUMM (130-400); Red Blood Count 3.92 MC/CUMM (3.8-5.5); Red Cell Distribution Width 13.1 % (9.3-17.3); White Blood Count 17.3 T/CUMM (4-12)
[2016-11-16 04:57] LABS: Albumin 2.9 G/DL (3.4-5.0); Bilirubin,Direct 0.2 MG/DL (0.0-0.20); Bilirubin,Total 0.8 MG/DL (0.2-1.0); Calcium 8.7 MG/DL (8.5-10.1); Magnesium 1.9 MG/DL (1.8-2.4); Potassium 3.7 MMOL/L (3.5-5.1); Total Protein 6.1 G/DL (6.4-8.3)
[2016-11-16] MEDS: oxyCODONE/ACETAMINOPHEN 5-325 MG TABLET PO PRN ×3 (06:40→16:03)
[2016-11-16] MEDS: LEVOTHYROXINE 100 MCG TABLET PO SCH (06:40)
--- NOTE | 2016-11-16 08:02 | XRay Report ---
Referring Physician: Ramesh Moctezuma Exam: XR chest 1V portable Date: November 16, 2016 at 3:04 AM Reason: Evaluate for pleural effusion Comparison: Chest post procedure November 15, 2016 Findings: A right IJ catheter is again present, and the cardiac silhouette is again enlarged with sternotomy change. There is also persistent elevation of the right hemidiaphragm. There are opacities at the right lung base which likely represent atelectasis and possibly pneumonia. Mild pulmonary edema is also suspected. No pneumothorax is identified, but there is mild right pleural fluid and possible minimal left pleural fluid. The osseous structures appear stable. Impression: There has been no significant change when considering slight differences in patient positioning. PROCEDURE INTERPRETED AT [facility] DEPARTMENT OF RADIOLOGY Final Report Signed by: Dr. Keli Whitehead
[2016-11-16] MEDS ORDERED: ALUMINUM/MAGNES/SIMETH MAX STR 30 ML UDCUP PO PRN (09:06)
[2016-11-16] MEDS ORDERED: POTASSIUM CHLORIDE 20 MEQ TABLET PO PRN (09:06)
[2016-11-16] MEDS ORDERED: MAGNESIUM SULF RIDER 2 GM in PREMIX 1 EACH IV PRN ×2 (09:06→10:18)
[2016-11-16] MEDS ORDERED: MAGNESIUM SULF RIDER 4 GM in PREMIX 1 EACH IV PRN ×2 (09:06→10:18)
[2016-11-16] MEDS ORDERED: GLUCAGON 1 MG VIAL IM PRN ×2 (09:06)
[2016-11-16] MEDS ORDERED: ACETAMINOPHEN 325 MG TABLET PO PRN (09:06)
[2016-11-16] MEDS ORDERED: MAGNESIUM HYDROXIDE SUSP 30 ML UDCUP PO PRN (09:06)
[2016-11-16] MEDS ORDERED: DEXTROSE 50% 25 GM/50 ML VIAL IV PRN ×2 (09:06)
[2016-11-16] MEDS ORDERED: ONDANSETRON 4 MG/2 ML VIAL IV PRN (09:06)
--- NOTE | 2016-11-16 09:19 | Cardiothoracic Progress Note ---
Cardiothoracic Subjective Interval history: Patient looks and feels okay. She is breathing comfortably and her vital signs have been stable although she remains in what appears to be atrial flutter. She is on intravenous amiodarone and her rate is reasonably well controlled. I am going to continue her intravenous amiodarone but defer to cardiology for further treatment. She may benefit from cardioversion if she does not chemically convert. Otherwise she appears to be doing well and her urine output has been good and her blood work looks okay. Chest x-ray actually looks some better following her thoracentesis yesterday. I think she can be transferred to telemetry later this morning. Exam (Progress Note) - Constitutional Vitals: Period Temp Pulse Resp BP Sys/Allen Pulse Ox Last 24 Hr 98.3 F-99.4 F 75-107 10-19 93-146/49-99 91-97 Result/EKG - Labs CBC & BMP: 11/16/16 04:20 11/16/16 04:20 Labs: Laboratory Results - last 24 hr 11/15/16 11/15/16 11/15/16 13:12 17:53 22:28 WBC RBC Hgb Hct MCV MCH MCHC RDW Plt Count MPV Neut % (Auto) Lymph % (Auto) [place] % (Auto) Eos % (Auto) Baso % (Auto) Neut # (Auto) Lymph # (Auto) [place] # (Auto) Eos # (Auto) Baso # (Auto) Immature Gran % Nucleated RBC % Immature Gran # Nucleated RBCs # ABG pH ABG pCO2 ABG pO2 ABG HCO3 ABG Total CO2 ABG O2 Saturation ABG Base Excess Sodium Potassium Chloride Carbon Dioxide Anion Gap BUN Creatinine GFR Calculation BUN/Creatinine Ratio Glucose POC Glucose 188 H 203 H 203 H Calculated Osmolality Calcium Magnesium Total Bilirubin Direct Bilirubin AST ALT Alkaline Phosphatase Total Protein Albumin Globulin Albumin/Globulin Ratio 11/16/16 11/16/16 11/16/16 04:20 04:20 04:20 WBC 17.3 H RBC 3.92 Hgb 11.7 L Hct 35.4 L MCV 90.3 MCH 30 MCHC 33.1 RDW 13.1 Plt Count 319 D MPV 10.0 Neut % (Auto) 74.5 H Lymph % (Auto) 14.1 L [place] % (Auto) 7.4 Eos % (Auto) 2.4 Baso % (Auto) 0.2 Neut # (Auto) 12.9 H Lymph # (Auto) 2.4 [place] # (Auto) 1.3 H Eos # (Auto) 0.4 Baso # (Auto) 0.0 Immature Gran % 1.4 Nucleated RBC % 0.0 Immature Gran # 0.25 Nucleated RBCs # 0.00 ABG pH 7.452 H ABG pCO2 47.7 ABG pO2 77.4 L ABG HCO3 31.8 H ABG Total CO2 29.4 H ABG O2 Saturation 95.8 ABG Base Excess 8.0 H Sodium 136 Potassium 3.7 Chloride 96 L Carbon Dioxide 32 Anion Gap 11.7 BUN 22 H Creatinine 0.50 L GFR Calculation 139 BUN/Creatinine Ratio 44.00 H Glucose 178 H POC Glucose Calculated Osmolality 278.0 Calcium 8.7 Magnesium 1.9 Total Bilirubin 0.80 Direct Bilirubin 0.20 AST 10 ALT 9 L Alkaline Phosphatase 65 Total Protein 6.1 L Albumin 2.9 L Globulin 3.2 Albumin/Globulin Ratio 0.9 L 11/16/16 07:10 WBC RBC Hgb Hct MCV MCH MCHC RDW Plt Count MPV Neut % (Auto) Lymph % (Auto) [place] % (Auto) Eos % (Auto) Baso % (Auto) Neut # (Auto) Lymph # (Auto) [place] # (Auto) Eos # (Auto) Baso # (Auto) Immature Gran % Nucleated RBC % Immature Gran # Nucleated RBCs # ABG pH ABG pCO2 ABG pO2 ABG HCO3 ABG Total CO2 ABG O2 Saturation ABG Base Excess Sodium Potassium Chloride Carbon Dioxide Anion Gap BUN Creatinine GFR Calculation BUN/Creatinine Ratio Glucose POC Glucose 178 H Calculated Osmolality Calcium Magnesium Total Bilirubin Direct Bilirubin AST ALT Alkaline Phosphatase Total Protein Albumin Globulin Albumin/Globulin Ratio Quality Measures - VTE Contraindication to Pharmacological VTE Prophylaxis: High Risk of Bleeding Specialty Discharge - Follow Up or Referrals Follow up with: Jerardo Thorne MD [Physician] - 11/28/16 12:50 pm
[2016-11-16] MEDS ORDERED: SODIUM CHLOR 0.45% KCL 20 MEQ 20 MEQ/1,000 ML BAG IV SCH (09:30)
[2016-11-16] MEDS: MAGNESIUM SULF RIDER 2 GM in PREMIX 1 EACH IV PRN (09:44)
[2016-11-16] MEDS: POTASSIUM CHLORIDE 20 MEQ TABLET PO PRN (09:47)
[2016-11-16] MEDS: ASCORBIC ACID 500 MG TABLET PO SCH ×2 (09:47→21:49)
--- NOTE | 2016-11-16 09:54 | Internal Med Progress Note ---
Assessment and Plan (1) coronary artery disease Status: Chronic Assessment and plan: 71-year-old female admitted to acute care * Coronary artery disease. Doing well after CABG. she has been in and out of A. fib and flutter. She is on amiodarone * Diabetes. Continue current treatment * Hypothyroidism. Continue Synthroid * Hypertension. Blood pressure is stable * Right pleural effusion. 400 cc fluid removed from right thorax under ultrasound * Patient being transferred to floor Current Visit: Yes (2) hyperlipidemia Status: Chronic Current Visit: No (3) hypertension Status: Chronic Current Visit: Yes (4) hypothyroidism Status: Chronic Current Visit: No (5) type 2 diabetes mellitus Status: Chronic Current Visit: Yes Internal Medicine - PN: Subj Interval history: She is feeling better this morning. She is still quite weak. She feels she is improving every day Exam (Progress Note) - Constitutional Vitals: Period Temp Pulse Resp BP Sys/Lalen Pulse Ox Last 24 Hr 98.3 F-99.4 F 75-107 10-19 93-146/49-99 91-97 Exam: Examination: GENERAL: No acute distress NECK: Neck is supple. CVS: Regular rate and rhythm. Systolic ejection murmur at left sternal border. Midline sternal wound RESPIRATORY: Better air entry at right base ABDOMEN: Soft and nontender. EXT: No edema. Results - Labs CBC & BMP: 11/16/16 04:20 11/16/16 04:20 Lab Results: I have reviewed the past 24 hour labs Quality Measures - VTE Contraindication to Pharmacological VTE Prophylaxis: High Risk of Bleeding Specialty Discharge - Follow Up or Referrals Follow up with: Jerardo Thorne MD [Physician] - 11/28/16 12:50 pm
[2016-11-16] MEDS: FUROSEMIDE 40 MG/4 ML VIAL IV SCH ×2 (09:55→15:48)
[2016-11-16] MEDS: CARVEDILOL 6.25 MG TABLET PO SCH ×2 (09:55→21:50)
[2016-11-16] MEDS: INSULIN REGULAR 100 UNIT/ML SUBCUT SCH ×2 (09:56→11:22)
[2016-11-16] MEDS: ENOXAPARIN 40 MG/0.4 ML SYRINGE SUBCUT SCH (09:56)
[2016-11-16] MEDS: VALSARTAN 80 MG TABLET PO SCH ×2 (09:56→21:49)
[2016-11-16] MEDS: CHLORHEXIDINE 0.12% ORAL RINSE 60 ML BOTTLE SWISH/SPIT SCH ×2 (10:03→21:50)
--- NOTE | 2016-11-16 10:10 | Cardiology Progress Note ---
Assessment and Plan - Time spent with patient Time spent with patient: Greater than 30 minutes (1) S/P CABG (coronary artery bypass graft) Problem details: Repeat done this admission, 11/10/16 Status: Chronic Assessment and plan: See plan of care listed below Current Visit: Yes (2) Hyperkalemia Status: Resolved Assessment and plan: See plan of care listed below Current Visit: Yes (3) Debilitated patient Status: Chronic Assessment and plan: See plan of care listed below Current Visit: Yes (4) Anemia Status: Chronic Assessment and plan: See plan of care listed below Current Visit: Yes (5) Abnormal TSH Status: Acute Assessment and plan: See plan of care listed below Current Visit: Yes (6) type 2 diabetes mellitus Status: Chronic Assessment and plan: See plan of care listed below Current Visit: Yes (7) coronary artery disease Status: Chronic Assessment and plan: See plan of care listed below Current Visit: Yes (8) hypertension Status: Chronic Assessment and plan: See plan of care listed below Current Visit: Yes (9) Atrial flutter Status: Acute Assessment and plan: See plan of care listed below Current Visit: Yes Cardiology - PN: Subj Interval history: [employer] CRANBERRY: DR. THORNE PCP: DR. SNELL SUMMARY: 71-year-old -[place] female routinely followed by Dr. Thorne. History of known coronary artery disease status post CABG. She was admitted for elective cardiac catheterization November 03, 2016 for abnormal stress test. She was found to have severe CAD. CV Surgery was consulted and she underwent re-do CABG Sunday, November 10, 2016 to include ИРИНА (free graft) to LAD, performed by Dr. Moctezuma. She tolerated well and has been housed in ICU. NOVEMBER 13, 2016: POD 3 and patient continues to do well. She was extubated yesterday and seems to be oxygenating well. SPO2 saturation at 94%. She is tolerating Coreg, Valsartan without problems. Systolic blood pressure 129-185. Heart rate is low 60s. Will add Norvasc for better blood pressure control. Also, we will add lipid-lowering agent today. If okay with Dr. Moctezuma, will add low-dose aspirin. She continues to wear her SCDs for DVT prevention. Her labs are stable. She continues with IV nitroglycerin (ИРИНА was used as a free graft to LAD) and suspect this will be off within the next 24-48 hours. She is taking Lasix 40 mg IV twice daily. I will give her an additional 40 mg this morning as her chest x-ray does reveal atelectasis and possible increased fluid. EF 40-50%. She remains in NSR. During this hospitalization, she has undergone HST and sleep apnea was confirmed. NOVEMBER 14, 2016: POD 4. Improving slowly. According to I know she is lost 6 kg overnight. She does appear more comfortable. Vital signs are stable. At this point, she is tolerating Coreg 6.25 mg orally twice daily. They have also been holding her ARB and giving Norvasc. I will stop Norvasc today and hopefully tomorrow, we can incorporate in our back and her medication regimen. Also, starting tomorrow, will add aspirin 325 mg orally daily. Increase activity as able. She remains in normal sinus rhythm. NOVEMBER 15, 2016: POD 5. Continues to improve. Her chest tubes have been removed. She sat up for four hours yesterday and tolerated well. Labs are stable. Vital signs are stable. Starting prophylactic dose Lovenox today as her labs are stable. Starting low dose ARB today. Allergy to ASA is severe nausea. May consider Plavix at discharge. NOVEMBER 16, 2016: POD 6. Ms. Serra remains in the intensive care unit. She is slowly improving. Underwent thoracentesis yesterday and her breathing is better. Chest x-ray reveals some improvement. Labs are stable. Lovenox was started yesterday. She is allergic to aspirin. Tolerating Coreg, Valsartan and Crestor. Overnight, she went into atrial flutter. She is on IV amiodarone and the rate is controlled. I spoke with Dr. Granados and at this time, I will add Plavix 75 mg orally daily to her medication regimen and keep her on prophylactic dose of Lovenox. Hopefully, she will convert back to normal sinus rhythm since the amiodarone has been initiated. If not, may consider DCCV. ASSESSMENT/PLAN: 1. KNOWN CAD S/P re-do CABG - POD 6. Continues to progress. 2. HYPERTENSION - betablocker and ARB on board. 3. DYSLIPIDEMIA - Crestor each evening. LDL 67. 4. DIABETES - blood glucose levels have been well controlled during this hospital stay 5. SLEEP APNEA - recently diagnosed during this hospitalization. Sleep mask when able. 6. ABNORMAL TSH - thyroid replacement adjusted. 7. ANEMIA - stable. ALLERGY TO ASA. Anemia is stable. Low-dose Lovenox was started yesterday. Her anemia is stable overnight. 8. HYPERKALEMIA - resolved. 9. HYPOMAGNESEMIA - replace and follow labs in morning. 10. ATRIAL FLUTTER - new onset. Starting Plavix for stroke prevention, continue low-dose Lovenox. See note above. Exam (Progress Note) - Constitutional Vitals: Period Temp Pulse Resp BP Sys/Allen Pulse Ox Last 24 Hr 98.3 F-99.4 F 75-107 10-19 93-146/49-99 91-97 Exam: General: [Appears well with no apparent distress. Wakes easily and returns to sleep quickly.] [Pleasant and cooperative. ] [Appears comfortable.] HEENT: [Bilateral arcus noted. Normocephalic, atraumatic. Mucous membranes moist. No jaundice noted. Conjunctiva moist and clear, sclerae anicteric] Neck: No obvious JVD/HJR, no thyromegaly or lymphadenopathy noted. No carotid bruit appreciated Cardiac: [Regular rate and rhythm.] [No murmur rub or gallop.] Chest: Breast binder intact. Dressing to chest intact. Lungs: [Rhonci throughout. No accessory muscle use to assist the respiratory pattern.] Wearing oxygen intermittently Abdomen: Soft, bowel sounds normoactive. Nontender and nondistended. No abdominal bruit or thrill noted. No masses noted. Musculoskeletal: No fluid collection. Decreased range of motion is noted. Extremities: SCDs to BLE. 1+ BLE edema noted. No clubbing, cyanosis noted. Upper extremity pulses 2+. Lower extremity pulses 2+. Capillary refill less than 3 seconds. Skin: No unusual lesions or rashes. No skin breakdown appreciated. Neuro: Awake, alert and oriented 3. Left-sided hemiparesis lower extremity noted (chronic.) No essential tremor is appreciated. Result/EKG - Labs CBC & BMP: 11/16/16 04:20 11/16/16 04:20 Lab Results: I have reviewed the past 24 hour labs Labs: Laboratory Results - last 24 hr 11/15/16 11/15/16 11/15/16 13:12 17:53 22:28 WBC RBC Hgb Hct MCV MCH MCHC RDW Plt Count MPV Neut % (Auto) Lymph % (Auto) [place] % (Auto) Eos % (Auto) Baso % (Auto) Neut # (Auto) Lymph # (Auto) [place] # (Auto) Eos # (Auto) Baso # (Auto) Immature Gran % Nucleated RBC % Immature Gran # Nucleated RBCs # ABG pH ABG pCO2 ABG pO2 ABG HCO3 ABG Total CO2 ABG O2 Saturation ABG Base Excess Sodium Potassium Chloride Carbon Dioxide Anion Gap BUN Creatinine GFR Calculation BUN/Creatinine Ratio Glucose POC Glucose 188 H 203 H 203 H Calculated Osmolality Calcium Magnesium Total Bilirubin Direct Bilirubin AST ALT Alkaline Phosphatase Total Protein Albumin Globulin Albumin/Globulin Ratio 11/16/16 11/16/16 11/16/16 04:20 04:20 04:20 WBC 17.3 H RBC 3.92 Hgb 11.7 L Hct 35.4 L MCV 90.3 MCH 30 MCHC 33.1 RDW 13.1 Plt Count 319 D MPV 10.0 Neut % (Auto) 74.5 H Lymph % (Auto) 14.1 L [place] % (Auto) 7.4 Eos % (Auto) 2.4 Baso % (Auto) 0.2 Neut # (Auto) 12.9 H Lymph # (Auto) 2.4 [place] # (Auto) 1.3 H Eos # (Auto) 0.4 Baso # (Auto) 0.0 Immature Gran % 1.4 Nucleated RBC % 0.0 Immature Gran # 0.25 Nucleated RBCs # 0.00 ABG pH 7.452 H ABG pCO2 47.7 ABG pO2 77.4 L ABG HCO3 31.8 H ABG Total CO2 29.4 H ABG O2 Saturation 95.8 ABG Base Excess 8.0 H Sodium 136 Potassium 3.7 Chloride 96 L Carbon Dioxide 32 Anion Gap 11.7 BUN 22 H Creatinine 0.50 L GFR Calculation 139 BUN/Creatinine Ratio 44.00 H Glucose 178 H POC Glucose Calculated Osmolality 278.0 Calcium 8.7 Magnesium 1.9 Total Bilirubin 0.80 Direct Bilirubin 0.20 AST 10 ALT 9 L Alkaline Phosphatase 65 Total Protein 6.1 L Albumin 2.9 L Globulin 3.2 Albumin/Globulin Ratio 0.9 L 11/16/16 07:10 WBC RBC Hgb Hct MCV MCH MCHC RDW Plt Count MPV Neut % (Auto) Lymph % (Auto) [place] % (Auto) Eos % (Auto) Baso % (Auto) Neut # (Auto) Lymph # (Auto) [place] # (Auto) Eos # (Auto) Baso # (Auto) Immature Gran % Nucleated RBC % Immature Gran # Nucleated RBCs # ABG pH ABG pCO2 ABG pO2 ABG HCO3 ABG Total CO2 ABG O2 Saturation ABG Base Excess Sodium Potassium Chloride Carbon Dioxide Anion Gap BUN Creatinine GFR Calculation BUN/Creatinine Ratio Glucose POC Glucose 178 H Calculated Osmolality Calcium Magnesium Total Bilirubin Direct Bilirubin AST ALT Alkaline Phosphatase Total Protein Albumin Globulin Albumin/Globulin Ratio - Diagnostic Findings Procedure: Chest x-ray: report reviewed by me - EKG EKG results: interpreted by me EKG shows: atrial fibrillation (atrial flutter) Quality Measures - VTE Contraindication to Pharmacological VTE Prophylaxis: High Risk of Bleeding Specialty Discharge - Follow Up or Referrals Follow up with: Jerardo Thorne MD [Physician] - 11/28/16 12:50 pm
[2016-11-16] MEDS: CLOPIDOGREL 75 MG TABLET PO SCH (10:44)
[2016-11-16] MEDS: AMIODARONE INJ 450 MG in DEXTROSE 5% 241 ML IV SCH (11:16)
[2016-11-16] MEDS: LEVOFLOXACIN INJ 500 MG in PREMIX 1 EACH IV SCH (13:40)
--- NOTE | 2016-11-16 13:41 | Sleep Medicine Progress Note ---
Assessment and Plan (1) Obstructive sleep apnea Status: Chronic Assessment and plan: Continue present therapy. I will be out of town until next week. Current Visit: Yes (2) coronary artery disease Status: Chronic Current Visit: Yes (3) hypertension Status: Chronic Current Visit: No Sleep Medicine Subjective Interval history: Patient continues to do well with auto BiPAP. No new problems. I encouraged her to remain compliant with it. We will need to set her up for outpatient titration with BiPAP after discharge. Exam (Progress Note) - Constitutional Vitals: Period Temp Pulse Resp BP Sys/Allen Pulse Ox Last 24 Hr 97.8 F-99.4 F 75-107 13-19 93-146/49-82 91-97 Exam: Patient alert and responsive and is doing well. Chest with good air movement no wheeze or rhonchi. Cardiac exam reveals a regular rhythm without murmur gallop. Abdomen soft nontender extremities without increased edema. Neurologically, she is grossly intact. She was very engaging and moves all extremities. Results - Labs CBC & BMP: 11/16/16 04:20 11/16/16 04:20 Lab Results: I have reviewed the past 24 hour labs Specialty Discharge - Follow Up or Referrals Follow up with: Jerardo Thorne MD [Physician] - 11/28/16 12:50 pm
[2016-11-16] MEDS: KETOROLAC 30 MG/1 ML VIAL IV PRN (17:41)
[2016-11-16] MEDS: ROSUVASTATIN 10 MG TABLET PO SCH (21:49)
[2016-11-17] MEDS: AMIODARONE INJ 450 MG in DEXTROSE 5% 241 ML IV SCH (03:49)
[2016-11-17] MEDS ORDERED: FUROSEMIDE 40 MG/4 ML VIAL IV ONE (06:00)
--- NOTE | 2016-11-17 06:20 | Cardiothoracic Progress Note ---
Cardiothoracic Subjective Interval history: Patient has had a fairly comfortable night. Vital signs are stable and she has been afebrile. Of some concern is that her glucoses are running consistently high so I am going to restart her home dose of insulin. We will continue to watch her sugars closely. Otherwise she seems to be making slow but steady progress and seems to be getting a little bit stronger. She is taking a little more by mouth and hopefully this can be increased. We will try to encourage out of bed as much as possible. Exam (Progress Note) - Constitutional Vitals: Period Temp Pulse Resp BP Sys/Allen Pulse Ox Last 24 Hr 96.9 F-98.5 F 72-103 14-20 97-144/55-88 91-98 Result/EKG - Labs CBC & BMP: 11/16/16 04:20 11/16/16 04:20 Labs: Laboratory Results - last 24 hr 11/16/16 11/16/16 11/16/16 07:10 11:03 16:25 POC Glucose 178 H 314 H 198 H 11/16/16 11/17/16 20:36 06:04 POC Glucose 300 H 294 H Quality Measures - VTE Contraindication to Pharmacological VTE Prophylaxis: High Risk of Bleeding Specialty Discharge - Follow Up or Referrals Follow up with: Jerardo Thorne MD [Physician] - 11/28/16 12:50 pm (SLEEP STUDY APPT. NOVEMBER 28, 2016 AT 7:15 PM. PLEASE BRING ALL MEDICATIONS AND BE PREPARED TO BE ADMITTED. )
--- NOTE | 2016-11-17 08:38 | Internal Med Progress Note ---
Assessment and Plan (1) coronary artery disease Status: Chronic Assessment and plan: 71-year-old female admitted to acute care * Coronary artery disease. She is improving. * Diabetes. Continue current treatment * Hypothyroidism. Continue Synthroid * Hypertension. Blood pressure is stable * Right pleural effusion. Her breathing has improved * Continue PT and OT Current Visit: Yes (2) hyperlipidemia Status: Chronic Current Visit: No (3) hypertension Status: Chronic Current Visit: Yes (4) hypothyroidism Status: Chronic Current Visit: No (5) type 2 diabetes mellitus Status: Chronic Current Visit: Yes Internal Medicine - PN: Subj Interval history: She is feeling better this morning. She is still quite weak. No specific complaints. Her spirits are pretty good today Exam (Progress Note) - Constitutional Vitals: Period Temp Pulse Resp BP Sys/Allen Pulse Ox Last 24 Hr 96.9 F-97.8 F 72-103 14-20 97-144/55-91 90-98 Exam: Examination: GENERAL: No acute distress NECK: Neck is supple. CVS: Regular rate and rhythm. Systolic ejection murmur at left sternal border. Midline sternal wound appears to be clean RESPIRATORY: Better air entry at right base ABDOMEN: Soft and nontender. EXT: No edema. Results - Labs CBC & BMP: 11/16/16 04:20 11/16/16 04:20 Lab Results: I have reviewed the past 24 hour labs Quality Measures - VTE Contraindication to Pharmacological VTE Prophylaxis: High Risk of Bleeding Specialty Discharge - Follow Up or Referrals Follow up with: Jerardo Thorne MD [Physician] - 11/28/16 12:50 pm (SLEEP STUDY APPT. NOVEMBER 28, 2016 AT 7:15 PM. PLEASE BRING ALL MEDICATIONS AND BE PREPARED TO BE ADMITTED. )
--- NOTE | 2016-11-17 10:04 | Cardiology Progress Note ---
Assessment and Plan - Time spent with patient Time spent with patient: Greater than 30 minutes (1) S/P CABG (coronary artery bypass graft) Problem details: Repeat done this admission, 11/10/16 Status: Chronic Assessment and plan: See plan of care listed below Current Visit: Yes (2) Hyperkalemia Status: Resolved Assessment and plan: See plan of care listed below Current Visit: Yes (3) Debilitated patient Status: Chronic Assessment and plan: See plan of care listed below Current Visit: Yes (4) Anemia Status: Chronic Assessment and plan: See plan of care listed below Current Visit: Yes (5) Abnormal TSH Status: Acute Assessment and plan: See plan of care listed below Current Visit: Yes (6) type 2 diabetes mellitus Status: Chronic Assessment and plan: See plan of care listed below Current Visit: Yes (7) coronary artery disease Status: Chronic Assessment and plan: See plan of care listed below Current Visit: Yes (8) hypertension Status: Chronic Assessment and plan: See plan of care listed below Current Visit: Yes (9) Atrial flutter Status: Acute Assessment and plan: See plan of care listed below Current Visit: Yes Cardiology - PN: Subj Interval history: 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 THORNE PCP: DR. SNELL SUMMARY: 71-year-old -Citizen Of [place] female routinely followed by Dr. Thorne. History of known coronary artery disease status post CABG. She was admitted for elective cardiac catheterization November 03, 2016 for abnormal stress test. She was found to have severe CAD. CV Surgery was consulted and she underwent re-do CABG Sunday, November 10, 2016 to include ИРИНА (free graft) to LAD, performed by Dr. Moctezuma. She tolerated well and has been housed in ICU. NOVEMBER 13, 2016: POD 3 and patient continues to do well. She was extubated yesterday and seems to be oxygenating well. SPO2 saturation at 94%. She is tolerating Coreg, Valsartan without problems. Systolic blood pressure 129-185. Heart rate is low 60s. Will add Norvasc for better blood pressure control. Also, we will add lipid-lowering agent today. If okay with Dr. Moctezuma, will add low-dose aspirin. She continues to wear her SCDs for DVT prevention. Her labs are stable. She continues with IV nitroglycerin (ИРИНА was used as a free graft to LAD) and suspect this will be off within the next 24-48 hours. She is taking Lasix 40 mg IV twice daily. I will give her an additional 40 mg this morning as her chest x-ray does reveal atelectasis and possible increased fluid. EF 40-50%. She remains in NSR. During this hospitalization, she has undergone HST and sleep apnea was confirmed. NOVEMBER 14, 2016: POD 4. Improving slowly. According to I know she is lost 6 kg overnight. She does appear more comfortable. Vital signs are stable. At this point, she is tolerating Coreg 6.25 mg orally twice daily. They have also been holding her ARB and giving Norvasc. I will stop Norvasc today and hopefully tomorrow, we can incorporate in our back and her medication regimen. Also, starting tomorrow, will add aspirin 325 mg orally daily. Increase activity as able. She remains in normal sinus rhythm. NOVEMBER 15, 2016: POD 5. Continues to improve. Her chest tubes have been removed. She sat up for four hours yesterday and tolerated well. Labs are stable. Vital signs are stable. Starting prophylactic dose Lovenox today as her labs are stable. Starting low dose ARB today. Allergy to ASA is severe nausea. May consider Plavix at discharge. NOVEMBER 16, 2016: POD 6. Ms. Serra remains in the intensive care unit. She is slowly improving. Underwent thoracentesis yesterday and her breathing is better. Chest x-ray reveals some improvement. Labs are stable. Lovenox was started yesterday. She is allergic to aspirin. Tolerating Coreg, Valsartan and Crestor. Overnight, she went into atrial flutter. She is on IV amiodarone and the rate is controlled. I spoke with Dr. Granados and at this time, I will add Plavix 75 mg orally daily to her medication regimen and keep her on prophylactic dose of Lovenox. Hopefully, she will convert back to normal sinus rhythm since the amiodarone has been initiated. If not, may consider DCCV. NOVEMBER 17, 2016: POD 7. Yesterday, low-dose Lovenox for DVT prevention was initiated as she is allergic to aspirin. Also, Plavix was initiated as patient has a new onset of atrial fibrillation and this may offer some stroke prevention. She has a history of heme positive stools on November 14. Anemia has been stable and I will order CBC for this morning. White blood cell count was elevated at 17 yesterday. She has been afebrile. I will add incentive spirometry, send HANNAH, Teo. She remains in atrial flutter, rate controlled. She is on IV Amiodarone and will transition to oral Amiodarone today. Encourage ambulation. Tolerating beta blockade, ARB and lipid-lowering agent. ASSESSMENT/PLAN: 1. KNOWN CAD S/P re-do CABG - POD 7. Continues to progress. 2. HYPERTENSION - betablocker and ARB on board. 3. DYSLIPIDEMIA - Crestor each evening. LDL 67. 4. DIABETES - blood glucose levels have been well controlled during this hospital stay 5. SLEEP APNEA - recently diagnosed during this hospitalization. Sleep mask when able. 6. ABNORMAL TSH - thyroid replacement adjusted. 7. ANEMIA - stable. ALLERGY TO ASA. Anemia is stable. Monitor daily. Low- dose Lovenox was started Sunday. Plavix initiated for stroke prevention and may eventually be candidate for NOAC. 8. HYPERKALEMIA - resolved. 9. HYPOMAGNESEMIA - replace and follow labs in morning. 10. ATRIAL FLUTTER - new onset. Started Plavix for stroke prevention, continue low-dose Lovenox. See note above. Exam (Progress Note) - Constitutional Vitals: Period Temp Pulse Resp BP Sys/Allen Pulse Ox Last 24 Hr 96.9 F-97.8 F 72-103 16-20 97-144/55-91 90-98 Exam: General: [Appears well with no apparent distress. Wakes easily and returns to sleep quickly.] [Pleasant and cooperative. ] [Appears comfortable.] HEENT: [Bilateral arcus noted. Normocephalic, atraumatic. Mucous membranes moist. No jaundice noted. Conjunctiva moist and clear, sclerae anicteric] Neck: No obvious JVD/HJR, no thyromegaly or lymphadenopathy noted. No carotid bruit appreciated Cardiac: [Regular rate and rhythm.] [No murmur rub or gallop.] Chest: Breast binder intact. Dressing to chest intact. Lungs: [Rhonci throughout. No accessory muscle use to assist the respiratory pattern.] Wearing oxygen intermittently Abdomen: Soft, bowel sounds normoactive. Nontender and nondistended. No abdominal bruit or thrill noted. No masses noted. Musculoskeletal: No fluid collection. Decreased range of motion is noted. Extremities: SCDs to BLE. 1+ BLE edema noted. No clubbing, cyanosis noted. Upper extremity pulses 2+. Lower extremity pulses 2+. Capillary refill less than 3 seconds. Skin: No unusual lesions or rashes. No skin breakdown appreciated. Neuro: Awake, alert and oriented 3. Left-sided hemiparesis lower extremity noted (chronic.) No essential tremor is appreciated. Result/EKG - Labs CBC & BMP: 11/16/16 04:20 11/16/16 04:20 Lab Results: I have reviewed the past 24 hour labs Labs: Laboratory Results - last 24 hr 11/16/16 11/16/16 11/16/16 11:03 16:25 20:36 POC Glucose 314 H 198 H 300 H 11/17/16 11/17/16 06:04 07:14 POC Glucose 294 H 266 H - EKG EKG results: interpreted by me EKG shows: atrial fibrillation (atrial flutter) Quality Measures - VTE Contraindication to Pharmacological VTE Prophylaxis: High Risk of Bleeding Specialty Discharge - Follow Up or Referrals Follow up with: Jerardo Thorne MD [Physician] - 11/28/16 12:50 pm (SLEEP STUDY APPT. NOVEMBER 28, 2016 AT 7:15 PM. PLEASE BRING ALL MEDICATIONS AND BE PREPARED TO BE ADMITTED. )
[2016-11-17] MEDS: FUROSEMIDE 40 MG/4 ML VIAL IV SCH ×2 (10:06→15:44)
[2016-11-17] MEDS: INSULIN ASPART PROTAMINE/ASPART 70/30 100 UNIT/ML SUBCUT SCH ×2 (10:07→17:59)
[2016-11-17] MEDS: VALSARTAN 80 MG TABLET PO SCH ×2 (10:08→22:18)
[2016-11-17] MEDS: ASCORBIC ACID 500 MG TABLET PO SCH ×2 (10:08→22:17)
[2016-11-17] MEDS: CLOPIDOGREL 75 MG TABLET PO SCH (10:08)
[2016-11-17] MEDS: DOCUSATE SODIUM 100 MG CAPSULE PO SCH (10:08)
[2016-11-17] MEDS: ENOXAPARIN 40 MG/0.4 ML SYRINGE SUBCUT SCH (10:09)
[2016-11-17] MEDS: CARVEDILOL 6.25 MG TABLET PO SCH ×2 (10:09→22:17)
[2016-11-17] MEDS: PANTOPRAZOLE 40 MG TABLET PO SCH (10:09)
[2016-11-17] MEDS: LEVOTHYROXINE 100 MCG TABLET PO SCH (10:09)
[2016-11-17] MEDS: CHLORHEXIDINE 0.12% ORAL RINSE 60 ML BOTTLE SWISH/SPIT SCH ×2 (10:16→22:20)
[2016-11-17 10:35] LABS: Basophils % 0.2 % (0.0-0.8); Eosinophils # 0.7 10*3/uL (0.0-0.87); Eosinophils % 3.9 % (0.00-10.9); Hematocrit 34.6 VOL% (35.7-47.0); Hemoglobin 11.8 GM/DL (12.0-16.0); Immature Granulocytes Absolute 0.35 #; Lymphocytes # 2.2 10*3/uL (1.4-4.0); Lymphocytes % 12.5 % (21.3-54.2); Mean Corpuscular HGB Conc 34.1 GM/DL (32-36); Mean Corpuscular Hemoglobin 30 PG (27-34); Mean Platelet Volume 10.2 FL (9.6-12.0); Monocytes # 1.1 10*3/uL (0.11-0.8); Monocytes % 6.2 % (1.7-12.7); Neutrophils % 75.2 % (38.7-73.9); Platelet Count 415 T/CUMM (130-400); Red Blood Count 3.93 MC/CUMM (3.8-5.5); Red Cell Distribution Width 13.1 % (9.3-17.3); White Blood Count 17.3 T/CUMM (4-12)
[2016-11-17 10:58] LABS: Calcium 8.6 MG/DL (8.5-10.1); Osmolality,Calculated 285.1 MOS/KG (273-304); Potassium 4.1 MMOL/L (3.5-5.1)
[2016-11-17] MEDS: FERROUS SULFATE 325 MG TABLET PO SCH (11:21)
[2016-11-17] MEDS: AMIODARONE 200 MG TABLET PO SCH ×2 (11:28→22:17)
[2016-11-17] MEDS: INSULIN LISPRO 100 UNIT/ML SUBCUT SCH ×2 (12:15→16:26)
[2016-11-17] MEDS: KETOROLAC 30 MG/1 ML VIAL IV PRN ×2 (12:19→17:59)
[2016-11-17] MEDS: LEVOFLOXACIN INJ 500 MG in PREMIX 1 EACH IV SCH (15:43)
[2016-11-17 18:34] LABS: Apearance,Urine CLOUDY (Clear); Bacteria,Urine Many /HPF (Few); Bilirubin,Urine Negative (Negative); Blood, Urine Large mg/dL (Negative); Glucose,Urine (UA) Negative (Negative); Ketones,Urine Negative (Negative); Nitrite,Urine Negative (Negative); Protein,Urine Negative; RBC,Urine 88 /HPF (0-4); Squamous Epithelial Cell,Urine Occasional /HPF (0-10); Urine Color Yellow (Yellow); Urine Specific Gravity 1.009 (1.001-1.035); Urine Urobilinogen < 2.0 EU/DL (0.2-1.0); WBC,Urine 145 /HPF (0-6)
[2016-11-17] MEDS: ROSUVASTATIN 10 MG TABLET PO SCH (22:18)
[2016-11-17] MEDS: oxyCODONE/ACETAMINOPHEN 5-325 MG TABLET PO PRN (22:31)
[2016-11-18] MEDS: INSULIN LISPRO 100 UNIT/ML SUBCUT SCH ×5 (02:34→22:45)
[2016-11-18 04:56] LABS: Osmolality,Calculated 282.7 MOS/KG (273-304); Potassium 3.9 MMOL/L (3.5-5.1)
[2016-11-18] MEDS: LEVOTHYROXINE 100 MCG TABLET PO SCH (06:32)
--- NOTE | 2016-11-18 08:16 | Cardiothoracic Progress Note ---
Cardiothoracic Subjective Interval history: Patient looks and feels okay. Vital signs have been stable she is breathing comfortably and she is afebrile. We are slowly trying to increase her activities but her mobility is limited by her previously weekend left leg. She had polio as a child and has decreased use of her left leg. We will try to increase her activity as tolerated. Otherwise she is fairly stable except for a continuation of atrial flutter. I think she would be better in sinus rhythm and amiodarone does not convert her she may need cardioversion. I would certainly defer to cardiology regarding this decision. Exam (Progress Note) - Constitutional Vitals: Period Temp Pulse Resp BP Sys/Allen Pulse Ox Last 24 Hr 96.8 F-97.9 F 74-96 18-20 102-131/55-82 96-100 Result/EKG - Labs CBC & BMP: 11/17/16 10:33 11/18/16 03:34 Labs: Laboratory Results - last 24 hr 11/17/16 11/17/16 11/17/16 10:33 10:33 11:52 WBC 17.3 H RBC 3.93 Hgb 11.8 L Hct 34.6 L MCV 88.0 MCH 30 MCHC 34.1 RDW 13.1 Plt Count 415 H D MPV 10.2 Neut % (Auto) 75.2 H Lymph % (Auto) 12.5 L [place] % (Auto) 6.2 Eos % (Auto) 3.9 Baso % (Auto) 0.2 Neut # (Auto) 13.0 H Lymph # (Auto) 2.2 [place] # (Auto) 1.1 H Eos # (Auto) 0.7 Baso # (Auto) 0.0 Immature Gran % 2.0 Nucleated RBC % 0.0 Immature Gran # 0.35 Nucleated RBCs # 0.00 Sodium 135 L Potassium 4.1 Chloride 94 L Carbon Dioxide 33 H Anion Gap 12.1 BUN 33 H Creatinine 0.70 GFR Calculation 124 BUN/Creatinine Ratio 47.00 H Glucose 266 H POC Glucose 270 H Calculated Osmolality 285.1 Calcium 8.6 Magnesium 2.0 Urine Color Urine Appearance Urine pH Ur Specific [place] Urine Protein Urine Glucose (UA) Urine Ketones Urine Blood Urine Nitrate Urine Bilirubin Urine Urobilinogen Urine Leukocytes Urine RBC Urine WBC Ur Squamous Epith Cells Urine Bacteria Ur Culture Indicated? 11/17/16 11/17/1611/17/17 16:15 20:40 21:19 WBC RBC Hgb Hct MCV MCH MCHC RDW Plt Count MPV Neut % (Auto) Lymph % (Auto) [place] % (Auto) Eos % (Auto) Baso % (Auto) Neut # (Auto) Lymph # (Auto) [place] # (Auto) Eos # (Auto) Baso # (Auto) Immature Gran % Nucleated RBC % Immature Gran # Nucleated RBCs # Sodium Potassium Chloride Carbon Dioxide Anion Gap BUN Creatinine GFR Calculation BUN/Creatinine Ratio Glucose POC Glucose 134 H 71 L 95 Calculated Osmolality Calcium Magnesium Urine Color Urine Appearance Urine pH Ur Specific [place] Urine Protein Urine Glucose (UA) Urine Ketones Urine Blood Urine Nitrate Urine Bilirubin Urine Urobilinogen Urine Leukocytes Urine RBC Urine WBC Ur Squamous Epith Cells Urine Bacteria Ur Culture Indicated? 11/17/16 11/18/16 Unknown 03:34 WBC RBC Hgb Hct MCV MCH MCHC RDW Plt Count MPV Neut % (Auto) Lymph % (Auto) [place] % (Auto) Eos % (Auto) Baso % (Auto) Neut # (Auto) Lymph # (Auto) [place] # (Auto) Eos # (Auto) Baso # (Auto) Immature Gran % Nucleated RBC % Immature Gran # Nucleated RBCs # Sodium 138 Potassium 3.9 Chloride 96 L Carbon Dioxide 32 Anion Gap 13.9 BUN 41 H Creatinine 0.80 GFR Calculation 105 BUN/Creatinine Ratio 51.00 H Glucose 57 L POC Glucose Calculated Osmolality 282.7 Calcium 9.0 Magnesium 2.0 Urine Color Yellow Urine Appearance Cloudy Urine pH 5.0 Ur Specific [place] 1.009 Urine Protein Negative Urine Glucose (UA) Negative Urine Ketones Negative Urine Blood Large Urine Nitrate Negative Urine Bilirubin Negative Urine Urobilinogen < 2.0 H Urine Leukocytes Large H Urine RBC 88 Urine WBC 145 Ur Squamous Epith Cells Occasional Urine Bacteria Many Ur Culture Indicated? Results to follow Quality Measures - VTE Contraindication to Pharmacological VTE Prophylaxis: High Risk of Bleeding Specialty Discharge - Follow Up or Referrals Follow up with: Jerardo Thorne MD [Physician] - 11/28/16 12:50 pm (SLEEP STUDY APPT. NOVEMBER 28, 2016 AT 7:15 PM. PLEASE BRING ALL MEDICATIONS AND BE PREPARED TO BE ADMITTED. )
[2016-11-18] MEDS: INSULIN ASPART PROTAMINE/ASPART 70/30 100 UNIT/ML SUBCUT SCH ×2 (08:49→17:39)
[2016-11-18] MEDS: ASCORBIC ACID 500 MG TABLET PO SCH ×2 (09:23→21:17)
[2016-11-18] MEDS: VALSARTAN 80 MG TABLET PO SCH ×2 (09:23→21:18)
[2016-11-18] MEDS: DOCUSATE SODIUM 100 MG CAPSULE PO SCH (09:23)
[2016-11-18] MEDS: FUROSEMIDE 40 MG/4 ML VIAL IV SCH ×2 (09:24→16:34)
[2016-11-18] MEDS: AMIODARONE 200 MG TABLET PO SCH ×2 (09:24→21:17)
[2016-11-18] MEDS: CLOPIDOGREL 75 MG TABLET PO SCH (09:24)
[2016-11-18] MEDS: CARVEDILOL 6.25 MG TABLET PO SCH ×2 (09:24→21:18)
[2016-11-18] MEDS: PANTOPRAZOLE 40 MG TABLET PO SCH (09:24)
[2016-11-18] MEDS: ENOXAPARIN 40 MG/0.4 ML SYRINGE SUBCUT SCH (09:25)
[2016-11-18] MEDS: FERROUS SULFATE 325 MG TABLET PO SCH (09:25)
[2016-11-18] MEDS: CHLORHEXIDINE 0.12% ORAL RINSE 60 ML BOTTLE SWISH/SPIT SCH ×2 (09:25→22:47)
[2016-11-18] MEDS: KETOROLAC 30 MG/1 ML VIAL IV PRN (09:33)
[2016-11-18] MEDS ORDERED: MIDAZOLAM 10 MG/2 ML VIAL ONE (11:30)
[2016-11-18] MEDS ORDERED: NALOXONE 0.4 MG/ML VIAL ONE (11:31)
[2016-11-18] MEDS ORDERED: FLUMAZENIL 0.5 MG/5 ML VIAL IV ONE (11:40)
[2016-11-18] MEDS ORDERED: MIDAZOLAM 2 MG/2 ML VIAL IV ONE (11:45)
--- NOTE | 2016-11-18 11:57 | Internal Med Progress Note ---
Assessment and Plan (1) coronary artery disease Status: Chronic Assessment and plan: 71-year-old female admitted to acute care * Coronary artery disease. She is improving. She will have cardioversion done this morning * Diabetes. Continue current treatment * Hypothyroidism. Continue Synthroid * Hypertension. Blood pressure is stable * Right pleural effusion. Her breathing has improved * Continue PT and OT Current Visit: Yes (2) hyperlipidemia Status: Chronic Current Visit: No (3) hypertension Status: Chronic Current Visit: Yes (4) hypothyroidism Status: Chronic Current Visit: No (5) type 2 diabetes mellitus Status: Chronic Current Visit: Yes Internal Medicine - PN: Subj Interval history: She is feeling okay this morning. She denies any specific complaints. She is getting ready to have cardioversion done Exam (Progress Note) - Constitutional Vitals: Period Temp Pulse Resp BP Sys/Allen Pulse Ox Last 24 Hr 96.7 F-97.9 F 74-96 16-20 102-138/55-85 96-100 Exam: Examination: GENERAL: No acute distress NECK: Neck is supple. CVS: Regular rate and rhythm. Systolic ejection murmur at left sternal border. Midline sternal wound appears to be clean RESPIRATORY: Clear to auscultation except for right base ABDOMEN: Soft and nontender. EXT: No edema. Results - Labs CBC & BMP: 11/17/16 10:33 11/18/16 03:34 Lab Results: I have reviewed the past 24 hour labs Quality Measures - VTE Contraindication to Pharmacological VTE Prophylaxis: High Risk of Bleeding Specialty Discharge - Follow Up or Referrals Follow up with: Jerardo Thorne MD [Physician] - 11/28/16 12:50 pm (SLEEP STUDY APPT. NOVEMBER 28, 2016 AT 7:15 PM. PLEASE BRING ALL MEDICATIONS AND BE PREPARED TO BE ADMITTED. )
--- NOTE | 2016-11-18 12:05 | Cardiology Progress Note ---
Assessment and Plan (1) Atrial flutter Status: Acute Assessment and plan: She has not converted to sinus rhythm with conservative management. I think the patient should undergo cardioversion. We discussed the risks and alternatives today and she wishes to proceed. Current Visit: Yes (2) Obstructive sleep apnea Status: Chronic Current Visit: Yes (3) S/P CABG (coronary artery bypass graft) Problem details: Repeat done this admission, 11/10/16 Status: Chronic Assessment and plan: She is slowly recovering and seems to be doing well postoperatively. Current Visit: Yes (4) coronary artery disease Status: Chronic Current Visit: Yes (5) hypertension Status: Chronic Current Visit: Yes (6) type 2 diabetes mellitus Status: Chronic Current Visit: Yes Cardiology - PN: Subj Interval history: Clinically the patient seems to be doing well today. She is fatigued and somewhat weak but this is slowly improving. She denies any chest pain, palpitations, or dyspnea. She remains in atrial flutter although her heart rate is controlled on her current medical regimen. Ultimately, she has not converted with medical therapy over the last 24 hours I think it would be best to go ahead and cardiovert her. I discussed the risks and alternatives with her today and she understands and wishes to proceed. Current Medications Acetaminophen (Tylenol Tab) 650 mg PO Q4H PRN PRN Reason: Temperature greater than 100F Al Hydrox/Mg Hydrox/Simethicone (Mylanta Max Strength Liquid) 30 ml PO Q4H PRN PRN Reason: Dyspepsia Amiodarone HCl (Cordarone Tab) 400 mg PO BID [facility] Last Admin: 11/18/16 09:24 Dose: 400 mg Ascorbic Acid (Vitamin C Tab) 1,000 mg PO BID [facility] Last Admin: 11/18/16 09:23 Dose: 1,000 mg Carvedilol (Coreg) 6.25 mg PO BID [facility] Last Admin: 11/18/16 09:24 Dose: 6.25 mg Chlorhexidine Gluconate (Peridex) 15 ml SWISH/SPIT BID [facility] Last Admin: 11/18/16 09:25 Dose: 15 ml Clopidogrel Bisulfate (Plavix) 75 mg PO DAILY [facility] Last Admin: 11/18/16 09:24 Dose: 75 mg Dextrose/Water (D50) 25 gm IV PRN PRN PRN Reason: Hypoglycemia with IV access Docusate Sodium (Colace Cap) 100 mg PO DAILY [facility] Last Admin: 11/18/16 09:23 Dose: 100 mg Enoxaparin Sodium (Lovenox) 40 mg SUBCUT Q24H [facility] Last Admin: 11/18/16 09:25 Dose: 40 mg Ferrous Sulfate (Feosol Original Tab) 325 mg PO DAILY [facility] Last Admin: 11/18/16 09:25 Dose: Not Given Furosemide (Lasix Inj) 40 mg IV BID [facility] Last Admin: 11/18/16 09:24 Dose: 40 mg Glucagon () 1 mg IM PRN PRN PRN Reason: Hypoglycemia w/o IV access Levofloxacin/Dextrose 500 mg/ (Premix) 100 mls @ 100 mls/hr IV Q24H [facility] Last Infusion: 11/17/16 16:43 Dose: Infused Magnesium Sulfate 2 gm/ Premix 50 mls @ 25 mls/hr IV .PER PROTOCOL PRN; Protocol PRN Reason: Per Protocol Magnesium Sulfate 4 gm/ Premix 100 mls @ 25 mls/hr IV .PER PROTOCOL PRN; Protocol PRN Reason: Per Protocol Insulin Aspart Prota 70%/Aspart 30% (Novolog Mix 70/30) 35 unit SUBCUT BIDAC [facility] Last Admin: 11/18/16 08:49 Dose: Not Given Insulin Human Lispro (Humalog) 0 unit SUBCUT ACHS [facility] PRN Reason: Protocol Last Admin: 11/18/16 08:49 Dose: Not Given Ketorolac Tromethamine (Toradol Inj) 30 mg IV Q6H PRN PRN Reason: Pain Moderate (4-7) Stop: 11/21/16 09:05 Last Admin: 11/18/16 09:33 Dose: 30 mg Levothyroxine Sodium (Synthroid Tab) 100 mcg PO DAILY@0700 [facility] Last Admin: 11/18/16 06:32 Dose: 100 mcg Magnesium Hydroxide (Milk Of Magnesia) 30 ml PO Q6H PRN PRN Reason: Constipation Ondansetron HCl (Zofran Inj) 4 mg IV Q4H PRN PRN Reason: Nausea/Vomiting Oxycodone/Acetaminophen (Percocet 5-325) 1 tablet PO Q4H PRN PRN Reason: Pain Mild (1-3) Last Admin: 11/17/16 22:31 Dose: 1 tablet Pantoprazole Sodium (Protonix Tab) 40 mg PO DAILY [facility] Last Admin: 11/18/16 09:24 Dose: 40 mg Potassium Chloride (K Dur) 20 meq PO .PER PROTOCOL PRN; Protocol PRN Reason: Per Protocol Rosuvastatin Calcium (Crestor) 10 mg PO BEDTIME [facility] Last Admin: 11/17/16 22:18 Dose: 10 mg Valsartan (Diovan) 40 mg PO BID [facility] Last Admin: 11/18/16 09:23 Dose: 40 mg Zaleplon (Sonata) 5 mg PO BEDTIME PRN PRN Reason: Sleep Exam (Progress Note) - Constitutional Vitals: Period Temp Pulse Resp BP Sys/Allen Pulse Ox Last 24 Hr 96.7 F-97.9 F 74-96 16-20 102-138/55-85 96-100 Exam: General: Frail, elderly HEENT: Normocephalic, atraumatic Neck: Supple Neck, Midline Trachea Cardiac: Irregular Rhythm, No Murmur, no gallop, no rub Lungs: Clear to Ascultation, No Wheeze, Rales, Rhonchi Neuro: Cranial Nerve 2-12 Intact, diffuse generalized weakness Abdomen: Soft, Active Bowel Sounds, No Masses, No Pulsations/Bruits Skin: Normal color, no rash Extremities: No Clubbing, No Cyanosis, No Edema, Normal Upper Extr. Pulses Musculoskeletal: No acute abnormality noted Psychiatric: The patient is alert and oriented. The patient has a flat affect but does not appear to be anxious or depressed. Result/EKG - Labs CBC & BMP: 11/17/16 10:33 11/18/16 03:34 Lab Results: I have reviewed the past 24 hour labs Labs: Laboratory Results - last 24 hr 11/17/16 11/17/16 11/17/16 16:15 20:40 21:19 Sodium Potassium Chloride Carbon Dioxide Anion Gap BUN Creatinine GFR Calculation BUN/Creatinine Ratio Glucose POC Glucose 134 H 71 L 95 Calculated Osmolality Calcium Magnesium Urine Color Urine Appearance Urine pH Ur Specific [place] Urine Protein Urine Glucose (UA) Urine Ketones Urine Blood Urine Nitrate Urine Bilirubin Urine Urobilinogen Urine Leukocytes Urine RBC Urine WBC Ur Squamous Epith Cells Urine Bacteria Ur Culture Indicated? 11/17/16 11/18/16 11/18/16 Unknown 03:34 07:54 Sodium 138 Potassium 3.9 Chloride 96 L Carbon Dioxide 32 Anion Gap 13.9 BUN 41 H Creatinine 0.80 GFR Calculation 105 BUN/Creatinine Ratio 51.00 H Glucose 57 L POC Glucose 75 Calculated Osmolality 282.7 Calcium 9.0 Magnesium 2.0 Urine Color Yellow Urine Appearance Cloudy Urine pH 5.0 Ur Specific [place] 1.009 Urine Protein Negative Urine Glucose (UA) Negative Urine Ketones Negative Urine Blood Large Urine Nitrate Negative Urine Bilirubin Negative Urine Urobilinogen < 2.0 H Urine Leukocytes Large H Urine RBC 88 Urine WBC 145 Ur Squamous Epith Cells Occasional Urine Bacteria Many Ur Culture Indicated? Results to follow - EKG EKG results: interpreted by me Quality Measures - VTE Contraindication to Pharmacological VTE Prophylaxis: High Risk of Bleeding Specialty Discharge - Follow Up or Referrals Follow up with: Jerardo Thorne MD [Physician] - 11/28/16 12:50 pm (SLEEP STUDY APPT. NOVEMBER 28, 2016 AT 7:15 PM. PLEASE BRING ALL MEDICATIONS AND BE PREPARED TO BE ADMITTED. )
--- NOTE | 2016-11-18 12:07 | Operative Note ---
Procedure: The patient was in atrial flutter and we performed a cardioversion to sinus rhythm. We sedated the patient with 3 mg of Versed and performed synchronized DC cardioversion with 200 J 1 shot. This successfully converted the patient back to sinus rhythm. There were no problems or complications with the procedure. Surgeon / Physician: Damion Granados Results - Labs CBC & BMP: 11/17/16 10:33 11/18/16 03:34 Discharge Plan - Discharge Medications No Action Simvastatin [Zocor] 10 mg PO BEDTIME Nitroglycerin Sl Tab [Nitrostat] 0.4 mg SL Q5M PRN MDD 3 PRN Reason: Chest Pain Furosemide Tab [Lasix Tab] 80 mg PO DAILY PRN PRN Reason: Fluid Retention Fluticasone/Salmeterol 250-50 [Advair 250-50] 1 puff INH BID Isosorbide Dinitrate [Isordil] 40 mg PO TID Allopurinol [Zyloprim] 450 mg PO DAILY Clopidogrel [Plavix] 75 mg PO DAILY Amlodipine Besylate 5 mg PO DAILY Spironolactone [Aldactone] 25 mg PO DAILY Gabapentin 600 mg PO TID Tramadol HCl [Tramadol Tab] 50 mg PO TID Dicyclomine Cap/Tab [Bentyl Cap/Tab] 10 mg PO Q8HR Valacyclovir HCl [Valacyclovir] 1,000 mg PO DAILY Magnesium Chloride [Slow Mag] 128 mg PO BID Potassium Chloride 20 meq PO BID Aspirin EC Tab 81 mg PO DAILY Levothyroxine Tab [Synthroid Tab] 100 mcg PO DAILY@0700 Valsartan [Diovan] 160 mg PO DAILY tablet Insulin NPH Hum/Reg Insulin Hm [NovoLIN 70/30] 35 units SUBCUT BID Ranitidine Tab [Zantac Tab] 150 mg PO BID Levothyroxine Tab [Synthroid Tab] 200 mcg PO DAILY@0700 tablet Metoprolol Tartrate Tab [Lopressor Tab] 50 mg PO BID tablet - Follow Up or Referral Follow Up: Jerardo Thorne MD [Physician] - 11/28/16 12:50 pm (SLEEP STUDY APPT. NOVEMBER 28, 2016 AT 7:15 PM. PLEASE BRING ALL MEDICATIONS AND BE PREPARED TO BE ADMITTED. ) - Forms/Instructions Instructions: Atrial Fibrillation (GEN), Heart Healthy Diet (GEN), Coronary Artery Bypass Graft, Physician'S Assistant (GEN), Sternal Precautions (GEN)
[2016-11-18] MEDS: APIXABAN 2.5 MG TABLET PO SCH ×2 (12:49→21:18)
[2016-11-18] MEDS: SPIRONOLACTONE 25 MG TABLET PO SCH (12:50)
--- NOTE | 2016-11-18 13:53 | EKG Report ---
Stationary ECG Study [facility] Test Date: 11/18/2016 11:52:41 AM Pat Name: DARLIN TOMAS Department: Room: 270 Gender: F Headlight Adjuster: : 1945 Requested by: Rodger Bruno Order Number: [id number] Reading MD: PHIL WHITE Intervals [place] Rate: 80 P: 75 DC: 146 QRS: -11 QRSD: 88 T: 117 QT: 382 QTc: 418 Interpretive Statements SINUS RHYTHM NONSPECIFIC T WAVE ABNORMALITY Electronically Signed On 11-20-16 12:24:52 CDT by PHIL WHITE [email or web address]
[2016-11-18] MEDS: LEVOFLOXACIN INJ 500 MG in PREMIX 1 EACH IV SCH (14:49)
[2016-11-18] MEDS: oxyCODONE/ACETAMINOPHEN 5-325 MG TABLET PO PRN (18:58)
[2016-11-18] MEDS: ROSUVASTATIN 10 MG TABLET PO SCH (21:18)
[2016-11-18] MEDS: ZALEPLON 5 MG CAPSULE PO PRN (21:18)
[2016-11-19 04:20] LABS: Basophils % 0.2 % (0.0-0.8); Eosinophils # 0.7 10*3/uL (0.0-0.87); Eosinophils % 3.8 % (0.00-10.9); Hematocrit 30.3 VOL% (35.7-47.0); Hemoglobin 10.1 GM/DL (12.0-16.0); Immature Granulocytes % 3.1 %; Immature Granulocytes Absolute 0.57 #; Lymphocytes # 1.8 10*3/uL (1.4-4.0); Mean Corpuscular HGB Conc 33.3 GM/DL (32-36); Mean Corpuscular Hemoglobin 30 PG (27-34); Mean Corpuscular Volume 89.9 FL (87-102); Monocytes # 0.9 10*3/uL (0.11-0.8); Neutrophils # 14.2 10*3/uL (1.4-7.4); Neutrophils % 77.9 % (38.7-73.9); Platelet Count 430 T/CUMM (130-400); Red Blood Count 3.37 MC/CUMM (3.8-5.5); Red Cell Distribution Width 13.3 % (9.3-17.3); White Blood Count 18.2 T/CUMM (4-12)
[2016-11-19 04:43] LABS: Calcium 8.9 MG/DL (8.5-10.1); Magnesium 2.1 MG/DL (1.8-2.4); Osmolality,Calculated 282.8 MOS/KG (273-304); Potassium 3.9 MMOL/L (3.5-5.1)
[2016-11-19 04:54] LABS: Calcium 8.5 MG/DL (8.5-10.1); Free T4 (Free Thyroxine) 1.26 NG/DL (0.76-1.46); Osmolality,Calculated 283.7 MOS/KG (273-304); Potassium 4.1 MMOL/L (3.5-5.1); Thyroid Stimulating Hormone 1.43 uIU/ml (0.358-3.74)
[2016-11-19 05:51] LABS: Anisocytosis 1+; Band Neutrophils 2 % (0-10); Eosinophils 5 % (0-10); Lymphocytes 9 % (20-55); Microcytosis 1+; Platelet Estimate Increased; Segmented Neutrophils 78 % (50-85); Total Cells Counted 100
[2016-11-19] MEDS: LEVOTHYROXINE 100 MCG TABLET PO SCH (06:47)
--- NOTE | 2016-11-19 08:08 | Cardiothoracic Progress Note ---
Cardiothoracic Subjective Interval history: Patient looks and feels okay. She still not getting out of bed as much as I would like and we will try to encourage this today. She is afebrile and her vital signs have been stable and she is breathing comfortably. She has a persistent leukocytosis which is at 18,000 today and this could have several potential sources including a urinary tract infection, sternal wound, or possibly from a central line which has been present since surgery. I think we can discontinue her central line and she has urine C&S pending. 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 Continue to monitor closely and try to increase activities as tolerated. Exam (Progress Note) - Constitutional Vitals: Period Temp Pulse Resp BP Sys/Allen Pulse Ox Last 24 Hr 97 F-97.7 F 57-75 16-74 90-138/47-74 98-100 Result/EKG - Labs CBC & BMP: 11/19/16 03:37 11/19/16 03:37 Labs: Laboratory Results - last 24 hr 11/18/16 11/18/16 11/18/16 07:54 12:04 16:33 WBC RBC Hgb Hct MCV MCH MCHC RDW Plt Count MPV Neut % (Auto) Lymph % (Auto) [place] % (Auto) Eos % (Auto) Baso % (Auto) Neut # (Auto) Lymph # (Auto) [place] # (Auto) Eos # (Auto) Baso # (Auto) Total Counted Immature Gran % Nucleated RBC % Immature Gran # Segmented Neutrophils Band Neutrophils Lymphocytes Monocytes Eosinophils Nucleated RBCs # Platelet Estimate Anisocytosis Microcytosis Sodium Potassium Chloride Carbon Dioxide Anion Gap BUN Creatinine GFR Calculation BUN/Creatinine Ratio Glucose POC Glucose 75 215 H 210 H Calculated Osmolality Calcium Magnesium Free T4 TSH 3rd Generation 11/18/16 11/19/16 11/19/16 21:17 03:37 03:37 WBC 18.2 H RBC 3.37 L Hgb 10.1 L Hct 30.3 L MCV 89.9 MCH 30 MCHC 33.3 RDW 13.3 Plt Count 430 H MPV 10.0 Neut % (Auto) 77.9 H Lymph % (Auto) 10.0 L [place] % (Auto) 5.0 Eos % (Auto) 3.8 Baso % (Auto) 0.2 Neut # (Auto) 14.2 H Lymph # (Auto) 1.8 [place] # (Auto) 0.9 H Eos # (Auto) 0.7 Baso # (Auto) 0.0 Total Counted 100 Immature Gran % 3.1 Nucleated RBC % 0.0 Immature Gran # 0.57 Segmented Neutrophils 78 Band Neutrophils 2 Lymphocytes 9 L Monocytes 6 Eosinophils 5 Nucleated RBCs # 0.00 Platelet Estimate Increased Anisocytosis 1+ Microcytosis 1+ Sodium 138 Potassium 4.1 Chloride 98 Carbon Dioxide 31 Anion Gap 13.1 BUN 44 H Creatinine 1.00 GFR Calculation 81 BUN/Creatinine Ratio 44.00 H Glucose 59 L POC Glucose 98 Calculated Osmolality 283.7 Calcium 8.5 Magnesium Free T4 1.26 TSH 3rd Generation 1.430 11/19/16 03:37 WBC RBC Hgb Hct MCV MCH MCHC RDW Plt Count MPV Neut % (Auto) Lymph % (Auto) [place] % (Auto) Eos % (Auto) Baso % (Auto) Neut # (Auto) Lymph # (Auto) [place] # (Auto) Eos # (Auto) Baso # (Auto) Total Counted Immature Gran % Nucleated RBC % Immature Gran # Segmented Neutrophils Band Neutrophils Lymphocytes Monocytes Eosinophils Nucleated RBCs # Platelet Estimate Anisocytosis Microcytosis Sodium 137 Potassium 3.9 Chloride 97 L Carbon Dioxide 32 Anion Gap 11.9 BUN 45 H Creatinine 1.00 GFR Calculation 81 BUN/Creatinine Ratio 45.00 H Glucose 59 L POC Glucose Calculated Osmolality 282.8 Calcium 8.9 Magnesium 2.1 Free T4 TSH 3rd Generation Quality Measures - VTE Contraindication to Pharmacological VTE Prophylaxis: High Risk of Bleeding Specialty Discharge - Follow Up or Referrals Follow up with: Jerardo Thorne MD [Physician] - 11/28/16 12:50 pm (SLEEP STUDY APPT. NOVEMBER 28, 2016 AT 7:15 PM. PLEASE BRING ALL MEDICATIONS AND BE PREPARED TO BE ADMITTED. )
[2016-11-19] MEDS: INSULIN ASPART PROTAMINE/ASPART 70/30 100 UNIT/ML SUBCUT SCH ×2 (08:36→16:50)
[2016-11-19] MEDS: INSULIN LISPRO 100 UNIT/ML SUBCUT SCH ×4 (08:36→21:17)
[2016-11-19] MEDS: FUROSEMIDE 40 MG/4 ML VIAL IV SCH (08:39)
[2016-11-19] MEDS ORDERED: LEVOFLOXACIN 500 MG TABLET PO SCH (09:00)
[2016-11-19] MEDS: VALSARTAN 80 MG TABLET PO SCH ×2 (09:08→21:14)
[2016-11-19] MEDS: AMIODARONE 200 MG TABLET PO SCH ×2 (09:08→21:14)
[2016-11-19] MEDS: CLOPIDOGREL 75 MG TABLET PO SCH (09:08)
[2016-11-19] MEDS: APIXABAN 2.5 MG TABLET PO SCH ×2 (09:09→21:14)
[2016-11-19] MEDS: DOCUSATE SODIUM 100 MG CAPSULE PO SCH (09:09)
[2016-11-19] MEDS: ASCORBIC ACID 500 MG TABLET PO SCH ×2 (09:09→21:14)
[2016-11-19] MEDS: PANTOPRAZOLE 40 MG TABLET PO SCH (09:09)
[2016-11-19] MEDS: FUROSEMIDE 40 MG TABLET PO SCH (09:09)
[2016-11-19] MEDS: SPIRONOLACTONE 25 MG TABLET PO SCH (09:09)
[2016-11-19] MEDS: CARVEDILOL 6.25 MG TABLET PO SCH ×2 (09:09→21:17)
[2016-11-19] MEDS: FERROUS SULFATE 325 MG TABLET PO SCH (09:10)
[2016-11-19] MEDS: CHLORHEXIDINE 0.12% ORAL RINSE 60 ML BOTTLE SWISH/SPIT SCH ×2 (09:10→21:17)
--- NOTE | 2016-11-19 10:36 | Cardiology Progress Note ---
Assessment and Plan (1) Atrial flutter Status: Resolved Assessment and plan: She was cardioverted to sinus rhythm yesterday and remains in normal sinus rhythm. Current Visit: Yes (2) Obstructive sleep apnea Status: Chronic Current Visit: Yes (3) S/P CABG (coronary artery bypass graft) Problem details: Repeat done this admission, 11/10/16 Status: Chronic Assessment and plan: She is slowly recovering and seems to be doing well postoperatively. She is still very weak and workup is underway to make sure there is no infection. Current Visit: Yes (4) coronary artery disease Status: Chronic Current Visit: Yes (5) hypertension Status: Chronic Current Visit: Yes (6) type 2 diabetes mellitus Status: Chronic Current Visit: Yes (7) Elevated white blood cell count Status: Acute Assessment and plan: Workup to rule out infection is underway. Current Visit: Yes Cardiology - PN: Subj Interval history: The patient did well overnight. She remains in normal sinus rhythm. She has no new cardiac symptoms today. She still feels very weak. She denies any angina, palpitations, or dyspnea today. Current Medications Acetaminophen (Tylenol Tab) 650 mg PO Q4H PRN PRN Reason: Temperature greater than 100F Al Hydrox/Mg Hydrox/Simethicone (Mylanta Max Strength Liquid) 30 ml PO Q4H PRN PRN Reason: Dyspepsia Amiodarone HCl (Cordarone Tab) 400 mg PO BID [facility] Last Admin: 11/19/16 09:08 Dose: 400 mg Apixaban (Eliquis) 2.5 mg PO BID [facility] Last Admin: 11/19/16 09:09 Dose: 2.5 mg Ascorbic Acid (Vitamin C Tab) 1,000 mg PO BID [facility] Last Admin: 11/19/16 09:09 Dose: 1,000 mg Carvedilol (Coreg) 6.25 mg PO BID [facility] Last Admin: 11/19/16 09:09 Dose: 6.25 mg Chlorhexidine Gluconate (Peridex) 15 ml SWISH/SPIT BID [facility] Last Admin: 11/19/16 09:10 Dose: 15 ml Clopidogrel Bisulfate (Plavix) 75 mg PO DAILY [facility] Last Admin: 11/19/16 09:08 Dose: 75 mg Dextrose/Water (D50) 25 gm IV PRN PRN PRN Reason: Hypoglycemia with IV access Docusate Sodium (Colace Cap) 100 mg PO DAILY [facility] Last Admin: 11/19/16 09:09 Dose: 100 mg Ferrous Sulfate (Feosol Original Tab) 325 mg PO DAILY [facility] Last Admin: 11/19/16 09:10 Dose: Not Given Furosemide (Lasix Tab) 40 mg PO DAILY [facility] Last Admin: 11/19/16 09:09 Dose: 40 mg Glucagon () 1 mg IM PRN PRN PRN Reason: Hypoglycemia w/o IV access Heparin Sodium (Porcine) () 50 units IV PRN PRN PRN Reason: central line lock Last Admin: 11/18/16 16:35 Dose: 50 units Magnesium Sulfate 2 gm/ Premix 50 mls @ 25 mls/hr IV .PER PROTOCOL PRN; Protocol PRN Reason: Per Protocol Magnesium Sulfate 4 gm/ Premix 100 mls @ 25 mls/hr IV .PER PROTOCOL PRN; Protocol PRN Reason: Per Protocol Insulin Aspart Prota 70%/Aspart 30% (Novolog Mix 70/30) 35 unit SUBCUT BIDAC [facility] Last Admin: 11/19/16 08:36 Dose: Not Given Insulin Human Lispro (Humalog) 0 unit SUBCUT ACHS [facility] PRN Reason: Protocol Last Admin: 11/19/16 08:36 Dose: Not Given Ketorolac Tromethamine (Toradol Inj) 30 mg IV Q6H PRN PRN Reason: Pain Moderate (4-7) Stop: 11/21/16 09:05 Last Admin: 11/18/16 09:33 Dose: 30 mg Levofloxacin (Levaquin Tab) 500 mg PO DAILY [facility] Last Admin: 11/19/16 09:09 Dose: 500 mg Levothyroxine Sodium (Synthroid Tab) 100 mcg PO DAILY@0700 [facility] Last Admin: 11/19/16 06:47 Dose: 100 mcg Magnesium Hydroxide (Milk Of Magnesia) 30 ml PO Q6H PRN PRN Reason: Constipation Ondansetron HCl (Zofran Inj) 4 mg IV Q4H PRN PRN Reason: Nausea/Vomiting Oxycodone/Acetaminophen (Percocet 5-325) 1 tablet PO Q4H PRN PRN Reason: Pain Mild (1-3) Last Admin: 11/18/16 18:58 Dose: 1 tablet Pantoprazole Sodium (Protonix Tab) 40 mg PO DAILY [facility] Last Admin: 11/19/16 09:09 Dose: 40 mg Potassium Chloride (K Dur) 20 meq PO .PER PROTOCOL PRN; Protocol PRN Reason: Per Protocol Rosuvastatin Calcium (Crestor) 10 mg PO BEDTIME [facility] Last Admin: 11/18/16 21:18 Dose: 10 mg Spironolactone (Aldactone) 25 mg PO DAILY [facility] Last Admin: 11/19/16 09:09 Dose: 25 mg Valsartan (Diovan) 40 mg PO BID [facility] Last Admin: 11/19/16 09:08 Dose: 40 mg Zaleplon (Sonata) 5 mg PO BEDTIME PRN PRN Reason: Sleep Last Admin: 11/18/16 21:18 Dose: 5 mg Exam (Progress Note) - Constitutional Vitals: Period Temp Pulse Resp BP Sys/Allen Pulse Ox Last 24 Hr 97 F-97.7 F 57-75 16-74 90-144/47-98 98-100 Exam: General: Frail, elderly HEENT: Normocephalic, atraumatic Neck: Supple Neck, Midline Trachea Cardiac: Regular rhythm, No Murmur, no gallop, no rub Lungs: Clear to Ascultation, No Wheeze, Rales, Rhonchi Neuro: Cranial Nerve 2-12 Intact, diffuse generalized weakness Abdomen: Soft, Active Bowel Sounds, No Masses, No Pulsations/Bruits Skin: Normal color, no rash Extremities: No Clubbing, No Cyanosis, No Edema, Normal Upper Extr. Pulses Musculoskeletal: No acute abnormality noted Psychiatric: The patient is alert and oriented. The patient has a flat affect but does not appear to be anxious or depressed. Result/EKG - Labs CBC & BMP: 11/19/16 03:37 11/19/16 03:37 Lab Results: I have reviewed the past 24 hour labs Labs: Laboratory Results - last 24 hr 11/18/16 11/18/16 11/18/16 12:04 16:33 21:17 WBC RBC Hgb Hct MCV MCH MCHC RDW Plt Count MPV Neut % (Auto) Lymph % (Auto) [place] % (Auto) Eos % (Auto) Baso % (Auto) Neut # (Auto) Lymph # (Auto) [place] # (Auto) Eos # (Auto) Baso # (Auto) Total Counted Immature Gran % Nucleated RBC % Immature Gran # Segmented Neutrophils Band Neutrophils Lymphocytes Monocytes Eosinophils Nucleated RBCs # Platelet Estimate Anisocytosis Microcytosis Sodium Potassium Chloride Carbon Dioxide Anion Gap BUN Creatinine GFR Calculation BUN/Creatinine Ratio Glucose POC Glucose 215 H 210 H 98 Calculated Osmolality Calcium Magnesium Free T4 TSH 3rd Generation 11/19/16 11/19/16 11/19/16 03:37 03:37 03:37 WBC 18.2 H RBC 3.37 L Hgb 10.1 L Hct 30.3 L MCV 89.9 MCH 30 MCHC 33.3 RDW 13.3 Plt Count 430 H MPV 10.0 Neut % (Auto) 77.9 H Lymph % (Auto) 10.0 L [place] % (Auto) 5.0 Eos % (Auto) 3.8 Baso % (Auto) 0.2 Neut # (Auto) 14.2 H Lymph # (Auto) 1.8 [place] # (Auto) 0.9 H Eos # (Auto) 0.7 Baso # (Auto) 0.0 Total Counted 100 Immature Gran % 3.1 Nucleated RBC % 0.0 Immature Gran # 0.57 Segmented Neutrophils 78 Band Neutrophils 2 Lymphocytes 9 L Monocytes 6 Eosinophils 5 Nucleated RBCs # 0.00 Platelet Estimate Increased Anisocytosis 1+ Microcytosis 1+ Sodium 138 137 Potassium 4.1 3.9 Chloride 98 97 L Carbon Dioxide 31 32 Anion Gap 13.1 11.9 BUN 44 H 45 H Creatinine 1.00 1.00 GFR Calculation 81 81 BUN/Creatinine Ratio 44.00 H 45.00 H Glucose 59 L 59 L POC Glucose Calculated Osmolality 283.7 282.8 Calcium 8.5 8.9 Magnesium 2.1 Free T4 1.26 TSH 3rd Generation 1.430 11/19/16 07:57 WBC RBC Hgb Hct MCV MCH MCHC RDW Plt Count MPV Neut % (Auto) Lymph % (Auto) [place] % (Auto) Eos % (Auto) Baso % (Auto) Neut # (Auto) Lymph # (Auto) [place] # (Auto) Eos # (Auto) Baso # (Auto) Total Counted Immature Gran % Nucleated RBC % Immature Gran # Segmented Neutrophils Band Neutrophils Lymphocytes Monocytes Eosinophils Nucleated RBCs # Platelet Estimate Anisocytosis Microcytosis Sodium Potassium Chloride Carbon Dioxide Anion Gap BUN Creatinine GFR Calculation BUN/Creatinine Ratio Glucose POC Glucose 85 Calculated Osmolality Calcium Magnesium Free T4 TSH 3rd Generation - EKG EKG results: interpreted by me Quality Measures - VTE Contraindication to Pharmacological VTE Prophylaxis: High Risk of Bleeding Specialty Discharge - Follow Up or Referrals Follow up with: Jerardo Thorne MD [Physician] - 11/28/16 12:50 pm (SLEEP STUDY APPT. NOVEMBER 28, 2016 AT 7:15 PM. PLEASE BRING ALL MEDICATIONS AND BE PREPARED TO BE ADMITTED. )
--- NOTE | 2016-11-19 10:36 | Internal Med Progress Note ---
Assessment and Plan (1) coronary artery disease Status: Chronic Assessment and plan: 71-year-old female admitted to acute care * Coronary artery disease. Better. * Diabetes. Continue current treatment * Hypothyroidism. Continue Synthroid * Hypertension. Blood pressure is stable * Right pleural effusion. Her breathing has improved * Her white count continues to be high. Will check a chest x-ray in the morning. Consult swing bed * Continue PT and OT Current Visit: Yes (2) hyperlipidemia Status: Chronic Current Visit: No (3) hypertension Status: Chronic Current Visit: Yes (4) hypothyroidism Status: Chronic Current Visit: No (5) type 2 diabetes mellitus Status: Chronic Current Visit: Yes Internal Medicine - PN: Subj Interval history: She she has done well after cardioversion yesterday. She continues to be in sinus rhythm. She feels weak. No chest pain or shortness of breath Exam (Progress Note) - Constitutional Vitals: Period Temp Pulse Resp BP Sys/Allen Pulse Ox Last 24 Hr 97 F-97.7 F 57-75 16-74 90-144/47-98 98-100 Exam: Examination: GENERAL: No acute distress NECK: Neck is supple. CVS: Regular rate and rhythm. Systolic ejection murmur at left sternal border. Midline sternal wound appears to be clean RESPIRATORY: Clear to auscultation except for right base ABDOMEN: Soft and nontender. EXT: No edema. Results - Labs CBC & BMP: 11/19/16 03:37 11/19/16 03:37 Lab Results: I have reviewed the past 24 hour labs Quality Measures - VTE Contraindication to Pharmacological VTE Prophylaxis: High Risk of Bleeding Specialty Discharge - Follow Up or Referrals Follow up with: Jerardo Thorne MD [Physician] - 11/28/16 12:50 pm (SLEEP STUDY APPT. NOVEMBER 28, 2016 AT 7:15 PM. PLEASE BRING ALL MEDICATIONS AND BE PREPARED TO BE ADMITTED. )
[2016-11-19] MEDS: oxyCODONE/ACETAMINOPHEN 5-325 MG TABLET PO PRN (18:54)
[2016-11-19] MEDS: AMOXICILLIN/CLAV 500 MG TABLET PO SCH (21:14)
[2016-11-19] MEDS: ROSUVASTATIN 10 MG TABLET PO SCH (21:15)
[2016-11-20 05:15] LABS: Basophils % 0.2 % (0.0-0.8); Eosinophils # 0.7 10*3/uL (0.0-0.87); Eosinophils % 4.5 % (0.00-10.9); Hemoglobin 10.4 GM/DL (12.0-16.0); Immature Granulocytes % 2.5 %; Immature Granulocytes Absolute 0.38 #; Lymphocytes # 1.9 10*3/uL (1.4-4.0); Lymphocytes % 12.7 % (21.3-54.2); Mean Corpuscular HGB Conc 33.5 GM/DL (32-36); Mean Corpuscular Hemoglobin 30 PG (27-34); Mean Corpuscular Volume 88.8 FL (87-102); Mean Platelet Volume 10.1 FL (9.6-12.0); Monocytes # 0.9 10*3/uL (0.11-0.8); Monocytes % 5.7 % (1.7-12.7); Neutrophils # 11.2 10*3/uL (1.4-7.4); Neutrophils % 74.4 % (38.7-73.9); Platelet Count 470 T/CUMM (130-400); Red Blood Count 3.49 MC/CUMM (3.8-5.5); Red Cell Distribution Width 13.3 % (9.3-17.3)
[2016-11-20 05:58] LABS: Calcium 8.7 MG/DL (8.5-10.1); Magnesium 2.1 MG/DL (1.8-2.4); Osmolality,Calculated 290.5 MOS/KG (273-304); Potassium 4.3 MMOL/L (3.5-5.1)
--- NOTE | 2016-11-20 06:13 | Cardiothoracic Progress Note ---
Cardiothoracic Subjective Interval history: Patient had a reasonably comfortable night. Her vital signs have been stable and she has been breathing comfortably. Her blood work this morning all is acceptable and her white blood cell count is down to 15,000. Her urine culture did grow E. coli which a previous urine culture had also grown. Previously however the E. coli was sensitive to Levaquin which she has been on. Current culture shows that it is resistant to Levaquin and I have switched her to Augmentin. Her other complaint is that she has had some intermittent bleeding from the nose which she relates to her CPAP mask. Will ask sleep medicine to see if there is anything that needs to be done about this. Overall her progress seems satisfactory but slow. She is probably going to need a period of time and long-term assisted care. Exam (Progress Note) - Constitutional Vitals: Period Temp Pulse Resp BP Sys/Allen Pulse Ox Last 24 Hr 97.2 F-98.3 F 71-84 16-20 107-150/64-114 92-99 Result/EKG - Labs CBC & BMP: 11/20/16 04:16 11/20/16 04:16 Labs: Laboratory Results - last 24 hr 11/19/16 11/19/16 11/19/16 07:57 11:47 16:32 WBC RBC Hgb Hct MCV MCH MCHC RDW Plt Count MPV Neut % (Auto) Lymph % (Auto) [place] % (Auto) Eos % (Auto) Baso % (Auto) Neut # (Auto) Lymph # (Auto) [place] # (Auto) Eos # (Auto) Baso # (Auto) Immature Gran % Nucleated RBC % Immature Gran # Nucleated RBCs # Sodium Potassium Chloride Carbon Dioxide Anion Gap BUN Creatinine GFR Calculation BUN/Creatinine Ratio Glucose POC Glucose 85 125 H 125 H Calculated Osmolality Calcium Magnesium 11/19/16 11/20/16 11/20/16 19:17 04:16 04:16 WBC 15.0 H RBC 3.49 L Hgb 10.4 L Hct 31.0 L MCV 88.8 MCH 30 MCHC 33.5 RDW 13.3 Plt Count 470 H MPV 10.1 Neut % (Auto) 74.4 H Lymph % (Auto) 12.7 L [place] % (Auto) 5.7 Eos % (Auto) 4.5 Baso % (Auto) 0.2 Neut # (Auto) 11.2 H Lymph # (Auto) 1.9 [place] # (Auto) 0.9 H Eos # (Auto) 0.7 Baso # (Auto) 0.0 Immature Gran % 2.5 Nucleated RBC % 0.0 Immature Gran # 0.38 Nucleated RBCs # 0.00 Sodium 139 Potassium 4.3 Chloride 98 Carbon Dioxide 32 Anion Gap 13.3 BUN 32 H Creatinine 0.80 GFR Calculation 123 BUN/Creatinine Ratio 40.00 H Glucose 217 H POC Glucose 141 H Calculated Osmolality 290.5 Calcium 8.7 Magnesium 2.1 Quality Measures - VTE Contraindication to Pharmacological VTE Prophylaxis: High Risk of Bleeding Specialty Discharge - Follow Up or Referrals Follow up with: Jerardo Thorne MD [Physician] - 11/28/16 12:50 pm (SLEEP STUDY APPT. NOVEMBER 28, 2016 AT 7:15 PM. PLEASE BRING ALL MEDICATIONS AND BE PREPARED TO BE ADMITTED. )
[2016-11-20] MEDS: LEVOTHYROXINE 100 MCG TABLET PO SCH (06:27)
[2016-11-20] MEDS: oxyCODONE/ACETAMINOPHEN 5-325 MG TABLET PO PRN ×3 (06:31→21:28)
[2016-11-20] MEDS: INSULIN LISPRO 100 UNIT/ML SUBCUT SCH ×4 (08:01→21:27)
--- NOTE | 2016-11-20 08:38 | Internal Med Progress Note ---
Assessment and Plan (1) coronary artery disease Status: Chronic Assessment and plan: 71-year-old female admitted to acute care * Coronary artery disease. Better. * Diabetes. Continue current treatment * Hypothyroidism. Continue Synthroid * Hypertension. Blood pressure is stable * Right pleural effusion. She still has a large pleural effusion on the right side. May require thoracentesis * Continue PT and OT Current Visit: Yes (2) hyperlipidemia Status: Chronic Current Visit: No (3) hypertension Status: Chronic Current Visit: Yes (4) hypothyroidism Status: Chronic Current Visit: No (5) type 2 diabetes mellitus Status: Chronic Current Visit: Yes Internal Medicine - PN: Subj Interval history: She had some bleeding from her nose last night. She could not wear CPAP. No chest pain or shortness of breath. No nausea or vomiting Exam (Progress Note) - Constitutional Vitals: Period Temp Pulse Resp BP Sys/Allen Pulse Ox Last 24 Hr 97.4 F-98.3 F 73-84 16-20 107-150/64-114 92-98 Exam: Examination: GENERAL: No acute distress NECK: Neck is supple. CVS: Regular rate and rhythm. Systolic ejection murmur at left sternal border. RESPIRATORY: Decreased air entry right base ABDOMEN: Soft and nontender. EXT: 1+ edema Results - Labs CBC & BMP: 11/20/16 04:16 11/20/16 04:16 Lab Results: I have reviewed the past 24 hour labs Quality Measures - VTE Contraindication to Pharmacological VTE Prophylaxis: High Risk of Bleeding Specialty Discharge - Follow Up or Referrals Follow up with: Jerardo Thorne MD [Physician] - 11/28/16 12:50 pm (SLEEP STUDY APPT. NOVEMBER 28, 2016 AT 7:15 PM. PLEASE BRING ALL MEDICATIONS AND BE PREPARED TO BE ADMITTED. )
--- NOTE | 2016-11-20 08:39 | XRay Report ---
XR chest 2V Date: 11/20/2016 4:00 AM History: Elevated white blood count, right pleural effusion Comparison: 11/16/2016 Technique: PA and lateral chest Findings: Stable cardiomegaly with prior median sternotomy. Removal of right IJ CVP line. Persistent relative elevation of the right hemidiaphragm with residual diffuse parenchymal findings especially at the right lung base. Associated pleural effusion with progressive pleural density laterally extending to the right lung apex. Atelectasis at the left lung base. Degenerative changes are noted. Impression: Progressive pleural pathology in the right hemithorax with persistent relative elevation of the right hemidiaphragm. Status post median sternotomy. PROCEDURE INTERPRETED AT [facility] DEPARTMENT OF RADIOLOGY Final Report Signed by: Dr. Anny Vazquez
[2016-11-20] MEDS: VALSARTAN 80 MG TABLET PO SCH ×2 (09:14→21:26)
[2016-11-20] MEDS: FERROUS SULFATE 325 MG TABLET PO SCH (09:15)
[2016-11-20] MEDS: DOCUSATE SODIUM 100 MG CAPSULE PO SCH (09:15)
[2016-11-20] MEDS: SPIRONOLACTONE 25 MG TABLET PO SCH (09:15)
[2016-11-20] MEDS: CARVEDILOL 6.25 MG TABLET PO SCH ×2 (09:15→21:26)
[2016-11-20] MEDS: PANTOPRAZOLE 40 MG TABLET PO SCH (09:15)
[2016-11-20] MEDS: CLOPIDOGREL 75 MG TABLET PO SCH (09:15)
[2016-11-20] MEDS: AMOXICILLIN/CLAV 500 MG TABLET PO SCH ×2 (09:15→21:26)
[2016-11-20] MEDS: FUROSEMIDE 40 MG TABLET PO SCH (09:15)
[2016-11-20] MEDS: ASCORBIC ACID 500 MG TABLET PO SCH ×2 (09:15→21:26)
[2016-11-20] MEDS: APIXABAN 2.5 MG TABLET PO SCH (09:15)
[2016-11-20] MEDS: CHLORHEXIDINE 0.12% ORAL RINSE 60 ML BOTTLE SWISH/SPIT SCH ×2 (09:16→21:27)
[2016-11-20] MEDS: AMIODARONE 200 MG TABLET PO SCH ×2 (09:16→21:25)
[2016-11-20] MEDS: INSULIN ASPART PROTAMINE/ASPART 70/30 100 UNIT/ML SUBCUT SCH ×2 (09:17→16:51)
--- NOTE | 2016-11-20 09:22 | Cardiology Progress Note ---
<Joselin Sullivan E - Last Filed: 11/20/16 09:10> Assessment and Plan - Time spent with patient Time spent with patient: Greater than 30 minutes (1) S/P CABG (coronary artery bypass graft) Problem details: Repeat done this admission, 11/10/16 Status: Chronic Assessment and plan: See plan of care listed below Current Visit: Yes (2) Hyperkalemia Status: Resolved Assessment and plan: See plan of care listed below Current Visit: Yes (3) Debilitated patient Status: Chronic Assessment and plan: See plan of care listed below Current Visit: Yes (4) Anemia Status: Chronic Assessment and plan: See plan of care listed below Current Visit: Yes (5) Abnormal TSH Status: Chronic Assessment and plan: See plan of care listed below Current Visit: Yes (6) type 2 diabetes mellitus Status: Chronic Assessment and plan: See plan of care listed below Current Visit: Yes (7) coronary artery disease Status: Chronic Assessment and plan: See plan of care listed below Current Visit: Yes (8) hypertension Status: Chronic Assessment and plan: See plan of care listed below Current Visit: Yes (9) Atrial flutter Status: Resolved Assessment and plan: See plan of care listed below Current Visit: Yes Cardiology - PN: Subj Interval history: VISCOSE CELLAR CHARGE HAND: DR. THORNE PCP: DR. SNELL SUMMARY: 71-year-old -Al[place]ian female routinely followed by Dr. Thorne. History of known coronary artery disease status post CABG. She was admitted for elective cardiac catheterization November 03, 2016 for abnormal stress test. She was found to have severe CAD. CV Surgery was consulted and she underwent re-do CABG Thursday, November 10, 2016 to include ИРИНА (free graft) to LAD, performed by Dr. Moctezuma. EF 40-50%. Required thoracentesis for recurrent pleural effusion and tolerated well. Developed atrial flutter postoperatively. She was loaded with IV Amiodarone and ultimately oral Amiodarone as well as Vitamin C. Friday, November 18, 2016, she underwent DCCV. With one shock she converted to, and has remained in, normal sinus rhythm. She is on low-dose Eliquis 2.5 mg orally twice daily as well as Plavix 75 mg orally daily. She has an aspirin allergy. NOVEMBER 20, 2016: POD 10. Over the weekend, white blood cell count has been elevated. She is being worked up for possible infectious process. She is currently being treated for recurrent UTI. WBC has decreased to 15K this morning. Initially, Plavix was initiated last week because she was intolerant of aspirin. She then developed atrial flutter and has been maintained on Eliquis 2.5 mg orally twice daily. Will discuss with Dr. Bryant possibly stopping Plavix and increasing Eliquis to 5 mg orally twice daily. In the morning, will decrease Amiodarone to 200 mg orally twice daily. She is tolerating beta blockade, ARB, lipid-lowering agent. Hopefully, she will be eligible for swing bed today. She did not have a good night last night, did not sleep well. However, this morning she states she is feeling better today than she has in several days. ASSESSMENT/PLAN: 1. KNOWN CAD S/P re-do CABG - POD 10. Continues to slowly improve. Hopefully , eligible for discharge to [facility] today. 2. HYPERTENSION - tolerating betablocker and ARB. 3. DYSLIPIDEMIA - continue Crestor each evening. LDL 67. 4. DIABETES - blood glucose levels have been well controlled during this hospital stay 5. SLEEP APNEA - recently diagnosed during this hospitalization. Dr. Rodrigues seeing. 6. ABNORMAL TSH - thyroid replacement adjusted during this hospitalization. 7. ANEMIA - stable. ALLERGY TO ASA. Anemia is stable. Will stop Plavix and increase Eliquis. 8. HYPERKALEMIA - resolved. 9. HYPOMAGNESEMIA - replace and follow labs in morning. 10. ATRIAL FLUTTER - new onset this hospitalization. After DCCV, remains in NSR. Decrease oral Amiodorone starting tomorrow. Exam (Progress Note) - Constitutional Vitals: Period Temp Pulse Resp BP Sys/Allen Pulse Ox Last 24 Hr 97.4 F-98.3 F 73-84 16-20 107-150/64-114 92-98 Exam: General: [Appears well with no apparent distress. Wakes easily and returns to sleep quickly.] [Pleasant and cooperative. ] [Appears comfortable.] HEENT: [Bilateral arcus noted. Normocephalic, atraumatic. Mucous membranes moist. No jaundice noted. Conjunctiva moist and clear, sclerae anicteric] Neck: No obvious JVD/HJR, no thyromegaly or lymphadenopathy noted. No carotid bruit appreciated Cardiac: [Regular rate and rhythm.] [No murmur rub or gallop.] Chest: Breast binder intact. Dressing to chest intact. Lungs: [Relatively clear. No accessory muscle use to assist the respiratory pattern.] Wearing oxygen intermittently Abdomen: Soft, bowel sounds normoactive. Nontender and nondistended. No abdominal bruit or thrill noted. No masses noted. Musculoskeletal: No fluid collection. Decreased range of motion is noted. Extremities: SCDs to BLE. Trace BLE edema noted. No clubbing, cyanosis noted. Upper extremity pulses 2+. Lower extremity pulses 2+. Capillary refill less than 3 seconds. Skin: No unusual lesions or rashes. No skin breakdown appreciated. Left lower back excoriation improving, covered with dressing. Neuro: Awake, alert and oriented 3. Left-sided hemiparesis lower extremity noted (chronic.) No essential tremor is appreciated. Result/EKG - Labs CBC & BMP: 11/20/16 04:16 11/20/16 04:16 Lab Results: I have reviewed the past 24 hour labs Labs: Laboratory Results - last 24 hr 11/19/16 11/19/16 11/19/16 07:57 11:47 16:32 WBC RBC Hgb Hct MCV MCH MCHC RDW Plt Count MPV Neut % (Auto) Lymph % (Auto) Wilkinson % (Auto) Eos % (Auto) Baso % (Auto) Neut # (Auto) Lymph # (Auto) Wilkinson # (Auto) Eos # (Auto) Baso # (Auto) Immature Gran % Nucleated RBC % Immature Gran # Nucleated RBCs # Sodium Potassium Chloride Carbon Dioxide Anion Gap BUN Creatinine GFR Calculation BUN/Creatinine Ratio Glucose POC Glucose 85 125 H 125 H Calculated Osmolality Calcium Magnesium 11/19/16 11/20/16 11/20/16 19:17 04:16 04:16 WBC 15.0 H RBC 3.49 L Hgb 10.4 L Hct 31.0 L MCV 88.8 MCH 30 MCHC 33.5 RDW 13.3 Plt Count 470 H MPV 10.1 Neut % (Auto) 74.4 H Lymph % (Auto) 12.7 L Wilkinson % (Auto) 5.7 Eos % (Auto) 4.5 Baso % (Auto) 0.2 Neut # (Auto) 11.2 H Lymph # (Auto) 1.9 Wilkinson # (Auto) 0.9 H Eos # (Auto) 0.7 Baso # (Auto) 0.0 Immature Gran % 2.5 Nucleated RBC % 0.0 Immature Gran # 0.38 Nucleated RBCs # 0.00 Sodium 139 Potassium 4.3 Chloride 98 Carbon Dioxide 32 Anion Gap 13.3 BUN 32 H Creatinine 0.80 GFR Calculation 123 BUN/Creatinine Ratio 40.00 H Glucose 217 H POC Glucose 141 H Calculated Osmolality 290.5 Calcium 8.7 Magnesium 2.1 11/20/16 07:23 WBC RBC Hgb Hct MCV MCH MCHC RDW Plt Count MPV Neut % (Auto) Lymph % (Auto) Wilkinson % (Auto) Eos % (Auto) Baso % (Auto) Neut # (Auto) Lymph # (Auto) Wilkinson # (Auto) Eos # (Auto) Baso # (Auto) Immature Gran % Nucleated RBC % Immature Gran # Nucleated RBCs # Sodium Potassium Chloride Carbon Dioxide Anion Gap BUN Creatinine GFR Calculation BUN/Creatinine Ratio Glucose POC Glucose 196 H Calculated Osmolality Calcium Magnesium - EKG EKG results: interpreted by me EKG shows: sinus rhythm Quality Measures - VTE Contraindication to Pharmacological VTE Prophylaxis: High Risk of Bleeding Specialty Discharge - Follow Up or Referrals Follow up with: Jerardo Thorne MD [Physician] - 11/28/16 12:50 pm () <Rito Bryant - Last Filed: 11/20/16 17:01> Cardiology - PN: Subj Interval history: Patient is personally interviewed and examined and chart reviewed. Discussed this case with Joselin Sullivan NP. I agree with the assessment and evaluation and plan. Patient is been slow to progress post bypass surgery. She's had recurrent pleural effusion. Her rhythm and vital signs remained stable. Her appetite is been good. She has multiple medical problems that contributed to her slow progress. She is not highly motivated. At least from cardiac standpoint she remains stable at this time. Previously her ejection fraction has been normal. LVEDP was not that much elevated. Coarse part of her slow progress is probably the fact that she is redo bypass. We'll continue to monitor and help manage the patient's post operative course. Exam (Progress Note) - Constitutional Vitals: Period Temp Pulse Resp BP Sys/Allen Pulse Ox Last 24 Hr 97.4 F-98.4 F 70-80 16-20 119-192/61-114 92-98 Result/EKG - Labs CBC & BMP: 11/20/16 04:16 11/20/16 04:16 Labs: Laboratory Results - last 24 hr 11/19/16 11/20/16 11/20/16 19:17 04:16 04:16 WBC 15.0 H RBC 3.49 L Hgb 10.4 L Hct 31.0 L MCV 88.8 MCH 30 MCHC 33.5 RDW 13.3 Plt Count 470 H MPV 10.1 Neut % (Auto) 74.4 H Lymph % (Auto) 12.7 L Wilkinson % (Auto) 5.7 Eos % (Auto) 4.5 Baso % (Auto) 0.2 Neut # (Auto) 11.2 H Lymph # (Auto) 1.9 Wilkinson # (Auto) 0.9 H Eos # (Auto) 0.7 Baso # (Auto) 0.0 Immature Gran % 2.5 Nucleated RBC % 0.0 Immature Gran # 0.38 Nucleated RBCs # 0.00 Sodium 139 Potassium 4.3 Chloride 98 Carbon Dioxide 32 Anion Gap 13.3 BUN 32 H Creatinine 0.80 GFR Calculation 123 BUN/Creatinine Ratio 40.00 H Glucose 217 H POC Glucose 141 H Calculated Osmolality 290.5 Calcium 8.7 Magnesium 2.1 11/20/16 11/20/16 11/20/16 07:23 11:57 16:05 WBC RBC Hgb Hct MCV MCH MCHC RDW Plt Count MPV Neut % (Auto) Lymph % (Auto) Wilkinson % (Auto) Eos % (Auto) Baso % (Auto) Neut # (Auto) Lymph # (Auto) Wilkinson # (Auto) Eos # (Auto) Baso # (Auto) Immature Gran % Nucleated RBC % Immature Gran # Nucleated RBCs # Sodium Potassium Chloride Carbon Dioxide Anion Gap BUN Creatinine GFR Calculation BUN/Creatinine Ratio Glucose POC Glucose 196 H 138 H 136 H Calculated Osmolality Calcium Magnesium
--- NOTE | 2016-11-20 10:54 | Cardiothoracic Progress Note ---
Cardiothoracic Subjective Interval history: Chest x-ray from today reviewed and patient has persistent elevation of the right hemidiaphragm which predates her surgery. 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 She was tapped postop by interventional radiology with removal of 400 cc of fluid but her x-ray today shows that that fluid may be reaccumulating. I cannot be sure whether the density will be seen in the right lower chest is diaphragm and eventration or fluid or combination of the 2. We will ask interventional radiology to relook at her chest with ultrasound to see if additional thoracentesis might be helpful. Exam (Progress Note) - Constitutional Vitals: Period Temp Pulse Resp BP Sys/Allen Pulse Ox Last 24 Hr 97.4 F-98.3 F 73-84 16-20 107-150/64-114 92-98 Result/EKG - Labs CBC & BMP: 11/20/16 04:16 11/20/16 04:16 Labs: Laboratory Results - last 24 hr 11/19/16 11/19/16 11/19/16 11:47 16:32 19:17 WBC RBC Hgb Hct MCV MCH MCHC RDW Plt Count MPV Neut % (Auto) Lymph % (Auto) [place] % (Auto) Eos % (Auto) Baso % (Auto) Neut # (Auto) Lymph # (Auto) [place] # (Auto) Eos # (Auto) Baso # (Auto) Immature Gran % Nucleated RBC % Immature Gran # Nucleated RBCs # Sodium Potassium Chloride Carbon Dioxide Anion Gap BUN Creatinine GFR Calculation BUN/Creatinine Ratio Glucose POC Glucose 125 H 125 H 141 H Calculated Osmolality Calcium Magnesium 11/20/16 11/20/16 11/20/16 04:16 04:16 07:23 WBC 15.0 H RBC 3.49 L Hgb 10.4 L Hct 31.0 L MCV 88.8 MCH 30 MCHC 33.5 RDW 13.3 Plt Count 470 H MPV 10.1 Neut % (Auto) 74.4 H Lymph % (Auto) 12.7 L [place] % (Auto) 5.7 Eos % (Auto) 4.5 Baso % (Auto) 0.2 Neut # (Auto) 11.2 H Lymph # (Auto) 1.9 [place] # (Auto) 0.9 H Eos # (Auto) 0.7 Baso # (Auto) 0.0 Immature Gran % 2.5 Nucleated RBC % 0.0 Immature Gran # 0.38 Nucleated RBCs # 0.00 Sodium 139 Potassium 4.3 Chloride 98 Carbon Dioxide 32 Anion Gap 13.3 BUN 32 H Creatinine 0.80 GFR Calculation 123 BUN/Creatinine Ratio 40.00 H Glucose 217 H POC Glucose 196 H Calculated Osmolality 290.5 Calcium 8.7 Magnesium 2.1 Quality Measures - VTE Contraindication to Pharmacological VTE Prophylaxis: High Risk of Bleeding Specialty Discharge - Follow Up or Referrals Follow up with: Jerardo Thorne MD [Physician] - 11/28/16 12:50 pm (SLEEP STUDY APPT. NOVEMBER 28, 2016 AT 7:15 PM. PLEASE BRING ALL MEDICATIONS AND BE PREPARED TO BE ADMITTED. )
--- NOTE | 2016-11-20 14:44 | Post Interventional Procedure ---
Pre-op diagnosis: Pleural effusion Post-op diagnosis: same Procedure: US guided right thoracentesis Radiologist: Rito Bullock Anesthesia: local Specimens: none sent Estimated blood loss: none Complications: none Condition: stable Description/Findings: 300 cc old hematoma, loculated fluid pockets remain Assessment and Plan - Time spent with patient Time spent with patient: Less than 30 minutes
--- NOTE | 2016-11-20 15:05 | Ultrasound Report ---
US thoracentesis Indication: Right pleural effusion. ULTRASOUND-GUIDED THORACENTESIS Description: A formal timeout was performed. Maximum sterile barrier technique was used. A hypoechoic complex appearing right pleural effusion was identified with ultrasound. The right was prepped and draped in sterile fashion. Under sonographic guidance, a 6 Indonesian pigtail catheter was advanced into the effusion using trocar technique. A captured sonographic image documents needle position. The needle was removed. Through the catheter, we obtained a total of 300 cc of bloody, old hematoma appearing fluid. The catheter was removed. A bandage was placed at the puncture site. The patient tolerated the procedure well. Chest radiograph is pending. Impression: Ultrasound-guided thoracentesis. Able to obtain only 300 cc today. Unfortunately, this appears to be a somewhat organized and loculated old hemothorax. PROCEDURE INTERPRETED AT [facility] DEPARTMENT OF RADIOLOGY Final Report Signed by: Rito Bullock M.D.
--- NOTE | 2016-11-20 15:08 | XRay Report ---
XR chest post procedure Indication: Status post thoracentesis. Post procedure chest radiograph, 2 views: Inspiratory and expiratory views of the chest were obtained. No pneumothorax shown following thoracentesis. The right lung base remains opacified and it is unclear whether this represents residual subpulmonic fluid or worsening elevation of the right hemidiaphragm. Of interest, chest x-ray 08/12/2016 did show moderate elevation of the right hemidiaphragm, although not as pronounced as today. Left lung and pleural space appear clear. Borderline cardiomegaly is unchanged. Impression: No pneumothorax following thoracentesis. Suspect a significant amount of the opacification of the right lung base is elevated right hemidiaphragm as opposed to significant subpulmonic fluid. Consider CT chest if shortness of breath persists. PROCEDURE INTERPRETED AT [facility] DEPARTMENT OF RADIOLOGY Final Report Signed by: Rito Bullock M.D.
--- NOTE | 2016-11-20 15:50 | Sleep Medicine Progress Note ---
Assessment and Plan (1) Obstructive sleep apnea Status: Chronic Assessment and plan: Continue auto titration BiPAP. With this improvement with BiPAP, we may be able to just order her own BiPAP device at settings of 10/4. [facility], she could just be set up on a BiPAP device at those pressures. Current Visit: Yes (2) coronary artery disease Status: Chronic Current Visit: Yes (3) hypertension Status: Chronic Current Visit: No Sleep Medicine Subjective Interval history: Came by to check on patient see how she was doing with her autotitration Pap. Her usage over the weekend was poor. Her daily usage right is about 87% and her averages about 3 hours and 38 minutes. She used very little last night. What is notably improved as her results with auto titration BiPAP. Her average AHI is now down to 1.8 with pressure settings of 9/4. This is a very encouraging trend. I explained the benefit of BiPAP to the patient. It is noted that she has been having issues with recurrent pleural effusion and had her second thoracentesis today. Compliance with her BiPAP may decrease the amount of negative inspiratory force for breathing during her sleep which may have some impact on pleural fluid development. She complained about drying of her upper airway is a reason why she was not using her BiPAP as much. I was unable to adjust her humidification and will ask the sleep techs to come by and address that, to increase humidification with her BiPAP. She had some epistaxis over the weekend and drying of the upper airway can contribute to this problem. Exam (Progress Note) - Constitutional Vitals: Period Temp Pulse Resp BP Sys/Allen Pulse Ox Last 24 Hr 97.4 F-98.4 F 70-84 16-20 119-192/61-114 92-98 Exam: She is alert and responsive. She appears tired. Neck supple without adenopathy chest was symmetrical breath sounds without focal wheezes or rhonchi. Sternal wound incision appears okay. Abdomen obese nontender without palpable hepatosplenomegaly or mass. Extremities without increased edema. Neurologically, she is grossly intact. Results - Labs CBC & BMP: 11/20/16 04:16 11/20/16 04:16 Lab Results: I have reviewed the past 24 hour labs Specialty Discharge - Follow Up or Referrals Follow up with: Jerardo Thorne MD [Physician] - 11/28/16 12:50 pm ()
[2016-11-20] MEDS: ROSUVASTATIN 10 MG TABLET PO SCH (21:25)
[2016-11-20] MEDS: APIXABAN 5 MG TABLET PO SCH (21:25)
[2016-11-20] MEDS: ZALEPLON 5 MG CAPSULE PO PRN (21:26)
[2016-11-21] MEDS: LEVOTHYROXINE 100 MCG TABLET PO SCH (06:48)
[2016-11-21 07:29] LABS: Basophils % 0.1 % (0.0-0.8); Eosinophils # 0.7 10*3/uL (0.0-0.87); Eosinophils % 4.9 % (0.00-10.9); Hematocrit 33.5 VOL% (35.7-47.0); Hemoglobin 10.9 GM/DL (12.0-16.0); Immature Granulocytes % 1.8 %; Immature Granulocytes Absolute 0.25 #; Lymphocytes # 2.1 10*3/uL (1.4-4.0); Lymphocytes % 15.2 % (21.3-54.2); Mean Corpuscular HGB Conc 32.5 GM/DL (32-36); Mean Corpuscular Hemoglobin 30 PG (27-34); Mean Platelet Volume 9.8 FL (9.6-12.0); Monocytes # 0.9 10*3/uL (0.11-0.8); Monocytes % 6.7 % (1.7-12.7); Neutrophils % 71.3 % (38.7-73.9); Platelet Count 432 T/CUMM (130-400); Red Blood Count 3.64 MC/CUMM (3.8-5.5); Red Cell Distribution Width 13.7 % (9.3-17.3)
[2016-11-21] MEDS: INSULIN LISPRO 100 UNIT/ML SUBCUT SCH ×4 (07:34→20:54)
[2016-11-21 07:56] LABS: Calcium 8.7 MG/DL (8.5-10.1); Osmolality,Calculated 285.3 MOS/KG (273-304)
[2016-11-21] MEDS: ASCORBIC ACID 500 MG TABLET PO SCH ×2 (08:29→20:47)
[2016-11-21] MEDS: FERROUS SULFATE 325 MG TABLET PO SCH (08:29)
[2016-11-21] MEDS: FUROSEMIDE 40 MG TABLET PO SCH (08:30)
[2016-11-21] MEDS: AMOXICILLIN/CLAV 500 MG TABLET PO SCH ×2 (08:30→20:54)
[2016-11-21] MEDS: SPIRONOLACTONE 25 MG TABLET PO SCH (08:30)
[2016-11-21] MEDS: AMIODARONE 200 MG TABLET PO SCH ×2 (08:30→20:46)
[2016-11-21] MEDS: PANTOPRAZOLE 40 MG TABLET PO SCH (08:30)
[2016-11-21] MEDS: oxyCODONE/ACETAMINOPHEN 5-325 MG TABLET PO PRN (08:30)
[2016-11-21] MEDS: VALSARTAN 80 MG TABLET PO SCH ×2 (08:30→20:47)
[2016-11-21] MEDS: DOCUSATE SODIUM 100 MG CAPSULE PO SCH (08:30)
[2016-11-21] MEDS: CARVEDILOL 6.25 MG TABLET PO SCH ×2 (08:30→20:46)
[2016-11-21] MEDS: INSULIN ASPART PROTAMINE/ASPART 70/30 100 UNIT/ML SUBCUT SCH ×2 (08:34→16:08)
--- NOTE | 2016-11-21 09:01 | Cardiothoracic Progress Note ---
Cardiothoracic Subjective Interval history: Patient looks and feels okay. She had a difficult night because of repeated episodes of nosebleed where she relates to her CPAP mask but I suspect is more related to her anticoagulation. As she has remained in sinus rhythm think it is reasonable to discontinue her Eliquis. Otherwise she has been fairly stable and is breathing comfortably. We will try to get her out of bed some today and hopefully gradually be able to increase her activity. Exam (Progress Note) - Constitutional Vitals: Period Temp Pulse Resp BP Sys/Allen Pulse Ox Last 24 Hr 97.7 F-98.6 F 68-76 18-20 114-192/61-100 94-98 Result/EKG - Labs CBC & BMP: 11/21/16 07:07 11/21/16 07:07 Labs: Laboratory Results - last 24 hr 11/20/16 11/20/16 11/20/16 11:57 16:05 20:12 WBC RBC Hgb Hct MCV MCH MCHC RDW Plt Count MPV Neut % (Auto) Lymph % (Auto) [place] % (Auto) Eos % (Auto) Baso % (Auto) Neut # (Auto) Lymph # (Auto) Moore # (Auto) Eos # (Auto) Baso # (Auto) Immature Gran % Nucleated RBC % Immature Gran # Nucleated RBCs # Sodium Potassium Chloride Carbon Dioxide Anion Gap BUN Creatinine GFR Calculation BUN/Creatinine Ratio Glucose POC Glucose 138 H 136 H 60 L Calculated Osmolality Calcium Magnesium 11/21/16 11/21/16 11/21/16 07:07 07:07 07:31 WBC 14.0 H RBC 3.64 L Hgb 10.9 L Hct 33.5 L MCV 92.0 MCH 30 MCHC 32.5 RDW 13.7 Plt Count 432 H MPV 9.8 Neut % (Auto) 71.3 Lymph % (Auto) 15.2 L Moore % (Auto) 6.7 Eos % (Auto) 4.9 Baso % (Auto) 0.1 Neut # (Auto) 10.0 H Lymph # (Auto) 2.1 Moore # (Auto) 0.9 H Eos # (Auto) 0.7 Baso # (Auto) 0.0 Immature Gran % 1.8 Nucleated RBC % 0.0 Immature Gran # 0.25 Nucleated RBCs # 0.00 Sodium 141 Potassium 4.0 Chloride 102 Carbon Dioxide 30 Anion Gap 13.0 BUN 28 H Creatinine 0.70 GFR Calculation 124 BUN/Creatinine Ratio 40.00 H Glucose 76 POC Glucose 103 Calculated Osmolality 285.3 Calcium 8.7 Magnesium 2.0 Quality Measures - VTE Contraindication to Pharmacological VTE Prophylaxis: High Risk of Bleeding Specialty Discharge - Follow Up or Referrals Follow up with: Jerardo Thorne MD [Physician] - 11/28/16 12:50 pm ()
[2016-11-21] MEDS: CHLORHEXIDINE 0.12% ORAL RINSE 60 ML BOTTLE SWISH/SPIT SCH ×2 (09:05→20:55)
[2016-11-21] MEDS: APIXABAN 5 MG TABLET PO SCH (09:06)
--- NOTE | 2016-11-21 09:46 | Internal Med Progress Note ---
Assessment and Plan (1) coronary artery disease Status: Chronic Assessment and plan: 71-year-old female admitted to acute care * Coronary artery disease. Better. * Diabetes. Continue current treatment * Hypothyroidism. Continue Synthroid * Hypertension. Blood pressure is stable * Right pleural effusion. 300 cc of fluid removed. * A. fib. Patient is in sinus rhythm * Okay to go to swing bed * Continue PT and OT Current Visit: Yes (2) hyperlipidemia Status: Chronic Current Visit: No (3) hypertension Status: Chronic Current Visit: Yes (4) hypothyroidism Status: Chronic Current Visit: No (5) type 2 diabetes mellitus Status: Chronic Current Visit: Yes Internal Medicine - PN: Subj Interval history: She is feeling better this morning. Patient underwent thoracentesis with about 300 cc of dried blood removed. She denies any chest pain or shortness of breath Exam (Progress Note) - Constitutional Vitals: Period Temp Pulse Resp BP Sys/Allen Pulse Ox Last 24 Hr 97.7 F-98.6 F 68-76 18-20 114-192/61-100 94-98 Exam: Examination: GENERAL: No acute distress NECK: Neck is supple. CVS: Regular rate and rhythm. Systolic ejection murmur at left sternal border. RESPIRATORY: Better air entry ABDOMEN: Soft and nontender. EXT: 1+ edema Results - Labs CBC & BMP: 11/21/16 07:07 11/21/16 07:07 Lab Results: I have reviewed the past 24 hour labs Quality Measures - VTE Contraindication to Pharmacological VTE Prophylaxis: High Risk of Bleeding Specialty Discharge - Follow Up or Referrals Follow up with: Jerardo Thorne MD [Physician] - 11/28/16 12:50 pm ()
--- NOTE | 2016-11-21 10:26 | Cardiology Progress Note ---
<Joselin Sullivan E - Last Filed: 11/21/16 10:27> Assessment and Plan (1) S/P CABG (coronary artery bypass graft) Problem details: Repeat done this admission, 11/10/16 Status: Chronic Assessment and plan: See plan of care listed below Current Visit: Yes (2) Hyperkalemia Status: Resolved Assessment and plan: See plan of care listed below Current Visit: Yes (3) Debilitated patient Status: Chronic Assessment and plan: See plan of care listed below Current Visit: Yes (4) Anemia Status: Chronic Assessment and plan: See plan of care listed below Current Visit: Yes (5) Abnormal TSH Status: Chronic Assessment and plan: See plan of care listed below Current Visit: Yes (6) type 2 diabetes mellitus Status: Chronic Assessment and plan: See plan of care listed below Current Visit: Yes (7) coronary artery disease Status: Chronic Assessment and plan: See plan of care listed below Current Visit: Yes (8) hypertension Status: Chronic Assessment and plan: See plan of care listed below Current Visit: Yes (9) Atrial flutter Status: Resolved Assessment and plan: See plan of care listed below Current Visit: Yes (10) Epistaxis Status: Acute Assessment and plan: SEE PLAN OF CARE LISTED BELOW Current Visit: Yes Cardiology - PN: Subj Interval history: MACHINE STOPPAGE FREQUENCY CHECKER: DR. THORNE PCP: DR. SNELL SUMMARY: 71-year-old -[place] female routinely followed by Dr. Thorne. History of known coronary artery disease status post CABG. She was admitted for elective cardiac catheterization November 03, 2016 for abnormal stress test. She was found to have severe CAD. CV Surgery was consulted and she underwent re-do CABG Thursday, November 10, 2016 to include ИРИНА (free graft) to LAD, performed by Dr. Mcotezuma. EF 40-50%. Required thoracentesis for recurrent pleural effusion and tolerated well. Developed atrial flutter postoperatively. She was loaded with IV Amiodarone and ultimately oral Amiodarone as well as Vitamin C. Friday, November 18, 2016, she underwent DCCV. With one shock she converted to, and has remained in, normal sinus rhythm. She is on low-dose Eliquis 2.5 mg orally twice daily as well as Plavix 75 mg orally daily. She has an aspirin allergy. NOVEMBER 20, 2016: POD 10. Over the weekend, white blood cell count has been elevated. She is being worked up for possible infectious process. She is currently being treated for recurrent UTI. WBC has decreased to 15K this morning. Initially, Plavix was initiated last week because she was intolerant of aspirin. She then developed atrial flutter and has been maintained on Eliquis 2.5 mg orally twice daily. Will discuss with Dr. Bryant possibly stopping Plavix and increasing Eliquis to 5 mg orally twice daily. In the morning, will decrease Amiodarone to 200 mg orally twice daily. She is tolerating beta blockade, ARB, lipid-lowering agent. Hopefully, she will be eligible for swing bed today. She did not have a good night last night, did not sleep well. However, this morning she states she is feeling better today than she has in several days. NOVEMBER 21, 2016: POD 11. This morning, patient reports she is feeling well. Tired. Was awake frequently during the night due to moderately severe epistaxis for two or three consecutive nights. She is taking Eliquis for stroke prevention for atrial fibrillation. This is new onset during this admission. She has remained in NSR for over five days. We will stop Eliquis and continue Amiodorone to maintain NSR. Hopefully, she will be transitioned to swingbed soon. ASSESSMENT/PLAN: 1. KNOWN CAD S/P re-do CABG - POD 11. Continues to slowly improve. Hopefully , eligible for discharge to [facility] soon. 2. HYPERTENSION - tolerating betablocker and ARB. 3. DYSLIPIDEMIA - continue Crestor each evening. LDL 67. 4. DIABETES - blood glucose levels have been well controlled during this hospital stay 5. SLEEP APNEA - recently diagnosed during this hospitalization. Dr. Rodrigues seeing. 6. ABNORMAL TSH - thyroid replacement adjusted during this hospitalization. 7. ANEMIA - stable. ALLERGY TO ASA. Anemia is stable. 8. HYPERKALEMIA - resolved. 9. HYPOMAGNESEMIA - replace and follow labs routinely. 10. ATRIAL FLUTTER - new onset this hospitalization. After DCCV, remains in NSR. Continue Amiodorone 200mg BID for one week. (November 27, 2016 decrease to 200mg orally daily if remains in NSR. 11. EPISTAXIS - stopping Eliquis and will monitor. 12. ASA ALLERGY - severe nausea and vomitting. Exam (Progress Note) - Constitutional Vitals: Period Temp Pulse Resp BP Sys/Allen Pulse Ox Last 24 Hr 97.7 F-98.6 F 68-76 18-20 114-192/61-100 94-98 Exam: General: [Appears well with no apparent distress. Wakes easily and returns to sleep quickly.] [Pleasant and cooperative. ] [Appears comfortable.] HEENT: [Bilateral arcus noted. Normocephalic, atraumatic. Mucous membranes moist. No jaundice noted. Conjunctiva moist and clear, sclerae anicteric] Neck: No obvious JVD/HJR, no thyromegaly or lymphadenopathy noted. No carotid bruit appreciated Cardiac: [Regular rate and rhythm.] [No murmur rub or gallop.] Chest: Breast binder intact. Dressing to chest intact. Lungs: [Relatively clear. No accessory muscle use to assist the respiratory pattern.] Wearing oxygen intermittently Abdomen: Soft, bowel sounds normoactive. Nontender and nondistended. No abdominal bruit or thrill noted. No masses noted. Musculoskeletal: No fluid collection. Decreased range of motion is noted. Extremities: SCDs to BLE. Trace BLE edema noted. No clubbing, cyanosis noted. Upper extremity pulses 2+. Lower extremity pulses 2+. Capillary refill less than 3 seconds. Skin: No unusual lesions or rashes. No skin breakdown appreciated. Left lower back excoriation improving, covered with dressing. Neuro: Awake, alert and oriented 3. Left-sided hemiparesis lower extremity noted (chronic.) No essential tremor is appreciated. Result/EKG - Labs CBC & BMP: 11/21/16 07:07 11/21/16 07:07 Lab Results: I have reviewed the past 24 hour labs Labs: Laboratory Results - last 24 hr 11/20/16 11/20/16 11/20/16 11:57 16:05 20:12 WBC RBC Hgb Hct MCV MCH MCHC RDW Plt Count MPV Neut % (Auto) Lymph % (Auto) [place] % (Auto) Eos % (Auto) Baso % (Auto) Neut # (Auto) Lymph # (Auto) [place] # (Auto) Eos # (Auto) Baso # (Auto) Immature Gran % Nucleated RBC % Immature Gran # Nucleated RBCs # Sodium Potassium Chloride Carbon Dioxide Anion Gap BUN Creatinine GFR Calculation BUN/Creatinine Ratio Glucose POC Glucose 138 H 136 H 60 L Calculated Osmolality Calcium Magnesium 11/21/16 11/21/16 11/21/16 07:07 07:07 07:31 WBC 14.0 H RBC 3.64 L Hgb 10.9 L Hct 33.5 L MCV 92.0 MCH 30 MCHC 32.5 RDW 13.7 Plt Count 432 H MPV 9.8 Neut % (Auto) 71.3 Lymph % (Auto) 15.2 L [place] % (Auto) 6.7 Eos % (Auto) 4.9 Baso % (Auto) 0.1 Neut # (Auto) 10.0 H Lymph # (Auto) 2.1 [place] # (Auto) 0.9 H Eos # (Auto) 0.7 Baso # (Auto) 0.0 Immature Gran % 1.8 Nucleated RBC % 0.0 Immature Gran # 0.25 Nucleated RBCs # 0.00 Sodium 141 Potassium 4.0 Chloride 102 Carbon Dioxide 30 Anion Gap 13.0 BUN 28 H Creatinine 0.70 GFR Calculation 124 BUN/Creatinine Ratio 40.00 H Glucose 76 POC Glucose 103 Calculated Osmolality 285.3 Calcium 8.7 Magnesium 2.0 - EKG EKG results: interpreted by me EKG shows: sinus rhythm Quality Measures - VTE Contraindication to Pharmacological VTE Prophylaxis: High Risk of Bleeding Specialty Discharge - Follow Up or Referrals Follow up with: Jerardo Thorne MD [Physician] - 11/28/16 12:50 pm () <Rito Bryant - Last Filed: 11/21/16 13:48> Cardiology - PN: Subj Interval history: Patient personally interviewed and examined and chart reviewed. Discussed case with Joselin Sullivan CIRCULAR KNITTER HELPER. Agree with assessment and evaluation and plan. She presently now is on a decreased dose amiodarone. The helical is had be stopped because of some nosebleeds earlier today. She's not very aggressive at getting out of bed. She continued to be weak and frail. She has no real specific complaints. She certainly will probably need to be placed in a swing bed to transition home. Fortunately she is remaining in sinus rhythm. Her lab work has been stable remains so. Electrolytes/chemistries and CBC is unremarkable. Telemetry without dysrhythmias and remains in sinus rhythm. General her progress is going to be slow Exam (Progress Note) - Constitutional Vitals: Period Temp Pulse Resp BP Sys/Allen Pulse Ox Last 24 Hr 97.7 F-98.6 F 68-81 18-20 114-192/65-100 94-98 Result/EKG - Labs CBC & BMP: 11/21/16 07:07 11/21/16 07:07 Labs: Laboratory Results - last 24 hr 11/20/16 11/20/16 11/21/16 16:05 20:12 07:07 WBC RBC Hgb Hct MCV MCH MCHC RDW Plt Count MPV Neut % (Auto) Lymph % (Auto) [place] % (Auto) Eos % (Auto) Baso % (Auto) Neut # (Auto) Lymph # (Auto) [place] # (Auto) Eos # (Auto) Baso # (Auto) Immature Gran % Nucleated RBC % Immature Gran # Nucleated RBCs # Sodium 141 Potassium 4.0 Chloride 102 Carbon Dioxide 30 Anion Gap 13.0 BUN 28 H Creatinine 0.70 GFR Calculation 124 BUN/Creatinine Ratio 40.00 H Glucose 76 POC Glucose 136 H 60 L Calculated Osmolality 285.3 Calcium 8.7 Magnesium 2.0 11/21/16 11/21/16 11/21/16 07:07 07:31 11:40 WBC 14.0 H RBC 3.64 L Hgb 10.9 L Hct 33.5 L MCV 92.0 MCH 30 MCHC 32.5 RDW 13.7 Plt Count 432 H MPV 9.8 Neut % (Auto) 71.3 Lymph % (Auto) 15.2 L [place] % (Auto) 6.7 Eos % (Auto) 4.9 Baso % (Auto) 0.1 Neut # (Auto) 10.0 H Lymph # (Auto) 2.1 [place] # (Auto) 0.9 H Eos # (Auto) 0.7 Baso # (Auto) 0.0 Immature Gran % 1.8 Nucleated RBC % 0.0 Immature Gran # 0.25 Nucleated RBCs # 0.00 Sodium Potassium Chloride Carbon Dioxide Anion Gap BUN Creatinine GFR Calculation BUN/Creatinine Ratio Glucose POC Glucose 103 142 H Calculated Osmolality Calcium Magnesium
--- NOTE | 2016-11-21 14:00 | Sleep Medicine Progress Note ---
Assessment and Plan (1) Obstructive sleep apnea Status: Chronic Assessment and plan: Ms. Serra has been unable to utilize BiPAP therapy for the past several nights due to epistaxis. Her anticoagulant has been discontinued so hopefully, she will be able to resume her therapy with no further complications. With her bedside device at hand, I instructed her on adjustment of humidification settings so she can adjust as needed. She may also use saline nasal spray or gel for persistent nasal dryness. She will need to continue BiPAP therapy at a pressure setting of 10/4 throughout this hospitalization as well her duration at the swing bed facility. [facility] or other facility will need to provide a BIPAP device for use during that stay. I will also provide a detailed written order for new device and needed supplies pending her swing bed discharge. She will be scheduled for follow up visit in sleep clinic. She is able to verbalize the importance of using her device nightly for at least 4 hours so hopefully she will remain compliant with therapy. As she is aware of the risks and benefits of treatments and her sleep apnea has improved with use of BIPAP, further follow up will be scheduled in sleep clinic. If any further care is needed, please contact the sleep lab. Current Visit: Yes Sleep Medicine Subjective Interval history: Ms. Serra is sitting upright in bed visiting with her daughter and granddaughter. She reports feeling better this morning. She was unable to tolerate BiPAP therapy again last night due to persistent nosebleeds which have been a problem for the last 2-3 days. Her humidification setting on BIPAP is 4 which is close to maximum humidification. She does not like the air blowing "too warm" so will probably be intolerant of any higher humidity setting. She underwent a HST on November 07 and remained positive for obstructive sleep apnea with a diagnostic AHI of 16.5 along with oxygen desaturations as low as 57%. Prior to development of epistaxis, she was tolerating BiPAP therapy well. She will be transitioning to swing bed as early as today. Exam (Progress Note) - Constitutional Vitals: Period Temp Pulse Resp BP Sys/Allen Pulse Ox Last 24 Hr 97.7 F-98.6 F 68-81 18-20 114-192/65-100 94-98 General appearance: no acute distress - Respiratory Respiratory exam: Present: clear to auscultation bilaterally - Cardiovascular Cardiovascular exam: Present: regular rate and rhythm - GI/Abdominal GI/Abdominal exam: Present: normal bowel sounds, soft - Extremities Exam Extremities exam: Present: normal capillary refill - Neurological Exam Neurological exam: Present: alert, oriented X3 - Psychiatric Psychiatric exam: Present: normal mood - Skin Skin exam: Present: warm, dry Results - Labs CBC & BMP: 11/21/16 07:07 11/21/16 07:07 Specialty Discharge - Follow Up or Referrals Follow up with: Jerardo Thorne MD [Physician] - 11/28/16 12:50 pm ()
[2016-11-21] MEDS: ROSUVASTATIN 10 MG TABLET PO SCH (20:47)
[2016-11-22 05:25] LABS: Basophils % 0.1 % (0.0-0.8); Eosinophils # 0.9 10*3/uL (0.0-0.87); Eosinophils % 6.3 % (0.00-10.9); Hematocrit 31.7 VOL% (35.7-47.0); Hemoglobin 10.3 GM/DL (12.0-16.0); Immature Granulocytes % 1.9 %; Immature Granulocytes Absolute 0.25 #; Lymphocytes # 2.3 10*3/uL (1.4-4.0); Lymphocytes % 17.2 % (21.3-54.2); Mean Corpuscular HGB Conc 32.5 GM/DL (32-36); Mean Corpuscular Hemoglobin 30 PG (27-34); Mean Corpuscular Volume 91.1 FL (87-102); Mean Platelet Volume 9.6 FL (9.6-12.0); Monocytes # 0.7 10*3/uL (0.11-0.8); Monocytes % 5.4 % (1.7-12.7); Neutrophils # 9.3 10*3/uL (1.4-7.4); Neutrophils % 69.1 % (38.7-73.9); Platelet Count 416 T/CUMM (130-400); Red Blood Count 3.48 MC/CUMM (3.8-5.5); Red Cell Distribution Width 13.7 % (9.3-17.3); White Blood Count 13.5 T/CUMM (4-12)
[2016-11-22 05:59] LABS: Calcium 8.5 MG/DL (8.5-10.1); Magnesium 2.2 MG/DL (1.8-2.4); Osmolality,Calculated 287.1 MOS/KG (273-304); Potassium 4.1 MMOL/L (3.5-5.1)
[2016-11-22] MEDS: LEVOTHYROXINE 100 MCG TABLET PO SCH (06:37)
[2016-11-22 08:13] VITALS: BP 160/78
--- NOTE | 2016-11-22 08:43 | Internal Med Progress Note ---
Assessment and Plan (1) coronary artery disease Status: Chronic Assessment and plan: 71-year-old female admitted to acute care * Coronary artery disease. Better. Still quite weak. * Diabetes. Continue current treatment * Hypothyroidism. Continue Synthroid for now * Hypertension. Blood pressure is stable * Right pleural effusion. She is doing better * A. fib. Patient is in sinus rhythm. Her Eliquis was started * Okay to go to swing bed Current Visit: Yes (2) hyperlipidemia Status: Chronic Current Visit: No (3) hypertension Status: Chronic Current Visit: Yes (4) hypothyroidism Status: Chronic Current Visit: No (5) type 2 diabetes mellitus Status: Chronic Current Visit: Yes Internal Medicine - PN: Subj Interval history: She is feeling better this morning. She denies any specific complaints. She is still quite weak Exam (Progress Note) - Constitutional Vitals: Period Temp Pulse Resp BP Sys/Allen Pulse Ox Last 24 Hr 97.3 F-98 F 68-81 18-20 127-160/66-78 95-100 Exam: Examination: GENERAL: No acute distress NECK: Neck is supple. CVS: Regular rate and rhythm. Systolic ejection murmur at left sternal border. RESPIRATORY: Better air entry ABDOMEN: Soft and nontender. EXT: 1+ edema Results - Labs CBC & BMP: 11/22/16 05:17 11/22/16 05:17 Lab Results: I have reviewed the past 24 hour labs Quality Measures - VTE Contraindication to Pharmacological VTE Prophylaxis: High Risk of Bleeding Specialty Discharge - Follow Up or Referrals Follow up with: Jerardo Thorne MD [Physician] - 11/28/16 12:50 pm ()
--- NOTE | 2016-11-22 08:44 | Discharge Summary ---
Hospital Course - Hospital Course Hospital Course: History of present illness: The patient is a 71-year-old lady who underwent bypass surgery approximately 20 years ago. Her left internal mammary was unsuitable for grafting and therefore she underwent vein grafting with grafts to the right anterior descending and circumflex marginal coronary arteries. She done well until recently when she began to experience recurrent chest discomfort. A cardiac catheterization she was found to have occlusion of her vein grafts and the only really suitable distal target for grafting was her anterior descending coronary artery which was a large vessel. She was recommended for bypass surgery. Past medical history review of systems social history and family history are documented in her previous note. Of significance is that she had polio as a child and has weakness on her left side particularly her left leg limiting her mobility. Hospital course: The patient was taken to surgery and underwent single-vessel grafting with a right internal mammary artery graft used as a free graft to the anterior descending coronary artery. Patient's postoperative course was relatively uncomplicated except for the development of atrial flutter. This responded to cardioversion and amiodarone therapy. She was in sinus rhythm at the time of transfer to a swing bed. Primary problem she had postoperative the is related to her limited ability to ambulate because of her weak left side. Accordingly she is going to be transferred to swing bed care for additional rehabilitation. She will return for follow-up in 1 month. Discharge medications are listed below. Specialty Discharge - Follow Up or Referrals Follow up with: Jerardo Thorne MD [Physician] - 11/28/16 12:50 pm () Ramesh Moctezuma MD [Physician] - 01/23/17 Discharge Plan - Discharge Data Disposition: Swing Bed, [facility] Based, [facility] Condition at Discharge: Stable Discharge Diet: advance to your usual diet Activity: resume usual activities as tolerated Hygiene: no restrictions Weight Bearing at Discharge: weight bear as tolerated Driving: not until seen by doctor - Discharge Medications New Acetaminophen Tab [Tylenol Tab] 650 mg PO Q4H PRN #0 tablet PRN Reason: Temperature greater than 100F Amoxicillin/Clav Tab [Augmentin Tab] 500 mg PO BID tablet Furosemide Tab [Lasix Tab] 40 mg PO DAILY tablet Ondansetron Inj [Zofran Inj] 4 mg IV Q4H PRN #0 vial PRN Reason: Nausea/Vomiting oxyCODONE/ACETAMINOPHEN 5-325 [Percocet 5-325] 1 tablet PO Q4H PRN #0 tablet PRN Reason: Pain Mild (1-3) Alum/Mag/Simeth Max Str Liquid [Mylanta Max Strength Liquid] 30 ml PO Q4H PRN #0 PRN Reason: Dyspepsia Amiodarone Tab [Cordarone Tab] 200 mg PO BID tablet Ascorbic Acid Tab [Vitamin C Tab] 1,000 mg PO BID tablet Carvedilol [Coreg] 6.25 mg PO BID tablet Chlorhexidine 0.12% Oral Rinse [Peridex] 15 ml SWISH/SPIT BID bottle Dextrose 50% [D50] 25 gm IV PRN PRN #0 vial PRN Reason: Hypoglycemia with IV access Docusate Sodium Cap [Colace Cap] 100 mg PO DAILY capsule Ferrous Sulfate Tab [Feosol Original Tab] 325 mg PO DAILY tablet Glucagon 1 mg IM PRN PRN #0 vial PRN Reason: Hypoglycemia w/o IV access Magnesium Hydroxide Susp [Milk of Magnesia] 30 ml PO Q6H PRN #0 PRN Reason: Constipation Magnesium Sulf Chilo [Magnesium Sulfate Inj] 4 gm IV .PER PROTOCOL PRN #0 PRN Reason: Per Protocol Magnesium Sulf [place]ilo [Magnesium Sulfate Inj] 2 gm IV .PER PROTOCOL PRN #0 PRN Reason: Per Protocol Pantoprazole Tab [Protonix Tab] 40 mg PO DAILY tablet Potassium Chloride Cap/Tab [K Dur] 20 meq PO .PER PROTOCOL PRN #0 tablet PRN Reason: Per Protocol Rosuvastatin [Crestor] 10 mg PO BEDTIME tablet Spironolactone [Aldactone] 25 mg PO DAILY tablet Valsartan [Diovan] 40 mg PO BID tablet Zaleplon [Sonata] 5 mg PO BEDTIME PRN #0 capsule PRN Reason: Sleep Continue Fluticasone/Salmeterol 250-50 [Advair 250-50] 1 puff INH BID Allopurinol [Zyloprim] 450 mg PO DAILY Gabapentin 600 mg PO TID Aspirin EC Tab 81 mg PO DAILY Valsartan [Diovan] 160 mg PO DAILY tablet Insulin NPH Hum/Reg Insulin Hm [NovoLIN 70/30] 35 units SUBCUT BID Levothyroxine Tab [Synthroid Tab] 200 mcg PO DAILY@0700 tablet Metoprolol Tartrate Tab [Lopressor Tab] 50 mg PO BID tablet Discontinued Simvastatin [Zocor] 10 mg PO BEDTIME Nitroglycerin Sl Tab [Nitrostat] 0.4 mg SL Q5M PRN MDD 3 PRN Reason: Chest Pain Furosemide Tab [Lasix Tab] 80 mg PO DAILY PRN PRN Reason: Fluid Retention Isosorbide Dinitrate [Isordil] 40 mg PO TID Clopidogrel [Plavix] 75 mg PO DAILY Amlodipine Besylate 5 mg PO DAILY Spironolactone [Aldactone] 25 mg PO DAILY Tramadol HCl [Tramadol Tab] 50 mg PO TID Dicyclomine Cap/Tab [Bentyl Cap/Tab] 10 mg PO Q8HR Valacyclovir HCl [Valacyclovir] 1,000 mg PO DAILY Magnesium Chloride [Slow Mag] 128 mg PO BID Potassium Chloride 20 meq PO BID Levothyroxine Tab [Synthroid Tab] 100 mcg PO DAILY@0700 Ranitidine Tab [Zantac Tab] 150 mg PO BID - Follow Up or Referral Follow Up: Jerardo Thorne MD [Physician] - 11/28/16 12:50 pm () - Forms/Instructions Instructions: Apixaban (By mouth), Atrial Fibrillation (GEN), Heart Healthy Diet (GEN), Coronary Artery Bypass Graft, Hospice Liaison (GEN), Sternal Precautions (GEN) Exam - Constitutional Vitals: Period Temp Pulse Resp BP Sys/Allen Pulse Ox Last 24 Hr 97.3 F-98 F 68-81 18-20 127-160/66-78 95-100 Discharge Results Procedures and tests throughout hospitalization: Pending Orders 11/09/16 09:12 Fresh Frozen Plasma Routine Red Blood Cells Leuko Red Routine Single Donor Platelets Routine Type and Screen Routine 11/23/16 04:00 BMP w/ Mg [Basic Metabolic Panel w/Mg] IN AM CBC [Comp Blood Count Auto Diff] IN AM 11/24/16 04:00 BMP w/ Mg [Basic Metabolic Panel w/Mg] IN AM CBC [Comp Blood Count Auto Diff] IN AM Labs on day of discharge: Labs from last 24 hours 11/22/16 11/22/16 11/22/16 07:56 : 05: WBC 13.5 H RBC 3.48 L Hgb 10.3 L Hct 31.7 L MCV 91.1 MCH 30 MCHC 32.5 RDW 13.7 Plt Count 416 H MPV 9.6 Neut % (Auto) 69.1 Lymph % (Auto) 17.2 L [place] % (Auto) 5.4 Eos % (Auto) 6.3 Baso % (Auto) 0.1 Neut # (Auto) 9.3 H Lymph # (Auto) 2.3 [place] # (Auto) 0.7 Eos # (Auto) 0.9 H Baso # (Auto) 0.0 Immature Gran % 1.9 Nucleated RBC % 0.0 Immature Gran # 0.25 Nucleated RBCs # 0.00 Sodium 142 Potassium 4.1 Chloride 104 Carbon Dioxide 32 Anion Gap 10.1 BUN 25 H Creatinine 0.70 GFR Calculation 124 BUN/Creatinine Ratio 35.00 H Glucose 121 H POC Glucose 169 H Calculated Osmolality 287.1 Calcium 8.5 Magnesium 2.2 11/21/16 11/21/16 11/21/16 20:42 16:02 11:40 WBC RBC Hgb Hct MCV MCH MCHC RDW Plt Count MPV Neut % (Auto) Lymph % (Auto) [place] % (Auto) Eos % (Auto) Baso % (Auto) Neut # (Auto) Lymph # (Auto) [place] # (Auto) Eos # (Auto) Baso # (Auto) Immature Gran % Nucleated RBC % Immature Gran # Nucleated RBCs # Sodium Potassium Chloride Carbon Dioxide Anion Gap BUN Creatinine GFR Calculation BUN/Creatinine Ratio Glucose POC Glucose 273 H 193 H 142 H Calculated Osmolality Calcium Magnesium DS: Provider Date of admission: 11/03/16 15:58 Primary care physician: . No PCP Attending physician on admission: Jerardo Thorne MD Consults: 11/07/16 09:31 Consult to Dietitian [CONS] Routine Reason for Dietitian: Other Consult Comment: low salt, low cholesterol, diet 11/14/16 17:14 Consult to Dietitian [CONS] Routine Reason for Dietitian: Diet Recommendations Consult Comment: pt's daughter would like to speak with you please about pt' s diet 11/16/16 09:06 Consult to Cardiac Rehabilitation [CONS] Routine Reason for Cardiac Rehabilitation: Other Consult Comment: Post CABG/heart surgery Consult to Diabetes Center, Educator [CONS] Routine Reason for Migratory Worker: Diabetes Education Initial Insulin Education Consult Comment: insulin education Consult to Dietitian [CONS] Routine Reason for Dietitian: Dietary Consult Consult Comment: Cardiac, low salt, low cholesterol diet Consult to Physical Therapy [CONS] Routine Reason for Physical Therapy: Other Consult Comment: CV Rehab Consult to Physician [CONS] Routine Comment: Management of diabetes Consulting Provider: Consult to Specialist Group: Hospitalist 11/17/16 09:16 Consult to Occupational Therapy [CONS] Routine Reason for Occupational Therapy: Evaluate and Treat 11/19/16 10:36 Consult to Case Mgmt/Social Srvs [CONS] Routine Reason for Case Mgmt/Social Srvs: Swingbed/SNF/Long Term Consult Comment: [facility] 11/20/16 07:30 Consult to Wound Care - [place] [CONS] Routine Reason for Wound Care: Wound Care Management Discharging clinician: Ramesh Moctezuma MD Expected date of discharge: 11/22/16
[2016-11-22] MEDS: ASCORBIC ACID 500 MG TABLET PO SCH (09:38)
[2016-11-22] MEDS: VALSARTAN 80 MG TABLET PO SCH (09:38)
[2016-11-22] MEDS: PANTOPRAZOLE 40 MG TABLET PO SCH (09:38)
[2016-11-22] MEDS: FUROSEMIDE 40 MG TABLET PO SCH (09:39)
[2016-11-22] MEDS: AMOXICILLIN/CLAV 500 MG TABLET PO SCH (09:39)
[2016-11-22] MEDS: CARVEDILOL 6.25 MG TABLET PO SCH (09:39)
[2016-11-22] MEDS: AMIODARONE 200 MG TABLET PO SCH (09:39)
[2016-11-22] MEDS: SPIRONOLACTONE 25 MG TABLET PO SCH (09:39)
[2016-11-22] MEDS: DOCUSATE SODIUM 100 MG CAPSULE PO SCH (09:39)
[2016-11-22] MEDS: INSULIN LISPRO 100 UNIT/ML SUBCUT SCH (09:39)
[2016-11-22] MEDS: CHLORHEXIDINE 0.12% ORAL RINSE 60 ML BOTTLE SWISH/SPIT SCH (09:40)
[2016-11-22] MEDS: FERROUS SULFATE 325 MG TABLET PO SCH (09:40)
[2016-11-22] MEDS: INSULIN ASPART PROTAMINE/ASPART 70/30 100 UNIT/ML SUBCUT SCH (09:40)
== END 2016-11-22 10:59 | disposition swing bed (61) | DRG 234 ==
LOC: N.CL 11:22 → N.TELEN 15:58 → N.CVR 11-10 07:44 → N.ICU 11-12 16:59 → N.TELES 11-16 12:32 → UNDODISIN 11-16 21:10
PROVIDERS: ADMIT Internal Medicine Cardiovascular Disease; ATTEND Internal Medicine Cardiovascular Disease

== ENCOUNTER 2018-11-05 09:14 | Observation (INO) ==
[2018-11-05] MEDS ORDERED: ENOXAPARIN 100 MG/ML SYRINGE SUBCUT STA (09:32)
[2018-11-05] MEDS ORDERED: ALUM/MAG/SIMETH/LIDO VISC 1:1 30 ML BOTTLE PO STA (09:32)
[2018-11-05] MEDS ORDERED: MORPHINE 4 MG/1 ML VIAL IV PRN (09:32)
[2018-11-05] MEDS ORDERED: NITROGLYCERIN 2% OINT 1 INCH/GM PACK TOP STA (09:32)
[2018-11-05] MEDS ORDERED: ONDANSETRON 4 MG/2 ML VIAL IV PRN (09:32)
[2018-11-05 10:33] LABS: Basophils % 0.2 % (0.0-0.8); Eosinophils # 0.3 10*3/uL (0.0-0.87); Eosinophils % 4.2 % (0.00-10.9); Hematocrit 35.3 VOL% (35.7-47.0); Hemoglobin 10.6 GM/DL (12.0-16.0); Immature Granulocytes % 0.3 %; Immature Granulocytes Absolute 0.02 #; Lymphocytes # 1.6 10*3/uL (1.4-4.0); Lymphocytes % 24.5 % (21.3-54.2); Mean Corpuscular Volume 91.2 FL (87-102); Mean Platelet Volume 11.5 FL (9.6-12.0); Neutrophils % 63.8 % (38.7-73.9); Platelet Count 209 T/CUMM (130-400); Red Blood Count 3.87 MC/CUMM (3.8-5.5); Red Cell Distribution Width 16.6 % (9.3-17.3); White Blood Count 6.5 T/CUMM (4-12)
[2018-11-05 10:42] LABS: PT Patient Result 10.7 SECS; Partial Thromboplastin Time 25.7 SECS (0-40)
[2018-11-05 10:51] LABS: Albumin 3.6 G/DL (3.4-5.0); Bilirubin,Total 0.7 MG/DL (0.2-1.0); Calcium 8.6 MG/DL (8.5-10.1); Osmolality,Calculated 284.3 MOS/KG (273-304); Total Protein 7.2 G/DL (6.4-8.3)
[2018-11-05 11:54] LABS: Apearance,Urine CLEAR (Clear); Bilirubin,Urine Negative (Negative); Blood, Urine Negative (Negative); Glucose,Urine (UA) Negative (Negative); Ketones,Urine Negative (Negative); Nitrite,Urine Negative (Negative); Protein,Urine Negative; RBC,Urine 1 /HPF (0-4); Squamous Epithelial Cell,Urine Occasional /HPF (0-10); Urine Color Yellow (Yellow); Urine Specific Gravity 1.011 (1.001-1.035); Urine Urobilinogen < 2.0 EU/DL (0.2-1.0); WBC,Urine <1 /HPF (0-6)
[2018-11-05 12:21] LABS: Barbiturates Screen,Urine Negative (Negative); Benzodiazepines Screen,Urine Negative (Negative); Cannabinoid Screen,Urine Negative (Negative); Opiate Screen,Urine Negative (Negative); Phencyclidine Screen,Urine Negative (Negative)
[2018-11-05] MEDS ORDERED: NITROGLYCERIN SL 0.4 MG TABLET SL PRN (13:44)
[2018-11-05] MEDS ORDERED: GLUCAGON 1 MG VIAL IM PRN (14:10)
[2018-11-05] MEDS ORDERED: MAGNESIUM SULF RIDER 4 GM in PREMIX 1 EACH IV PRN (14:10)
[2018-11-05] MEDS ORDERED: MAGNESIUM SULF RIDER 2 GM in PREMIX 1 EACH IV PRN (14:10)
[2018-11-05] MEDS ORDERED: DEXTROSE 50% 25 GM/50 ML VIAL IV PRN (14:10)
[2018-11-05] MEDS ORDERED: GABAPENTIN 300 MG CAPSULE ONE (15:35)
[2018-11-05] MEDS: GABAPENTIN 300 MG CAPSULE PO SCH ×2 (15:40→21:25)
[2018-11-05] MEDS ORDERED: DEXTROSE 50% 25 GM/50 ML SYRINGE IV PRN (17:00)
[2018-11-05] MEDS: INSULIN LISPRO 100 UNIT/ML SUBCUT SCH (18:39)
[2018-11-05] MEDS: SODIUM CHLORIDE 0.9% 1,000 ML IV SCH (18:40)
[2018-11-05] MEDS ORDERED: INSULIN NPH/REGULAR 70/30 100 UNIT/ML SUBCUT SCH (19:00)
[2018-11-05] MEDS: ROSUVASTATIN 10 MG TABLET PO SCH (21:25)
[2018-11-05] MEDS: ASPIRIN EC 325 MG TABLET PO SCH (21:26)
[2018-11-05] MEDS: CARVEDILOL 6.25 MG TABLET PO SCH (21:26)
[2018-11-05] MEDS: CELECOXIB 200 MG CAPSULE PO SCH (21:27)
[2018-11-05] MEDS: VALSARTAN 80 MG TABLET PO SCH (21:28)
[2018-11-05] MEDS: FLUTICASONE/SALMETEROL 250-50 DISKUS 14 DOSE INH SCH (21:34)
[2018-11-06] MEDS: INSULIN LISPRO 100 UNIT/ML SUBCUT SCH ×5 (00:24→21:54)
[2018-11-06] MEDS: DICYCLOMINE 10 MG CAPSULE PO PRN ×2 (02:22→21:56)
[2018-11-06] MEDS: SODIUM CHLORIDE 0.9% 1,000 ML IV SCH ×4 (02:24→21:59)
[2018-11-06 05:22] LABS: Basophils % 0.2 % (0.0-0.8); Eosinophils # 0.2 10*3/uL (0.0-0.87); Eosinophils % 4.4 % (0.00-10.9); Hematocrit 29.4 VOL% (35.7-47.0); Hemoglobin 8.8 GM/DL (12.0-16.0); Immature Granulocytes % 0.4 %; Immature Granulocytes Absolute 0.02 #; Lymphocytes # 1.5 10*3/uL (1.4-4.0); Lymphocytes % 29.4 % (21.3-54.2); Mean Corpuscular HGB Conc 29.9 GM/DL (32-36); Mean Platelet Volume 11.6 FL (9.6-12.0); Monocytes % 9.3 % (1.7-12.7); Neutrophils % 56.3 % (38.7-73.9); Platelet Count 180 T/CUMM (130-400); Red Blood Count 3.23 MC/CUMM (3.8-5.5); Red Cell Distribution Width 16.4 % (9.3-17.3); White Blood Count 5.2 T/CUMM (4-12)
[2018-11-06 05:38] LABS: Calcium 8.1 MG/DL (8.5-10.1); Osmolality,Calculated 283.1 MOS/KG (273-304)
[2018-11-06] MEDS: LEVOTHYROXINE 137 MCG TABLET PO SCH (06:25)
[2018-11-06] MEDS: INSULIN NPH/REGULAR 70/30 100 UNIT/ML SUBCUT SCH (08:01)
[2018-11-06] MEDS: ENOXAPARIN 40 MG/0.4 ML SYRINGE SUBCUT SCH (08:43)
[2018-11-06] MEDS: valACYclovir 500 MG TABLET PO SCH (08:44)
[2018-11-06] MEDS: GABAPENTIN 300 MG CAPSULE PO SCH ×3 (08:44→21:58)
[2018-11-06] MEDS: FUROSEMIDE 40 MG TABLET PO SCH (08:44)
[2018-11-06] MEDS: CARVEDILOL 6.25 MG TABLET PO SCH ×2 (08:44→21:58)
[2018-11-06] MEDS: amLODIPine 5 MG TABLET PO SCH (08:44)
[2018-11-06] MEDS: FLUTICASONE/SALMETEROL 250-50 DISKUS 14 DOSE INH SCH ×2 (08:44→21:54)
[2018-11-06] MEDS: CLOPIDOGREL 75 MG TABLET PO SCH (08:44)
[2018-11-06] MEDS: PANTOPRAZOLE 40 MG TABLET PO SCH (08:44)
[2018-11-06] MEDS: CELECOXIB 200 MG CAPSULE PO SCH ×2 (10:17→21:57)
[2018-11-06] MEDS: VALSARTAN 80 MG TABLET PO SCH ×2 (10:17→21:57)
[2018-11-06] MEDS ORDERED: ALUM/MAG/SIMETH/LIDO VISC 1:1 30 ML BOTTLE PO ONE (16:07)
[2018-11-06] MEDS ORDERED: INSULIN NPH/REGULAR 70/30 100 UNIT/ML SUBCUT SCH (17:00)
[2018-11-06] MEDS: traMADol 50 MG TABLET PO SCH ×2 (17:00→21:58)
[2018-11-06] MEDS: ROSUVASTATIN 10 MG TABLET PO SCH (21:56)
[2018-11-06] MEDS: ACETAMINOPHEN 325 MG TABLET PO SCH (21:58)
[2018-11-06] MEDS: ASPIRIN EC 325 MG TABLET PO SCH (21:58)
[2018-11-07] MEDS: LEVOTHYROXINE 137 MCG TABLET PO SCH (06:08)
[2018-11-07] MEDS: INSULIN LISPRO 100 UNIT/ML SUBCUT SCH ×2 (07:37→12:04)
[2018-11-07] MEDS ORDERED: CARVEDILOL 12.5 MG TABLET PO SCH (08:00)
[2018-11-07] MEDS: CELECOXIB 200 MG CAPSULE PO SCH (08:02)
[2018-11-07] MEDS: GABAPENTIN 300 MG CAPSULE PO SCH (08:02)
[2018-11-07] MEDS: ACETAMINOPHEN 325 MG TABLET PO SCH (08:02)
[2018-11-07] MEDS: VALSARTAN 80 MG TABLET PO SCH (08:02)
[2018-11-07] MEDS: CLOPIDOGREL 75 MG TABLET PO SCH (08:02)
[2018-11-07] MEDS: valACYclovir 500 MG TABLET PO SCH (08:02)
[2018-11-07] MEDS: amLODIPine 5 MG TABLET PO SCH (08:02)
[2018-11-07] MEDS: FUROSEMIDE 40 MG TABLET PO SCH (08:03)
[2018-11-07] MEDS: PANTOPRAZOLE 40 MG TABLET PO SCH (08:03)
[2018-11-07] MEDS: INSULIN NPH/REGULAR 70/30 100 UNIT/ML SUBCUT SCH (08:03)
[2018-11-07] MEDS: ENOXAPARIN 40 MG/0.4 ML SYRINGE SUBCUT SCH (08:03)
[2018-11-07] MEDS: traMADol 50 MG TABLET PO SCH (08:03)
[2018-11-07] MEDS: FLUTICASONE/SALMETEROL 250-50 DISKUS 14 DOSE INH SCH (08:03)
[2018-11-07 12:03] VITALS: BP 133/64
== END 2018-11-07 12:46 | disposition home health service (06) ==
LOC: EDUNIT# → EDBD → N.EDINP 09:14 → N.ED 09:14 → N.2E 16:39
PROVIDERS: ADMIT Internal Medicine; ATTEND Internal Medicine